=== PATIENT | female | born 1955 | race Caucasian/White ===

== ENCOUNTER 2023-05-15 13:54 | Outpatient (OUT) | payer MEDICARE, SELFPAY ==
--- NOTE | 2023-05-15 13:57 | XR_ITS ---
The [address] [address] Patient Name: ROBINA BANKS MRN: [id number] date: 1955 Sex: F Assigned Patient Location: [facility] Current Patient Location: RAD Accession/Order Number: [id number] Exam Date: 05/15/2023 14:00 Report Date: 05/16/2023 07:02 At the request of: LEÓN DUNLAP Procedure: XR chest 2V EXAMINATION: XR chest 2V HISTORY: Lung cancer C34.90 COMPARISON: 04/20/2023 TECHNIQUE: PA and lateral FINDINGS: LUNGS: Innumerable pulmonary nodules and masses throughout both lungs. Right basilar opacities obscuring the hemidiaphragm and heart border VASCULATURE: No increased pulmonary vasculature. PLEURA: No pneumothorax. Right pleural effusion CARDIAC: No cardiomegaly or cardiac silhouette abnormality. MEDIASTINUM: No visible mass or adenopathy. Aortic atherosclerosis BONES: S-shaped scoliosis of the spine OTHER: Negative. IMPRESSION: Grossly stable innumerable pulmonary nodules and masses Right basilar infiltrate, consolidation and/or subpulmonic effusion Electronically authenticated by: LYNNE ESPINOZA Date: 05/16/2023 07:02
== END 2023-05-15 13:55 ==
LOC: RAD 13:54
PROVIDERS: PCP Family Medicine; Visit Provider Family Medicine
DX: C34.90 Malignant neoplasm of unspecified part of unspecified bronchus or lung (principal)
CPT/HCPCS: 71046

== ENCOUNTER 2023-06-01 15:40 | Outpatient (OUT) | payer MEDICARE, SELFPAY ==
--- NOTE | 2023-06-01 15:44 | XR_ITS ---
[address] [address] Patient Name: ROBINA BANKS MRN: [id number] date: 1955 Sex: F Assigned Patient Location: [facility] Current Patient Location: Accession/Order Number: [id number] Exam Date: 06/01/2023 15:50 Report Date: 06/02/2023 07:28 At the request of: ANNA MORALES Procedure: XR chest 2V EXAMINATION: XR chest 2V HISTORY: Primary lung cancer C34.91, Pleural effusion J90 COMPARISON: 05/15/2023 TECHNIQUE: PA and lateral FINDINGS: LUNGS: Interval increase in size of innumerable pulmonary nodules and masses throughout both lungs. Right basilar opacity occupies approximately 40% of the right hemithorax volume obscuring the hemidiaphragm and heart border, grossly stable VASCULATURE: No increased pulmonary vasculature. PLEURA: No pneumothorax. Suspected right pleural effusion CARDIAC: No cardiomegaly or cardiac silhouette abnormality. MEDIASTINUM: No visible mass or adenopathy. BONES: S-shaped scoliosis. OTHER: Negative. IMPRESSION: Progression of innumerable pulmonary nodules and masses Stable right basilar infiltrate/pleural effusion Electronically authenticated by: LYNNE ESPINOZA Date: 06/02/2023 07:28
== END 2023-06-01 15:41 | disposition home or self-care (01) ==
LOC: RAD 15:40
PROVIDERS: PCP Family Medicine; Visit Provider Nurse Practitioner Family
DX: C34.91 Malignant neoplasm of unspecified part of right bronchus or lung (principal); J90 Pleural effusion, not elsewhere classified
CPT/HCPCS: 71046

== ENCOUNTER 2023-07-19 13:34 | Outpatient (OUT) | payer MEDICARE, SELFPAY ==
--- NOTE | 2023-07-19 13:41 | MR_ITS ---
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 15 mL gadolinium administered FINDINGS: 7 to 8 mm right parietal cortical enhancing lesion seen on image postgad 20. It appears to be slightly smaller than the prior examination suggesting treatment response. Patchy periventricular white matter signal abnormality and chronic small vessel ischemic change again detected No evidence of acute infarct. No acute hemorrhage. Multilevel degenerative disc disease MR/MR head/brain wo/w con IMPRESSION: Slight interval decrease in size of a right cortical parietal lesion presumably metastasis. This suggest treatment responses.. No definite new metastasis. slight motion degradation. Unchanged chronic small vessel ischemic change. Electronically authenticated by: KIMBERLY GAYTAN Date: 07/19/2023 15:42
== END 2023-07-19 13:35 | disposition home or self-care (01) ==
LOC: MRI 13:34
PROVIDERS: PCP Family Medicine; Visit Provider Internal Medicine Hematology & Oncology
DX: C79.31 Secondary malignant neoplasm of brain (principal); C79.49 Secondary malignant neoplasm of other parts of nervous system
CPT/HCPCS: 70553; A9575

== ENCOUNTER 2023-07-21 11:54 | Outpatient (OUT) | payer MEDICARE, SELFPAY ==
--- NOTE | 2023-07-21 12:35 | CT_ITS ---
The [address] [address] Patient Name: ROBINA BANKS MRN: [id number] date: 1955 Sex: F Assigned Patient Location: CT Current Patient Location: CT Accession/Order Number: [id number] Exam Date: 07/21/2023 12:15 Report Date: 07/21/2023 15:31 At the request of: SAYRA MOMIN Procedure: CT chest w con CT chest w con CLINICAL HISTORY: Malignant neoplasm of overlapping sites of right lung COMPARISON: 03/16/2023. 06/01/2023. TECHNIQUE: Axial CT images obtained from lung apices through lung bases, following intravenous administration of 100 mL of Omnipaque 300. Coronal and sagittal MIP reconstructions performed. Dose reduction techniques were achieved by using automated exposure control and/or adjustment of mA and/or kV according to patient size and/or use of iterative reconstruction technique. FINDINGS: Lower thyroid atrophic. No axillary adenopathy. Thoracic spondylosis without acute bony process. Visualized upper abdomen demonstrates cholelithiasis in the gallbladder. Normal sized adrenal glands. Mild cardiomegaly. Coronary artery calcifications. No pericardial effusion. 13 mm short axis pretracheal node present but slightly decreased from prior of 15 mm and February 2023. Additional mediastinal nodes decreased in size. Decreased hilar adenopathy. Dominant medial right upper lobe mass of approximately 5.4 x 3.6 cm previously 6.3 x 6.0 cm. Too many to count diffuse pulmonary parenchymal metastatic lesions are again seen but overall decreased slightly from prior. Left upper lobe central pulmonary nodule on image 23 now measures 17 x 13 mm previously 18 x 17 mm. Central right lower lobe 16 mm nodule on image 33 previously measured 18 mm. Multiple additional nodules have decreased in size. Resolution of previous small right pleural effusion. CT/CT chest w con IMPRESSION: Decreased size of dominant medial right upper lobe mass compared to February 2023. Decreased size of multiple additional pulmonary parenchymal metastatic nodules. Decreasing mediastinal adenopathy. Electronically authenticated by: BUNNY MURRAY Date: 07/21/2023 15:31
== END 2023-07-21 11:55 | disposition home or self-care (01) ==
LOC: CT 11:55
PROVIDERS: PCP Family Medicine; Visit Provider Internal Medicine Hematology & Oncology
DX: C34.81 Malignant neoplasm of overlapping sites of right bronchus and lung (principal)
CPT/HCPCS: 71260; Q9967

== ENCOUNTER 2023-09-14 09:42 | Outpatient (OUT) | payer MEDICARE, SELFPAY ==
[2023-09-14 09:58] LABS: Basophils Absolute Auto 0.1 10^3/uL (0.0-0.1); Basophils Percent Auto 0.7 % (0.2-2.0); Eosinophils Absolute Auto 0.4 10^3/uL (0.0-0.7); Eosinophils Percent Auto 3.5 % (0.9-7.0); Hematocrit 39.7 % (36.0-48.0); Immature Granulocytes Abs Auto 0.08 10^3/uL (0.00-0.03); Immature Granulocytes Pct Auto 0.6 % (0.0-0.5); Lymphocytes Absolute Auto 1.1 10^3/uL (1.2-3.8); Lymphocytes Percent Auto 8.8 % (20.5-60.0); Mean Corpuscular HGB Conc 35.3 g/dL (29.9-35.2); Mean Corpuscular Hemoglobin 31.3 pg (26.7-34.0); Mean Corpuscular Volume 88.8 fL (81.0-99.0); Mean Platelet Volume 9.9 fL (9.5-13.5); Monocytes Absolute Auto 0.6 10^3/uL (0.3-0.8); Monocytes Percent Auto 4.9 % (1.7-12.0); Neutrophils Absolute Auto 10.3 10^3/uL (1.4-6.5); Neutrophils Percent Auto 81.5 % (43.0-75.0); Platelet Count 357 10^3/uL (150-450); Red Blood Count 4.47 10^6/uL (4.20-5.40); Red Cell Distribution Width 15.6 % (11.0-15.0); White Blood Count 12.6 10^3/uL (4.0-11.0)
[2023-09-14 10:08] LABS: Estimated Average Glucose 105 mg/dL; Glycohemoglobin A1C 5.3 % (4.5-6.2)
[2023-09-14 11:01] LABS: Alanine Aminotransferase 44 U/L (14-59); Albumin Globulin Ratio 0.8; Albumin Level 3.2 g/dL (3.4-5.0); Alkaline Phosphatase 68 U/L (46-116); Anion Gap 9.8; Aspartate Amino Transferase 22 U/L (15-37); BUN Creatinine Ratio 24.2; Bilirubin Total 1.1 mg/dL (0.2-1.0); Calcium 9.1 mg/dL (8.5-10.1); Carbon Dioxide 30.2 mmol/L (21.0-32.0); Chloride 99 mmol/L (98-107); Chol HDL Ratio 2.6; Cholesterol 188 mg/dL (<=200); Estimated GFR (African America >60 (>=60); Estimated GFR (Non-African Ame >60 (>=60); Free T3 2.89 pg/mL (2.18-3.98); Globulin 4.2 g/dL; Glucose 90 mg/dL (74-106); HDL Cholesterol 73 mg/dL (40-60); Sodium 135 mmol/L (136-145); Thyroid Stimulating Hormone 0.012 uIU/mL (0.358-3.740); Total Protein 7.4 g/dL (6.4-8.2); Triglycerides 76 mg/dL (<=150); VLDL CHOLESTEROL 15.2 mg/dL
[2023-09-15 11:09] LABS: Insulin 4.7 uIU/mL (2.6-24.9)
== END 2023-09-14 09:43 | disposition home or self-care (01) ==
LOC: LAB 09:42
PROVIDERS: PCP Family Medicine; Visit Provider Family Medicine
DX: E03.9 Hypothyroidism, unspecified (principal); I10 Essential (primary) hypertension; I35.0 Nonrheumatic aortic (valve) stenosis; C34.90 Malignant neoplasm of unspecified part of unspecified bronchus or lung; E78.5 Hyperlipidemia, unspecified; R73.09 Other abnormal glucose; E55.9 Vitamin D deficiency, unspecified; D64.9 Anemia, unspecified
CPT/HCPCS: 36415; 80053; 80061; 82306; 83036; 83525; 83540; 84436; 84443; 84481; 85025

== ENCOUNTER 2023-10-23 12:39 | Outpatient (OUT) | payer MEDICARE, SELFPAY ==
--- NOTE | 2023-10-23 12:45 | MR_ITS ---
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 SEQUENCES: Per routine protocol STUDY QUALITY: Mild motion artifact on several pulse sequences. No evidence of acute infarction. No evidence of unexpected paramagnetic substance deposition. Again, mild to modest symmetric supratentorial and brainstem white matter disease. The previously demonstrated ring-enhancing cortical lesion directly posterior to what is probably the right central sulcus is again demonstrated but is smaller and less convex at its margins today. It measures 5.5 mm No interval intracranial mass. No interval abnormal intracranial enhancement. VESSELS: Signal voids are present in the major intracranial blood vessels. BRAIN VOLUME: Normal for age. VENTRICLES: No hydrocephalus. ORBITS: No acute findings. SELLA/ SUPRASELLAR: No acute findings at relatively thick sections. CP ANGLES: No acute findings at relatively thick sections. UPPER CERVICAL: Multilevel degenerative changes are again demonstrated PARANASAL SINUSES: No air-fluid levels. Essentially clear at MRI MASTOIDS: Essentially clear at MRI CALVARIUM: No acute findings. OTHER: None. MR/MR head/brain wo/w con IMPRESSION: 1. Interval decrease in the size of a enhancing right parietal cortical lesion. 2. No interval intracranial mass or interval abnormal intracranial enhancement. Electronically authenticated by: CAILIN MARTINEZ Date: 10/23/2023 14:29
== END 2023-10-23 12:40 | disposition home or self-care (01) ==
LOC: MRI 12:40
PROVIDERS: PCP Family Medicine; Visit Provider Physician Assistant Medical
DX: C34.91 Malignant neoplasm of unspecified part of right bronchus or lung (principal); E03.9 Hypothyroidism, unspecified; C79.31 Secondary malignant neoplasm of brain
CPT/HCPCS: 70553; A9575

== ENCOUNTER 2024-01-30 15:34 | Outpatient (OUT) | payer MEDICARE, SELFPAY ==
--- NOTE | 2024-01-30 15:39 | MR_ITS ---
The [address] [address] Patient Name: ROBINA BANKS MRN: [id number] date: 1955 Sex: F Assigned Patient Location: MRI Current Patient Location: MRI Accession/Order Number: [id number] Exam Date: 01/30/2024 15:48 Report Date: 01/30/2024 22:12 At the request of: KB FREED Procedure: MR head/brain wo/w con EXAM: MR head/brain wo/w con HISTORY: primary lung ca with mets COMPARISON: MRI brain 10/23/2023, 07/19/2023. TECHNIQUE: Multisequence MRI brain was performed with and without intravenous contrast. FINDINGS: There is no restricted diffusion to suggest acute infarct. There is no midline shift, mass effect, or abnormal extraaxial fluid collections. The previously identified right lateral parietal ring enhancing cortical lesion demonstrates no longer enhancement. There is mild T2/FLAIR signal abnormality in this location (series 7001, image 19). No new lesions are identified. The cortical sulci are mildly enlarged, consistent with age appropriate mild cerebral atrophy. There is no hydrocephalus. Multiple nonspecific scattered foci of T2/FLAIR signal abnormality are identified in the supratentorial white matter and donnell, likely reflect chronic microvascular ischemic changes. The major intracranial flow voids are visualized. The cerebellar tonsils are normal in position. The orbits demonstrate no suspicious enhancement or any focal lesions. The paranasal sinuses show no air-fluid level. The mastoid air cells are clear. The calvarium and extracranial soft tissues are unremarkable. MR/MR head/brain wo/w con IMPRESSION: No acute intracranial abnormality or abnormal intracranial enhancement. Interval continued improvement of previously identified rim-enhancing right parietal metastatic lesion with residual mild T2/FLAIR signal abnormality, as described. No new metastatic lesions identified. Mild chronic microvascular ischemia and involutional changes. Electronically authenticated by: HOMER SCHAFER Date: 01/30/2024 22:12
== END 2024-01-30 15:35 | disposition home or self-care (01) ==
LOC: MRI 15:34
PROVIDERS: PCP Family Medicine; Visit Provider Physician Assistant Medical
DX: C34.91 Malignant neoplasm of unspecified part of right bronchus or lung (principal); C79.31 Secondary malignant neoplasm of brain; E03.9 Hypothyroidism, unspecified
CPT/HCPCS: 70553; A9575

== ENCOUNTER 2024-08-01 13:29 | Outpatient (OUT) | payer MEDICARE, SELFPAY ==
--- NOTE | 2024-08-01 13:33 | MR_ITS ---
The [address] [address] Patient Name: ROBINA BANKS MRN: [id number] date: 1955 Sex: F Assigned Patient Location: MRI Current Patient Location: MRI Accession/Order Number: [id number] Exam Date: 08/01/2024 13:45 Report Date: 08/01/2024 18:52 At the request of: SAYRA MOMIN Procedure: MR head/brain wo/w con EXAM: MR head/brain wo/w con HISTORY: Secondary Malignant Neoplasm Brain COMPARISON: MRI brain 01/30/2024, 10/23/2023, 07/19/2023 TECHNIQUE: Multisequence MRI brain was performed with and without intravenous contrast. FINDINGS: There is no restricted diffusion to suggest acute infarct. There is no midline shift, mass effect, or abnormal extraaxial fluid collections. Redemonstrated is residual small focus of cortical/subcortical T2/FLAIR signal abnormality in the right parietal lobe, at the location of prior enhancing metastatic lesion, stable since 01/30/2024. No associated enhancement is seen. There is no new abnormal parenchymal or leptomeningeal enhancement. There is mild cerebral volume loss. There are nonspecific scattered foci of T2/FLAIR signal abnormality in the donnell and supratentorial white matter, in keeping with chronic microvascular ischemic changes. The major intracranial flow voids are visualized. The cerebellar tonsils are normal in position. The orbits demonstrate no suspicious enhancement or any focal lesions. The paranasal sinuses show no air-fluid level. The mastoid air cells are clear. The calvarium and extracranial soft tissues are unremarkable. MR/MR head/brain wo/w con IMPRESSION: No acute intracranial abnormality. Stable small cortical/subcortical T2/FLAIR signal abnormality in the right parietal lobe, compatible with a treated metastasis. No evidence of new intracranial metastasis. Mild chronic microvascular ischemic and involutional changes. Electronically authenticated by: HOMER SCHAFER Date: 08/01/2024 18:52
== END 2024-08-01 13:30 | disposition home or self-care (01) ==
LOC: MRI 13:29
PROVIDERS: PCP Family Medicine; Visit Provider Internal Medicine Hematology & Oncology
DX: C79.31 Secondary malignant neoplasm of brain (principal)
CPT/HCPCS: 70553; A9575

== ENCOUNTER 2024-11-15 12:38 | Outpatient (OUT) | payer MEDICARE, SELFPAY ==
--- NOTE | 2024-11-15 12:42 | MR_ITS ---
The [address] [address] Patient Name: ROBINA BANKS MRN: [id number] date: 1955 Sex: F Assigned Patient Location: MRI Current Patient Location: MRI Accession/Order Number: [id number] Exam Date: 11/15/2024 12:50 Report Date: 11/15/2024 14:38 At the request of: SAYRA MOMIN Procedure: MR head/brain wo/w con MR head/brain wo/w con, 11/15/2024 12:50 PM EST INDICATION: Non Small Cell Lung Cancer COMPARISON: Prior MRI of the brain dated 01/30/2024 and 08/01/2024 and 05/17/2023 TECHNIQUE: Multiplanar, multisequential MRI images of brain were obtained without injection of contrast. FINDINGS: The cerebral sulci as well as ventricular system are appropriate for age. There is interval decrease in size of signal abnormality within the right parietal lobe likely due to postradiation changes. No abnormal enhancing lesion is noted. There is no restricted diffusion. Hyperintensities on T2 and FLAIR images in the donnell and choudhury radiata and centrum semiovale with sparing of U fibers are nonspecific, statistically most likely consistent with microvascular ischemic changes. There is no intracranial mass, mass effect, midline shift, intra or extra-axial fluid collection or large hemorrhage. Normal flow-void in the intracranial vessels is noted. The visualized portions of orbits, mastoid air cells as well as paranasal sinuses are unremarkable. MR/MR head/brain wo/w con IMPRESSION: No acute intracranial process is noted. No evidence of metastasis. The right parietal signal abnormality is less conspicuous on the current study likely due to posttreatment changes. Electronically authenticated by: MARSHA FELIPE Date: 11/15/2024 14:38
== END 2024-11-15 12:39 | disposition home or self-care (01) ==
LOC: MRI 12:38
PROVIDERS: PCP Family Medicine; Visit Provider Internal Medicine Hematology & Oncology
DX: C34.90 Malignant neoplasm of unspecified part of unspecified bronchus or lung (principal)
CPT/HCPCS: 70553; A9575

== ENCOUNTER 2024-12-13 12:22 | Outpatient (OUT) | payer MEDICARE, SELFPAY ==
--- NOTE | 2024-12-13 12:35 | XR_ITS ---
The [address] [address] Patient Name: ROBINA BANKS MRN: [id number] date: 1955 Sex: F Assigned Patient Location: LAB Current Patient Location: LAB Accession/Order Number: [id number] Exam Date: 12/13/2024 12:41 Report Date: 12/15/2024 09:45 At the request of: LEÓN DUNLAP Procedure: XR chest 2V Chest x-rays, 12/13/2024. HISTORY: History of lung cancer. Shortness of breath. COMPARISON: Chest x-ray, 06/01/2023. FINDINGS: 2 views of the chest were obtained. Heart size appears normal. There is asymmetric elevation of the right hemidiaphragm. No pleural effusion. No pneumothorax. There is diffuse groundglass and consolidative airspace opacification throughout both lungs. XR/XR chest 2V IMPRESSION: 1. There is diffuse groundglass and consolidative airspace opacification throughout both lungs which may be a combination of pulmonary edema and pneumonia. 2. No pleural effusion. No pneumothorax. Electronically authenticated by: ELLI WATERS Date: 12/15/2024 09:45
[2024-12-13 13:00] LABS: Basophils Absolute Auto 0.1 10^3/uL (0.0-0.1); Basophils Percent Auto 0.6 % (0.2-2.0); Eosinophils Absolute Auto 0.5 10^3/uL (0.0-0.7); Eosinophils Percent Auto 4.2 % (0.9-7.0); Hematocrit 39.6 % (36.0-48.0); Hemoglobin 13.6 g/dL (12.0-16.0); Immature Granulocytes Abs Auto 0.17 10^3/uL (0.00-0.03); Immature Granulocytes Pct Auto 1.5 % (0.0-0.5); Lymphocytes Absolute Auto 0.8 10^3/uL (1.2-3.8); Lymphocytes Percent Auto 6.9 % (20.5-60.0); Mean Corpuscular HGB Conc 34.3 g/dL (29.9-35.2); Mean Corpuscular Hemoglobin 31.3 pg (26.7-34.0); Mean Platelet Volume 9.3 fL (9.5-13.5); Monocytes Absolute Auto 0.9 10^3/uL (0.3-0.8); Monocytes Percent Auto 8.2 % (1.7-12.0); Neutrophils Absolute Auto 8.7 10^3/uL (1.4-6.5); Neutrophils Percent Auto 78.6 % (43.0-75.0); Platelet Count 488 10^3/uL (150-450); Red Blood Count 4.35 10^6/uL (4.20-5.40); Red Cell Distribution Width 14.3 % (11.0-15.0); White Blood Count 11.1 10^3/uL (4.0-11.0)
[2024-12-13 13:17] LABS: Alanine Aminotransferase 21 U/L (14-59); Albumin Globulin Ratio 0.6; Albumin Level 2.7 g/dL (3.4-5.0); Alkaline Phosphatase 80 U/L (46-116); Anion Gap 12.9; Aspartate Amino Transferase 46 U/L (15-37); BUN Creatinine Ratio 30.4; Calcium 9.2 mg/dL (8.5-10.1); Carbon Dioxide 27.5 mmol/L (21.0-32.0); Chloride 100 mmol/L (98-107); Estimated GFR (African America >60 (>=60 mL/min/1.73m^2); Estimated GFR (Non-African Ame >60 (>=60 mL/min/1.73m^2); Globulin 4.6 g/dL; Glucose 86 mg/dL (74-106); Potassium 4.4 mmol/L (3.5-5.1); Sodium 136 mmol/L (136-145); Total Protein 7.3 g/dL (6.4-8.2)
== END 2024-12-13 12:23 | disposition home or self-care (01) ==
LOC: LAB 12:23
PROVIDERS: PCP Family Medicine; Visit Provider Family Medicine
DX: E03.9 Hypothyroidism, unspecified (principal); I50.30 Unspecified diastolic (congestive) heart failure; I11.0 Hypertensive heart disease with heart failure
CPT/HCPCS: 36415; 71046; 80053; 83880; 85025

== ENCOUNTER 2025-01-15 12:44 | Outpatient (OUT) | payer MEDICARE, SELFPAY | END 2025-01-15 12:45 | disposition home or self-care (01) | LOC: RAD 12:44 | PROVIDERS: PCP Family Medicine | DX: M81.8 Other osteoporosis without current pathological fracture (principal); T38.0X5A Adverse effect of glucocorticoids and synthetic analogues, initial encounter; M81.0 Age-related osteoporosis without current pathological fracture; M85.80 Other specified disorders of bone density and structure, unspecified site | CPT/HCPCS: 77080 ==

== ENCOUNTER 2025-02-05 07:35 | Outpatient (RCR) | payer MEDICARE, SELFPAY ==
[2025-02-05 13:40] VITALS: BP 122/70; PULSE 65; TEMP 36.5; O2SAT 97
[2025-02-05] MEDS: DENOSUMAB 60 MG/ML SYRINGE SUBQ (13:45)
== END 2025-02-17 10:30 | disposition home or self-care (01) ==
LOC: INF 07:35
PROVIDERS: PCP Family Medicine; Visit Provider Family Medicine
DX: M85.80 Other specified disorders of bone density and structure, unspecified site (principal)
CPT/HCPCS: 96372; J0897

== ENCOUNTER 2025-02-20 13:20 | Outpatient (OUT) | payer MEDICARE, SELFPAY | END 2025-02-20 13:21 | disposition home or self-care (01) | LOC: US 13:20 | PROVIDERS: PCP Family Medicine | DX: I35.0 Nonrheumatic aortic (valve) stenosis (principal); R93.89 Abnormal findings on diagnostic imaging of other specified body structures; I25.10 Atherosclerotic heart disease of native coronary artery without angina pectoris; I79.8 Other disorders of arteries, arterioles and capillaries in diseases classified elsewhere | CPT/HCPCS: 93880 ==

== ENCOUNTER 2025-05-09 12:48 | Outpatient (OUT) | payer MEDICARE, SELFPAY ==
--- OUTSIDE RECORDS SUMMARY | 2025-02-21 12:08 | XMS_ITS ---
Author Organization The [facility] in [place] Address [address] [place] [address] Care Team Providers Care Esl Teacher Name Role Phone Reji Borges Primary Care Provider [phone] REASON FOR VISIT rf xanax Medications Medication SIG (Take, Route, Fr equency, Duration) Notes Start Date End Date Status ALPRAZolam 0.5 MG 1/2 tablet as needed Orally TID for 30 days PRN 02/23/2025 Active Encounters Encounter Location Date Provider Diagnosis [facility] [address] [place] [address] 02/21/2025 Reji Borges Hypothyroidism E03.9 Assessments Encounter Date Diagnosis (ICD Code) Assessment Notes Treatment Notes Treatment Clinical Notes Section Notes 02/21/2025 Hypothyroidism (ICD-10 - E03.9) Plan Of Treatment Medication Medication Name Sig Start Date Stop Date Notes ALPRAZolam 0.5 MG 1/2 tablet as needed Orally TID for 30 days 02/23/2025 PRN Next Appt Details Provider Name:Reji Borges, 01:00:00 PM, [address] [place], [address], Progress Notes * Jackie MCCABEDOB: [birth year] (69 yo F)Acc No.[id number]:02/21/2025 Patient: Shanita Jackie RICHARDS :1955 A ge:69 Y S ex:Female Address:[address] [facility], [place] , [place] [address] * Refills Refill ALPRAZolam Tablet, 0.5 MG, Orally, 15, 1/2 tablet as needed, TID, 30 days, Refills=0 * true * Date: Generated for Drea dupree/Kristian/Marciitting on: 0 05/09/2025 12:24 PM EDT
--- OUTSIDE RECORDS SUMMARY | 2025-03-24 04:01 | XMS_ITS ---
Author Organization The [facility] in [place] Address [address] [place] [address] Care Team Providers Care Test Preparation Tutor Name Role Phone Reji Borges Primary Care Provider [phone] REASON FOR VISIT refill Medications Medication SIG (Take, Route, Fr equency, Duration) Notes Start Date End Date Status ALPRAZolam 0.5 MG 1/2 tablet as needed Orally TID for 30 days PRN 03/24/2025 Active Encounters Encounter Location Date Provider Diagnosis [facility] [address] [place] [address] 03/24/2025 Reji Borges Hypothyroidism E03. 9 Assessments Encounter Date Diagnosis (ICD Code) Assessment Notes Treatment Notes Treatment Clinical Notes Section Notes 03/24/2025 Hypothyroidism (ICD-10 - E03.9) Plan Of Treatment Medication Medication Name Sig Start Date Stop Date Notes ALPRAZolam 0.5 MG 1/2 tablet as needed Orally TID for 30 days 03/24/2025 PRN Next Appt Details Provider Name:Reji Borges, 01:00:00 PM, [address] [place], [address], Progress Notes * Jackie MCCABEDOB: [birth year] (69 yo F)Acc No.[id number]:03/24/2025 Patient: Shanita Jackie RICHARDS :1955 A ge:69 Y S ex:Female Address:[address] [facility], [place] , [place] [address] * Refills Refill ALPRAZolam Tablet, 0.5 MG, Orally, 15, 1/2 tablet as needed, TID, 30 days, Refills=0 * true * Date: Generated for Drea dupree/Kristian/Marciitting on: 0 05/09/2025 12:25 PM EDT
--- OUTSIDE RECORDS SUMMARY | 2025-04-23 07:23 | XMS_ITS ---
Author Organization The [facility] in [place] Address [address] [place] [address] Care Team Providers Care Appliance Servicer Name Role Phone Reji Borges Primary Care Provider [phone] REASON FOR VISIT Xanax refill Medications Medication SIG (Take, Route, Fr equency, Duration) Notes Start Date End Date Status ALPRAZolam 0.5 MG 1/2 tablet as needed Orally TID for 30 days PRN 04/23/2025 Active Encounters Encounter Location Date Provider Diagnosis [facility] [address] [place] [address] 04/23/2025 Reji Borges Hypothyroidism E03. 9 Assessments Encounter Date Diagnosis (ICD Code) Assessment Notes Treatment Notes Treatment Clinical Notes Section Notes 04/23/2025 Hypothyroidism (ICD-10 - E03.9) Plan Of Treatment Medication Medication Name Sig Start Date Stop Date Notes ALPRAZolam 0.5 MG 1/2 tablet as needed Orally TID for 30 days 04/23/2025 PRN Next Appt Details Provider Name:Reji Borges, 01:00:00 PM, [address] [place], [address], Progress Notes * Jackie MCCABEDOB: [birth year] (69 yo F)Acc No.[id number]:04/23/2025 Patient: Shanita Jackie RICHARDS :1955 A ge:69 Y S ex:Female Address:[address] [place] [address], [facility] , [place] [address] * Refills Refill ALPRAZolam Tablet, 0.5 MG, Orally, 15, 1/2 tablet as needed, TID, 30 days, Refills=0 * true * Date: Generated for Drea dupree/Kristian/Chi on: 0 05/09/2025 12:25 PM EDT
--- OUTSIDE RECORDS SUMMARY | 2025-04-28 15:00 | XMS_ITS | Encounter Summary ---
Author Organization [facility] Address [address] [place] [address] Care Team Providers Care Energy Trading Analyst Name Role Phone Nikolay Borges MD Primary Care Provider + Elina Raza APRN.MANAGER COUNTRY Unavailable [phone] Alexx Nguyen MD Unavailable [phone] Vianney Scherer RN Unavailable [phone] Unavailable [phone] Celina Hong AUDIOVISUAL AIDS TECHNICIAN Unavailable Unavailable Source Comments In the event this information is protected by the Federal Confidentiality of Alcohol and Drug AbusePatient Records regulations: The Federal rules restrict any use of the information to criminally investigate or prosecute any alcohol or drug abuse patient.[facility] Reason for Referral * MRI/CT (Routine) - New Request Specialty Diagnoses / Procedures Referred By Contac t Referred To Contact MR IMAGING Diagnoses Metastasis to brain (HCC) Procedures MRI BRAIN WO/W IVCON MRI BRAIN BRAIN STEM W/O W/CONTRAST MATERIAL Antoinette Crenshaw PA-C [address] [place] [address] [place] [address] Phone: tel: fax: [place] [address] Referral ID Status Reason Start Date Expiration Date Visits Requested Visits Authorized [id number] New Request Auto-Generat ed Referral 04/28/2025 05/28/2026 1 1 * Diagnostic Procedure Only (Routine) - Authorized Specialty Diagnoses / Procedures Referred By Contac t Referred To Contact MOLECULAR & FUNCTIONAL IMAGING Diagnoses Malignant neoplasm of unspecified part of unspecified bronchus or lung (HCC) Procedures NM PET/CT SKULL-THIGH SUBSEQUENT PET IMAGING CT ATTENUATION SKULL BASE MID-THIGH Antoinette Crenshaw PA-C [address] [place] [address] [place] [address] Phone: tel: fax: Molecular Imaging [address] [place] [address] Phone: tel: Referral ID Status Reason Start Date Expiration Date Visits Requested Visits Authorized [id number] Authorized Auto-Generat ed Referral 04/28/2025 05/28/2026 1 1 Reason for Visit * Reason Comments Lung Cancer Encounter Details Date Type Department Care Team (Latest Contact Info) Description 04/28/2025 3:00 PM EDT Visit (SP) Office Hematology/Oncology [address] [place] [address] [place] [address] Antoinette Crenshaw PA-C [address] [place] [address] [place] [address] 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, right (HCC) (Primary Dx); Malaise and fatigue; Metastasis to brain (HCC); Hypothyroidism due to medication; Malignant neoplasm of unspecified part of unspecified bronchus or lung (HCC) Social History Tobacco Use Types Packs/Day Years Used Date Smoking Tobacco: Former Cigarettes 1 40 1 2019 Passive Smoke Exposure: Past Smokeless Tobacco: Never Alcohol Use Standard Drinks/Week Comments Not Currently 0 (1 standard drink = 0.6 oz pur e alcohol) PHQ-2 Answer Date Recorded PHQ-2 score 0 10/21/2024 Area Deprivation Index Answer Date Agus rded National Score (1-100), lower number is lower ri sk 86 05/02/2023 State Score (1-10), lower number is lower risk 8 05/02/2023 Data from: https://www.neighborhoodatlas.medicine.[facility]/. Last address used for calculation [address] 05/02/2023 Comments No Sex and Gender Information Value Date Recorded Sex Assigned at Female 05/03/2023 12:14 PM EDT Legal Sex Female 11:13 AM EDT Gender Identity Not on file Sexual Orientation Not on file documented as of this encounter Last Filed Vital Signs Vital Sign Reading Time Taken Comments Blood Pressure 129/72 04/28/2025 2:57 PM EDT Pulse 69 04/28/2025 2:57 PM EDT Temperature 36.1 C (97 F) 04/28/2025 2:57 PM EDT Respiratory Rate 16 04/28/2025 2:57 PM EDT Oxygen Saturation 90% 04/28/2025 2:57 PM EDT Inhaled Oxygen Concentration - - Weight 60.5 kg (133 lb 6.1 oz) 04/28/2025 2:57 P M EDT Height 162 cm (5' 3.78 ) 04/28/2025 2:57 PM EDT Body Mass Index 23.05 04/28/2025 2:57 PM EDT documented in this encounter Progress Notes * Antoinette Crenshaw PA-C - 04/28/2025 2:37 PM EDT PATIENT NAME: Jackie Mccabe DATE: 03/10/2025 PRIMARY CARE PHYSICIAN: Dr. Nikolay Borges OTHER PHYSICIANS: Dr. Wu, Dr. Roche, Dr. Balderas, Dr. Daniel Neville, Dr. Castellon, Dr. Crissy Juan, Dr.Saju Gonzales, Dr. Montejo ([facility] Portions of this encounter note have been copied from the note from 03/10/2025 and has been updated where appropriate, and reflect my current medical decision making from today. CC: This is a 69 year old female with metastatic lung cancer, seen for scheduled follow-up and continued treatment. INTERIM HISTORY: Since the patient's last visit here she has been doing well. She is did undergo a TAVR on 04/14/2025. Post-op she did develop a new LBBB with QRS duration of 182s. Eventually she was stable ans end home with a 30 day monitor. She was discharged 04/17/2025. She is now on aspirin and they stopped her metoprolol 50 mg. She has recovered now and is ready to resume treatment with immunotherapy. Denies any new issues. She does have one sore on her lower lip that is slowly healing. Otherwise she denies diarrhea, shortness of breath, rash or other complaints. MEDICATIONS: Current Outpatient Medications Medication Sig furosemide (LASIX) 40 mg tablet Take 40 mg by mouth. budesonide, enteric coated (ENTOCORT EC) 3 mg 24 hr capsule Take 3 mg by mouth once daily. 3 tabs in am daily potassium chloride SR (MICRO-K) 10 mEq CR capsule TAKE 2 CAPSULES BY MOUTH EVERY DAY omeprazole (PRILOSEC) 40 mg capsule Take 40 mg by mouth once daily. diphenoxylate-atropine (LOMOTIL) 2.5-0.025 mg per tablet TAKE 1 TABLET BY MOUTH BEFORE MEALS AND ATBEDTIME NEEDED KAOPECTATE, ATTAPULGITE, ORAL Take by mouth as needed. cevimeline (EVOXAC) 30 mg capsule TAKE 1 CAPSULE BY MOUTH UP TO 3 TIMES DAILY NEEDED FOR DRYNESS hydrOXYchloroQUINE (PLAQUENIL) 200 mg tablet TAKE 1 TAB BY MOUTH DAILY WITH FOOD.SUNSCREEN WHEN OUTDOORS.SEE EYE DR EVERY 6-12 MONTHS ON MED. diphenhydrAMINE 12.5 mg/5 mL lidocaine visc 2% MAALOX 200-200-20 mg/5 mL nystatin prednisoLONE 15 mg/5 mL oral liquid 1:1:1:1:1 (CPD) Swish and spit 5 mL by mouth every 6 hours as needed. sodium chloride soluble tablet 1 g Take 1 tablet by mouth two times a day. metoprolol tartrate, short acting, (LOPRESSOR) 50 mg tablet 25 mg two times a day. triamcinolone (KENALOG IN ORABASE) 0.1 % paste ALPRAZolam (XANAX) 0.5 mg tablet 1/2 tablet as needed Orally TID for 30 days levothyroxine (SYNTHROID) 75 mcg tablet Take 1 tablet by mouth every afternoon. citalopram (CELEXA) 20 mg tablet Take 20 mg by mouth. traMADol (ULTRAM) 50 mg tablet Take 50 mg by mouth every 6 hours as needed for pain. cholecalciferol (VITAMIN D3) 50 mcg (2,000 unit) tablet Take 2,000 Units by mouth once daily. liothyronine (CYTOMEL) 25 mcg tablet Take 25 mcg by mouth once daily. No current facility-administered medications for this visit. ALLERGIES: ALLERGIES Allergen Reactions Ciprofloxacin Rash PAST MEDICAL HISTORY: PAST MEDICAL HISTORY Diagnosis Date Benign essential HTN Chest pain Depression Foot pain H/O carotid stenosis Hypothyroidism Insomnia Lung cancer (HCC) 04/[address] Wu Near syncope PAD (peripheral artery disease) Phlebitis Primary osteoarthritis involving multiple joints PAST SURGICAL HISTORY: PAST SURGICAL HISTORY Procedure Laterality Date BIOPSY LUNG CYSTOSCOPY EXC PAROTID TUMOR; LAT W/DISSECTION NRV 2006 ROTATOR CUFF REPAIR Right 2002 THORACENTESIS TUBAL LIGATION FAMILY HISTORY: FAMILY HISTORY Problem Relation Age of Onset Ischemic Heart Disease Mother Diabetes Mother Stroke Mother Colon Cancer Father Systemic Lupus Erythematosus Sister Ischemic Heart Disease Sister Systemic Lupus Erythematosus Niece SOCIAL HISTORY: Social History Tobacco Use Smoking status: Former Current packs/day: 0.00 Average packs/day: 1 pack/day for 40.0 years (40.0 ttl pk-yrs) Types: Cigarettes Start date: 1979 Quit date: 2020 Years since quittin.4 Passive exposure: Past Smokeless tobacco: Never Vaping Use Vaping status: Never Used Substance Use Topics Alcohol use: Not Currently Drug use: Not Currently REVIEW OF SYSTEMS: General: No weight loss, malaise or fevers. HEENT: Negative for frequent or significant headaches. No changes in hearing or vision, no nose bleeds or other nasal problems. +mouth soreness Respiratory: Negative for cough or wheezing. Positive chronic SOB - unchanged. Cardiovascular: Negative for chest pain, leg swelling or palpitations. GI: Negative for abdominal discomfort, blood in stools or black stools. Diarrhea resolved. Formed stools. : No history of dysuria, frequency or incontinence. Musculoskeletal: Negative for joint pain or swelling, back pain and muscle pain. Skin: Negative for lesions, rash and itching. Hematology/Lymphology: Negative for prolonged bleeding, bruising easily or swollen nodes. Neuro: No history of headaches, syncope, paralysis, seizures or tremors. PHYSICAL EXAM: BP 129/72 Pulse 69 Temp 36.1 ??C (97 ??F) (Temporal) Resp 16 Ht 162 cm (5' 3.78 ) Wt 60.5 kg (133 lb 6.1 oz) SpO2 90% BMI 23.05 kg/m?? ECOG 1 General: Alert and oriented, no distress, pleasant and cooperative. Neck: incision is healing Mouth: blister to lower lip Heart: Regular, normal S1 and S2, no murmurs, rubs, or gallops Lungs: Clear to auscultation bilaterally Extremities: Feet/ankles without edema PATHOLOGY: 05/09/2023 EBUS biopsy and right thoracentesis A -PLEURAL FLUID RIGHT Positive for malignant cells. Adenocarcinoma (see comment). B - EBUS TRANSBRONCHIAL FINE-NEEDLE ASPIRATION - 4R Positive for malignant cells. Adenocarcinoma with marked necrosis (see comment). C - EBUS TRANSBRONCHIAL FINE-NEEDLE ASPIRATION - RIGHT UPPER LOBE MASS Positive for malignant cells. Adenocarcinoma (see comment). Immunohistochemistry for PD-L1 expression Tumor Cells Positive: 100% Lung cancer hotspot gene panel: BRAF - No variant detected esophagitis. EGFR - No variant detected [Reference Sequence: ([id number])]. HER2 (ERBB2) - No variant detected [Reference Sequence: ([id number])]. KRAS - A sequence change: c.34G>T (p.Flu03Ref) in exon 2 was detected at approximately 5% allelic proportion ([place] coverage [place] change [address]) [Reference Sequence: ([id number])]. MET - No variant detected [Reference Sequence: ([id number])]. LABS: Hemoglobin (g/dL) Date Value 04/22/2025 13.0 Hematocrit (%) Date Value 04/22/2025 37.1 WBC (k/uL) Date Value 04/22/2025 8.34 Platelet Count (k/uL) Date Value 04/22/2025 373 RADIOLOGY/OTHER STUDIES: 11/15/2024 MRI Brain Impression: No acute intracranial process is noted. No evidence of metastasis. The right parietal signal abnormality is less conspicuous on the currentstudy likely due to posttreatment changes. 2024 PET scan IMPRESSION: Since 07/24/2024, PRIMARY DISEASE SITE: * Medial right upper lung lobe masslike consolidation with stable to minimally increased uptake, which may be related to posttreatment changes from the recent radiation therapy. Suggest follow-up evaluation, at a clinically suitable interval. RAMIRO DISEASE: * No metabolically active regional lymphadenopathy. METASTATIC DISEASE: * Multiple bilateral pulmonary nodules, some of which demonstrate mild increased metabolic uptake compared to prior, and may be due to persistent low-grade metastatic disease and/or inflammation; attention on follow-up. * Decrease in metabolic activity of multiple mildly metabolically active nonenlarged cervical lymph nodes, favored to be reactive, although metastatic disease needs to be excluded on follow-up. ADDITIONAL FINDINGS: * Progressively increasing segmental proximal-mid thoracic esophageal uptake may be due to esophagitis/GERD, neoplastic process is not entirely excluded. Clinical correlation regarding upper endoscopy. * Lung nodule(s) measuring less than 8 mm without increased metabolic activity. However, the nodule(s) may be below may be resolution of PET. Continue CT surveillance as warranted clinically. 11/01/2024 [place] [place] Esophagitis. Severe hemorrhagic gastritis with diffuse atrophy. 1 cm cratered ulcer with clean basein the pylorus of the stomach. Biopsy consistent with esophagitis and gastritis. H. pylori negative. 11/01/2024 [place] Small internal hemorrhoids. Normal colon, random biopsies obtained. Minimal patchy erythema in the terminal ileum. Biopsy consistent with colitis. 08/01/2024 MRI brain ([facility]) IMPRESSION: No acute intracranial abnormality. Stable small cortical/subcortical T2/FLAIR signal abnormality inthe right parietal lobe, compatible with a treated metastasis. No evidence of new intracranial metastasis. Mild chronic microvascular ischemic and involutional changes. 07/24/2024 PET scan IMPRESSION: Compared to 02/02/2024, PRIMARY DISEASE SITE: * Slight interval increased uptake in the medial right upper lobe 3.7 cm masslike consolidation. Follow-up FDG PET/CT and/or tissue sampling, as clinically indicated. ACTIONABLE RESULT RAMIRO DISEASE: * No new/worsening metabolically active regional lymphadenopathy. METASTATIC DISEASE: * Multiple bilateral pulmonary nodules without significantly increased uptake. 02/02/2024 PET scan IMPRESSION: HEAD/NECK: * No FDG avid neoplastic process. CHEST: * Relatively stable mildly hypermetabolic residual right medial lung mass. * Multiple bilateral lung nodules similar in distribution to the previous PET scan with low-level uptake. ABDOMEN/PELVIS: * No FDG avid neoplastic process. MUSCULOSKELETAL: * No FDG avid neoplastic process. 01/30/2024 Brain MRI ([facility]) No acute intracranial abnormality or abnormal intracranial enhancement. Interval continued improvement of previous identified rim-enhancing right parietal metastatic lesion with residual mild T2/FLAIR signal. No new metastatic lesions identified. 10/31/2023 PET scan IMPRESSION: 1. HEAD and NECK: No evidence of focal uptake to suggest FDG avid neoplastic process.. 2. CHEST: Significant improvement of FDG avid bilateral numerous lung lesions seen on prior. Few remain but with minimal uptake. This is indicative of very good response to treatment. 3. ABDOMEN/PELVIS: No evidence of focal uptake to suggest FDG avid neoplastic process.. 4. EXTREMITIES/SKELETON: No evidence of focal uptake to suggest FDG avid neoplastic process. 10/23/2023 MRI brain ([facility]) Interval decrease in the size of enhancing right parietal cortical lesion. Current measurement is 5.5 mm. No interval intracranial mass or abnormal intracranial enhancement. 07/21/2023 CT chest ([facility]) Decreased size of dominant medial right upper lobe mass compared to February 2023. Decreased size of multiple additional pulmonary parenchymal metastatic nodules. Decrease mediastinal lymphadenopathy. 07/19/2023 MRI brain ([facility]) Slight interval decrease in size of the right cortical parietal lesion, presumably metastasis. This suggest treatment response. No definite new metastases. 06/01/2023 Chest x-ray ([facility]) Progression of innumerable pulmonary nodules and masses. Stable right basilar infiltrate/pleural effusion. 05/17/2023 MRI brain [place] There is a 15 mm peripherally enhancing mass in the lateral aspect of the right parietal lobe with a small amount of surrounding edema. This is suspicious for intracranial metastatic disease. 05/04/2023 PET scan IMPRESSION: 1. HEAD and NECK: FDG avid right supraclavicular lymphadenopathy is consistent with metastases. 2. CHEST: FDG avid soft tissue mass in the medial right upper lobe is consistent with neoplastic process. There are numerous pulmonary nodules with increased FDG uptake, consistent with metastases. Moderate right pleural effusion. There are multiple pleural nodules with increased FDG uptake, consistent with metastases. Mediastinal and hilar lymphadenopathy is consistent with metastases. 3. ABDOMEN/PELVIS: No evidence of focal uptake to suggest FDG avid neoplastic process.. 4. EXTREMITIES/SKELETON: No evidence of focal uptake to suggest FDG avid neoplastic process. 03/16/2023 CT chest ([facility]) Large right perihilar mass suspected malignancy. Numerous nodules throughout the lungs compatible with metastatic disease. Mild mediastinal and likely right hilar adenopathy. Marked atherosclerotic coronary artery disease. ASSESSMENT/PLAN: 1. 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, right (HCC) - ICD9: 162.9, ICD10: C34.91 (primary diagnosis) Initial chest x-ray 03/10/2023 was abnormal indicating a large right upper lobe mass. Subsequent chest CT 03/16/2023 revealed a 7.1 x 6.9 right upper lobe mass with enlarged right hilar and mediastinallymph nodes, as well as multiple pulmonary nodules suspicious for metastases. Initial evaluation (bronchoscopic biopsy and CT directed lung biopsy per Dr. Wu) was nondiagnostic. PET scan 05/04/2023revealed a large right upper lobe primary tumor with regional adenopathy, multiple lung metastases,and a malignant right pleural effusion. EBUS biopsy and right thoracentesis 05/09/2023 confirmed adenocarcinoma. PD-L1 100%, otherwise no actionable mutations. After the diagnosis was confirmed it waselected to start systemic treatment with single agent pembrolizumab, with plans to give 200 mg IV every 3 weeks. The patient received cycle 1 on 05/22/2023. Shortly after treatment started the patient's clinical symptoms improved significantly. Follow-up chest CT 07/21/2023 (after 3 cycles) significantly improved. Single agent pembrolizumab continued. Labs obtained 07/03/2023 revealed increased LFTs consistent with immunotherapy- induced transaminitis.Prednisone 40 mg daily started 07/13/2023. LFTs improved and the prednisone subsequently was weaned.July 2023 the patient developed immunotherapy induced diarrhea. Diarrhea improved with supportive measures. Follow-up PET scan 10/31/2023 significantly improved. Treatment with single agent pembrolizumab continued. When seen 01/29/2024 the patient complained of severe dry mouth, mouth sores, difficulties eating, and weight loss. Prednisone increased to 40 mg daily. Labs were positive for QUINCY and SSB, suggesting immunotherapy induced Sjogren/sicca syndrome. Restaging MRI brain and PET scan stable, and pembrolizumab continued. The patient was referred to [facility] rheumatology (Dr. Juan), and with supportive measuresher mouth pain and associated symptoms improved. On pembrolizumab the patient had persistent diarrhea despite continuation of low-dose prednisone. PET scan 07/24/2024 revealed slight growth of the right upper lobe primary, otherwise no evidence of disease. She was referred to radiation oncology and received palliative radiation therapy to the right lung mass 08/28/2024 through 09/17/2024. Due to persistent diarrhea pembrolizumab held 08/19/2024. EGD/colonoscopy 11/01/2024 revealed evidence of esophagitis, gastritis, and colitis. Patient started budesonide per GI and symptoms improved. Pembrolizumab resumed 12/09/2024. Currently stable in regards to lung cancer. We will proceed with pembrolizumab today. We will restage with a PET scan in [address] Nguyen back in 3 weeks for labs, review of the PET scan and continue with treatment if stable. If the patient develops disease progression on immunotherapy other treatment options would include KRAS G12C targeted therapy or standard chemotherapy. 2. Metastasis to brain (HCC) - ICD9: 198.3, ICD10: C79.31 Baseline brain MRI 05/17/2023 revealed a 15 mm lesion in the right parietal lobe consistent with brain metastasis from primary lung cancer. The patient was referred to [facility] neurosurgery to evaluate forgamma knife, which subsequently was scheduled. However, due to breathing difficulties lying flat the patient elected to hold off on the procedure. Follow-up brain MRI 07/19/2023 (after 3 cycles of pembrolizumab) improved. Subsequent brain MRIs have improved, most recently 11/15/2024. Currently the patient is clinically stable and essentially asymptomatic. Will continue to monitor with serial brainMRI every 6 months. Next scan due April 2025. I have ordered a repeat brain MRI to be done before her next visit. She will be referred back to [facility] neurosurgery if her brain metastases worsen. 3. Acquired hypothyroidism - ICD9: 244.9, ICD10: E03.9 The patient has a long history of hypothyroidism, on Synthroid plus Cytomel per PCP. Currently stable. Continue management per PCP. 4. Primary hypertension - ICD9: 401.9, ICD10: I10 Stable on current medications, continue management per PCP. 5. Aortic valve stenosis - ICD9: V12.59, ICD10: Z86.79 The patient has a long history of AV stenosis. Clinically worsening with evidence of CHF. S/P TAVR procedure on 04/14/25 and new LBBB currently wearing a monitor. Continue management per PCP/cardiothoracic surgery. 6. Arthritis - ICD9: 716.90, ICD10: M19.90 Diffuse joint pain secondary to osteoarthritis. Status post right total hip arthroplasty [place] [facility] [place] 2022. Status post left total knee arthroplasty at [facility] January 2023. Currently minimally symptomatic. Continue management per PCP/orthopedics 7. Positive QUINCY Positive QUINCY in February 2022. Initial rheumatologic evaluation unremarkable. January 2024 the patient developed increasing dry mouth and mouth sores. 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 Improved on current medications. Continue management per [facility] rheumatology (Dr. Juan). 8. Colitis - ICD9: 558.9, ICD10: K52.9 Since July 2023 the patient has had intermittent diarrhea while receiving immunotherapy. Improved with intermittent steroid treatment. EGD/colonoscopy 11/01/2024 revealed evidence of esophagitis,gastritis, and colitis. Patient started budesonide November 2024 and symptoms improved. Currently stable. Continue management per [facility]. Antoinette Crenshaw PA-C CC: Dr. Montejo, [facility] [place]. Roche, [facility] cardiology I spent a total of 48 minutes on the date of the service which included preparing to see the patient, [id number] patient care, completing clinical documentation, obtaining and/or reviewing separately obtained history, performing a medically appropriate examination, counseling and educating the pat ient/family/caregiver, ordering medications, tests, or procedures, communicating with other HCPs (not separately reported), independently interpreting results (not separately reported), communicatingresults to the patient/family/caregiver, and care coordination (not separately reported). documented in this encounter Plan of Treatment Upcoming Encounters Date Type Department Care Team (Latest Contact Info) Description 05/14/2025 1:30 PM EDT Appointment Radiology Pet CT [address] [place] [address] [place] [address] Pet scan prior to follow up 05/22/2025 12:45 PM EDT Office Visit [facility] [address] [place] [address] 3 week follow up [employer]tr[facility] 05/22/2025 1:00 PM EDT Visit (SP) Office Hematology/Oncology [address] [place] [address] Alexx Nguyen MD [address] [place] [address] 3 week follow up [place]tr[place] 05/22/2025 1:30 PM EDT [facility] Hematology/Oncology [address] [place] [address] 3 week follow up [place]tr[place] 12/29/2025 1:40 PM [facility] Rheumatology [address] [facility] [address] [place], [place] [id number] Crissy Juan MD [address] [facility] [address] [place], [place] [id number] Follow up visit for sjogrens/osteopenia /osteoarthritis in 6-12months (ok for virtual or in person) Scheduled Orders Name Type Priority Associated Diagnoses Orde r Schedule NM PET/CT SKULL-THIGH SUBSEQUENT Radiology Routine Malignant neoplasm of unspecified part of unspecified bronchus or lung (HCC) 1 Occurrences starting 04/28/2025 until 05/28/2026 MRI BRAIN WO/W IVCON Radiology Routine Metastasis to brain (HCC) 1 Occurrences starting 04/28/2025 until 05/28/2026 documented as of this encounter Visit Diagnoses Diagnosis 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, right (HCC)- Primary Malaise and fatigue Other malaise and fatigue Metastasis to brain (HCC) Secondary malignant neoplasm of brain and spinal cord Hypothyroidism due to medication Malignant neoplasm of unspecified part of unspecified bronchus or lung (HCC) documented in this encounter Care Teams Energy Trading Analyst Relationship Specialty Start Date End Date Nikolay Borges MD PCP - General Family Medicine 11/27/15 Elina Raza APRN.MANAGER COUNTRY [address] [place] [address] [address] [place], [place] [id number] Nurse Practitioner Hematology/Oncology 05/17/23 Alexx Nguyen MD [address] [place] [address] [place] [address] Physician Hematology/Oncology 05/17/23 Vianney Scherer, MIGUEL [address] [place] [address] [place] [address] Specialty Sewer Pipe Layer Helper Hematology/Oncology 05/17/[address] [place] [address] [place] [address] Registered Dietitian Nutrition 05/28/24 Celina Hong LSW Surgery Tech 09/23/24 documented as of this encounter
--- OUTSIDE RECORDS SUMMARY | 2025-04-28 15:30 | XMS_ITS | Encounter Summary ---
Author Organization [facility] Address [address] [place] [id number] Care Team Providers Care Insurance Marketing Rep Name Role Phone Nikolay Borges MD Primary Care Provider + Elina Raza APRN.REMOTE BROADCAST ENGINEER Unavailable [phone] Alexx Nguyen MD Unavailable [phone] Vianney Scherer RN Unavailable [phone] Unavailable [phone] Celina Hong ESTHETICIAN/OWNER Unavailable Unavailable Source Comments In the event this information is protected by the Federal Confidentiality of Alcohol and Drug AbusePatient Records regulations: The Federal rules restrict any use of the information to criminally investigate or prosecute any alcohol or drug abuse patient.[facility] Reason for Visit * [place] Prior Authorization (Routine) - Authorized Specialty Diagnoses / Procedures Referred By Contac t Referred To Contact Diagnoses 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, right (HCC) Alexx Nguyen MD [address] [place] [address] [place] [address] Phone: tel: fax: Hematology/Oncology [facility] [place] [address] Phone: tel: fax: Referral ID Status Reason Start Date Expiration Date V isits Requested Visits Authorized [id number] Authorized 05/15/2023 08/13/2023 99 99 Encounter Details Date Type Department Care Team (Latest Contact Info) Description 04/28/2025 3:30 PM EDT [facility] Center Hematology/Oncology [address] [place] [address] 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 Last address used for calculation [address] 05/02/2023 Comments No Sex and Gender Information Value Date Recorded Sex Assigned at Female 05/03/2023 12:14 PM EDT Legal Sex Female 11:13 AM EDT Gender Identity Not on file Sexual Orientation Not on file documented as of this encounter Plan of Treatment Upcoming Encounters Date Type Department Care Team (Latest Contact Info) Description 05/14/2025 1:30 PM EDT Appointment Radiology Pet CT [address] [place] [address] Pet scan prior to follow up 05/22/2025 12:45 PM EDT Office Visit [facility] [address] [place] [address] 3 week follow up Jessatruda 05/22/2025 1:00 PM EDT Visit (SP) Office Hematology/Oncology [address] [place] [address] Alexx Nguyen MD [address] [place] [address] 3 week follow up Keytruda 05/22/2025 1:30 PM EDT Infusion Center Hematology/Oncology [address] [place] [place], [place] [id number] 3 week follow up Keytruda 12/29/2025 1:40 PM [facility] Rheumatology [address] [facility] [place] [address] Crissy Juan MD [address] [facility] [place] [address] Follow up visit for sjogrens/osteopenia /osteoarthritis in 6-12months (ok for virtual or in person) documented as of this encounter Visit Diagnoses Diagnosis 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, right (HCC)- Primary documented in this encounter Administered Medications Inactive Administered Medications - up to 3 most recent administrations Medication Order MAR Action Action Date Dose Rate Site pembrolizumab 200 mg in NaCl 0.9% 66 mL (KEYTRUDA) 200 mg, INTRAVENOUS, Administer over 30 Minutes, ONCE, 1 dose, On Mon04/28/25 at 1530, Approx Total Volume: 66 mL EXP: 05/02/2025 1535 Refrigerated Administer with 0.2 micron filter.Indications: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, right (HCC) New Bag/Syringe/Bottle 04/28/2025 3:47 PM EDT 200 mg documented in this encounter Care Teams Insurance Marketing Rep Relationship Specialty Start Date End Date Nikolay Borges MD PCP - General Family Medicine 11/27/15 Elina Raza, PLASTIC TOP ASSEMBLER.REMOTE BROADCAST ENGINEER [address] [facility] [place] [address] Nurse Practitioner Hematology/Oncology 05/17/23 Alexx Nguyen MD [address] [facility] [place] [address] Physician Hematology/Oncology 05/17/23 Vianney Scherer, RN [address] [facility] [place] [address] Specialty Square Shear Operator Hematology/Oncology 05/17/[address] [place] [address] [place] [address] Registered Dietitian Nutrition 05/28/24 Celina Hong LSW Detective Bureau Chief 09/23/24 documented as of this encounter
--- OUTSIDE RECORDS SUMMARY | 2025-05-08 23:59 | XMS_ITS | Continuity of Care Document ---
Author Organization [facility] Address Unknown Care Team Providers Care Uniform Maker Name Role Phone Nikolay Borges Primary Care Physician Sheila RUIZ Unavailable Encounter [facility] [id number] Date(s): 05/08/25 - 05/08/[address] [address] Discharge Disposition: Home (Routine DC) Attending Physician: FE BHATTI Admitting Physician: FE BHATTI Referring Physician: FE BHATTI Encounter Type: Outpatient Allergies, Adverse Reactions, Alerts Substance Criticality Severity Reaction Reaction Severity Status ciprofloxacin Eruption Active simvastatin Unknown Active Immunizations Given and Recorded Vaccine Date Status Refusal Reason influenza virus vaccine, inactivated 09/25/24 Agus rded Medications calcium (as carbonate) 600 mg oral tablet 600 mg = 1 tab(s), Oral, Daily, # 60 tab(s), Refills(s) 0 Start Date: 05/27/21 Status: Ordered Quantity: 60.0 Unit: tab(s) Repeat number: 1 citalopram 20 mg Tab mg tab(s), Oral, Daily, Refills(s) 0 Start Date: 10/23/24 Status: Ordered Repeat number: 1 Evoxac 30 mg oral capsule mg cap(s), Oral, TID, Refills(s) 0 Start Date: 10/23/24 Status: Ordered Repeat number: 1 famotidine 40 mg Tab 40 mg = 1 tab(s), Oral, Once a day (at bedtime), # 90 tab(s), Refills(s) 0, Pharmacy: [facility]/pharmacy #[id number], 138, cm, 02/27/25 13:18:00 EDT, Height/Length Dosing, 62, kg, 02/27/25 13:18:00 EDT, Weight Dosing Start Date: 02/27/25 Status: Ordered Quantity: 90.0 Unit: tab(s) Repeat number: 1 Keytruda mg, IV, q3wk, Refills(s) 0 Start Date: 02/27/25 Status: Ordered Repeat number: 1 levothyroxine 75 mcg (0.075 mg) Tab mcg tab(s), Oral, Daily, Refills(s) 0, Thyroid Start Date: 10/23/24 Status: Ordered Repeat number: 1 liothyronine 37.5 mcg, Refills(s) 0 Start Date: 10/23/24 Status: Ordered Repeat number: 1 metoprolol succinate 25 mg ER Tab mg tab(s), Oral, Daily, Refills(s) 0, High blood pressure Start Date: 10/23/24 Status: Ordered Repeat number: 1 Nexium 40 mg Cap-EC 40 mg = 1 cap(s), Oral, Daily, # 90 cap(s), Refills(s) 3, Pharmacy: [facility]/pharmacy #[id number], 138, cm, 02/27/25 13:18:00 EDT, Height/Length Dosing, 62, kg, 02/27/25 13:18:00 EDT, Weight Dosing Start Date: 02/27/25 Status: Ordered Quantity: 90.0 Unit: cap(s) Repeat number: 4 Plaquenil mg, Oral, Daily, Refills(s) 0 Start Date: 10/23/24 Status: Ordered Repeat number: 1 Prolia mg, SubCutaneous, q6mo, Refills(s) 0 Start Date: 02/27/25 Status: Ordered Repeat number: 1 Vitamin D3 Refills(s) 0, Prophylaxis Start Date: 05/27/21 Status: Ordered Repeat number: 1 Xanax 0.25 mg Tab See Instructions, at bedtime, Refills(s) 0, Anxiety Start Date: 10/23/24 Status: Ordered Repeat number: 1 Problem List Condition Confirmation Course Effective Dates Status Health St atus Informant Celiac disease Confirmed Active C. difficile colitis Confirmed Active Colitis Confirmed Active Diarrhea Confirmed Active Hypertension Confirmed Active Ileitis Confirmed Active Kidney stone Confirmed Active Lung cancer Confirmed Active Smoker 1 Confirmed Active 1Added secondary to documentation in Social History. Procedures Procedure Date Related Diagnosis Body Site Status Colonoscopy 1 11/01/24 Completed Esophagogastroduodenoscopy 2 11/01/24 Completed Extracorporeal shockwave lit hotripsy, left renal calculus 03/02/17 Completed Arthroscopic repair of rotat or cuff. right Completed Entire parotid gland removed Completed ESWL of kidney left Compl eted 1diverticulosis, Biopsies for colitis taken 2esophagitis, HH. gastritis, duodenitis Social History Social History Type Response Smoking Status Former smoker, quit more than 30 days ago entered on: 02/27/25 Sex Female Sex Representation Female (finding) Patient Care team information Care Team Personnel Name: Sheila MASCORRO Position: [employer] Outreach Office Staff Search Member Role: Other Address: [address] [place] [address] [address]- Telecom: Name: Nikolay Borges MD Position: Physician Member Role: Primary Care Physician Address: [address] [place] [address] Telecom: Care Team Related Persons Name: KIAH BANKS Name: KIAH BANKS Insurance Providers Guarantor name: ROBINA BANKS Health Plan Information #: 1 Payer: NA Payer Identifier: [id number] Member Number: [id number] Group Number: Subscriber Identifier: [id number] Relationship to Subscriber: Self Coverage Type: MEDICARE Coverage Verification Date: 25 Telecom: NA Address: Health Plan Information #: 2 Payer: NA Payer Identifier: [id number] Member Number: [id number] Group Number: [id number] Subscriber Identifier: [id number] Relationship to Subscriber: Self Coverage Type: PRIVATE HEALTH INSURANCE Coverage Verification Date: 25 Telecom: Address:
--- OUTSIDE RECORDS SUMMARY | 2025-05-09 12:24 | XMS_ITS | Encounter Summary ---
Author Organization [facility] Address [address] [place] [address] Phone Care Team Providers Care Helium Arc Welder Name Role Phone Nikolay Borges MD Primary Care Provider [phone] Corina Butler RN Unavailable Unavailable Encounter Details Date Type Department Care Team (Late st Contact Info) Description 05/01/2025 Patient Outreach [facility] [address] [facility] [address] [place] [address] Corina Butler, RN Social History Tobacco Use Types Packs/Day Years Used Date Smoking Tobacco: Former Cigarettes Q uit: 2019 Smokeless Tobacco: Never Alcohol Use Standard Drinks/Week Comments Never 0 (1 standard drink = 0.6 oz pur e alcohol) B1300 Health Literacy Answer Date Recor ded How often do you need to hav e someone help you when you read instructions, pamphlets, or other written material from your doctor or pharmacy? Rarely 04/15/2025 [facility] Utilities Answer Date Recorded In the past 12 months has e [employer], oil, or water [employer] threatened to shut off services in your home? No 04/15/2025 Humiliation, Afraid, Rape, and Kick questionnair e Answer Date Recorded Within the last year, have y ou been afraid of your partner or ex-partner? No 04/15/2025 Within the last year, have y ou been humiliated or emotionally abused in other ways by your partner or ex-partner? No Within the last year, have y ou been kicked, hit, slapped, or otherwise physically hurt by your partner or ex-partner? No 04/15/2025 Within the last year, have y ou been raped or forced to have any kind of sexual activity by your partner or ex-partner? No 04/15/2025 Social Connection and Isolation Panel [NHANES] A nswer Date Recorded In a typical week, how many times do you talk on the phone with family, friends, or neighbors? Three times a week 04/15/2025 How often do you get togethe r with friends or relatives? Three times a week 04/15/2025 How often do you attend chur or yazidism services? Never 04/15/2025 Do you belong to any clubs o r organizations such as adventist groups, unions, fraternal or athletic groups, or school groups? No 04/15/2025 How often do you attend meet ings of the clubs or organizations you belong to? Never 04/15/2025 Are you , , di vorced, , never , or living with a partner? 04/15/2025 AUDIT-C Answer Date Recorded Q1: How often do you have a drink containing alcohol? Never 04/15/2025 Q2: How many drinks containi ng alcohol do you have on a typical day when you are drinking? Patient does not drink Q3: How often do you have si x or more drinks on one occasion? Never 04/15/2025 Overall Financial Resource Strain (CARDIA) Answe r Date Recorded How hard is it for you to pa y for the very basics like food, housing, medical care, and heating? Not hard at all 04/15/2025 PHQ-2 Answer Date Recorded Patient Health Questionnaire-2 Score 2 04/26/2022 [facility] - Occupational Stress Questionnaire Answer Date Recorded Do you feel stress - tense, restless, nervous, or anxious, or unable to sleep at night because your mind is troubled all the time - these days? Not at all 04/15/2025 Exercise Vital Sign Answer Date Recorde d On average, how many days pe r week do you engage in moderate to strenuous exercise (like a brisk walk)? 3 days 04/15/2025 On average, how many minutes do you engage in exercise at this level? 20 min 04/15/2025 Hunger Vital Sign Answer Date Recorded Within the past 12 months, y ou worried that your food would run out before you got the money to buy more. Never true 04/15/20 25 Ran Out of Food in the Last Year Not on file 04/15/2025 PRAPARE - Transportation Answer Date Re corded In the past 12 months, has l ack of transportation kept you from medical appointments or from getting medications? No 03/28 In the past 12 months, has l ack of transportation kept you from meetings, work, or from getting things needed for daily living? No 04/15/2025 Housing Stability Vital Sign Answer Bereket e Recorded In the last 12 months, was t here a time when you were not able to pay the mortgage or rent on time? No 04/15/2025 In the past 12 months, how m any times have you moved where you were living? 0 04/15/2025 At any time in the past 12 m [facility], were you homeless or living in a mcc (including now)? No 04/15/2025 Comments Unknown Sex and Gender Information Value Date Recorded Sex Assigned at Not on file Legal Sex Female 11:58 AM EST Gender Identity Not on file Sexual Orientation Not on file COVID-19 Exposure Response Date Recorded In the last 10 days, have yo u been in contact with someone who was confirmed or suspected to have Coronavirus/COVID-19? No / Unsure 04/14/2025 7:26 AM EDT documented as of this encounter Progress Notes * Corina Butler RN - 05/01/2025 1:02 PM EDT Confirmation of at least 2 patient identifiers. Completed telephonic follow-up with patient approximately 14 days post discharge, no PCP follow up. Spoke to daughter Celeste during outreach call. Patient reports feeling: Improved Patient has questions or concerns about medications: No Have all prescribed medications been filled? Yes Patient has necessary resources to manage their care? Yes Patient has questions or concerns? No Next care management follow-up approximately within one month. Title Officerflag car driver information provided to patient. documented in this encounter Plan of Treatment Upcoming Encounters Date Type Department Care Team (Late st Contact Info) Description 05/15/2025 9:30 AM EDT Telemedicine Clinical Support [facility] [address] [place] [address] 08/01/2025 11:20 AM EDT Office Visit [place] [address] [place] [address] Theo Medina MD [address] [facility] [address] [place] [address] 04/10/2026 9:30 AM EDT Telemedicine Clinical Support [facility] [address] [place] [address] documented as of this encounter Visit Diagnoses Not on filedocumented in this encounter Additional Health Concerns Assessment Noted Time PHQ-9 Depression Total Score: 3 04/26/20 10:47 AM EDT A fall risk assessment has been complete d for the patient 12/23/2024 2:30 PM EST documented as of this encounter Care Teams Helium Arc Welder Relationship Specialty Start Date End Date Nikolay Borges MD [address] [facility] [place] [address] PCP - General 04/26/22 Corina Butler, journalism internAncillary Specialist 04/18/25 documented as of this encounter
--- OUTSIDE RECORDS SUMMARY | 2025-05-09 12:25 | XMS_ITS | Encounter Summary ---
Author Organization [facility] Address [address] [place] [address] Phone Care Team Providers Care Freelance Graphic Designer Name Role Phone Nikolay Borges MD Primary Care Provider [phone] Corina Butler RN Unavailable Unavailable Encounter Details Date Type Department Care Team (Latest Contact Info) Description 05/07/2025 Travel Social History Tobacco Use Types Packs/Day Years [...] from your doctor or pharmacy? Rarely 04/15/2025 [facility] Utilities Answer Date Recorded In the past 12 months has [facility] [place], gas, oil, or water [employer] threatened to shut off services in your [...] 04/15/2025 How often do you attend chur ch or christian services? Never 04/15/2025 Do you belong to any clubs o r organizations such as restoration groups, unions, fraternal or athletic groups, or [...] Recorded Patient Health Questionnaire-2 Score 2 04/26/2022 [facility] - Occupational Stress [...] any time in the past 12 m [facility], were you homeless or living in a senior care (including now)? No 04/15/2025 Comments Unknown Sex [...] suspected to have Coronavirus/COVID-19? No / Unsure 05/07/2025 9:10 AM EDT documented as of this encounter Plan of Treatment Upcoming Encounters Date Type Department Care Team (Late st Contact Info) Description 05/15/2025 9:30 AM EDT Telemedicine Clinical Support [facility] [address] [place] [address] 08/01/2025 11:20 AM EDT Office Visit [place] [address] [place] [address] Theo Medina MD [address] [facility] [address] [place] [address] 04/10/2026 9:30 AM EDT Telemedicine Clinical Support [facility] [address] [place] [address] documented as of this encounter Visit Diagnoses Not on filedocumented in this encounter Additional Health Concerns Assessment Noted Time PHQ-9 Depression Total Score: 3 04/26/20 10:47 AM EDT A fall risk assessment has been complete d for the patient 05/07/2025 9:17 AM EDT documented as of this encounter Care Teams Freelance Graphic Designer Relationship Specialty Start Date End Date Nikolay Borges MD [address] [place] [address] PCP - General 04/26/22 Corina Butler, track managerSchool Clerk 04/18/25 documented as of this encounter
--- OUTSIDE RECORDS SUMMARY | 2025-05-09 12:25 | XMS_ITS | Encounter Summary ---
Author Organization [facility] Address [address] [place] [place] [address] Care Team Providers Care Textile Machine Maintenance Mechanic Name Role Phone Nikolay Borges MD Primary Care Provider [phone] Encounter Details Date Type Department Care Team (Late st Contact Info) Description 04/03/2023 Abstract [facility] [address] [place] [address] Chen Wu DO [address] [place] [address] Social History Tobacco Use Types Packs/Day Years Used Date Smoking Tobacco: Never Assessed Comments Unknown Sex and Gender Information Value Date Recorded Sex Assigned at Not on file Legal Sex Female 6:45 PM EDT Gender Identity Not on file Sexual Orientation Not on file documented as of this encounter Plan of Treatment Not on file documented as of this encounter Visit Diagnoses Not on filedocumented in this encounter Care Teams Textile Machine Maintenance Mechanic Relationship Specialty Start Date End Date Nikolay Borges MD PCP - General Family Medicine 04/25/23 documented as of this encounter
--- OUTSIDE RECORDS SUMMARY | 2025-05-09 12:25 | XMS_ITS | Encounter Summary ---
Author Organization [facility] Address [address] [place] [address] Care Team Providers Care Ceramic Mold Designer Name Role Phone Nikolay Borges MD Primary Care Provider + Elina Raza APRN.ARMOR RECONNAISSANCE VEHICLE DRIVER Unavailable [phone] Alexx Nguyen MD Unavailable [phone] Vianney Scherer RN Unavailable [phone] Unavailable [phone] Celina Hong MATERIAL PROCESSOR Unavailable Unavailable Source Comments In the event this information is protected by the Federal Confidentiality of Alcohol and Drug AbusePatient Records regulations: The Federal rules restrict any use of the information to criminally investigate or prosecute any alcohol or drug abuse patient.[facility] Encounter Details Date Type Department Care Team (Late st Contact Info) Description 04/28/2023 Lab [facility] [address] [place] [address] Alexx Nguyen MD [address] [place] [address] [place] [address] Person encountering health services to consult on behalf of another person Social History Tobacco Use Types Packs/Day Years Used Date Smoking Tobacco: Former Cigarettes 1 40 1 980 - 2019 Smokeless Tobacco: Never Area Deprivation Index Answer Date Agus rded National Score (1-100), lower number is lower ri sk 86 05/02/2023 State Score (1-10), lower number is lower risk 8 05/02/2023 Data from: https://www.neighborhoodatlas.medicine.[facility]/. Last address used for calculation [address] [...] PM EDT Appointment Radiology Pet CT [address] [facility] [place] [address] Pet scan prior to follow up 05/22/2025 12:45 PM EDT Office Visit [facility] [address] [facility] [place] [address] 3 week follow up Keytruda 05/22/2025 1:00 PM EDT Visit (SP) Office Hematology/Oncology [facility] [place] [address] Alexx Nguyen MD [address] [place] [address] [place] [address] 3 week follow up Keytruda 05/22/2025 1:30 PM EDT [facility] Center Hematology/Oncology [address] [place] [address] 3 week follow up Keytruda 12/29/2025 1:40 PM [facility] Rheumatology [address] [place] [address] Crissy Juan MD [address] [place] [address] Follow up visit for sjogrens/osteopenia /osteoarthritis in 6-12months (ok for virtual or in person) documented as of this encounter Procedures Procedure Name Priority Date/Time Associated Diagnosis Comments OUTSIDE SURG PATH SLIDE REVIEW Routine 04/28/2023 3:24 PM EDT Person encountering health services to consult on behalf of another person documented in this encounter Results * OUTSIDE SURG PATH SLIDE REVIEW (04/28/2023 3:24 PM EDT) Case Report Surgical Pathology Report Case: [id number] Authorizing Provider: Alexx Nguyen MD Collected: 04/28/2023 03:24 PM Ordering Location: Hosp Lab Main Received: 04/28/2023 03:22 PM Pathologist: Margarito Castillo V, MD Specimen: SLIDE(S), 2 SLIDES ([id number]) 04/30/2023 6:10 PM EDT [facility] FINAL DIAGNOSIS [place], [place] ([id number]; 04/03/2023) Right lung, upper lobe, endobronchial biopsy: - Fragments of bronchial mucosa with focal atypical cells suspicious but not definitive of malignancy. [facility]/ 04/30/2023 04/30/2023 6:10 PM EDT [facility] at 1810 EDT Performing Lab Diagnostic interpretation performed at [address]# [id number] Front Desk Manager: Bradly Lucero M.D. 04/30/2023 6:10 PM EDT [facility] Blocks or Slides MICROSCOPE SLIDE / Unknown 04/28/2023 3:24 PM EDT 04/28/2023 3:22 PM EDT us Alexx Nguyen MD SURGICAL PATHOLOGY Final Resul t [facility] [address] [place], [place] [address] documented in this encounter Visit Diagnoses Diagnosis Person encountering health services to consult on behalf of another person Other person consulting on behalf of another person documented in this encounter Additional Health Concerns Infection Onset Date Last Indicated Resolved Time C. difficile 10/08/2024 10/08/2024 11/07/2024 8:51 PM EST documented as of this encounter Care Teams Ceramic Mold Designer Relationship Specialty Start Date End Date Nikolay Borges MD PCP - General Family Medicine 11/27/15 Elina Raza APRN.ARMOR RECONNAISSANCE VEHICLE DRIVER [address] [facility] [place] [address] Nurse Practitioner Hematology/Oncology 05/17/23 Alexx Nguyen MD [address] [place] [address] [place] [address] Physician Hematology/Oncology 05/17/23 Vianney Scherer, MIGUEL [address] [place] [address] [place] [address] Specialty Life Skills Instructor Hematology/Oncology 05/17/[address] [place] [address] [place] [address] Registered Dietitian Nutrition 05/28/24 Celina Hong LSW Vba Programmer 09/23/24 documented as of this encounter
--- OUTSIDE RECORDS SUMMARY | 2025-05-09 12:25 | XMS_ITS | Encounter Summary ---
Author Organization [facility] Address [address] [place] [address] Care Team Providers Care Bilingual Legal Assistant Name Role Phone Nikolay Borges MD Primary Care Provider [phone] Encounter Details Date Type Department Care Team (Late st Contact Info) Description 04/03/2023 Abstract [facility] [address] [place] [address] Santino Sanabria, [address] [place] [address] Social History Tobacco Use Types Packs/Day Years [...] on filedocumented in this encounter Care Teams Bilingual Legal Assistant Relationship Specialty Start Date End Date Nikolay Borges MD PCP - General Family Medicine 04/25/23 documented as of this encounter
--- OUTSIDE RECORDS SUMMARY | 2025-05-09 12:25 | XMS_ITS | Encounter Summary ---
Author Organization [facility] Address [address] [place] [address] Care Team Providers Care Processing Manager Name Role Phone Nikolay Borges MD Primary Care Provider + Elina Raza APRN.SPECIAL EDUCATION PROFESSOR Unavailable [phone] Alexx Nguyen MD Unavailable [phone] Vianney Scherer RN Unavailable [phone] Unavailable [phone] Celina Hong Unavailable Unavailable Source Comments In the event this information is protected by the Federal Confidentiality of Alcohol and Drug AbusePatient Records regulations: The Federal rules restrict any use of the information to criminally investigate or prosecute any alcohol or drug abuse patient.[facility] Encounter Details Date Type Department Care Team (Late st Contact Info) Description 07/25/2024 Patient Msg Pulmonary Medicine [address] [id number] Provider, [address] LN Result Notification Social History Tobacco Use Types Packs/Day Years Used Date Smoking Tobacco: Former Cigarettes 1 40 1 980 - 2019 Passive Smoke Exposure: Past Smokeless Tobacco: Never Alcohol Use Standard Drinks/Week Comments Not Currently 0 (1 standard drink = 0.6 oz pur e alcohol) Area Deprivation Index Answer Date Agus rded National Score (1-100), lower number is lower ri sk 86 05/02/2023 State Score (1-10), lower number is lower risk 8 05/02/2023 Data from: https://www.neighborhoodatlas.medicine.[facility]/. Last address used for calculation [address] 05/02/2023 Comments No Sex and Gender Information Value Date Recorded Sex Assigned at Female 05/03/2023 12:14 PM EDT Legal Sex Female 11:13 AM EDT Gender Identity Not on file Sexual Orientation Not on file documented as of this encounter Plan of Treatment Upcoming Encounters Date Type Department Care Team (Latest Contact Info) Description 05/14/2025 1:30 PM EDT Appointment Radiology Pet CT [address] [facility] [place] [address] Pet scan prior to follow up 05/22/2025 12:45 PM EDT Office Visit [facility] [address] [place] [address] [place] [address] 3 week follow up Keytruda 05/22/2025 1:00 PM EDT Visit (SP) Office Hematology/Oncology [address] [place] [address] [place] [address] Alexx Nguyen MD [address] [place] [address] [place] [address] 3 week follow up Keytruda 05/22/2025 1:30 PM EDT [facility] Center Hematology/Oncology [address] [place] [address] [place] [address] 3 week follow up Keytruda 12/29/2025 1:40 PM [facility] Rheumatology [address] [place] [address] Crissy Juan MD [address] [place] [address] Follow up visit for sjogrens/osteopenia /osteoarthritis in 6-12months (ok for virtual or in person) documented as of this encounter Visit Diagnoses Not on filedocumented in this encounter Additional Health Concerns Infection Onset Date Last Indicated Resolved Time C. difficile 10/08/2024 10/08/2024 11/07/2024 8:51 PM EST documented as of this encounter Care Teams Processing Manager Relationship Specialty Start Date End Date Nikolay Borges MD PCP - General Family Medicine 11/27/15 Elina Raza APRN.SPECIAL EDUCATION PROFESSOR [address] [facility] [place] [address] Nurse Practitioner Hematology/Oncology 05/17/23 Alexx Nguyen MD [address] [place] [address] [place] [address] Physician Hematology/Oncology 05/17/23 Vianney Scherer, MIGUEL [address] [place] [address] [place] [address] Specialty Workers Compensation Adjuster Hematology/Oncology 05/17/[address] [place] [address] [place] [address] Registered Dietitian Nutrition 05/28/24 Celina Hong LSW Lead Caregiver 09/23/24 documented as of this encounter
--- OUTSIDE RECORDS SUMMARY | 2025-05-09 12:25 | XMS_ITS | Encounter Summary ---
Author Organization [facility] Address [address] [place] [address] Phone Care Team Providers Care Rate Examiner Name Role Phone Nikolay Borges MD Primary Care Provider [phone] Corina Butler RN Unavailable Unavailable Encounter Details Date Type Department Care Team (Late st Contact Info) Description 05/08/2025 Scanned Document [facility] [address] [place] [id number] Scanning, Generic Provider Social History Tobacco Use Types Packs/Day Years [...] from your doctor or pharmacy? Rarely 04/15/2025 [facility] Utilities Answer Date Recorded In the past 12 months has e [employer], oil, or water [employer] threatened to shut off services in your [...] often do you attend chur ch or mormonism services? Never 04/15/2025 Do you belong to any clubs o r organizations such as yarsani groups, unions, fraternal or athletic groups, or [...] Recorded Patient Health Questionnaire-2 Score 2 04/26/2022 [facility] - Occupational [...] any time in the past 12 m [facility], were you homeless or living in a long-term (including now)? No 04/15/2025 Comments Unknown Sex [...] EDT Telemedicine Clinical Support [facility] [address] [place] [address] 08/01/2025 11:20 AM EDT Office Visit [address] [place] [address] Theo Medina MD [address] [place] [address] 04/10/2026 9:30 AM EDT Telemedicine Clinical Support [facility] [address] [place] [id number] documented as of this encounter Procedures Procedure Name Priority Date/Time Associated Diagnosis Comments ECHOCARDIOGRAM 05/08/2025 documented in this encounter Results * Echocardiogram (05/08/2025) Narrative 05/08/2025 Ordered by an unspecified provider. us Generic Provider Scanning CV ECHO PROCEDURES Fin al Result documented in this encounter Visit Diagnoses Not on filedocumented in this encounter Additional Health Concerns Assessment Noted Time PHQ-9 Depression Total Score: 3 04/26/20 10:47 AM EDT A fall risk assessment has been complete d for the patient 05/07/2025 9:17 AM EDT documented as of this encounter Care Teams Rate Examiner Relationship Specialty Start Date End Date Nikolay Borges MD [address] [place] [address] PCP - General 04/26/22 Corina Butler, tool setterSupervisor Rolling Room 04/18/25 documented as of this encounter
--- OUTSIDE RECORDS SUMMARY | 2025-05-09 12:25 | XMS_ITS | Encounter Summary ---
Author Organization [facility] Address [address] [place] [address] Care Team Providers Care Anglesmith Name Role Phone Nikolay Borges MD Primary Care Provider + Elina Raza APRN.SUPERVISOR CURED MEATS Unavailable [phone] Alexx Nguyen MD Unavailable [phone] Vianney Scherer RN Unavailable [phone] Unavailable [phone] Celina Hong Unavailable Unavailable Source Comments In the event this information is protected by the Federal Confidentiality of Alcohol and Drug AbusePatient Records regulations: The Federal rules restrict any use of the information to criminally investigate or prosecute any alcohol or drug abuse patient.[facility] Encounter Details Date Type Department Care Team (Late st Contact Info) Description 07/20/2023 Patient [facility] [address] [place] [address] Madina Buckley APRN.SUPERVISOR CURED MEATS [address] [facility] [address] [place] [address] Appointment Cancellation Request Social History Tobacco Use Types Packs/Day Years Used Date Smoking Tobacco: Former Cigarettes 1 40 1 980 - 2020 Passive Smoke Exposure: Past Smokeless Tobacco: Never Alcohol Use Standard Drinks/Week Comments Not Currently 0 (1 standard drink = 0.6 oz pur e alcohol) Area Deprivation Index Answer Date Agus rded National Score (1-100), lower number is lower ri sk 86 05/02/2023 State Score (1-10), lower number is lower risk 8 05/02/2023 Data from: https://www.neighborhoodatlas.medicine.[facility]/. Last address used for calculation [address] [...] PM EDT Appointment Radiology Pet CT [address] [facility] [place] [place] [address] Pet scan prior to follow up 05/22/2025 12:45 PM EDT Office Visit [facility] [address] [facility] [place] [address] 3 week follow up Keytruda 05/22/2025 1:00 PM EDT Visit (SP) Office Hematology/Oncology [address] [facility] [place] [address] Alexx Nguyen MD [address] [facility] [place] [address] 3 week follow up Keytruda 05/22/2025 1:30 PM EDT Infusion Center Hematology/Oncology [address] [facility] [place] [place] [address] 3 week follow up Keytruda 12/29/2025 1:40 PM [facility] Rheumatology [address] [place], [place] [phone] Crissy Juan MD [address] [place] [address] Follow up visit for sjogrens/osteopenia /osteoarthritis in 6-12months (ok for virtual or in person) documented as of this encounter Visit Diagnoses Not on filedocumented in this encounter Additional Health Concerns Infection Onset Date Last Indicated Resolved Time C. difficile 10/08/2024 10/08/2024 11/07/2024 8:51 PM EST documented as of this encounter Care Teams Anglesmith Relationship Specialty Start Date End Date Nikolay Borges MD PCP - General Family Medicine 11/27/15 Elina Raza, BITA.SUPERVISOR CURED MEATS [address] [place] [address] [place] [address] Nurse Practitioner Hematology/Oncology 05/17/23 Alexx Nguyen MD [address] [place] [address] [place] [address] Physician Hematology/Oncology 05/17/23 Vianney Scherer, MIGUEL [address] [place] [address] [place] [address] Specialty Senior Marketing Manager Hematology/Oncology 05/17/[address] [place] [address] [place] [address] Registered Dietitian Nutrition 05/28/24 Celina Hong LSW Head Of Visual Merchandising 09/23/24 documented as of this encounter
--- OUTSIDE RECORDS SUMMARY | 2025-05-09 12:25 | XMS_ITS | Encounter Summary ---
Author Organization [facility] Address [address] [facility] [place] [address] Care Team Providers Care Natural Remedy Consultant Name Role Phone Nikolay Borges MD Primary Care Provider [phone] Encounter Details Date Type Department Care Team (Late st Contact Info) Description 01/30/2024 Abstract [facility] [address] [facility] [address] [place] [address] Yamilex Escobar RN [address] [facility] [address] [place], [place] [id number] Social History Tobacco Use Types Packs/Day Years Used Date Smoking Tobacco: Former Cigarettes Smokeless Tobacco: Never Tobacco Cessation:Counseling Given: Not Answered Alcohol Use Standard Drinks/Week Comments Not Currently 0 (1 standard drink = 0.6 oz pure alcohol) caffeine intake: 1-2 cups per day Comments Unknown Sex and Gender Information Value Date Recorded Sex Assigned at Not on file Legal Sex Female 6:45 PM EDT Gender Identity Not on file Sexual Orientation Not on file documented as of this encounter Plan of Treatment Not on file documented as of this encounter Visit Diagnoses Not on filedocumented in this encounter Care Teams Natural Remedy Consultant Relationship Specialty Start Date End Date Nikolay Borges MD PCP - General Family Medicine 04/25/23 documented as of this encounter
--- OUTSIDE RECORDS SUMMARY | 2025-05-09 12:25 | XMS_ITS | Encounter Summary ---
Author Organization [facility] Address [address] [place] [address] Care Team Providers Care Sofa Cover Inspector Name Role Phone Nikolay Borges MD Primary Care Provider + Elina Raza APRN.HOSTESS PARTY SALES REPRESENTATIVE Unavailable [phone] Alexx Nguyen MD Unavailable [phone] Vianney Scherer RN Unavailable [phone] Unavailable [phone] Celina Hong HUMAN RESOURCES ADMINISTRATOR Unavailable Unavailable Source Comments In the event this information is protected by the Federal Confidentiality of Alcohol and Drug AbusePatient Records regulations: The Federal rules restrict any use of the information to criminally investigate or prosecute any alcohol or drug abuse patient.[facility] Encounter Details Date Type Department Care Team (Late st Contact Info) Description 05/01/2023 Abstract Hematology/Oncology [address] [facility] [place] [address] Alexx Nguyen MD [address] [facility] [place] [address] Social History Tobacco Use Types Packs/Day Years Used Date Smoking Tobacco: Former Cigarettes 1 40 1 - 2019 Passive Smoke Exposure: Past Smokeless Tobacco: Never Tobacco Cessation:Counseling Given: No Area Deprivation Index Answer Date Agus rded National Score (1-100), lower number is lower ri sk 86 05/02/2023 State Score (1-10), lower number is lower risk 8 05/02/2023 Data from: https://www.neighborhoodatlas.medicine.[facility]/. Last address used for [...] EDT Appointment Radiology Pet CT [address] [place] [address] Pet scan prior to follow up 05/22/2025 12:45 PM EDT Office Visit [facility] [address] [place] [address] 3 week follow up Keytruda 05/22/2025 1:00 PM EDT Visit (SP) Office Hematology/Oncology [facility] [place] [address] Alexx Nguyen MD [address] [place] [address] [place] [address] 3 week follow up Keytruda 05/22/2025 1:30 PM EDT [facility] Hematology/Oncology [address] [place] [address] 3 week follow up Keytruda 12/29/2025 1:40 PM [facility] Rheumatology [address] [place] [address] Crissy Juan MD [address] [place] [address] Follow up visit for sjogrens/osteopenia /osteoarthritis in 6-12months (ok for virtual or in person) documented as of this encounter Visit Diagnoses Not on filedocumented in this encounter Additional Health Concerns Infection Onset Date Last Indicated Resolved Time C. difficile 10/08/2024 10/08/2024 11/07/2024 8:51 PM EST documented as of this encounter Care Teams Sofa Cover Inspector Relationship Specialty Start Date End Date Nikolay Borges MD PCP - General Family Medicine 11/27/15 Elina Raza APRN.HOSTESS PARTY SALES REPRESENTATIVE [address] [place] [address] [place] [address] Nurse Practitioner Hematology/Oncology 05/17/23 Alexx Nguyen MD [address] [place] [address] [place] [address] Physician Hematology/Oncology 05/17/23 Vianney Scherer, MIGUEL [address] [place] [address] [place] [address] Specialty Tire Regrooving Machine Operator Hematology/Oncology 05/17/[address] [place] [address] [place] [address] Registered Dietitian Nutrition 05/28/24 Celina Hong LSW Respite Provider 09/23/24 documented as of this encounter
--- OUTSIDE RECORDS SUMMARY | 2025-05-09 12:25 | XMS_ITS | Encounter Summary ---
Author Organization [facility] Address [address] [place] [address] Care Team Providers Care Sr Account Executive Name Role Phone Nikolay Borges MD Primary Care Provider +- Encounter Details Date Type Department Care Team ([facility] Contact Info) Description 04/14/2023 Telephone [facility] Special Procedure [address] [place], [place] [id number] Dianna Betancourt RN Social History Tobacco Use Types Packs/Day Years Used Date Smoking Tobacco: Former Cigarettes Passive Smoke Exposure: Never Smokeless Tobacco: Never Comments No Sex and Gender Information Value Date Recorded Sex Assigned at Not on file Legal Sex Female 6:41 PM EST Gender Identity Not on file Sexual Orientation Not on file documented as of this encounter Progress Notes * Dianna Betancourt RN - 04/14/2023 9:49 AM EDT At 0940 Spoke to pt to follow up after yesterday's lung biopsy. Pt states, I'm doing really good. Band-shyla clean, dry, and intact. Denies redness. Denies shortness of breath. Encouraged pt to call back with any questions or concerns. documented in this encounter Plan of Treatment Not on file documented as of this encounter Visit Diagnoses Not on filedocumented in this encounter Care Teams Sr Account Executive Relationship Specialty Start Date End Date Nikolay Borges MD [address] [place] [address] PCP - General Family Medicine 04/13/23 documented as of this encounter
--- OUTSIDE RECORDS SUMMARY | 2025-05-09 12:25 | XMS_ITS ---
Author Organization [facility] Address [address] [place] [address] Phone Care Team Providers Care Hardwood Floor Installation Helper Name Role Phone Nikolay Borges MD Primary Care Provider [phone] Corina Butler RN Unavailable Unavailable Active Problems Problem Noted Date Diagnosed Date Statin intolerance 05/07/2025 Mixed hyperlipidemia 05/07/2025 PAD (peripheral artery disease) 05/07/2025 Left bundle-branch block, unspecified 05/07/2025 3-vessel coronary artery disease 05/07/2025 S/P TAVR (transcatheter aortic valve replacement ) 04/14/2025 Severe aortic stenosis 03/27/2025 Former smoker 12/23/2024 Lung cancer (Multi) 12/23/2024 Acute systolic heart failure 12/17/2024 Assessment & Plan (12/18/2024 10:02 AM EST): Patient presents with 2 week history of progressive LANIER, orthopnea/PND. Diuretic initiated by PCP over weekend with 6 pound diuresis and significant improvement in symptoms. Jun 2023 TTE EF 60-65% MR mild Severe aortic stenosis peak 84, mean 47. Today she appears to be functional class IIb stage C. Close to euvolemic in office. BMI 24.0-24.9, adult 12/17/2024 Abnormal echocardiogram 12/11/2023 Aortic valve stenosis 12/11/2023 Assessment & Plan (12/18/2024 9:59 AM EST): 2018 moderate aortic stenosis April 2022 peak 76 : mean Jun peak 84 : mean 47 Hypertension 12/11/2023 Murmur 12/11/2023 Current Treatment and Therapy Plans No current plan information found. Past Treatment and Therapy Plans No past plan information found. Lifetime Dose Tracking * Chemical Lifetime Dose Automatic Entry Manual Entr y Fluoro Time 37.4 minutes 0 minutes 37.4 minutes Air Kerma 969 mGy 0 mGy 969 mGy
--- OUTSIDE RECORDS SUMMARY | 2025-05-09 12:25 | XMS_ITS | Clinical Summary ---
Author Organization [facility] Address [address] [place] [address] Care Team Providers Care Checker Name Role Phone Nikolay Borges MD Primary Care Provider [phone] Elina Raza APRN.[employer] Unavailable [phone] Alexx Nguyen MD Unavailable [phone] Vianney Scherer RN Unavailable [phone] Unavailable [phone] Celina Hong Unavailable Unavailable Allergies Active Allergy Reactions Criticality Noted Date Comments Ciprofloxacin Rash Low 04/12/2023 Medications traMADol (ULTRAM) 50 mg tablet Take 50 mg by mouth every 6 hours as needed for pain. Active cholecalciferol (VITAMIN D3) 50 mcg (2,000 unit) tablet Take 2,000 Units by mouth once daily. Active liothyronine (CYTOMEL) 25 mcg tablet Take 25 mcg by mouth once daily. Active citalopram (CELEXA) 20 mg tablet Take 20 mg by mouth. 04/10/20 23 Active metoprolol tartrate, short acting, (LOPRESSOR) 50 mg tablet 25 mg two times a day. 05/17/20 24 Active triamcinolone (KENALOG IN ORABASE) 0.1 % paste 05/19/20 24 Active ALPRAZolam (XANAX) 0.5 mg tablet 1/2 tablet as needed Orally TID for 30 days 03/29/20 24 Active levothyroxine (SYNTHROID) 75 mcg tablet Take 1 tablet by mouth every afternoon. 04/04/20 24 Active sodium chloride soluble tablet 1 g Take 1 tablet by mouth two times a day. 05/22/20 24 Active diphenhydrAMINE 12.5 mg/5 mL lidocaine visc 2% MAALOX 200-200-20 mg/5 mL nystatin prednisoLONE 15 mg/5 mL oral liquid 1:1:1:1:1 (CPD) Swish and spit 5 mL by mouth every 6 hours as needed. 300 mL 3 4 3:36 PM EDT 07/30/20 24 Active cevimeline (EVOXAC) 30 mg capsuleIndication s:Sjogren's syndrome with other organ involvement (HCC) TAKE 1 CAPSULE BY MOUTH UP TO 3 TIMES DAILY NEEDED FOR DRYNESS 270 capsule 3 09/09/20 24 Active hydrOXYchloroQUIN E (PLAQUENIL) 200 mg tabletIndications :Sjogren's syndrome with other organ involvement (HCC),Other systemic lupus erythematosus with other organ involvement (HCC) TAKE 1 TAB BY MOUTH DAILY WITH FOOD.SUNSCREEN WHEN OUTDOORS.SEE EYE DR EVERY 6-12 MONTHS ON MED. 90 tablet 3 09/09/20 24 Active KAOPECTATE, ATTAPULGITE, ORAL Take by mouth as needed. Active diphenoxylate-atr opine (LOMOTIL) 2.5-0.025 mg per tabletIndications :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, right (HCC),Diarrhea, unspecified type TAKE 1 TABLET BY MOUTH BEFORE MEALS AND AT BEDTIME NEEDED 120 tablet 3 10/16/20 24 Active omeprazole (PRILOSEC) 40 mg capsule Take 40 mg by mouth once daily. Active potassium chloride SR (MICRO-K) 10 mEq CR capsule TAKE 2 CAPSULES BY MOUTH EVERY DAY 180 capsule 1 11/12/20 24 Active budesonide, enteric coated (ENTOCORT EC) 3 mg 24 hr capsule Take 3 mg by mouth once daily. 3 tabs in am daily 11/15/20 24 Active furosemide (LASIX) 40 mg tablet Take 40 mg by mouth. 12/17/19 25 026 Active aspirin, enteric coated (ASPIRIN, ENTERIC COATED) 81 mg EC tablet Take 81 mg by mouth once daily. 04/17/20 25 026 Active nystatin (MYCOSTATIN) 100,000 unit/mL suspension Swish and swallow 5 mL by mouth four times daily. 473 mL 3 2:37 PM EDT 09/23/20 24 025 iv contrast (will be provided with radiology test) MRI Brain Inject, intravenously, once for 1 dose.No IV access, insert saline lock prior to beginning of sedation, infusion, injection of imaging exam.Discontinue saline lock post exam. If Pt. has a central line or IVAD, may access for administration according to line specific nursing protocol.Once exam is complete flush line and de-access according to line specific nursing protocol in the MR contrast administration guidelines link 1 each 04/28/20 025 Active Problems Problem Noted Date Diagnosed Date Severe protein-calorie malnutrition 08/05/2024 Chronic bilateral low back pain without sciatica 05/20/2024 Chronic pain of right knee 05/20/2024 Long-term use of Plaquenil 05/20/2024 Bilateral hand pain 05/20/2024 Secondary osteoarthritis of multiple sites 05/20 senior care current use of systemic steroids 05/20 Family history of systemic lupus erythematosus 0 05/20/2024 Ds DNA antibody positive 05/20/2024 QUINCY positive 05/20/2024 Elevated sed rate 05/20/2024 Raynaud's phenomenon without gangrene 05/20/2024 SS-B antibody positive 05/20/2024 Primary lung cancer with met astasis from 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 site, right 05/15/2023 Encounters Date Type Department Care Team Description 04/28/2025 3:30 PM EDT Infusion Center Hematology/Oncology [address] [place] [address] [place] [id number] 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, right (HCC) (Primary Dx) 04/28/2025 3:00 PM EDT Visit (SP) Office Hematology/Oncology [address] [place] [address] [place] [id number] Antoinette Crenshaw PA-C 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, right (HCC) (Primary Dx); Malaise and fatigue; Metastasis to brain (HCC); Hypothyroidism due to medication; Malignant neoplasm of unspecified part of unspecified bronchus or lung (HCC) 04/28/2025 Travel 04/18/2025 Telephone Hematology/Oncology [address] [place] [address] [place] [id number] Vivienne Gonzalez RN Care Coordination (Appointment change) 03/31/2025 3:30 PM EDT Infusion Center Hematology/Oncology [address] [place] [address] [place] [id number] 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, right (HCC) (Primary Dx) 03/31/2025 3:00 PM EDT Visit (SP) Office Hematology/Oncology [address] [place] [address] [place] [address] Antoinette Crenshaw PAAlaynaC 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, right (HCC) (Primary Dx); Malaise and fatigue; Metastasis to brain (HCC); Hypothyroidism due to medication; Colitis 03/31/2025 Travel 03/27/2025 Telephone Hematology/Oncology [address] [place] [address] [place] [address] Vianney Scherer, MIGUEL Care Coordination (Lab Orders) 03/24/2025 Telephone Hematology/Oncology [address] [place] [address] [place] [id number] Antoinette Crenshaw PA-C Lab Orders 03/10/2025 3:30 PM EDT Infusion Center Hematology/Oncology [address] [place] [address] [place] [id number] 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, right (HCC) (Primary Dx) 03/10/2025 3:00 PM EDT Visit (SP) Office Hematology/Oncology [address] [place] [address] [place] [address] Alexx Nguyen MD 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, right (HCC) (Primary Dx); Metastasis to brain (HCC); Hypothyroidism due to medication; Colitis 02/17/2025 3:30 PM EDT Infusion Center Hematology/Oncology [address] [place] [address] [place] [id number] 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, right (HCC) (Primary Dx) 02/17/2025 3:00 PM EDT Visit (SP) Office Hematology/Oncology [address] [place] [address] [place] [address] Elina Raza APRN.[employer] 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, right (HCC) (Primary Dx); Metastasis to brain (HCC); History of aortic valve stenosis; Hypothyroidism due to medication; Primary hypertension; Arthritis; Positive QUINCY (antinuclear antibody) 02/17/2025 Travel 02/13/2025 Telephone Hematology/Oncology [address] [place] [address] [place] [id number] Elina Raza APRN.[employer] Lab Orders 02/11/2025 Orders Only Hematology/Oncology [address] [place] [id number] Alexx Nguyen MD from Last 3 Months Immunizations Immunization Administration Dates Next Due influenza (HD-IIV3) vaccine, age 65+ yr, high dose, trivalent, PF (FLUZONE HIGH-DOSE) 09/18/2019 influenza (HD-IIV4) vaccine, age 65+ yr, high dose, quadrivalent, PF (FLUZONE HIGH-DOSE) 08/30/2022,09/09/2021,08/23/2020 influenza (IIV4) vaccine, ag e 6 mo - 64 yr, quadrivalent, PF (AFLURIA, FLUARIX, FLULAVAL, FLUZONE) 07/03/2017,09/23/2016,10/07/2015 influenza (aIIV3) vaccine, a ge 65+ yr, trivalent, PF (FLUAD) 09/25/2024 influenza (aIIV4) vaccine, a ge 65+ yr, quadrivalent, PF (FLUAD QUAD) 09/13/2023 influenza (ccIIV4) vaccine, age 6+ mo, quadrivalent, PF (FLUCELVAX) 10/08/2018 influenza vaccine, unspecified formulation 09/25 pneumococcal conjugate (PCV1 3) vaccine, 13 valent (PREVNAR 13) 08/10/2020 pneumococcal polysaccharide (PPV23) vaccine, 23 valent (PNEUMOVAX 23) 10/31/2021 Family History Medical History Relation Comments Colon Cancer Father Diabetes Mother Ischemic Heart Disease Mother Stroke Mother Systemic Lupus Erythematosus Niece Ischemic Heart Disease Sister Systemic Lupus Erythematosus Sister Relation Status Comments Father Mother Niece Alive Sister Social History Tobacco Use Types Packs/Day Years Used Date Smoking Tobacco: Former Cigarettes 1 40 1 - 2019 Passive Smoke Exposure: Past Smokeless Tobacco: Never Tobacco Cessation:Counseling Given: Not Answered Alcohol Use Standard Drinks/Week Comments Not Currently 0 (1 standard drink = 0.6 oz pur e alcohol) PHQ-2 Answer Date Recorded PHQ-2 score 0 10/21/2024 Area Deprivation Index Answer Date Agus rded National Score (1-100), lower number is lower ri sk 86 05/02/2023 State Score (1-10), lower number is lower risk 8 05/02/2023 Data from: https://www.neighborhoodatlas.medicine.[facility]/. Last address used for calculation [address] 05/02/2023 Comments No Sex and Gender Information Value Date Recorded Sex Assigned at Female 05/03/2023 12:14 PM EDT Legal Sex Female 11:13 AM EDT Gender Identity Not on file Sexual Orientation Not on file Last Filed Vital Signs Vital Sign Reading [...] Mass Index 23.05 04/28/2025 2:57 PM EDT Plan of Treatment Upcoming Encounters Date Type Department Care Team (Latest Contact Info) Description 05/14/2025 1:30 PM EDT Appointment Radiology Pet CT [address] [place] [address] Pet scan prior to follow up 05/22/2025 12:45 PM EDT Office Visit [facility] [address] [place] [address] 3 week follow up Keytruda 05/22/2025 1:00 PM EDT Visit (SP) Office Hematology/Oncology [address] [place] [address] Alexx Nguyen MD [address] [place] [address] 3 week follow up Keytruda 05/22/2025 1:30 PM EDT Infusion Center Hematology/Oncology [address] [place] [address] 3 week follow up Keytruda 12/29/2025 1:40 PM [facility] Rheumatology [address] [facility] [place] [address] Crissy Juan MD [address] [place] [address] Follow up visit for sjogrens/osteopenia /osteoarthritis in 6-12months (ok for virtual or in person) Health Maintenance Due Date Last Done Comments Cervical Cancer Screening 1964 Anxiety Screening 1971 Depression Screening 1971 Hepatitis C Screening 1971 DTaP,Tdap,Td Vaccine (1 - Tdap) 1972 Shingrix Vaccine (1 of 2) 1972 CT Colonography 1998 Cologuard (FIT-DNA) 1998 Colonoscopy 1998 Colorectal Cancer Screening 1998 Fecal Occult Blood 1998 Sigmoidoscopy 1998 RSV Vaccine (1 - Risk 60-74 years 1-dose series) 2013 Medicare Annual Wellness Visit 10/27/2018 Mammogram Screening 11/15/2023 11/15/2022, Bone Density Screening 11/15/2024 11/15/2022 Advance Directive Discussion 11/27/2024 Covid-19 Vaccine (6 - 2023-2 5 season) 2025 10/14/2024, 10/04/2023, 09/09/2021, Additional history exists Diabetes Screening 04/22/2028 04/22/2025, 0 04/17/2025, 04/17/2025, Additional history exists Lipid Screening 12/26/2029 12/26/2024 Pneumococcal Vaccine: 50+ Completed 10/31/2021, Influenza Vaccine Completed 09/25/2024, , 09/13/2023, Additional history exists Procedures Procedure Name Priority Date/Time Associated Diagnosis Comments TSH BLD Routine 04/22/2025 3:23 PM EDT 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, right (HCC) Malaise and fatigue Metastasis to brain (HCC) Hypothyroidism due to medication Colitis CBC + DIFF Routine 04/22/2025 3:23 PM EDT 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, right (HCC) Malaise and fatigue Metastasis to brain (HCC) Hypothyroidism due to medication Colitis COMPREHENSIVE METABOLIC PANEL Routine 04/22/2025 3:23 PM EDT 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, right (HCC) Malaise and fatigue Metastasis to brain (HCC) Hypothyroidism due to medication Colitis TSH BLD Routine 03/31/2025 2:41 PM EDT 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, right (HCC) Malaise and fatigue COMPREHENSIVE METABOLIC PANEL Routine 03/31/2025 2:41 PM EDT 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, right (HCC) Malaise and fatigue CBC + DIFF Routine 03/31/2025 2:41 PM EDT 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, right (HCC) Malaise and fatigue COMPREHENSIVE METABOLIC PANEL Routine 03/10/2025 2:37 PM EDT 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, right (HCC) Metastasis to brain (HCC) History of aortic valve stenosis Hypothyroidism due to medication Primary hypertension Arthritis Positive QUINCY (antinuclear antibody) CBC + DIFF Routine 03/10/2025 2:37 PM EDT 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, right (HCC) Metastasis to brain (HCC) History of aortic valve stenosis Hypothyroidism due to medication Primary hypertension Arthritis Positive QUINCY (antinuclear antibody) TSH BLD Routine 02/17/2025 2:32 PM EDT 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, right (HCC) Malaise and fatigue COMPREHENSIVE METABOLIC PANEL Routine 02/17/2025 2:32 PM EDT 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, right (HCC) CBC + DIFF Routine 02/17/2025 2:32 PM EDT 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, right (HCC) from Last 3 Months Results * THYROID STIMULATING HORMONE (04/22/2025 3:23 PM EDT) Only the most recent of3 resultswithin the time period is included. [facility] TSH 0.295 0.270 - 4.200 mIU/L 04/23/2025 5:27 AM EDT [facility] Blood BLOOD SPECIMEN / Unknown Venipuncture / Unknown 04/22/2025 3:23 PM EDT 04/22/2025 3:23 PM EDT us Antoinette Crenshaw PA-C LABORATORY Final Result [facility] [address] [place] [address], * (ABNORMAL) COMPREHENSIVE METABOLIC PANEL (04/22/2025 3:23 PM EDT) Only the most recent of4 resultswithin the time period is included. [facility] Protein, Total 6.6 6.3 - 8.0 g/dL 04/22/2025 3:[address] [facility] Albumin 3.6(L) 3.9 - 4.9 g/dL 04/22/2025 3:[address] [facility] Calcium, Total 8.6 8.5 - 10.2 mg/dL 04/22/2025 3:[address] [facility] Bilirubin, Total 0.6 0.2 - 1.3 mg/dL 04/22/2025 3:[address] [facility] Alkaline Phosphatase 116 34 - 123 U/L 04/22/2025 3:[address] [facility] AST 39(H) 13 - 35 U/L 04/22/2025 3:[address] [facility] ALT 33 7 - 38 U/L 04/22/2025 3:[address] [facility] Glucose 118(H) 74 - 99 mg/dL 04/22/2025 3:[address] [facility] Comment: The [place] Diabetes Association (ADA) provides guidance for cutoff values for fasting glucose and random glucose. The ADA defines fasting as no caloric intake for at least 8 hours. Fasting plasma glucose results between 100 to 125 mg/dL indicate increased risk for diabetes (prediabetes). Fasting plasma glucose results greater than or equal to 126 mg/dL meet the criteria for diagnosis of diabetes. In the absence of unequivocal hyperglycemia, results should be confirmed by repeat testing. In a patient with classic symptoms of hyperglycemia or hyperglycemic crisis, random plasma glucose results greater than or equal to 200 mg/dL meet the criteria for diagnosis of diabetes. Reference: Standards of Medical Care in Diabetes 2016, [place] Diabetes Association. Diabetes Care. 2016.39(Suppl 1). BUN 9 7 - 21 mg/dL 04/22/2025 3:[address] [facility] Creatinine 0.59 0.58 - 0.96 mg/dL 04/22/2025 3:[address] [facility] Sodium 138 136 - 144 mmol/L 04/22/2025 3:[address] [facility] Potassium 4.2 3.7 - 5.1 mmol/L 04/22/2025 3:[address] [facility] Chloride 99 98 - 107 mmol/L 04/22/2025 3:[address] [facility] CO2 28 22 - 30 mmol/L 04/22/2025 3:[address] [facility] Anion Gap 11 8 - 15 mmol/L 04/22/2025 3:[address] [facility] Estimated Glomerular Filtration Rate 96 >=60 mL/min/1. 73m 04/22/2025 3:[address] [facility] Comment:Estimated Glomerular Filtration Rate (eGFR) is calculated using the 2020 CKD-EPI creatinine equation. This equation utilizes serum creatinine, sex, and age as parameters. The creatinine assay has traceable calibration to isotope dilution- mass spectrometry. Refer to KDIGO guidelines for clinical interpretation. In patients with unstable renal function, e.g. those with acute kidney injury, the eGFR may not accurately reflect actual GFR. Blood BLOOD SPECIMEN / Unknown Venipuncture / Unknown 04/22/2025 3:23 PM EDT 04/22/2025 3:23 PM EDT us Antoinette Crenshaw PA-C LABORATORY Final Result [facility] [address] [place] [address] * (ABNORMAL) COMPLETE BLOOD COUNT AND DIFFERENTIAL (04/22/2025 3:23 PM EDT) Only the most recent of4 resultswithin the time period is included. WBC 8.34 3.70 - 11.00 k/uL 04/22/2025 3:[address] [facility] RBC 4.07 3.90 - 5.20 m/uL 04/22/2025 3:[address] [facility] Hemoglobin 13.0 11.5 - 15.5 g/dL 04/22/2025 3:[address] [facility] Hematocrit 37.1 36.0 - 46.0 % 04/22/2025 3:[address] [facility] MCV 91.2 80.0 - 100.0 fL 04/22/2025 3:[address] [facility] MCH 31.9 26.0 - 34.0 pg 04/22/2025 3:[address] [facility] MCHC 35.0 30.5 - 36.0 g/dL 04/22/2025 3:[address] [facility] RDW-CV 16.9(H) 11.5 - 15.0 % 04/22/2025 3:[address] [facility] Platelet Count 373 150 - 400 k/uL 04/22/2025 3:[address] [facility] MPV 8.8(L) 9.0 - 12.7 fL 04/22/2025 3:[address] [facility] Neutrophils % 65.4 % 04/22/2025 3:[address] [facility] Abs Neut 5.45 1.45 - 7.50 k/uL 04/22/2025 3:[address] [facility] Lymphocytes % 17.5 % 04/22/2025 3:[address] [facility] Abs Lymph 1.46 1.00 - 4.00 k/uL 04/22/2025 3:[address] [facility] Monocytes % 12.1 % 04/22/2025 3:[address] [facility] Abs [place] 1.01(H) <0.87 k/uL 04/22/2025 3:[address] [facility] Eosinophils % 2.6 % 04/22/2025 3:[address] [facility] Abs Eosin 0.22 <0.46 k/uL 04/22/2025 3:[address] [facility] Basophils % 0.7 % 04/22/2025 3:[address] [facility] Abs Baso 0.06 <0.11 k/uL 04/22/2025 3:[address] [facility] Immature Granulocytes % 1.7 % 04/22/2025 3:[address] [facility] Abs Immature Gran 0.14(H) <0.10 k/uL 04/22/2025 3:[address] [facility] NRBC 0.0 /100 WBC 04/22/2025 3:[address] [facility] Absolute nRBC <0.01 <0.01 k/uL 04/22/2025 3:[address] [facility] Diff Type Auto 04/22/2025 3:[address] [facility] Blood BLOOD SPECIMEN / Unknown Venipuncture / Unknown 04/22/2025 3:23 PM EDT 04/22/2025 3:23 PM EDT us Antoinette Crenshaw PA-C LABORATORY Final Result [facility] [address] [place] [address] from Last 3 Months Insurance MEDICARE [employer] SUPPLEMENT Care Teams Checker Relationship Specialty Start Date End Date Nikolay Borges MD PCP - General Family Medicine 11/27/15 Elina Raza APRN.[employer] [address] [place] [address] [place] [id number] Nurse Practitioner Hematology/Oncology 05/17/23 Alexx Nugyen MD [address] [place] [address] [place] [address] Physician Hematology/Oncology 05/17/23 Vianney Scherer, MIGUEL [address] [place] [address] Specialty Cutch Cleaner Hematology/Oncology 05/17/[address] [place] [address] [place] [address] Registered Dietitian Nutrition 05/28/24 Celina Hong LSW Craft Coordinator 09/23/24
--- OUTSIDE RECORDS SUMMARY | 2025-05-09 12:25 | XMS_ITS | Clinical Summary ---
Author Organization [facility] Address [address] [place] [address] Care Team Providers Care Intake Rn Name Role Phone Nikolay Dunlap MD Primary Care Provider [phone] Allergies Active Allergy Reactions Criticality Noted Date Comments Ciprofloxacin Rash Low 04/25/2023 Medications traMADol (Ultram) 50 MG tablet Take 50 mg by mouth 1 (one) time each day at the same time. Active lisinopril 40 MG tablet Take 40 mg by mouth 1 (one) time each day at the same time. Active liothyronine (Cytomel) 25 MCG tablet Take 25 mcg by mouth 1 (one) time each day at the same time. Active levothyroxine (Synthroid, Levoxyl) 50 MCG tablet Take 50 mcg by mouth 1 (one) time each day at the same time. Active citalopram (CeleXA) 20 MG tablet Take 20 mg by mouth 1 (one) time each day at the same time. Active ALPRAZolam (Xanax) 0.25 MG tablet 0.25 mg every 12 (twelve) hours. Active metoprolol succinate XL (Toprol-XL) 50 MG 24 hr tablet Take 50 mg by mouth 1 (one) time each day at the same time. Active fexofenadine (Moira Allergy) 180 MG tablet Take 180 mg by mouth 1 (one) time each day at the same time. Active cholecalcifero l (Vitamin D-3) 50 MCG (2000 UT) capsule Take 2,000 Units by mouth in the morning. Active predniSONE (Deltasone) 10 MG tablet Take 5 mg by mouth 3 Active levothyroxine (Synthroid, Levoxyl) 75 MCG tablet Take 75 mcg by mouth Daily 4 Active metoprolol tartrate (Lopressor) 50 MG tablet Take 50 mg by mouth in the morning and 50 mg before bedtime. 4 Active hydroxychloroq uine (Plaquenil) 200 MG tablet Take one tab by mouth daily with food. Sunscreen when outdoors. See ophthalmology every 6-12months on med. 4 Active cevimeline (Evoxac) 30 MG capsule Take 1cap by mouth up to 3times a day as needed for dryness. 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 Abnormal echocardiogram 12/11/2023 03/0 03/2024 Kidney stones 04/12/2023 01/30/2024 Family History Medical History Relation Name Comments Cancer Father Diabetes Father Cancer Mother Diabetes Mother Heart disease Mother Hypertension Mother Stroke Mother Relation Name Status Comments Father Mother Social History Tobacco Use Types Packs/Day Years Used Date Smoking Tobacco: Former Cigarettes Smokeless Tobacco: Never Tobacco Cessation:Counseling Given: Not Answered Alcohol Use Standard Drinks/Week Comments Not Currently 0 (1 standard drink = 0.6 oz pure alcohol) caffeine intake: 1-2 cups per day AUDIT-C Answer Date Recorded Q1: How often do you have a drink containing alcohol? Never 06/26/2024 Q2: How many drinks containi ng alcohol do you have on a typical day when you are drinking? Patient does not drink Q3: How often do you have si x or more drinks on one occasion? Never 06/26/2024 PHQ-2 Answer Date Recorded Patient Health Questionnaire-2 Score 0 06/26/2024 Comments No Sex and Gender Information Value Date Recorded Sex Assigned at Not on file Legal Sex Female 6:45 PM EDT Gender Identity Not on file Sexual Orientation Not on file Last Filed Vital Signs Vital Sign Reading Time Taken Comments Blood Pressure 116/74 07/16/2024 3:34 PM EDT Pulse 81 04/27/2023 8:51 AM EDT Temperature - - Respiratory Rate - - Oxygen Saturation 95% 04/27/2023 8:51 AM EDT Inhaled Oxygen Concentration - - Weight 61.2 kg (135 lb) 07/16/2024 3:34 PM EDT Height 160 cm (5' 3 ) 06/26/2024 1:05 PM EDT Body Mass Index 23.91 06/26/2024 1:05 PM EDT Plan of Treatment Health Maintenance Due Date Last Done Comments CT Colonography 1955 Colonoscopy 1955 Colorectal Cancer Screening 1955 FIT-DNA 1955 FIT 1955 FOBT 1955 Sigmoidoscopy 1955 Mammogram 11/15/2023 11/15/2022, 11/15/2022 Influenza Vaccine (Season Ended) 2025 09/13/2023, 08/30/2022, 09/09/2021, Additional history exists Pneumococcal Vaccine: 65+ Years Completed 10/31/2021, 08/10/2020, 11/27/2014 Procedures Procedure Name Priority Date/Time Associated Diagnosis Comments BI MAMMOGRAM SCREENING TOMOSYNTHESIS BILATERAL Routine 11/15/2022 from Last 3 Months or Most Recently Relevant to Health Maintenance Results * Bilateral screening mammogram with tomosynthesis (11/15/2022) Anatomical Region Laterality Modality Breast Bilateral Mammography Narrative 11/15/2022 12:00 AM EST PERFORMED AT [facility] LOCATION:[address] Patient: JOCELYN Hoyos. Exam Date: 11/15/2022 : 1955 Gender:F Ordering : DR ROMEO PHILLIPS . Admission #: [id number] Family : DR NIKOLAY DUNLAP . Order #: [id number] CLICK HERE TO VIEW EXAM RADIOLOGY REPORT PROCEDURE: MAMMOGRAM SCREENING 3D BILATERAL CAD COMPARISON: MG MAMM SCREEN MARCUS W CAD 09/20/2018. MG MAMM MARCUS SCRN W CAD DIG 09/17/2015. DIGITIZED_MAMMO 11/08/2005. MG MAMM SCREEN MARUCS W CAD 09/22/2020. INDICATIONS: Screening mammography Calculator Name NCI Breast Cancer Risk Assessment Tool 5 Year Breast Cancer Risk 1.50% Lifetime Breast Cancer Risk 4.80% Personal Breast Cancer No Personal Ovarian Cancer No Treatments None Family Cancers Father with colon cancer at age 70. LOCATION: [facility] BREAST COMPOSITION: Scattered areas fibroglandular density. FINDINGS: DIAGNOSTIC CATEGORY 1--NEGATIVE. RIGHT BREAST: No significant suspicious finding. No significant change has occurred. LEFT BREAST: No significant suspicious finding. No significant change has occurred. RECOMMENDATIONS: ROUTINE MAMMOGRAM AND CLINICAL EVALUATION IN 12 MONTHS. PLEASE NOTE: A NORMAL MAMMOGRAM DOES NOT EXCLUDE THE POSSIBILITY OF BREAST CANCER. A CLINICALLY SUSPICIOUS PALPABLE LUMP SHOULD BE BIOPSIED. Dictated by: Antonio Dewitt M.D. on 11/15/2022 at 13:41 Approved by: Antonio Dewitt M.D. on 11/15/2022 at 13:44 Procedure Note CONVERSION, GENERIC - 06/02/2023 PERFORMED AT [facility] LOCATION:[place] [address] Patient: JOCELYN Hoyos. Exam Date: 11/15/2022 : 1955 Gender:F Ordering : DR ROMEO PHILLIPS . Admission #: [id number] Family : DR NIKOLAY DUNLAP . Order #: [id number] CLICK HERE TO VIEW EXAM RADIOLOGY REPORT PROCEDURE: MAMMOGRAM SCREENING 3D BILATERAL CAD COMPARISON: MG MAMM SCREEN MARCUS W CAD 09/20/2018. MG MAMM MARCUS SCRN W CAD DIG 09/17/2015. DIGITIZED_MAMMO 11/08/2005. MG MAMM SCREEN MARCUS W CAD 09/22/2020. INDICATIONS: Screening mammography Calculator Name NCI Breast Cancer Risk Assessment Tool 5 Year Breast Cancer Risk 1.50% Lifetime Breast Cancer Risk 4.80% Personal Breast Cancer No Personal Ovarian Cancer No Treatments None Family Cancers Father with colon cancer at age 70. LOCATION: [facility] BREAST COMPOSITION: Scattered areas fibroglandular density. FINDINGS: DIAGNOSTIC CATEGORY 1--NEGATIVE. RIGHT BREAST: No significant suspicious finding. No significant changehas occurred. LEFT BREAST: No significant suspicious finding. No significant changehas occurred. RECOMMENDATIONS: ROUTINE MAMMOGRAM AND CLINICAL EVALUATION IN 12 MONTHS. PLEASE NOTE: A NORMAL MAMMOGRAM DOES NOT EXCLUDE THE POSSIBILITY OFBREAST CANCER. A CLINICALLY SUSPICIOUS PALPABLE LUMP SHOULD BE BIOPSIED. Dictated by: Antonio Dewitt M.D. on 11/15/2022 at 13:41 Approved by: Antonio Dewitt M.D. on 11/15/2022 at 13:44 Romeo Phillips MD IMG BI PROCEDURES Final Resul t from Last 3 Months or Most Recently Relevant to Health Maintenance Insurance MEDICARE [employer] [place] [id number] Care Teams Intake Rn Relationship Specialty Start Date End Date Nikolay Dunlap MD PCP - General Family Medicine 04/25/23
--- OUTSIDE RECORDS SUMMARY | 2025-05-09 12:25 | XMS_ITS | Encounter Summary ---
Author Organization [facility] Address [address] [place] [address] Phone Care Team Providers Care Auditor Medical Claims Name Role Phone Nikolay Borges MD Primary Care Provider [phone] Corina Butler RN Unavailable Unavailable Encounter Details Date Type Department Care Team (Late st Contact Info) Description 04/21/2025 Orders Only [facility] Cardi[facility]acic Intensive Care [address] [place] [id number] Peter Ryan, SHEET FOLDER-BALE STACKER [address] [place] [address] Severe aortic stenosis; S/P TAVR (transcatheter aortic valve replacement) Social History Tobacco Use Types Packs/Day Years [...] from your doctor or pharmacy? Rarely 04/15/2025 [facility] Utilities Answer Date Recorded In the past 12 months has e electric, gas, oil, or water [employer] threatened to shut off services in your [...] often do you attend chur ch or spiritism services? Never 04/15/2025 Do you belong to any clubs o r organizations such as yarsanism groups, unions, fraternal or athletic groups, or [...] Recorded Patient Health Questionnaire-2 Score 2 04/26/2022 [facility] [place] of Occupat ional Health - Occupational Stress [...] any time in the past 12 m [facility], were you homeless or living in a half-way (including now)? No 04/15/2025 Comments Unknown Sex [...] 05/15/2025 9:30 AM EDT Telemedicine Clinical Support [facility] [address] [place] [address] 08/01/2025 11:20 AM EDT Office Visit [place] [address] [place] [address] Theo Medina MD [address] [facility] [address] [place] [address] 04/10/2026 9:30 AM EDT Telemedicine Clinical Support [facility] [address] [place] [phone] documented as of this encounter Visit Diagnoses Diagnosis Severe aortic stenosis Aortic valve disorders S/P TAVR (transcatheter aortic valve replacement) documented in this encounter Additional Health Concerns Assessment Noted Time PHQ-9 Depression Total Score: 3 04/26/20 10:47 AM EDT A fall risk assessment has been complete d for the patient 12/23/2024 2:30 PM EST documented as of this encounter Care Teams Auditor Medical Claims Relationship Specialty Start Date End Date Nikolay Borges MD [address] [facility] [place] [address] PCP - General 04/26/22 Corina Butler, otc clerkCharging Crane Operator 04/18/25 documented as of this encounter
--- OUTSIDE RECORDS SUMMARY | 2025-05-09 12:25 | XMS_ITS | Encounter Summary ---
Author Organization [facility] Address [address] [place] [address] Phone Care Team Providers Care Engineering Supervisor Name Role Phone Nikolay Borges MD Primary Care Provider [phone] Corina Butler RN Unavailable Unavailable Encounter Details Date Type Department Care Team (Late st Contact Info) Description 12/26/2024 Scanned Document [facility] [address] [place] [phone] Scanning, Generic Provider Social History Tobacco Use Types Packs/Day Years Used Date Smoking Tobacco: Former Cigarettes Q uit: 2019 Smokeless Tobacco: Never Alcohol Use Standard Drinks/Week Comments Never 0 (1 standard drink = 0.6 oz pur e alcohol) PHQ-2 Answer Date Recorded Patient Health Questionnaire-2 Score 2 04/26/2022 Comments Unknown Sex and Gender Information Value Date Recorded Sex Assigned at Not on file Legal Sex Female 11:58 AM EST Gender Identity Not on file Sexual Orientation Not on file COVID-19 Exposure Response Date Recorded In the last 10 days, have yo u been in contact with someone who was confirmed or suspected to have Coronavirus/COVID-19? No / Unsure 12/23/2024 2:21 PM EST documented as of this encounter Plan of Treatment Upcoming Encounters Date Type Department Care Team (Late st Contact Info) Description 05/15/2025 9:30 AM EDT Telemedicine Clinical Support [facility] [address] [place] [phone] 08/01/2025 11:20 AM EDT Office Visit [place] [address] [place] [address] Theo Medina MD [address] [facility] [address] [place], [place] [phone] 04/10/2026 9:30 AM EDT Telemedicine Clinical Support [facility] [address] [facility] [address] [place] [address] documented as of this encounter Visit Diagnoses Not on filedocumented in this encounter Additional Health Concerns Assessment Noted Time PHQ-9 Depression Total Score: 3 04/26/20 10:47 AM EDT A fall risk assessment has been complete d for the patient 12/23/2024 2:30 PM EST documented as of this encounter Care Teams Engineering Supervisor Relationship Specialty Start Date End Date Nikolay Borges MD [address] [facility] [place] [address] PCP - General 04/26/22 Corina Butler, data control clerkLime Kiln Operator 04/18/25 documented as of this encounter
--- OUTSIDE RECORDS SUMMARY | 2025-05-09 12:25 | XMS_ITS ---
Author Organization [facility] Address [address] [place] [address] Care Team Providers Care Cloth Finishing Range Operator Name Role Phone Nikolay Borges MD Primary Care Provider + Elina Raza APRN.TACTICAL DEBRIEFER Unavailable [phone] Alexx Nguyen MD Unavailable [phone] Vianney Scherer RN Unavailable [phone] Unavailable [phone] Celina Hong STATUS CONTROLLER Unavailable Unavailable Active Problems Problem Noted Date Diagnosed Date Severe protein-calorie malnutrition 08/05/2024 Chronic bilateral low back pain without sciatica 05/20/2024 Chronic pain of right knee 05/20/2024 Long-term use of Plaquenil 05/20/2024 Bilateral hand pain 05/20/2024 Secondary osteoarthritis of multiple sites 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 steroids 05/20 Family history of systemic lupus erythematosus 0 05/20/2024 Ds DNA antibody positive 05/20/2024 QUINCY positive 05/20/2024 Elevated sed rate 05/20/2024 Raynaud's phenomenon without gangrene 05/20/2024 SS-B antibody positive 05/20/2024 Primary lung cancer with met astasis from 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 site, right 05/15/2023 Current Treatment and Therapy Plans AMB PEMBROLIZUMAB 200MG - Q21D* Plan Start Date:05/22/2023 Plan Provider:Alexx Nguyen MD Linked Problems Primary lung cancer with met astasis from 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 site, right (HCC) Treatment Medications Current Day (Day 1 , Cycle 29 - Planned for 05/19/2025) Next Day (Day 1, Cycle 30 - Planned for 06/09/2025) pembrolizumab IV infusion (KEYTRUDA) pembrolizumab 200 mg in NaCl 0.9% 58 mL (KEYTRUDA) pembrolizumab 200 mg in NaCl 0.9% 58 mL (KEYTRUDA) Past Treatment and Therapy Plans NON-CHEMO 1 Plan Name Start Date Discontinue Date Treatment Medications Discontinue Reason Plan Provider Cycles AMB HYDRATION - ONCE 08/14/2023 02/01/2024 No medications scheduled. Other Elina Raza, PRIVATE EQUITY ANALYST.TACTICAL DEBRIEFER 1 of 1 cycle started
--- OUTSIDE RECORDS SUMMARY | 2025-05-09 12:25 | XMS_ITS | Encounter Summary ---
Author Organization [facility] Address [address] [place] [address] Phone Care Team Providers Care Manager Application Name Role Phone Nikolay Borges MD Primary Care Provider [phone] Corina Butler RN Unavailable Unavailable Encounter Details Date Type Department Care Team (Late st Contact Info) Description 05/08/2025 Orders Only [facility] [address] [place] [address] Fe Canseco, BEACH EXPERT-EXTERMINATION SUPERVISOR [address] [place] [address] Social History Tobacco Use Types Packs/Day Years [...] from your doctor or pharmacy? Rarely 04/15/2025 [facility] Utilities Answer Date Recorded In the past 12 months has e [employer], gas, oil, or water company threatened to shut off services in your [...] often do you attend chur ch or latter day services? Never 04/15/2025 Do you belong to any clubs o r organizations such as congregation groups, unions, fraternal or athletic groups, or [...] Recorded Patient Health Questionnaire-2 Score 2 04/26/2022 [facility] [place] of Occupat ional Health - Occupational Stress [...] any time in the past 12 m [facility], were you homeless or living in a penitentiary (including now)? No 04/15/2025 Comments Unknown Sex [...] Telemedicine Clinical Support [facility] [address] [place] [address] 08/01/2025 11:20 AM EDT Office Visit [place] [address] [place] [address] Theo Medina MD [address] [place] [address] 04/10/2026 9:30 AM EDT Telemedicine Clinical Support [facility] [address] [place] [address] documented as of this encounter Procedures Procedure Name Priority Date/Time Associated Diagnosis Comments ECHOCARDIOGRAM 05/08/2025 10:58 AM EDT documented in this encounter Results * Echocardiogram (05/08/2025 10:58 AM EDT) 05/08/2025 10:5 8 AM EDT Narrative [facility] - 05/08/2025 2:08 PM EDT Echocardiology Procedure Exam Date/Time Accession # Ordering Echo Transthoracic 05/08/2025 10:58 EDT [id number] HARLEEN DAVIS-Mike JAFFE CPT code 99601 Reason for Exam (Echo Transthoracic Complete) Prosthetic heart valve Z95.2 Report [facility] [address] [place] [address] Adult Echocardiogram Report Name: ROBINA MCCABE Study Date: 05/08/2025 10:06 AM BP: 143/80 mmHg Patient Location: FT CAR F HR: 75 : 1955 Gender: Female Height: 63 in Age: 69 yrs Ethnicity: WHT Weight: 134 lb Reason For Study: Prosthetic heart valve Z95.2 BSA: 1.6 m2 History: TAVR 03/2025 Ordering Physician: HARLEEN^FE^Dionna Referring Physician: FE CANSECO Performed By: Katelynn Gutierrez RDCS Interpretation Summary The left ventricle is normal in size. There is normal left ventricular wall thickness. Moderate inferior wall hypokinesis Ejection Fraction = 45-50%. Diastolic examination suggests elevated left atrial pressure. Grade I diastolic dysfunction, (abnormal relaxation pattern). S/P TAVR with no stenosis but with mild medial and lateral perivalvular leak There is mild mitral regurgitation. Procedure A complete two-dimensional transthoracic echocardiogram was performed (2D, M- mode, spectral and color flow Doppler). Study quality is good. Left Ventricle The left ventricle is normal in size. There is normal left ventricular wall thickness. Ejection Fraction = 45-50%. Moderate inferior wall hypokinesis. Diastolic examination suggests elevated left atrial pressure. Grade I diastolic dysfunction, (abnormal relaxation pattern). Left Atrium The left atrial size is normal. Echocardiology Report Right Atrium The right atrium is grossly normal. Right Ventricle The right ventricular systolic function is normal. Aortic Valve S/P TAVR with no stenosis but with mild medial and lateral perivalvular leak. Mitral Valve Mitral valve structure is normal. There is mild mitral regurgitation. Tricuspid Valve The tricuspid valve is grossly normal. There is trace tricuspid regurgitation. Pulmonic Valve The pulmonic valve is normal. Arteries The aortic root is normal in size. Venous The inferior vena cava is normal in size, and collapses normally with respiration. Effusion There is no pericardial effusion. There is no pleural effusion noted on this exam. MMode/2D Measurements & Calculations RVDd: 2.9 cm LVIDd: 4.7 cm FS: 30.1 % Ao root diam: 2.6 cm IVSd: 1.0 cm LVIDs: 3.3 cm EDV(Teich): 104.4 ml Ao root area: 5.4 cm2 LVPWd: 1.1 cm ESV(Teich): 44.6 ml LA dimension: 3.3 cm EF(Teich): 57.3 % asc Aorta Diam: 3.0 cm LVOT diam: 1.9 cm LVLd ap4: 8.5 cm EDV(MOD-sp2): 116.0 ml LVOT area: 2.9 cm2 EDV(MOD-sp4): 106.0 ml ESV(MOD-sp2): 60.9 ml LVLs ap4: 7.3 cm EF(MOD-sp2): 47.5 % ESV(MOD-sp4): 52.4 ml EF(MOD-sp4): 50.6 % SV(MOD-sp4): 53.6 ml TAPSE: 2.2 cm IVC Diam: 1.8 cm RVIDd/LVIDd: 0.62 EF (MOD-bp): 46.5 % LA Vol Index: 41.2 ml/m2 Doppler Measurements & Calculations MV E max phi: 119.0 cm/sec MV dec time: 0.21 sec Ao V2 max: 215.0 cm/sec LV V1 max P.0 mmHg MV A max phi: 140.0 cm/sec Ao max P.5 mmHg LV V1 mean P.0 mmHg MV E/A: 0.85 Ao V2 mean: 139.0 cm/sec LV V1 max: 99.4 cm/sec Lat Peak E' Phi: 7.7 cm/sec Ao mean P.0 mmHg LV V1 mean: 60.6 cm/sec Echocardiology Report E/E' Lat: 15.4 Ao V2 VTI: 42.8 cm LV V1 VTI: 20.1 cm Med Peak E' Phi: 4.4 cm/sec E/E' Med: 27.3 ALESSANDRA(I,D): 1.4 cm2 ALESSANDRA(V,D): 1.3 cm2 SV(LVOT): 58.2 ml TR max phi: 213.9 cm/sec RAP systole: 3.0 mmHg AV VR: 0.46 TR max P.3 mmHg ALESSANDRA(VTI)/BSA_phl: 0.82 RVSP(TR): 21.3 mmHg Measurements from QLAB ED Mass (HM): 137.0 grams LAEF (HM): 56.0 % BSA (HM): 1.6 m2 CI (HM): 3.1 l/min/m2 LAVmax (HM): 67.0 ml LAVmin (HM): 30.0 ml Pat Height (HM): 160.0 cm SOHAIL (HM): 41.0 ml/m2 Pat Weight (HM): 60.8 kg FINAL REPORT Dictated: 05/08/2025 10:06 am Theo Medina MD Signed (Electronic Signature): 05/08/2025 2:08 pm Signed by: Theo Medina MD Transcribed by: MEL Technologist: KAREN us Fe Canseco BEACH EXPERT-EXTERMINATION SUPERVISOR CV ECHO PROCEDURES Fin al Result [facility] [address] [place] [address], documented in this encounter Visit Diagnoses Not on filedocumented in this encounter Additional Health Concerns Assessment Noted Time PHQ-9 Depression Total Score: 3 04/26/20 22 10:47 AM EDT A fall risk assessment has been complete d for the patient 05/07/2025 9:17 AM EDT documented as of this encounter Care Teams Manager Application Relationship Specialty Start Date End Date Nikolay Borges MD [address] [facility] [place] [address] PCP - General 04/26/22 Corina Butler, philosophy facultyHome And Family Living Professor 04/18/25 documented as of this encounter
--- OUTSIDE RECORDS SUMMARY | 2025-05-09 12:25 | XMS_ITS | Clinical Summary ---
Author Organization [facility] Address [address] [place] [address] Phone Care Team Providers Care Telephone Assembler Name Role Phone Nikolay Borges MD Primary Care Provider [phone] Corina Butler RN Unavailable Unavailable Allergies Active Allergy Reactions Criticality Noted Date Comments Ciprofloxacin Nausea/vomiting 12/11/2023 Medications cholecalciferol (Vitamin D-3) 50 mcg (2,000 unit) capsule Take 1 capsule (50 mcg) by mouth once daily. Active citalopram (CeleXA) 20 mg tablet Take 1 tablet (20 mg) by mouth once daily. 04/10/20 23 Active liothyronine (Cytomel) 25 mcg tablet Take 1.5 tablets (37.5 mcg) by mouth once daily. Active levothyroxine (Synthroid, Levoxyl) 75 mcg tablet Take 1 tablet (75 mcg) by mouth early in the morning.. Take on an empty stomach at the same time each day, either 30 to 60 minutes prior to breakfast Active ALPRAZolam (Xanax) 0.5 mg tablet Take 0.5 tablets (0.25 mg) by mouth once daily at bedtime. Active budesonide EC (Entocort EC) 3 mg 24 hr capsule Take 2 capsules (6 mg) by mouth once daily in the morning. Active omeprazole (PriLOSEC) [address] capsule Take 1 capsule (40 mg) by mouth once daily in the morning. Take before meals. Do not crush or chew. Active hydroxychloroquin e (Plaquenil) 200 mg tablet Take 1 tablet (200 mg) by mouth once daily. Active levalbuterol (Xopenex) 45 mcg/actuation inhaler Inhale 1-2 puffs every 6 hours if needed for wheezing. Active calcium carb/vitamin D3/vit K1 (VIACTIV ORAL) Take 2 tablets by mouth early in the morning.. Active denosumab (PROLIA SUBQ) Inject under the skin. Every 6 months 02/28/20 25 Active pembrolizumab (KEYTRUDA IV) Infuse 300 mg into a venous catheter once weekly. 02/28/20 25 Active chlorhexidine (Hibiclens) 4 % external liquidIndications :Murmur,Severe aortic stenosis,Malignan t neoplasm of lung, unspecified laterality, unspecified part of lung (Multi) Use as directed daily preoperatively 473 mL 04/10/20 25 Active chlorhexidine (Peridex) 0.12 % solutionIndicatio ns:Murmur,Severe aortic stenosis,Malignan t neoplasm of lung, unspecified laterality, unspecified part of lung (Multi) Swish and spit with 15ml of solution the night before and morning of surgery. Do not swallow. 15 mL 04/10/20 25 Active nystatin (Mycostatin) 100,000 unit/mL suspension Take 5 mL (500,000 Units) by mouth 4 times a day as needed. Swish and spit Active aspirin 81 mg EC tabletIndications :S/P TAVR (transcatheter aortic valve replacement) Take 1 tablet (81 mg) by mouth once daily. 30 tablet 04/17/20 026 Active cevimeline (Evoxac) 30 mg capsule Take 1 capsule (30 mg) by mouth 2 times a day. Active alirocumab (Praluent Pen) 75 mg/mL pen injectorIndicatio ns:Mixed hyperlipidemia Inject one time every 2 weeks 6 Pen 3 05/07/20 25 Active metoprolol succinate XL (Toprol-XL) 50 mg 24 hr tabletIndications :Hypertension, unspecified type,Acute systolic heart failure Take 1 tablet (50 mg) by mouth once daily. Do not crush or chew. 90 tablet 3 05/07/20 25 026 Active nitroglycerin (Nitrostat) 0.4 mg SL tabletIndications :3-vessel coronary artery disease Place 1 tablet (0.4 mg) under the tongue every 5 minutes if needed for chest pain. May repeat dose every 5 minutes for up to 3 doses total. 25 tablet 11 05/07/20 25 Active cevimeline (Evoxac) 30 mg capsule Take 1 capsule (30 mg) by mouth 3 times a day. Disconti nued(Dos e adjustme nt) diphenoxylate-atr opine (Lomotil) 2.5-0.025 mg tablet Take 1 tablet by mouth 4 times a day as needed for diarrhea. Disconti nued(Ent ered in Error) metoprolol tartrate (Lopressor) 50 mg tablet Take 0.5 tablets by mouth 2 times a day. Disconti nued(Sto p Taking at Discharg e) famotidine (Pepcid) 40 mg tablet Take 1 tablet (40 mg) by mouth. 02/28/20 025 Disconti nued(Ent ered in Error) furosemide (Lasix) 40 mg tabletIndications :Nonrheumatic aortic valve stenosis,Acute systolic heart failure TAKE 1 TABLET BY MOUTH EVERY DAY 90 tablet 3 04/07/20 25 Disconti nued(The rapy complete d) Active Problems Problem Noted Date Diagnosed Date [...] : mean 47 Hypertension 12/11/2023 Murmur 12/11/2023 Encounters Date Type Department Care Team Description 05/08/2025 Scanned Document [facility] [address] [place] [address] Scanning, Generic Provider 05/08/2025 Orders Only [facility] [address] [place] [address] Fe Ryan APRN-PAPER HANDLER 05/07/2025 9:20 AM EDT Office Visit [place] [address] [place] [address] Theo Medina MD S/P TAVR (transcatheter aortic valve replacement); Nonrheumatic aortic valve stenosis; 3-vessel coronary artery disease; Hypertension, unspecified type; Acute systolic heart failure; PAD (peripheral artery disease); Mixed hyperlipidemia; Statin intolerance; Left bundle-branch block, unspecified; Former smoker; BMI 24.0-24.9, adult 05/07/2025 Travel 05/01/2025 Patient Outreach [address] [place] [address] Corina Butler RN 04/24/[address] [place] [address] Cassy Hill LPN echo 04/21/2025 Orders Only [facility] [address] [place] [address] Fe Ryan, TEXTILE COLORIST DYER-PAPER HANDLER Severe aortic stenosis; S/P TAVR (transcatheter aortic valve replacement) 04/18/2025 Patient Outreach [facility] [address] [address] Corina Butler RN 04/14/2025 8:22 AM EDT - 04/14/2025 11:59 PM EDT Hospital [place]counter [place] [address] [place] [address] Discharge Disposition: Home 04/14/2025 7:43 AM EDT Anesthesia Event [facility] [address] [address] Blake Boston MD 04/14/2025 7:30 AM EDT - 04/14/2025 11:30 AM EDT Surgery [facility] [address] [address] Chuyita Peterson MD TAVR (Transcatheter AV Replacement) [99940 (CPT )] 04/14/2025 7:01 AM EDT - 04/14/2025 8:21 AM EDT Hospital Encounter [facility] [place] [address] [place] [address] Discharge Disposition: Home 04/14/2025 6:07 AM EDT - 04/17/2025 3:08 PM EDT Hospital Encounter [facility] [address] [place] [address] Chuyita Peterson MD Hammad, Tarek, MD Severe aortic stenosis (Primary Dx); S/P TAVR (transcatheter aortic valve replacement); Acute on chronic combined systolic (congestive) and diastolic (congestive) heart failure; Nonrheumatic aortic (valve) stenosis with insufficiency; Atrioventricular block, complete (Multi) Discharge Disposition: Home 04/14/2025 Travel 04/10/2025 3:15 PM EDT Pre-Admission Testing [facility] [address] [place] [address] Murmur (Primary Dx); Severe aortic stenosis; Malignant neoplasm of lung, unspecified laterality, unspecified part of lung (Multi); Abnormal coagulation profile; Hypothyroidism, unspecified type 04/10/2025 Travel 04/07/2025 Refill [facility] [address] [facility] [address] [place] [address] Katerina Luna, TEXTILE COLORIST DYER-PAPER HANDLER Nonrheumatic aortic valve stenosis; Acute systolic heart failure 04/04/2025 11:00 AM EDT Clinical Support [facility] [address] [place] [address] 03/27/2025 Orders Only [facility] [place] [address] [place] [address] [place] [address] Naima Tamayo, RN Severe aortic stenosis (Primary Dx) 03/03/2025 Cardiology Conference [facility] [address] [facility] [address] [place] [address] Celina Shepherd RN 02/12/2025 Orders Only [facility] [address] [place] [address] [place] [address] Naima Tamayo, RN Nonrheumatic aortic valve stenosis (Primary Dx); Abnormal CT scan; Coronary artery disease involving asa'carsarmiut heart without angina pectoris, unspecified vessel or lesion type; Other disorders of arteries, arterioles and capillaries in diseases classified elsewhere 02/10/2025 1:45 PM EDT - 02/10/2025 11:59 PM EDT Hospital Encounter [address] [place] [address] Severe aortic stenosis; Coronary artery disease; Heart failure with mid-range ejection fraction (HFmEF) Discharge Disposition: Home 02/10/2025 Travel from Last 3 Months Immunizations Immunization Administration Dates Next Due Influenza, trivalent, adjuvanted 09/25/2024 Pneumococcal conjugate vaccine, 13-valent (PREVN AR 13) 08/10/2020 Pneumococcal polysaccharide vaccine, 23-valent, age 2 years and older (PNEUMOVAX 23) 10/31/2021 Family History Medical History Relation Name Comments cardiac disorder Brother 1 Aortic stenosis Brother 2 Cancer Father malignant neoplasm Father Diabetes Mother Heart disease Mother Heart failure Mother Hypertension Mother Stroke Mother Hypertension Sister cardiac disorder Sister Relation Name Status Comments Brother 1 Brother 2 Father Mother Sister Social History Tobacco Use Types Packs/Day [...] from your doctor or pharmacy? Rarely 04/15/[address] [facility] Utilities Answer Date Recorded In the past 12 months has th e [employer], gas, oil, or water [employer] threatened to shut off services in your [...] often do you attend chur ch or presybeterian services? Never 04/15/2025 Do you belong to any clubs o r organizations such as mormonism groups, unions, fraternal or athletic groups, or [...] Recorded Patient Health Questionnaire-2 Score 2 04/26/2022 [facility] [place] [facility] - Occupational Stress [...] time in the past 12 [address] [facility], were you homeless or living in [...] No / Unsure 05/07/2025 9:10 AM EDT Last Filed Vital Signs Vital Sign Reading Time Taken Comments Blood Pressure 118/64 05/07/2025 9:16 AM EDT Pulse 81 05/07/2025 9:16 AM EDT Temperature 35.9 C (96.6 F) 04/17/2025 11:53 AM EDT Respiratory Rate 16 04/17/2025 11:53 AM EDT Oxygen Saturation 98% 04/17/2025 11:53 AM EDT Inhaled Oxygen Concentration - - Weight 61.7 kg (136 lb) 05/07/2025 9:16 AM EDT Height 157.5 cm (5' 2 ) 05/07/2025 9:16 AM EDT Body Mass Index 24.87 05/07/2025 9:16 AM EDT Plan of Treatment Upcoming Encounters Date Type Department Care Team (Late st Contact Info) Description 05/15/2025 9:30 AM EDT Telemedicine Clinical Support [facility] [address] [place] [address] 08/01/2025 11:20 AM EDT Office Visit [place] [address] [facility] [address] [place] [address] Theo Medina MD [address]03 [facility] [place] [address] 04/10/2026 9:30 AM EDT Telemedicine Clinical Support [facility] [place] [address] [place] [address] Health Maintenance Due Date Last Done Comments CT Colonography 1955 FIT-DNA (Cologuard) 1955 FIT 1955 Lipid Panel 1955 Medicare Annual Wellness Visit (AWV) 1955 Sigmoidoscopy 1955 Diabetes Screening 1971 Hepatitis C Screening 1971 DTaP/Tdap/Td Vaccines (1 - Tdap) 1975 Zoster Vaccines (1 of 2) 2003 RSV High Risk: (Elderly (60+) or Population) (1 - Risk 60-74 years 1-dose series) 2013 Mammogram 11/15/2023 11/15/2022, 11/15/2022 Bone Density Scan 11/15/2024 11/15/2022, , 09/22/2020 COVID-19 Vaccine ( season) 2025 10/14/2024, 10/04/2023 Creatinine Level 04/17/2026 04/17/2025, , 04/15/2025, Additional history exists Potassium Level 04/17/2026 04/17/2025, 05/2 11/2024, 04/15/2025, Additional history exists TSH Level 04/22/2026 04/22/2025, 05/0 03/2025, 02/17/2025, Additional history exists Echocardiogram 05/08/2026 05/08/2025, 04/27, 04/15/2025, Additional history exists Colonoscopy 11/01/2034 11/01/2024 Colorectal Cancer Screening 11/01/2034 Pneumococcal Vaccine Completed 10/31/2021, 08/10/20 Influenza Vaccine Completed 09/25/2024 HIB Vaccines Aged Out No longer eligi ble based on patient's age to complete this topic HPV Vaccines Aged Out No longer eligi ble based on patient's age to complete this topic Hepatitis A Vaccines Aged Out No long er eligible based on patient's age to complete this topic Hepatitis B Vaccines Aged Out No long er eligible based on patient's age to complete this topic IPV Vaccines Aged Out No longer eligi ble based on patient's age to complete this topic Meningococcal Vaccine Aged Out No riky lina eligible based on patient's age to complete this topic Rotavirus Vaccines Aged Out No longer eligible based on patient's age to complete this topic Medical Devices Implanted Type Area Patient Ombudsperson Device Identifier Shelf Expiration Date Model / Serial / Lot Valve, Aortic, 29mm, Evolut Fx Transcatheter - [id number] - [id number] Implanted:Qty: 1 on 04/14/2025 by Chuyita Peterson MD at [facility] Heart Valve Repair N/A: Heart [employer] 02/03/2027 EVFXPLUS- 29 / [id number] / [id number] Procedures Procedure Name Priority Date/Time Associated Diagnosis Comments ECHOCARDIOGRAM 05/08/2025 10:58 AM EDT ECHOCARDIOGRAM 05/08/2025 ECG 12-LEAD Routine 05/07/2025 9:20 AM EDT S/P TAVR (transcatheter aortic valve replacement) Left bundle-branch block, unspecified ECG 12-LEAD Routine 04/17/2025 6:40 AM EDT PROTIME-INR Pending Discharge 04/17/2025 5:34 AM EDT MAGNESIUM Pending Discharge 04/17/2025 5:34 AM EDT BASIC METABOLIC PANEL Pending Discharge 04/17/2025 5:34 AM EDT CBC WITH AUTO DIFFERENTIAL Pending Discharge 04/17/2025 5:34 AM EDT ECG 12-LEAD Routine 04/16/2025 6:30 AM EDT PROTIME-INR Pending Discharge 04/16/2025 5:54 AM EDT MAGNESIUM Pending Discharge 04/16/2025 5:54 AM EDT BASIC METABOLIC PANEL Pending Discharge 04/16/2025 5:54 AM EDT CBC WITH AUTO DIFFERENTIAL Pending Discharge 04/16/2025 5:54 AM EDT XR CHEST 1 VIEW Routine 04/16/2025 5:40 AM EDT XR CHEST 1 VIEW STAT 04/15/2025 7:55 PM EDT ECG 12-LEAD Routine 04/15/2025 12:50 PM EDT Procedure Note - 04/15/2025 12:50 PM EDTThis note is in progress. Normal sinus rhythm Left axis deviation Nonspecific intraventricular block Inferior infarct , age undetermined Abnormal ECG When compared with ECG of 15-APR-2025 06:09, Nonspecific intraventricular block has replaced Left bundle branch block Inferior infarct is now Present TRANSTHORACIC ECHO (TTE) LIMITED WITH DOPPLER,COLOR AND ULTROMICS Routine 04/15/2025 11:05 AM EDT S/P TAVR (transcatheter aortic valve replacement) ECG 12-LEAD Routine 04/15/2025 6:12 AM EDT XR CHEST 1 VIEW Routine 04/15/2025 5:17 AM EDT PROTIME-INR Routine 04/15/2025 3:17 AM EDT MAGNESIUM Routine 04/15/2025 3:17 AM EDT BASIC METABOLIC PANEL Routine 04/15/2025 3:17 AM EDT CBC WITH AUTO DIFFERENTIAL Routine 04/15/2025 3:17 AM EDT XR CHEST 1 VIEW Routine 04/14/2025 2:44 PM EDT ECG 12-LEAD Routine 04/14/2025 1:33 PM EDT ECG 12-LEAD Routine 04/14/2025 1:20 PM EDT PROTIME-INR STAT 04/14/2025 1:20 PM EDT CBC WITH AUTO DIFFERENTIAL STAT 04/14/2025 1:20 PM EDT MAGNESIUM STAT 04/14/2025 1:20 PM EDT BASIC METABOLIC PANEL STAT 04/14/2025 1:20 PM EDT TVP FOR TAVR Routine 04/14/2025 11:12 AM EDT Severe aortic stenosis Acute on chronic combined systolic (congestive) and diastolic (congestive) heart failure TAVR (TRANSCATHETER AV REPLACEMENT) Routine 04/14/2025 11:12 AM EDT Severe aortic stenosis Acute on chronic combined systolic (congestive) and diastolic (congestive) heart failure BLOOD GAS ARTERIAL FULL PANEL STAT 04/14/2025 11:08 AM EDT ACTIVATED CLOTTING TIME LOW Routine 04/14/2025 11:03 AM EDT PREPARE RBC STAT 04/14/2025 10:56 AM EDT ACTIVATED CLOTTING TIME LOW Routine 04/14/2025 10:40 AM EDT ACTIVATED CLOTTING TIME LOW Routine 04/14/2025 9:54 AM EDT ACTIVATED CLOTTING TIME LOW Routine 04/14/2025 9:46 AM EDT ACTIVATED CLOTTING TIME LOW Routine 04/14/2025 9:27 AM EDT ANESTHESIA PERIPHERAL IV PLACEMENT Routine 04/14/2025 9:25 AM EDT ACTIVATED CLOTTING TIME LOW Routine 04/14/2025 9:16 AM EDT ANESTHESIA PERIPHERAL IV PLACEMENT Routine 04/14/2025 8:55 AM EDT ANESTHESIA INTRAOPERATIVE PRASANNA STAT 04/14/2025 8:22 AM EDT Severe aortic stenosis Nonrheumatic aortic (valve) stenosis with insufficiency MO AN ELECTIVE ENDOTRACHEAL AIRWAY Routine 04/14/2025 8:17 AM EDT ANESTHESIA ARTERIAL LINE PLACEMENT Routine 04/14/2025 8:05 AM EDT TRANSTHORACIC ECHO (TTE) LIMITED WITH DOPPLER AND COLOR Routine 04/14/2025 7:50 AM EDT Severe aortic stenosis TAVR-OR 04/14/2025 7:44 AM EDT Severe aortic stenosis PREPARE RBC Routine 04/14/2025 7:24 AM EDT VERAB/VERIFY ABORH STAT 04/14/2025 7:24 AM EDT TYPE AND SCREEN Routine 04/10/2025 3:42 PM EDT Murmur Severe aortic stenosis Malignant neoplasm of lung, unspecified laterality, unspecified part of lung (Multi) COAGULATION SCREEN Routine 04/10/2025 3:42 PM EDT Murmur Severe aortic stenosis Malignant neoplasm of lung, unspecified laterality, unspecified part of lung (Multi) Abnormal coagulation profile STAPHYLOCOCCUS AUREUS/MRSA COLONIZATION, CULTURE Routine 04/10/2025 3:42 PM EDT Murmur Severe aortic stenosis Malignant neoplasm of lung, unspecified laterality, unspecified part of lung (Multi) CT TAVR FULL CONTRAST CHEST ABDOMEN PELVIS Routine 02/10/2025 2:57 PM EDT Severe aortic stenosis Coronary artery disease Heart failure with mid-range ejection fraction (HFmEF) from Last 3 Months Results * Echocardiogram (05/08/2025 10:58 AM EDT) 05/08/2025 10:5 8 AM EDT [facility] - 05/08/2025 2:08 PM EDT Echocardiology Procedure Exam Date/Time Accession # Ordering Dr. Espinosa Transthoracic 05/08/2025 10:58 EDT [id number] CONNOR DAVIS-, Mike Villareal CPT code 70715 Reason for Exam (Echo Transthoracic Complete) Prosthetic heart valve Z95.2 Report [facility] [address] [place] [address] Adult Echocardiogram Report Name: ROBINA MCCABE Study Date: 05/08/2025 10:06 AM BP: 143/80 mmHg Patient Location: FT CAR F HR: 75 : 1955 Gender: Female Height: 63 in Age: 69 yrs Ethnicity: T Weight: 134 lb Reason For Study: Prosthetic heart valve Z95.2 BSA: 1.6 m2 History: TAVR 03/2025 Ordering Physician: CONNOR^FE^R. Referring Physician: FE RYAN Performed By: Katelynn Gutierrez RDCS Interpretation Summary [...] Signed by: Theo Medina MD Transcribed by: SD Technologist: us Fe Ryan TEXTILE COLORIST DYER-PAPER HANDLER CV ECHO PROCEDURES Fin al Result [facility] [address] [place] [address], [place] * Echocardiogram (05/08/2025) Narrative 05/08/2025 Ordered by an unspecified provider. us Generic Provider Scanning CV ECHO PROCEDURES Fin al Result * ECG 12 Lead (05/07/2025 9:20 AM EDT) Only the most recent of6 resultswithin the time period is included. Narrative [facility] - 05/07/2025 11:57 AM EDT ECG revealed normal sinus rhythm with occasional PVCs, left axis deviation, left bundle branch block, abnormal ECG us Theo Medina MD ECG ORDERABLES Final Result [facility]ACS * (ABNORMAL) CBC and Auto Differential (04/17/2025 5:34 AM EDT) Only the most recent of4 resultswithin the time period is included. Pathologist [facility] WBC 8.0 4.4 - 11.3 x10*3/uL LAB HEMATOLOGY METHOD 04/17/2025 6:04 AM EDT [facility] nRBC 0.0 0.0 - 0.0 /100 WBCs LAB HEMATOLOGY METHOD 04/17/2025 6:04 AM EDT [facility] RBC 3.56(L) 4.00 - 5.20 x10*6/uL LAB HEMATOLOGY METHOD 04/17/2025 6:04 AM EDT [facility] Hemoglobin 10.9(L) 12.0 - 16.0 g/dL LAB HEMATOLOGY METHOD 04/17/2025 6:04 AM EDT [facility] Hematocrit 31.6(L) 36.0 - 46.0 % LAB HEMATOLOGY METHOD 04/17/2025 6:04 AM EDT [facility] MCV 89 80 - 100 fL LAB HEMATOLOGY METHOD 04/17/2025 6:04 AM EDT [facility] MCH 30.6 26.0 - 34.0 pg LAB HEMATOLOGY METHOD 04/17/2025 6:04 AM EDT [facility] MCHC 34.5 32.0 - 36.0 g/dL LAB HEMATOLOGY METHOD 04/17/2025 6:04 AM EDT [facility] RDW 15.4(H) 11.5 - 14.5 % LAB HEMATOLOGY METHOD 04/17/2025 6:04 AM EDT [facility] Platelets 253 150 - 450 x10*3/uL LAB HEMATOLOGY METHOD 04/17/2025 6:04 AM EDT [facility] Neutrophils % 66.5 40.0 - 80.0 % LAB HEMATOLOGY METHOD 04/17/2025 6:04 AM EDT [facility] Immature Granulocytes %, Automated 1.4(H) 0.0 - 0.9 % LAB HEMATOLOGY METHOD 04/17/2025 6:04 AM EDT [facility] Comment:Immature Granulocyte Count (IG) includes promyelocytes, myelocytes and metamyelocytes but does not include bands. Percent differential counts (%) should be interpreted in the context of the absolute cell counts (cells/UL). Lymphocytes % 14.3 13.0 - 44.0 % LAB HEMATOLOGY METHOD 04/17/2025 6:04 AM EDT [facility] Monocytes % 13.8 2.0 - 10.0 % LAB HEMATOLOGY METHOD 04/17/2025 6:04 AM EDT [facility] Eosinophils % 3.5 0.0 - 6.0 % LAB HEMATOLOGY METHOD 04/17/2025 6:04 AM EDT [facility] Basophils % 0.5 0.0 - 2.0 % LAB HEMATOLOGY METHOD 04/17/2025 6:04 AM EDT [facility] Neutrophils Absolute 5.31 1.60 - 5.50 x10*3/uL LAB HEMATOLOGY METHOD 04/17/2025 6:04 AM T [facility] Comment:Percent differential counts (%) should be interpreted in the context of the absolute cell counts (cells/uL). Immature Granulocytes Absolute, Automated 0.11 0.00 - 0.50 x10*3/uL LAB HEMATOLOGY METHOD [facility] Lymphocytes Absolute 1.14 0.80 - 3.00 x10*3/uL LAB HEMATOLOGY METHOD 04/17/2025 6:04 AM [facility] Monocytes Absolute 1.10(H) 0.05 - 0.80 x10*3/uL LAB HEMATOLOGY METHOD 04/17[facility]2025 [facility] Eosinophils Absolute 0.28 0.00 - 0.40 x10*3/uL LAB HEMATOLOGY METHOD 04/17/2025 6:04 AM [facility] Basophils Absolute 0.04 0.00 - 0.10 x10*3/uL LAB HEMATOLOGY METHOD 04/17/2025 6:04 AM [facility] Blood Venous blood specimen / Unknown 04/17/2025 5:34 AM EDT 04/17/2025 5:48 AM EDT Fe Ryan TEXTILE COLORIST DYER-PAPER HANDLER LAB BLOOD ORDERABLES F inal Result Performing Organization Address City/[facility] Co de Phone Number [facility] [id number] [place] [phone] * (ABNORMAL) Protime-INR (04/17/2025 5:34 AM EDT) Only the most recent of4 resultswithin the time period is included. Protime 12.5(H) 9.8 - 12.4 seconds LAB COAGULATION METHOD 04/17/2025 6:08 AM EDT [facility] INR 1.1 0.9 - 1.1 LAB COAGULATION METHOD 04/17/2025 6:08 AM EDT [facility] Blood Venous blood specimen / Unknown 04/17/2025 5:34 AM EDT 04/17/2025 5:48 AM EDT Fe Ryan TEXTILE COLORIST DYER-PAPER HANDLER LAB BLOOD ORDERABLES F inal Result Performing Organization Address [facility] Co de Phone Number [facility] [address] [place] [phone] * Magnesium (04/17/2025 5:34 AM EDT) Only the most recent of4 resultswithin the time period is included. Magnesium 2.00 1.60 - 2.40 mg/dL LAB CHEMISTRY METHOD 04/17/2025 6:31 AM EDT [facility] Blood Venous blood specimen / Unknown 04/17/2025 5:34 AM EDT 04/17/2025 5:48 AM EDT Fe Tirso Connor TEXTILE COLORIST DYER-PAPER HANDLER LAB BLOOD ORDERABLES F inal Result Performing Organization Address [facility] Co de Phone Number [facility] [address] [place] [phone] * (ABNORMAL) Basic Metabolic Panel (04/17/2025 5:34 AM EDT) Only the most recent of4 resultswithin the time period is included. [facility] Glucose 92 74 - 99 mg/dL LAB CHEMISTRY METHOD 04/17/2025 6:31 AM EDT [facility] Sodium 137 136 - 145 mmol/L LAB CHEMISTRY METHOD 04/17/2025 6:31 AM EDT [facility] Potassium 3.8 3.5 - 5.3 mmol/L LAB CHEMISTRY METHOD 04/17/2025 6:31 AM EDT [facility] Chloride 104 98 - 107 mmol/L LAB CHEMISTRY METHOD 04/17/2025 6:31 AM EDT [facility] Bicarbonate 29 21 - 32 mmol/L LAB CHEMISTRY METHOD 04/17/2025 6:31 AM EDT [facility] Anion Gap 8(L) 10 - 20 mmol/L LAB CHEMISTRY METHOD 04/17/2025 6:31 AM EDT [facility] Urea Nitrogen 8 6 - 23 mg/dL LAB CHEMISTRY METHOD 04/17/2025 6:31 AM EDT [facility] Creatinine 0.42(L) 0.50 - 1.05 mg/dL LAB CHEMISTRY METHOD 04/17/2025 6:31 AM EDT [facility] eGFR >90 >60 mL/min/1. 73m*2 LAB CHEMISTRY METHOD 04/17/2025 6:31 AM EDT [facility] Comment: Calculations of estimated GFR are performed using the 2020 CKD-EPI Study Refit equation without the race variable for the IDMS-Traceable creatinine methods. https://jasn.asnjournals.org/content//ASN.[email or web address] Calcium 8.3(L) 8.6 - 10.6 mg/dL LAB CHEMISTRY METHOD 04/17/2025 6:31 AM EDT [facility] Blood Venous blood specimen / Unknown 04/17/2025 5:34 AM EDT 04/17/2025 5:48 AM EDT us Fe Ryan TEXTILE COLORIST DYER-PAPER HANDLER LAB BLOOD ORDERABLES F inal Result [facility] [id number] [address] [place] [id number] * XR chest 1 view (04/16/2025 5:40 AM EDT) Only the most recent of4 resultswithin the time period is included. Anatomical Region Laterality Modality Thoracic, Chest Computed Radiogr aphy 04/16/2025 3:30 PM EDT 04/16/2025 3:30 PM EDT Impressions 04/16/2025 3:28 PM EDT 1. Pulmonary aeration and right hilar mass similar previous study I personally reviewed the images/study and I agree with the findings as stated by resident physician Hal Contreras MD. This study was interpreted at [facility], [place], [place]. MACRO: None Signed by: Daniel Mortensen 04/16/2025 3:28 PM Dictation workstation: [id number] Narrative 04/16/2025 3:28 PM EDT Interpreted By: Daniel Mortensen and Liu Scott STUDY: XR CHEST 1 VIEW; 04/16/2025 5:40 am INDICATION: Signs/Symptoms:s/p valve procedure. COMPARISON: Chest x-ray 04/15/2025, CT TAVR 02/10/2025 ACCESSION NUMBER(S): [id number] ORDERING CLINICIAN: FE RYAN FINDINGS: AP radiograph of the chest was provided. Medical devices: Right internal jugular transvenous pacer distal tip projects over the right ventricle. Postsurgical changes of TAVR. Cardiomediastinal silhouette is normal in size. Redemonstration right perihilar consolidative opacity with air bronchograms. Superimposed ephu-ahpyuow-llvx-right bibasilar streaky opacities. No sizable pleural effusion. Lucency beneath the right hemidiaphragm corresponding to interposition of colon with the liver better seen on prior CT. This is consistent with Chilaiditis syndrome. Osseous and articular anatomy is normal for age. Procedure Note Daniel Mortensen DO - 04/16/2025 Interpreted By: Daniel Mortensen and Liu Scott STUDY: XR CHEST 1 VIEW; 04/16/2025 5:40 am INDICATION: Signs/Symptoms:s/p valve procedure. COMPARISON: Chest x-ray 04/15/2025, CT TAVR 02/10/2025 ACCESSION NUMBER(S): [id number] ORDERING CLINICIAN: FE RYAN FINDINGS: AP radiograph of the chest was provided. Medical devices: Right internal jugular transvenous pacer distal tip projects over the right ventricle. Postsurgical changes of TAVR. Cardiomediastinal silhouette is normal in size. Redemonstration right perihilar consolidative opacity with air bronchograms. Superimposed emaw-wtblnhu-vczf-right bibasilar streaky opacities. No sizable pleural effusion. Lucency beneath the right hemidiaphragm corresponding to interposition of colon with the liver better seen on prior CT. This is consistent with Chilaiditis syndrome. Osseous and articular anatomy is normal for age. IMPRESSION: 1. Pulmonary aeration and right hilar mass similar previous study I personally reviewed the images/study and I agree with the findings as stated by resident physician Hal Contreras MD. This study was interpreted at [facility], [place], [place]. 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 IMG XR PROCEDURES Rina l Result * TRANSTHORACIC ECHO (TTE) LIMITED WITH DOPPLER,COLOR AND ULTROMICS (04/15/2025 11:05 AM EDT) AV pk phi 2.37 m/s SYNGO AV mn grad 11 mmHg SYNGO LVOT diam 1.70 cm SYNGO MV E/A ratio 0.82 SYNGO Tricuspid annular plane systolic excursion 2.1 cm SYNGO LV EF 62 % SYNGO RV free wall pk S' 12.60 cm/s SYNGO LVIDd 4.20 cm SYNGO Aortic Valve Area by Continuity of VTI 1.72 cm2 SYNGO Aortic Valve Area by Continuity of Peak Velocity 1.54 cm2 SYNGO AV pk grad 22 mmHg SYNGO LV A4C EF 60.2 SYNGO BSA 1.65 m2 SYNGO 04/15/2025 10:1 8 AM EDT Narrative SYNGO - 04/15/2025 12:00 PM EDT [facility], [address] [place] [address] and TRANSTHORACIC ECHOCARDIOGRAM REPORT Patient Name: ROBINA MCCABE Ingrid Physician: [id number] Estela Valenzuela MD Study Date: 04/15/2025 Ordering Provider: [id number] FE RYAN MRN/PID: [id number] Fellow: Nurse: Date of /Age: 12 1955 Booth Usher: Sharmin Barrera RCS years Gender assigned at F Additional Staff: : Height: 160.00 cm Admit Date: 04/14/2025 Weight: 59.88 kg Admission Status: Inpatient - Routine BSA / BMI: 1.62 m2 / 23.39 kg/m2 Blood Pressure: 110/70 mmHg Department Location: [facility] Study Type: TRANSTHORACIC ECHO (TTE) LIMITED Diagnosis/ICD: 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 Valve Disorders: Aortic Stenosis, Mitral Regurgitation and Tricuspid Regurgitation. Pertinent Murmur and HTN. Lung cancer, LBBB. History: Study Detail: The following Echo studies were performed: 2D, M-Mode, Doppler and color flow. Technically challenging study due to prominent lung artifact. PHYSICIAN INTERPRETATION: Left Ventricle: Left ventricular ejection fraction is normal, calculated by Ayers's biplane at 62%. There is mild concentric left ventricular hypertrophy. There are no regional left ventricular wall motion abnormalities. The left ventricular cavity size is normal. There is mildly increased septal and mildly increased posterior left ventricular wall thickness. Spectral Doppler shows a normal pattern of left ventricular diastolic filling. Left Atrium: The left atrial size is normal. Right Ventricle: The right ventricle is normal in size. There is normal right ventricular global systolic function. Right Atrium: The right atrium is normal in size. Aortic Valve: There is a prosthetic aortic valve present. The aortic valve dimensionless index is 0.76. There is a Medtronic transcatheter aortic valve bioprosthesis with a 29 mm reported size. There is mild aortic valve regurgitation. The peak instantaneous gradient of the aortic valve is 22 mmHg. The mean gradient of the aortic valve is 11 mmHg. Ss/p 29mm Medtronic Evolut FX+ TAVR with gradients of 22/11mmHg with mild perivalvular AI. Mitral Valve: The mitral valve is mildly thickened. There is moderate mitral annular calcification. The peak instantaneous gradient of the mitral valve is 14 mmHg. There is mild mitral valve regurgitation which is posteriorly directed. Tricuspid Valve: The tricuspid valve is structurally normal. There is trace tricuspid regurgitation. The right ventricular systolic pressure is unable to be estimated. Pulmonic Valve: The pulmonic valve was not assessed. Pulmonic valve regurgitation was not assessed. Pericardium: Trivial pericardial effusion. Aorta: The aortic root is normal. The Ao Sinus is 2.50 cm. The Asc Ao is 2.70 cm. Systemic Veins: The inferior vena cava appears normal in size, with IVC inspiratory collapse greater than 50%. In comparison to the previous echocardiogram(s): Compared with study dated 04/14/2025, the prior exam was only a limited preTAVR echo for carotid access TAVR. At that point there was normal LV systolic function with severe withh gradients of 80/51mmHg and there has been interval TAVR between that exam and today's study. The Intraoperative PRASANNA done later that day demonstrated post TAVR gradients of 13.2/4mmHg with mild perivalvular AI at that time, with slightly higher gradients today. There was moderate MR immediately following the PRASANNA, and appears to be less MR today, though only limited assessment. CONCLUSIONS: 1. Left ventricular ejection fraction is normal, calculated by Ayers's biplane at 62%. 2. There is normal right ventricular global systolic function. 3. There is moderate mitral annular calcification. 4. Ss/p 29mm Medtronic Evolut FX+ TAVR with gradients of 22/11mmHg with mild perivalvular AI. 5. There is a Medtronic transcatheter aortic valve bioprosthesis with a 29 mm reported size. 6. Mild aortic valve regurgitation. 7. Compared with study dated 04/14/2025, the prior exam was only a limited preTAVR echo for carotid access TAVR. At that point there was normal LV systolic function with severe withh gradients of 80/51mmHg and there has been interval TAVR between that exam and today's study. The Intraoperative PRASANNA done later that day demonstrated post TAVR gradients of 13.2/4mmHg with mild perivalvular AI at that time, with slightly higher gradients today. There was moderate MR immediately following the PRASANNA, and appears to be less MR today, though only limited assessment. RECOMMENDATIONS: Utilizing an FDA cleared automated machine learning algorithm (EchoGo Heart Failure by Yobongo), the analysis of the apical 4-chamber echocardiogram suggests the presence of heart failure with preserved ejection fraction (HFpEF)*. Clinical correlation looking for additional heart failure signs and symptoms is recommended, as a definite diagnosis of heart failure cannot be made by imaging alone. *Per ACC/AHA/HFSA universal diagnosis of heart failure, HFpEF is defined as 1) signs and symptoms leading to clinical diagnosis of heart failure, 2) an ejection fraction of at least 50%, and 3) evidence of elevated intra-cardiac filling pressures by echocardiography, BNP elevation, or catheterization. QUANTITATIVE DATA SUMMARY: 2D MEASUREMENTS: Normal Ranges: Ao Root d: 2.50 cm (2.0-3.7cm) LAs: 4.60 cm (2.7-4.0cm) IVSd: 1.20 cm (0.6-1.1cm) LVPWd: 1.10 cm (0.6-1.1cm) LVIDd: 4.20 cm (3.9-5.9cm) LVIDs: 2.90 cm LV Mass Index: 103 g/m2 LVEDV Index: 68 ml/m2 LV % FS 31.0 % LEFT ATRIUM: Normal Ranges: LA Vol A4C: 40.8 ml (22+/-6mL/m2) LA Vol Index A4C: 25.2ml/m2 LA Area A4C: 15.5 cm2 LA Major [place] A4C: 5.0 cm LA Vol A4C: 38.2 ml RIGHT ATRIUM: Normal Ranges: RA Vol A4C: 21.3 ml (8.3-19.5ml) RA Vol Index A4C: 13.1 ml/m2 RA Area A4C: 8.8 cm2 RA Major [place] A4C: 3.1 cm AORTA MEASUREMENTS: Normal Ranges: Ao Sinus, d: 2.50 cm (2.1-3.5cm) Asc Ao, d: 2.70 cm (2.1-3.4cm) LV SYSTOLIC FUNCTION: Normal Ranges: EF-A4C View: 60 % (>=55%) EF-A2C View: 64 % EF-Biplane: 62 % LV EF Reported: 62 % LV DIASTOLIC FUNCTION: Normal Ranges: MV Peak E: 1.29 m/s (0.7-1.2 m/s) MV Peak A: 1.57 m/s (0.42-0.7 m/s) E/A Ratio: 0.82 (1.0-2.2) MV e' 0.127 m/s (>8.0) MV lateral e' 0.14 m/s MV medial e' 0.11 m/s E/e' Ratio: 10.16 (<8.0) PulmV Sys Phi: 79.10 cm/s PulmV A Revs Phi: 37.10 cm/s MITRAL VALVE: Normal Ranges: MV Vmax: 1.84 m/s (<=1.3m/s) MV peak P.5 mmHg (<5mmHg) MV mean P.0 mmHg (<2mmHg) MV DT: 132 msec (150-240msec) MITRAL INSUFFICIENCY: Normal Ranges: MR VTI: 125.00 cm MR Vmax: 508.00 cm/s AORTIC VALVE: Normal Ranges: AoV Vmax: 2.37 m/s (<=1.7m/s) AoV Peak P.5 mmHg (<20mmHg) AoV Mean P.0 mmHg (1.7-11.5mmHg) LVOT Max Phi: 1.61 m/s (<=1.1m/s) AoV VTI: 33.70 cm (18-25cm) LVOT VTI: 25.50 cm LVOT Diameter: 1.70 cm (1.8-2.4cm) AoV Area, VTI: 1.72 cm2 (2.5-5.5cm2) AoV Area,Vmax: 1.54 cm2 (2.5-4.5cm2) AoV Dimensionless Index: 0.76 RIGHT VENTRICLE: RV Basal 3.60 cm RV Mid 2.80 cm RV Major 6.2 cm TAPSE: 20.8 mm RV s' 0.13 m/s TRICUSPID VALVE/RVSP: Normal Ranges: Est. RA Pressure: 3 mmHg IVC Diam: 1.35 cm PULMONARY VEINS: PulmV A Revs Phi: 37.10 cm/s PulmV Sys Phi: 79.10 cm/s [id number] sEtela Valenzuela MD Electronically signed on 04/15/2025 at 12:00:20 PM Final Procedure Note Estela Valenzuela MD - 04/15/2025 [facility], [address] [place] [address] and TRANSTHORACIC ECHOCARDIOGRAM REPORT Patient Name: ROBINA EDWARDSKRISTAL Quintero Physician: [id number] Moya MD Study Date: 04/15/2025 Ordering Provider: [id number] SHANTELLE RYAN MRN/PID: [id number] Fellow: Nurse: Date of /Age: 12 1955 Booth Usher: Kareem wright Gender assigned at F Additional Staff: : Height: 160.00 cm Admit Date: 04/14/2025 Weight: 59.88 kg Admission Status: Inpatient- Routine BSA / BMI: 1.62 m2 / 23.39 kg/m2 Blood Pressure: 110/70 mmHg Department Location: [facility] Study Type: TRANSTHORACIC ECHO (TTE) LIMITED Diagnosis/ICD: 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 Valve Disorders: Aortic Stenosis, Mitral Regurgitation and Tricuspid Regurgitation. Pertinent Murmur and HTN. Lung cancer, LBBB. History: Study Detail: The following Echo studies were performed: 2D, M-Mode,Doppler and color flow. Technically challenging study due to prominentlung artifact. PHYSICIAN INTERPRETATION: Left Ventricle: Left ventricular ejection fraction is normal, calculatedby Ayers's biplane at 62%. There is mild concentric left ventricularhypertrophy. There are no regional left ventricular wall motionabnormalities. The left ventricular cavity size is normal. There is mildlyincreased septal and mildly increased posterior left ventricular wallthickness. Spectral Doppler shows a normal pattern of left ventriculardiastolic filling. Left Atrium: The left atrial size is normal. Right Ventricle: The right ventricle is normal in size. There is normalright ventricular global systolic function. Right Atrium: The right atrium is normal in size. Aortic Valve: There is a prosthetic aortic valve present. The aortic valvedimensionless index is 0.76. There is a Medtronic transcatheter aorticvalve bioprosthesis with a 29 mm reported size. There is mild aortic valveregurgitation. The peak instantaneous gradient of the aortic valve is 22mmHg. The mean gradient of the aortic valve is 11 mmHg. Ss/p 29mmMedtronic Evolut FX+ TAVR with gradients of 22/11mmHg with mildperivalvular AI. Mitral Valve: The mitral valve is mildly thickened. There is moderatemitral annular calcification. The peak instantaneous gradient of themitral valve is 14 mmHg. There is mild mitral valve regurgitation which isposteriorly directed. Tricuspid Valve: The tricuspid valve is structurally normal. There istrace tricuspid regurgitation. The right ventricular systolic pressure isunable to be estimated. Pulmonic Valve: The pulmonic valve was not assessed. Pulmonic valveregurgitation was not assessed. Pericardium: Trivial pericardial effusion. Aorta: The aortic root is normal. The Ao Sinus is 2.50 cm. The Asc Ao is2.70 cm. Systemic Veins: The inferior vena cava appears normal in size, with IVCinspiratory collapse greater than 50%. In comparison to the previous echocardiogram(s): Compared with study dated04/14/2025, the prior exam was only a limited preTAVR echo for carotidaccess TAVR. At that point there was normal LV systolic function withsevere withh gradients of 80/51mmHg and there has been interval TAVRbetween that exam and today's study. The Intraoperative PRASANNA done laterthat day demonstrated post TAVR gradients of 13.2/4mmHg with mildperivalvular AI at that time, with slightly higher gradients today. Therewas moderate MR immediately following the PRASANNA, and appears to be less MRtoday, though only limited assessment. CONCLUSIONS: 1. Left ventricular ejection fraction is normal, calculated by Ayers'sbiplane at 62%. 2. There is normal right ventricular global systolic function. 3. There is moderate mitral annular calcification. 4. Ss/p 29mm Medtronic Evolut FX+ TAVR with gradients of 22/11mmHg withmild perivalvular AI. 5. There is a Medtronic transcatheter aortic valve bioprosthesis with a29 mm reported size. 6. Mild aortic valve regurgitation. 7. Compared with study dated 04/14/2025, the prior exam was only a limitedpreTAVR echo for carotid access TAVR. At that point there was normal LVsystolic function with severe withh gradients of 80/51mmHg and therehas been interval TAVR between that exam and today's study. TheIntraoperative PRASANNA done later that day demonstrated post TAVR gradients of13.2/4mmHg with mild perivalvular AI at that time, with slightly highergradients today. There was moderate MR immediately following the PRASANNA, andappears to be less MR today, though only limited assessment. RECOMMENDATIONS: Utilizing an FDA cleared automated machine learning algorithm (EchoGoHeart Failure by Yobongo), the analysis of the apical 4-chamberechocardiogram suggests the presence of heart failure with preservedejection fraction (HFpEF)*. Clinical correlation looking for additionalheart failure signs and symptoms is recommended, as a definite diagnosisof heart failure cannot be made by imaging alone. *Per ACC/AHA/HFSA universal diagnosis of heart failure, HFpEF is definedas 1) signs and symptoms leading to clinical diagnosis of heart failure,2) an ejection fraction of at least 50%, and 3) evidence of elevatedintra-cardiac filling pressures by echocardiography, BNP elevation, orcatheterization. QUANTITATIVE DATA SUMMARY: 2D MEASUREMENTS: Normal Ranges: Ao Root d: 2.50 cm (2.0-3.7cm) LAs: 4.60 cm (2.7-4.0cm) IVSd: 1.20 cm (0.6-1.1cm) LVPWd: 1.10 cm (0.6-1.1cm) LVIDd: 4.20 cm (3.9-5.9cm) LVIDs: 2.90 cm LV Mass Index: 103 g/m2 LVEDV Index: 68 ml/m2 LV % FS 31.0 % LEFT ATRIUM: Normal Ranges: LA Vol A4C: 40.8 ml (22+/-6mL/m2) LA Vol Index A4C: 25.2ml/m2 LA Area A4C: 15.5 cm2 LA Major [place] A4C: 5.0 cm LA Vol A4C: 38.2 ml RIGHT ATRIUM: Normal Ranges: RA Vol A4C: 21.3 ml (8.3-19.5ml) RA Vol Index A4C: 13.1 ml/m2 RA Area A4C: 8.8 cm2 RA Major [place] A4C: 3.1 cm AORTA MEASUREMENTS: Normal Ranges: Ao Sinus, d: 2.50 cm (2.1-3.5cm) Asc Ao, d: 2.70 cm (2.1-3.4cm) LV SYSTOLIC FUNCTION: Normal Ranges: EF-A4C View: 60 % (>=55%) EF-A2C View: 64 % EF-Biplane: 62 % LV EF Reported: 62 % LV DIASTOLIC FUNCTION: Normal Ranges: MV Peak E: 1.29 m/s (0.7-1.2 m/s) MV Peak A: 1.57 m/s (0.42-0.7 m/s) E/A Ratio: 0.82 (1.0-2.2) MV e' 0.127 m/s (>8.0) MV lateral e' 0.14 m/s MV medial e' 0.11 m/s E/e' Ratio: 10.16 (<8.0) PulmV Sys Phi: 79.10 cm/s PulmV A Revs Phi: 37.10 cm/s MITRAL VALVE: Normal Ranges: MV Vmax: 1.84 m/s (<=1.3m/s) MV peak P.5 mmHg (<5mmHg) MV mean P.0 mmHg (<2mmHg) MV DT: 132 msec (150-240msec) MITRAL INSUFFICIENCY: Normal Ranges: MR VTI: 125.00 cm MR Vmax: 508.00 cm/s AORTIC VALVE: Normal Ranges: AoV Vmax: 2.37 m/s (<=1.7m/s) AoV Peak P.5 mmHg (<20mmHg) AoV Mean P.0 mmHg (1.7-11.5mmHg) LVOT Max Phi: 1.61 m/s (<=1.1m/s) AoV VTI: 33.70 cm (18-25cm) LVOT VTI: 25.50 cm LVOT Diameter: 1.70 cm (1.8-2.4cm) AoV Area, VTI: 1.72 cm2 (2.5-5.5cm2) AoV Area,Vmax: 1.54 cm2 (2.5-4.5cm2) AoV Dimensionless Index: 0.76 RIGHT VENTRICLE: RV Basal 3.60 cm RV Mid 2.80 cm RV Major 6.2 cm TAPSE: 20.8 mm RV s' 0.13 m/s TRICUSPID VALVE/RVSP: Normal Ranges: Est. 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 CV ECHO PROCEDURES Fin al Result SYNGO * TAVR (TRANSCATHETER AV REPLACEMENT), TVP FOR TAVR (04/14/2025 11:12 AM EDT) 04/14/2025 7:41 AM EDT Narrative SYNGO - 04/14/2025 9:52 PM EDT [facility], [facility], [address] [place] [address] Cardiovascular Catheterization Report Patient Name: ROBINA MCCABE Performing Physician: Beatrice Peterson MD Study Date: 04/14/2025 Verifying Physician: Beatrice Peterson MD MRN/PID: [id number] Screen Cutter And Trimmer/Co-Scrub: Ordering Provider: Beatrice PETERSON Date of /Age: 12 1955 / 69 years Screen Cutter And Trimmer: Gender: F Fellow: [id number] August Burgos MD Surgeon: Augie Abdalla MD Study: TOMMY - Transcatheter Aortic Valve Implantation Indications: Severe aortic stenosis. Transcatheter Aortic Valve Replacement (TAVR): After surgical cutdown, right internal Juglar access was obtained and a 7 Fr sheath was inserted. Subsequently temporary pacemaker was advanced and threshold were tested after appropriate placement was confirmed using fluoroscopic imaging. Thereafter, left radial access was obtained and a 6F sheath was inserted. A straight pigtail was advanced into the non-coronary cusp under fluoroscopic imaging. Right carotid access was then obtained and 6 Fr sheath was inserted. Subsequently, AL-1 catheter and straight tip wire was used to cross into the LV and was exchanged over a J-wire for 6 Fr Pigtail. Thereafter simultaneous LV and Ao pressures were recorded. Subsequently, a safari wire was advanced into the LV via Pigtail and the sheath was exchanged for a 14F Sentrant sheath. Then over the safari wire, aortic valvuloplasty was performed using an 18 mm truDil balloon. Then the primary access site sheath was removed and the in-line sheath was used for TAVR deployment. Thereafter, a 29 mm Evolut FX+ valve was deployed successfully. During the valve deployment pacing was performed at 180 beats per minute. Due to moderate PVL after deployment of the valve, postdilatation with 23mm balloon was performed. Thereafter, PRASANNA confirmed normal functioning transcatheter aortic valve with trace PVL and a mean gradient of 4mmHg. Thereafter, hemostasis was obtained at the primary access site using surgical closure and the secondary access site using a TR band. No complications were noted. Temporary pacemaker was sutured in place. Patient was enrolled in the TVT registry and data entered for research purposes. Hemo Personnel: + +---------+ Name Duty + +---------+ Chuyita Peterson MD, MD 1 + +---------+ Hemodynamic Pressures: +----+ + + + +-------+---------+ Site Date Time Phase Name Systolic mmHg Diastolic mmHg ED mmHg Mean mmHg +----+ + + + +-------+---------+ AO 04/14/2025 Rest 136 60 91 9:56:04 AM +----+ + + + +-------+---------+ AO 04/14/2025 Rest 138 56 83 10:04:24 AM +----+ + + + +-------+---------+ LV 04/14/2025 Rest 190 22 37 10:04:24 AM +----+ + + + +-------+---------+ AO 04/14/2025 Rest 138 55 85 10:04:33 AM +----+ + + + +-------+---------+ LV 04/14/2025 Rest 191 22 38 10:04:33 AM +----+ + + + +-------+---------+ AO 04/14/2025 Rest 131 60 86 10:44:36 AM +----+ + + + +-------+---------+ LV 04/14/2025 Rest 157 17 27 10:44:36 AM +----+ + + + +-------+---------+ AO 04/14/2025 Rest 129 60 85 10:44:45 AM +----+ + + + +-------+---------+ LV 04/14/2025 Rest 155 17 27 10:44:45 AM +----+ + + + +-------+---------+ Cardiac Valves: +------+ + Valve Mean Grad(mmHg) +------+ + AORTIC 63 +------+ + Complications: No in-lab complications observed. No vascular access complications were revealed. No bleeding events occurred during the procedure. No device related events. Cardiac Cath Post Procedure Notes: Post Procedure Diagnosis: S/p successful transcarotid TAVR with Evolut FX+ 29 mm. Blood Loss: Estimated blood loss during the procedure was 15 mls. Specimens Removed: Number of specimen(s) removed: none. Recommendations: Maximize medical therapy. ____ CONCLUSIONS: 1. Transcatheter aortic valve replacement with successful R carotid implantation of Evolut FX+ 29 mm valve. 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 CPT Codes: TAVR, Transcarotid artery approach-59237.08 [id number] Peterson MD Performing Physician Final Procedure Note Chuyita Peterson MD - 04/14/2025 [facility], [facility], [address] [place] [address] Cardiovascular Catheterization Report Patient Name: ROBINA MCCABE Performing Physician: [id number] Cadena Study Date: 04/14/2025 Verifying Physician: Leopoldo Cadena MRN/PID: [id number] Screen Cutter And Trimmer/Co-Scrub: Ordering Provider: [id number] PETERSON Date of /Age: 12 1955 / 69 years Screen Cutter And Trimmer: Gender: F Fellow: [id number] Burgos MD Surgeon: MD Jocelyne Study: TOMMY - Transcatheter Aortic Valve Implantation Indications: Severe aortic stenosis. Transcatheter Aortic Valve Replacement (TAVR): After surgical cutdown, right internal Juglar access was obtained and a 7Fr sheath was inserted. Subsequently temporary pacemaker was advanced andthreshold were tested after appropriate placement was confirmed usingfluoroscopic imaging. Thereafter, left radial access was obtained and a 6Fsheath was inserted. A straight pigtail was advanced into the non-coronarycusp under fluoroscopic imaging. Right carotid access was then obtainedand 6 Fr sheath was inserted. Subsequently, AL-1 catheter and straight tipwire was used to cross into the LV and was exchanged over a J-wire for 6Fr Pigtail. Thereafter simultaneous LV and Ao pressures were recorded.Subsequently, a safari wire was advanced into the LV via Pigtail and thesheath was exchanged for a 14F Sentrant sheath. Then over the safari wire,aortic valvuloplasty was performed using an 18 mm truDil balloon. Then theprimary access site sheath was removed and the in-line sheath was used forTAVR deployment. Thereafter, a 29 mm Evolut FX+ valve was deployed successfully. During the valve deployment pacingwas performed at 180 beats per minute. Due to moderate PVL afterdeployment of the valve, postdilatation with 23mm balloon was performed.Thereafter, PRASANNA confirmed normal functioning transcatheter aortic valvewith trace PVL and a mean gradient of 4mmHg. Thereafter, hemostasis wasobtained at the primary access site using surgical closure and thesecondary access site using a TR band. No complications were noted.Temporary pacemaker was sutured in place. Patient was enrolled in the TV[employer]registry and data entered for research purposes. Hemo Personnel: + +---------+ Name Duty + +---------+ Chuyita Peterson MD, MD 1 + +---------+ Hemodynamic Pressures: +----+ + + + +-------+---------+ Site Date Time Phase Name Systolic mmHg Diastolic mmHg ED mmHg MeanmmHg +----+ + + + +-------+---------+ AO 04/14/2025 Rest 136 60 91 9:56:04 AM +----+ + + + +-------+---------+ AO 04/14/2025 Rest 138 56 83 10:04:24 AM +----+ + + + +-------+---------+ LV 04/14/2025 Rest 190 22 37 10:04:24 AM +----+ + + + +-------+---------+ AO 04/14/2025 Rest 138 55 85 10:04:33 AM +----+ + + + +-------+---------+ LV 04/14/2025 Rest 191 22 38 10:04:33 AM +----+ + + + +-------+---------+ AO 04/14/2025 Rest 131 60 86 10:44:36 AM +----+ + + + +-------+---------+ LV 04/14/2025 Rest 157 17 27 10:44:36 AM +----+ + + + +-------+---------+ AO 04/14/2025 Rest 129 60 85 10:44:45 AM +----+ + + + +-------+---------+ LV 04/14/2025 Rest 155 17 27 10:44:45 AM +----+ + + + +-------+---------+ Cardiac Valves: +------+ + Valve Mean Grad(mmHg) +------+ + AORTIC 63 +------+ + Complications: No in-lab complications observed. No vascular access complications wererevealed. No bleeding events occurred during the procedure. No devicerelated events. Cardiac Cath Post Procedure Notes: Post Procedure Diagnosis: S/p successful transcarotid TAVR with Evolut FX+29 mm. Blood Loss: Estimated blood loss during the procedure was 15mls. Specimens Removed: Number of specimen(s) removed: none. Recommendations: Maximize medical therapy. ____ CONCLUSIONS: 1. Transcatheter aortic valve replacement with successful R carotidimplantation of Evolut FX+ 29 mm valve. 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 CPT Codes: TAVR, Transcarotid artery approach-09950.08 [id number] Chuyita Peterson MD Performing Physician Final us Chuyita Peterson MD CV CARDIAC CATH PROCEDURES Fi nal Result SYNGO * (ABNORMAL) Blood Gas Arterial Full Panel (04/14/2025 11:08 AM EDT) POCT pH, Arterial 7.33(L) 7.38 - 7.42 pH 04/14/2025 11:27 AM EDT [facility] POCT pCO2, Arterial 47(H) 38 - 42 mm Hg 04/14/2025 11:27 AM EDT [facility] POCT pO2, Arterial 224(H) 85 - 95 mm Hg 04/14/2025 11:27 AM EDT [facility] POCT SO2, Arterial 100 94 - 100 % 04/14/2025 11:27 AM EDT [facility] POCT Oxy Hemoglobin, Arterial 97.3 94.0 - 98.0 % 04/14/2025 11:27 AM EDT [facility] POCT Hematocrit Calculated, Arterial 40.0 36.0 - 46.0 % 04/14/2025 11:27 AM EDT [facility] POCT Sodium, Arterial 132(L) 136 - 145 mmol/L 04/14/2025 11:27 AM EDT [facility] POCT Potassium, Arterial 3.4(L) 3.5 - 5.3 mmol/L 04/14/2025 11:27 AM EDT [facility] POCT Chloride, Arterial 103 98 - 107 mmol/L 04/14/2025 11:27 AM EDT [facility] POCT Ionized Calcium, Arterial 1.17 1.10 - 1.33 mmol/L 04/14/2025 11:27 AM EDT [facility] POCT Glucose, Arterial 224(H) 74 - 99 mg/dL 04/14/2025 11:27 AM EDT [facility] POCT Lactate, Arterial 1.0 0.4 - 2.0 mmol/L 04/14/2025 11:27 AM EDT [facility] POCT Base Excess, Arterial -1.5 -2.0 - 3.0 mmol/L 04/14/2025 11:27 AM EDT [facility] POCT HCO3 Calculated, Arterial 24.8 22.0 - 26.0 mmol/L 04/14/2025 11:27 AM EDT [facility] POCT Hemoglobin, Arterial 13.2 12.0 - 16.0 g/dL 04/14/2025 11:27 AM EDT [facility] POCT Anion Gap, Arterial 8(L) 10 - 25 mmo/L 04/14/2025 11:27 AM EDT [facility] Patient Temperature 37.0 degrees Celsius 04/14/2025 11:27 AM EDT [facility] FiO2 80 % 04/14/2025 11:27 AM EDT [facility] Blood Arterial blood specimen / Unknown Arterial Line / Unknown 04/14/2025 11:08 AM EDT 04/14/2025 11:08 AM EDT us Gigi Carbone CAA LAB BLOOD ORDERABLES Final Result Performing Organization Address [facility] Co de Phone Number [facility] [address] [place], [place] [phone] * ACTIVATED CLOTTING TIME LOW (04/14/2025 11:03 AM EDT) [facility] POCT Activated Clotting Time Low Range 151 89 - 169 sec 04/22/2025 7:34 AM EDT [facility] Comment: Target ACT range will vary based on the patient population, clinical status, and surgical intervention occurring. Blood Venous blood specimen / Unknown 04/14/2025 11:03 AM EDT 04/22/2025 7:34 AM EDT us Interface Unspecifiedprovider LAB POINT OF CARE TEST DOCKED DEVICE UNSOLICITED RESULTS Final Result Performing Organization Address [facility] de Phone Number [facility] [id number] [place] [phone] * Prepare RBC: 4 Units (04/14/2025 10:56 AM EDT) Only the most recent of2 resultswithin the time period is included. [facility] PRODUCT CODE [id number] 04/17/2025 9:46 PM EDT [facility] Unit Number [id number] 04/17/2025 9:46 PM EDT [facility] Unit ABO A 04/17/2025 9:46 PM EDT [facility] Unit RH NEG 04/17/2025 9:46 PM EDT [facility] XM INTEP COMP 04/14/2025 11:55 AM EDT [facility] Dispense Status RE 9:46 PM EDT [facility] Blood Expiration Date 04/28/2025 11:59:00 PM EDT 04/17/2025 9:46 PM EDT [facility] PRODUCT BLOOD TYPE 0600 04/17/2025 9:46 PM EDT [facility] UNIT VOLUME 350 [facility] PRODUCT CODE [id number] 04/17/2025 9:47 PM EDT [facility] Unit Number [id number] 04/17/2025 9:47 PM EDT [facility] Unit ABO A 04/17/2025 9:47 PM EDT [facility] Unit RH NEG 04/17/2025 9:47 PM EDT [facility] XM INTEP COMP 04/14/2025 11:55 AM EDT [facility] Dispense Status RE 9:47 PM EDT [facility] Blood Expiration Date 05/01/2025 11:59:00 PM EDT 04/17/2025 9:47 PM EDT [facility] PRODUCT BLOOD TYPE 0600 04/17/2025 9:47 PM EDT [facility] UNIT VOLUME 350 [facility] PRODUCT CODE [id number] 04/17/2025 9:46 PM EDT [facility] Unit Number [id number] 04/17/2025 9:46 PM EDT [facility] Unit ABO A 04/17/2025 9:46 PM EDT [facility] Unit RH NEG 04/17/2025 9:46 PM EDT [facility] XM INTEP COMP 04/14/2025 11:55 AM EDT [facility] Dispense Status RE 9:46 PM EDT [facility] Blood Expiration Date 05/07/2025 11:59:00 PM EDT 04/17/2025 9:46 PM EDT [facility] PRODUCT BLOOD TYPE 0600 04/17/2025 9:46 PM EDT [facility] UNIT VOLUME 350 [facility] PRODUCT CODE [id number] 04/17/2025 9:47 PM EDT [facility] Unit Number [id number] 04/17/2025 9:47 PM EDT [facility] Unit ABO A 04/17/2025 9:47 PM EDT [facility] Unit RH NEG 04/17/2025 9:47 PM EDT [facility] XM INTEP COMP 04/14/2025 11:55 AM EDT [facility] Dispense Status RE 9:47 PM EDT [facility] Blood Expiration Date 05/19/2025 11:59:00 PM EDT 04/17/2025 9:47 PM EDT [facility] PRODUCT BLOOD TYPE 0600 04/17/2025 9:47 PM EDT [facility] UNIT VOLUME 350 [facility] Other 04/14/2025 10:5 6 AM EDT 04/10/2025 5:32 PM EDT us Gigi Carbone CAA BLOOD BANK PRODUCT ORDERAB LES Edited Result - Final Performing Organization Address City/[facility] Co de Phone Number [facility] [address] [place] [address] * (ABNORMAL) ACTIVATED CLOTTING TIME LOW (04/14/2025 10:40 AM EDT) [facility] POCT Activated Clotting Time Low Range 270(H) 89 - 169 sec 04/22/2025 7:34 AM EDT [facility] Comment: Target ACT range will vary based on the patient population, clinical status, and surgical intervention occurring. Blood Venous blood specimen / Unknown 04/14/2025 10:40 AM EDT 04/22/2025 7:34 AM EDT us Interface Unspecifiedprovider LAB POINT OF CARE TEST DOCKED DEVICE UNSOLICITED RESULTS Final Result Performing Organization Address City/[facility]/ZIP Co de Phone Number [facility] [address] [phone] * (ABNORMAL) ACTIVATED CLOTTING TIME LOW (04/14/2025 9:54 AM EDT) [facility] POCT Activated Clotting Time Low Range 376(H) 89 - 169 sec 04/22/2025 7:34 AM EDT [facility] Comment: Target ACT range will vary based on the patient population, clinical status, and surgical intervention occurring. Blood Venous blood specimen / Unknown 04/14/2025 9:54 AM EDT 04/22/2025 7:34 AM EDT us Interface Unspecifiedprovider LAB POINT OF CARE TEST DOCKED DEVICE UNSOLICITED RESULTS Final Result Performing Organization Address [facility] de Phone Number [facility] [address] [place] [phone] * (ABNORMAL) ACTIVATED CLOTTING TIME LOW (04/14/2025 9:46 AM EDT) [facility] POCT Activated Clotting Time Low Range 204(H) 89 - 169 sec 04/22/2025 7:34 AM EDT [facility] Comment: Target ACT range will vary based on the patient population, clinical status, and surgical intervention occurring. Blood Venous blood specimen / Unknown 04/14/2025 9:46 AM EDT 04/22/2025 7:34 AM EDT us Interface Unspecifiedprovider LAB POINT OF CARE TEST DOCKED DEVICE UNSOLICITED RESULTS Final Result Performing Organization Address [facility] Co de Phone Number [facility] [address] [place] [phone] * (ABNORMAL) ACTIVATED CLOTTING TIME LOW (04/14/2025 9:27 AM EDT) [facility] POCT Activated Clotting Time Low Range 263(H) 89 - 169 sec 04/22/2025 7:34 AM EDT [facility] Comment: Target ACT range will vary based on the patient population, clinical status, and surgical intervention occurring. Blood Venous blood specimen / Unknown 04/14/2025 9:27 AM EDT 04/22/2025 7:34 AM EDT us Interface Unspecifiedprovider LAB POINT OF CARE TEST DOCKED DEVICE UNSOLICITED RESULTS Final Result Performing Organization Address [facility] de Phone Number [facility] [address] [place], [place] [phone] * ANESTHESIA PERIPHERAL IV PLACEMENT (04/14/2025 9:25 AM EDT) Narrative Gigi Carbone CAA - 04/14/2025 9:25 AM EDT LONG Levine 04/14/2025 9:28 AM Peripheral IV Date/Time: 04/14/2025 9:25 AM Placement Needle size: 16 G Laterality: right Location: hand Site prep: alcohol Technique: anatomical landmarks Attempts: 1 us Blake Boston MD ANESTHESIA ORDERABLES Final Res ult * ACTIVATED CLOTTING TIME LOW (04/14/2025 9:16 AM EDT) [facility] POCT Activated Clotting Time Low Range 136 89 - 169 sec 04/22/2025 7:34 AM EDT [facility] Comment: Target ACT range will vary based on the patient population, clinical status, and surgical intervention occurring. Blood Venous blood specimen / Unknown 04/14/2025 9:16 AM EDT 04/22/2025 7:34 AM EDT us Interface Unspecifiedprovider LAB POINT OF CARE TEST DOCKED DEVICE UNSOLICITED RESULTS Final Result Performing Organization Address [facility] Co de Phone Number [facility] [address] [phone] * ANESTHESIA PERIPHERAL IV PLACEMENT (04/14/2025 8:55 AM EDT) Narrative Gigi Carbone CAA - 04/14/2025 8:55 AM EDT LOGN Levine 04/14/2025 9:28 AM Peripheral IV Date/Time: 04/14/2025 8:55 AM Placement Needle size: 18 G Laterality: right Location: hand Site prep: alcohol Technique: anatomical landmarks Attempts: 1 us Blake Boston MD ANESTHESIA ORDERABLES Final Res ult * Anesthesia Intraoperative Transesophageal Echocardiogram (04/14/2025 8:22 AM EDT) LV EF 50 % SYNGO 04/14/2025 7:20 AM EDT Narrative SYNGO - 04/15/2025 9:28 AM EDT [facility] - Dept of Anesthesiology [address] [place] [address] and TRANSESOPHAGEAL ECHOCARDIOGRAM REPORT Patient Name: ROBINA Quintero Physician: [id number] Blake Boston Study Date: 04/14/2025 Ordering Provider: [id number] GIGI CARBONE MRN/PID: [id number] Fellow: Nurse: Date of /Age: 12 1955 / 69 years Booth Usher: KEESHA Gender assigned at F Additional Staff: : BSA / BMI: m2 / kg/m2 Study Type: ANESTHESIA INTRAOPERATIVE PRASANNA Diagnosis/ICD: Nonrheumatic aortic (valve) stenosis with insufficiency-I35.2 Indication: Anesthesia IOTEE for Carotid TAVR procedure CPT Code: PRASANNA Complete-09518; Doppler Limited-99251; Color Doppler-72293 Study Detail: The following Echo studies were performed: 2D and 3D. PHYSICIAN INTERPRETATION: PRASANNA Details: The PRASANNA probe used was X8-2t. Technically adequate omniplane transesophageal echocardiogram performed. PRASANNA Medication: Anesthesia IOTEE with GETA was used to sedate the patient for this exam. PRASANNA Procedure: The probe was passed without difficulty. Complications encountered during procedure: Patient tolerated the procedure well without any apparent complications. Left Ventricle: Left ventricular ejection fraction is mildly decreased, by visual estimate at 50%. The left ventricular cavity size is mildly dilated. Left ventricular diastolic filling was not assessed. Left Atrium: The left atrium is mildly dilated. Right Ventricle: The right ventricle is normal in size. There is normal right ventricular global systolic function. Right Atrium: The right atrium is normal in size. Aortic Valve: The aortic valve appears abnormal. There is evidence of severe aortic valve stenosis. There is moderate to severe aortic valve regurgitation. The estimated ALESSANDRA is .5 cm2 cm2. The estimated AoV mean PG is 44 mmHg mmHg. The estimated AoV peak PG is 68 mmHg mmHg. Mitral Valve: The mitral valve is moderately thickened. There is moderate mitral valve regurgitation. Tricuspid Valve: The tricuspid valve is structurally normal. There is trace tricuspid regurgitation. Pulmonic Valve: The pulmonic valve was not assessed. The pulmonic valve regurgitation was not well visualized. Pericardium: There is no pericardial effusion noted. Aorta: The aortic root is normal. In comparison to the previous echocardiogram(s): Not performed on intraoperative study. Post Transcatheter Aortic Valve Placement (TAVR): The peak instantaneous gradient of the aortic valve is 13.2 mmHg. The mean gradient of the aortic valve is 4.0 mmHg. There is a Medtronic Evolut Fx+ transcatheter aortic valve replacement, with a 29 mm reported size. The transcatheter valve appears to be placed appropriately. The left ventricular systolic function is low normal. The left ventricular cavity size is upper limits of normal. There is moderate mitral valve regurgitation. There is mild prosthetic aortic valve regurgitation. There is no joseph-prosthetic aortic valve regurgitation. There is a small pericardial effusion anterior to the right ventricle. Initially after predilation with a TrueDil 18 mm balloon a residual PVL was detected. After dilation with a 23 mm balloon, there was no noted paravalvular leaks. CONCLUSIONS: 1. Left ventricular ejection fraction is mildly decreased, by visual estimate at 50%. 2. Left ventricular cavity size is mildly dilated. 3. There is normal right ventricular global systolic function. 4. The left atrium is mildly dilated. 5. The mitral valve is moderately thickened. 6. Moderate mitral valve regurgitation. 7. Severe aortic valve stenosis. 8. There is a Medtronic Evolut Fx+ transcatheter aortic valve replacement, with a 29 mm reported size. 9. Moderate to severe aortic valve regurgitation. 10. The transcatheter valve appears to be placed appropriately. POST PROCEDURE REPORT: LV function is unchanged from pre-pump exam. QUANTITATIVE DATA SUMMARY: LV SYSTOLIC FUNCTION: Normal Ranges: EF-Visual: 50 % LV EF Reported: 50 % AORTIC VALVE: Normal Ranges: AoV Vmax Post TAVR: 1.82 m/s (<=1.7m/s) AoV Peak PG Post TAVR: 13.2 mmHg (<20mmHg) AoV Mean PG Post TAVR: 4.0 mmHg (1.7-11.5mmHg) LVOT Max Phi Post TAVR: 1.30 m/s (<=1.1m/s) AoV VTI Post TAVR: 41.70 cm (18-25cm) LVOT VTI Post TAVR: 23.20 cm LVOT Diameter Post TAVR: 1.70 cm (1.8-2.4cm) AoV Area, VTI Post TAVR: 1.26 cm2 (2.5-5.5cm2) AoV Area,Vmax Post TAVR: 1.62 cm2 (2.5-4.5cm2) AoV Dimensionless Index Post TAVR: 0.56 [id number] Blake Boston Electronically signed on 04/15/2025 at 9:28:04 AM Final Procedure Note Blake Boston MD - 04/15/2025 [facility] - Dept of Anesthesiology [address] [place] [address] and TRANSESOPHAGEAL ECHOCARDIOGRAM REPORT Patient Name: ROBINA Quintero Physician: [id number] Juan Pablo Boston Study Date: 04/14/2025 Ordering Provider: [id number] PIPPA MRN/PID: [id number] Fellow: Nurse: Date of /Age: 12 1955 / 69 years Booth Usher: KEESHA Gender assigned at F Additional Staff: : BSA / BMI: m2 / kg/m2 Study Type: ANESTHESIA INTRAOPERATIVE PRASANNA Diagnosis/ICD: Nonrheumatic aortic (valve) stenosis withinsufficiency-I35.2 Indication: Anesthesia IOTEE for Carotid TAVR procedure CPT Code: PRASANNA Complete-77711; Doppler Limited-09768; ColorDoppler-12813 Study Detail: The following Echo studies were performed: 2D and 3D. PHYSICIAN INTERPRETATION: PRASANNA Details: The PRASANNA probe used was X8-2t. Technically adequate omniplanetransesophageal echocardiogram performed. PRASANNA Medication: Anesthesia IOTEE with GETA was used to sedate the patientfor this exam. PRASANNA Procedure: The probe was passed without difficulty. Complicationsencountered during procedure: Patient tolerated the procedure well withoutany apparent complications. Left Ventricle: Left ventricular ejection fraction is mildly decreased, byvisual estimate at 50%. The left ventricular cavity size is mildlydilated. Left ventricular diastolic filling was not assessed. Left Atrium: The left atrium is mildly dilated. Right Ventricle: The right ventricle is normal in size. There is normalright ventricular global systolic function. Right Atrium: The right atrium is normal in size. Aortic Valve: The aortic valve appears abnormal. There is evidence ofsevere aortic valve stenosis. There is moderate to severe aortic valveregurgitation. The estimated ALESSANDRA is .5 cm2 cm2. The estimated AoV mean PGis 44 mmHg mmHg. The estimated AoV peak PG is 68 mmHg mmHg. Mitral Valve: The mitral valve is moderately thickened. There is moderatemitral valve regurgitation. Tricuspid Valve: The tricuspid valve is structurally normal. There istrace tricuspid regurgitation. Pulmonic Valve: The pulmonic valve was not assessed. The pulmonic valveregurgitation was not well visualized. Pericardium: There is no pericardial effusion noted. Aorta: The aortic root is normal. In comparison to the previous echocardiogram(s): Not performed onintraoperative study. Post Transcatheter Aortic Valve Placement (TAVR): The peak instantaneous gradient of the aortic valve is 13.2 mmHg. The meangradient of the aortic valve is 4.0 mmHg. There is a Medtronic Evolut Fx+transcatheter aortic valve replacement, with a 29 mm reported size. Thetranscatheter valve appears to be placed appropriately. The leftventricular systolic function is low normal. The left ventricular cavitysize is upper limits of normal. There is moderate mitral valveregurgitation. There is mild prosthetic aortic valve regurgitation. Thereis no joseph-prosthetic aortic valve regurgitation. There is a smallpericardial effusion anterior to the right ventricle. Initially afterpredilation with a TrueDil 18 mm balloon a residual PVL was detected.After dilation with a 23 mm balloon, there was no noted paravalvularleaks. CONCLUSIONS: 1. Left ventricular ejection fraction is mildly decreased, by visualestimate at 50%. 2. Left ventricular cavity size is mildly dilated. 3. There is normal right ventricular global systolic function. 4. The left atrium is mildly dilated. 5. The mitral valve is moderately thickened. 6. Moderate mitral valve regurgitation. 7. Severe aortic valve stenosis. 8. There is a Medtronic Evolut Fx+ transcatheter aortic valvereplacement, with a 29 mm reported size. 9. Moderate to severe aortic valve regurgitation. 10. The transcatheter valve appears to be placed appropriately. POST PROCEDURE REPORT: LV function is unchanged from pre-pump exam. QUANTITATIVE DATA SUMMARY: LV SYSTOLIC FUNCTION: Normal Ranges: EF-Visual: 50 % LV EF Reported: 50 % AORTIC VALVE: Normal Ranges: AoV Vmax Post TAVR: 1.82 m/s (<=1.7m/s) AoV Peak PG Post TAVR: 13.2 mmHg (<20mmHg) AoV Mean PG Post TAVR: 4.0 mmHg (1.7-11.5mmHg) LVOT Max Phi Post TAVR: 1.30 m/s (<=1.1m/s) AoV VTI Post TAVR: 41.70 cm (18-25cm) LVOT VTI Post TAVR: 23.20 cm LVOT Diameter Post TAVR: 1.70 cm (1.8-2.4cm) AoV Area, VTI Post TAVR: 1.26 cm2 (2.5-5.5cm2) AoV Area,Vmax Post TAVR: 1.62 cm2 (2.5-4.5cm2) AoV Dimensionless Index Post TAVR: 0.56 [id number] Blake Boston Electronically signed on 04/15/2025 at 9:28:04 AM Final us Gigi ALVES CV ECHO PROCEDURES Final R esult SYNGO * MO AN ELECTIVE ENDOTRACHEAL AIRWAY (04/14/2025 8:17 AM EDT) Gigi Ratliff CAA - 04/14/2025 8:17 AM EDT LONG Levine 04/14/2025 9:11 AM Airway Date/Time: 04/14/2025 8:17 AM Reason: elective Airway not difficult Staffing Performed: CAA Authorized by: Blake Boston MD Performed by: LONG Levine Patient location during procedure: OR Patient Condition Indications for airway management: anesthesia and airway protection Patient position: sniffing MILS not maintained throughout Planned trial extubation Sedation level: deep Final Airway Details Preoxygenated: yes Final airway type: endotracheal airway Successful airway: ETT Cuffed: yes Successful intubation technique: direct laryngoscopy Adjuncts used in placement: intubating stylet Endotracheal tube insertion site: oral Blade: Dany Blade size: #3 ETT size (mm): 7.5 Cormack-Lehane Classification: grade I - full view of glottis Placement verified by: chest auscultation and capnometry Measured from: lips ETT to lips (cm): 21 Ventilation between attempts: none Number of attempts at approach: 1 Number of other approaches attempted: 0 us Blake Boston MD ANESTHESIA ORDERABLES Final Res ult * ANESTHESIA ARTERIAL LINE PLACEMENT (04/14/2025 8:05 AM EDT) Narrative Gigi Carbone CAA - 04/14/2025 8:05 AM EDT LONG Levine 04/14/2025 9:24 AM Arterial Line: Date/Time: 04/14/2025 8:05 AM Staffing Performed: LONG Authorized by: Blake Boston MD Performed by: LONG Levine An arterial line was placed. Procedure performed using ultrasound guidance.in the OR for the following indication(s): continuous blood pressure monitoring and blood sampling needed. A 20 gauge (size), 12 cm (length), Angiocath (type) catheter was placed into the Right radial artery, secured by Tegadecésar Seldinger technique used. Events: patient tolerated procedure well with no complications. us Blake Boston MD ANESTHESIA ORDERABLES Final Res ult * TRANSTHORACIC ECHO (TTE) LIMITED WITH DOPPLER AND COLOR (04/14/2025 7:50 AM EDT) AV pk phi 4.47 m/s SYNGO AV mn grad 51 mmHg SYNGO LVOT diam 1.60 cm SYNGO LV EF 58 % SYNGO LVIDd 4.40 cm SYNGO Aortic Valve Area by Continuity of VTI 0.39 cm2 SYNGO Aortic Valve Area by Continuity of Peak Velocity 0.37 cm2 SYNGO AV pk grad 80 mmHg SYNGO 04/14/2025 7:26 AM EDT Narrative SYNGO - 04/14/2025 6:36 PM EDT [facility], [address] [place] [address] and TRANSTHORACIC ECHOCARDIOGRAM REPORT Patient Name: ROBINA Quintero Physician: [id number] Amy August MD Study Date: 04/14/2025 Ordering Provider: [id number] BRIDGETT BROWN MRN/PID: [id number] Fellow: Nurse: Date of /Age: 12 1955 Booth Usher: Reema Blanchard RDCS years Gender assigned at F Additional Staff: : Height: 160.02 cm Admit Date: 04/14/2025 Weight: 59.88 kg Admission Status: Inpatient - Routine BSA / BMI: 1.62 m2 / 23.38 kg/m2 Blood Pressure: / Department Location: [facility] Manager [place] Study Type: TRANSTHORACIC ECHO (TTE) LIMITED Diagnosis/ICD: Nonrheumatic aortic (valve) stenosis-I35.0 Indication: Aortic stenosis, Pre TAVR Cartoid access CPT Code: Echo Limited-68744; Doppler Limited-10725; Color Doppler-11008 Patient History: Smoker: Former. Valve Disorders: Aortic Stenosis. Pertinent History: HTN and Murmur. Lung cancer, Abnormal EKG, Acute systolic heart failure. Study Detail: The following Echo studies were performed: 2D, M-Mode, Doppler and color flow. PHYSICIAN INTERPRETATION: Left Ventricle: Left ventricular ejection fraction is normal, by visual estimate at 55-60%. There is mild concentric left ventricular hypertrophy. There are no regional left ventricular wall motion abnormalities. The left ventricular cavity size is normal. There is mildly increased septal and mildly increased posterior left ventricular wall thickness. Left ventricular diastolic filling was not assessed. Left Atrium: The left atrial size is normal. Right Ventricle: The right ventricle was not assessed. There is normal right ventricular global systolic function. Right Atrium: The right atrium is normal in size. Aortic Valve: The number of aortic cusps could not be determined from this study. There is severe aortic valve cusp calcification. There is evidence of severe aortic valve stenosis. The aortic valve dimensionless index is 0.20. There is mild aortic valve regurgitation. The peak instantaneous gradient of the aortic valve is 80 mmHg. The mean gradient of the aortic valve is 51 mmHg. ALESSANDRA is 0.4 cm2. Mitral Valve: The mitral valve is mildly thickened. There is mild to moderate mitral annular calcification. There is mild mitral valve regurgitation. Tricuspid Valve: The tricuspid valve was not well visualized. Tricuspid regurgitation was not assessed. Pulmonic Valve: The pulmonic valve is not well visualized. Pulmonic valve regurgitation was not assessed. Pericardium: There is no pericardial effusion noted. Aorta: The aortic root is normal. In comparison to the previous echocardiogram(s): Compared with study dated 06/29/2023,. The current study is a limited study pre TAVR Carotid access. CONCLUSIONS: 1. Poorly visualized anatomical structures due to suboptimal image quality. 2. Left ventricular ejection fraction is normal, by visual estimate at 55-60%. 3. There is normal right ventricular global systolic function. 4. There is severe aortic valve cusp calcification. 5. Severe aortic valve stenosis. 6. Mild aortic valve regurgitation. 7. The current study is a limited study pre TAVR Carotid access. QUANTITATIVE DATA SUMMARY: 2D MEASUREMENTS: Normal Ranges: Ao Root d: 3.11 cm (2.0-3.7cm) LAs: 3.40 cm (2.7-4.0cm) IVSd: 1.10 cm (0.6-1.1cm) LVPWd: 1.10 cm (0.6-1.1cm) LVIDd: 4.40 cm (3.9-5.9cm) LVIDs: 3.30 cm LV Mass Index: 104 g/m2 LV % FS 25.0 % LV SYSTOLIC FUNCTION: Normal Ranges: EF-Visual: 58 % LV EF Reported: 58 % AORTIC VALVE: Normal Ranges: AoV Vmax: 4.47 m/s (<=1.7m/s) AoV Peak P.9 mmHg (<20mmHg) AoV Mean P.0 mmHg (1.7-11.5mmHg) LVOT Max Phi: 0.82 m/s (<=1.1m/s) AoV VTI: 117.00 cm (18-25cm) LVOT VTI: 22.90 cm LVOT Diameter: 1.60 cm (1.8-2.4cm) AoV Area, VTI: 0.39 cm2 (2.5-5.5cm2) AoV Area,Vmax: 0.37 cm2 (2.5-4.5cm2) AoV Dimensionless Index: 0.20 AORTIC INSUFFICIENCY: AI Vmax: 3.88 m/s AI Half-time: 475 msec AI Decel Rate: 239.00 cm/s2 [id number] Amy August MD Electronically signed on 04/14/2025 at 6:36:27 PM Final Procedure Note Amy August MD - 04/14/2025 [facility], [address] [place] [address] and TRANSTHORACIC ECHOCARDIOGRAM REPORT Patient Name: ROBINA Quintero Physician: [id number] August MD Study Date: 04/14/2025 Ordering Provider: ILANA BROWN MRN/PID: [id number] Fellow: Nurse: Date of /Age: 12 1955 Booth Usher: Reema wright Gender assigned at F Additional Staff: : Height: 160.02 cm Admit Date: 04/14/2025 Weight: 59.88 kg Admission Status: Inpatient- Routine BSA / BMI: 1.62 m2 / 23.38 kg/m2 Blood Pressure: / Department Location: [facility] Manager [place] Study Type: TRANSTHORACIC ECHO (TTE) LIMITED Diagnosis/ICD: Nonrheumatic aortic (valve) stenosis-I35.0 Indication: Aortic stenosis, Pre TAVR Cartoid access CPT Code: Echo Limited-42700; Doppler Limited-03043; ColorDoppler-40059 Patient History: Smoker: Former. Valve Disorders: Aortic Stenosis. Pertinent History: HTN and Murmur. Lung cancer, Abnormal EKG, Acutesystolic heart failure. Study Detail: The following Echo studies were performed: 2D, M-Mode,Doppler and color flow. PHYSICIAN INTERPRETATION: Left Ventricle: Left ventricular ejection fraction is normal, by visualestimate at 55-60%. There is mild concentric left ventricular hypertrophy.There are no regional left ventricular wall motion abnormalities. The leftventricular cavity size is normal. There is mildly increased septal andmildly increased posterior left ventricular wall thickness. Leftventricular diastolic filling was not assessed. Left Atrium: The left atrial size is normal. Right Ventricle: The right ventricle was not assessed. There is normalright ventricular global systolic function. Right Atrium: The right atrium is normal in size. Aortic Valve: The number of aortic cusps could not be determined from thisstudy. There is severe aortic valve cusp calcification. There is evidenceof severe aortic valve stenosis. The aortic valve dimensionless index is0.20. There is mild aortic valve regurgitation. The peak instantaneousgradient of the aortic valve is 80 mmHg. The mean gradient of the aorticvalve is 51 mmHg. ALESSANDRA is 0.4 cm2. Mitral Valve: The mitral valve is mildly thickened. There is mild tomoderate mitral annular calcification. There is mild mitral valveregurgitation. Tricuspid Valve: The tricuspid valve was not well visualized. Tricuspidregurgitation was not assessed. Pulmonic Valve: The pulmonic valve is not well visualized. Pulmonic valveregurgitation was not assessed. Pericardium: There is no pericardial effusion noted. Aorta: The aortic root is normal. In comparison to the previous echocardiogram(s): Compared with study dated06/29/2023,. The current study is a limited study pre TAVR Carotid access. CONCLUSIONS: 1. Poorly visualized anatomical structures due to suboptimal imagequality. 2. Left ventricular ejection fraction is normal, by visual estimate at55-60%. 3. There is normal right ventricular global systolic function. 4. There is severe aortic valve cusp calcification. 5. Severe aortic valve stenosis. 6. Mild aortic valve regurgitation. 7. The current study is a limited study pre TAVR Carotid access. QUANTITATIVE DATA SUMMARY: 2D MEASUREMENTS: Normal Ranges: Ao Root d: 3.11 cm (2.0-3.7cm) LAs: 3.40 cm (2.7-4.0cm) IVSd: 1.10 cm (0.6-1.1cm) LVPWd: 1.10 cm (0.6-1.1cm) LVIDd: 4.40 cm (3.9-5.9cm) LVIDs: 3.30 cm LV Mass Index: 104 g/m2 LV % FS 25.0 % LV SYSTOLIC FUNCTION: Normal Ranges: EF-Visual: 58 % LV EF Reported: 58 % AORTIC VALVE: Normal Ranges: AoV Vmax: 4.47 m/s (<=1.7m/s) AoV Peak P.9 mmHg (<20mmHg) AoV Mean P.0 mmHg (1.7-11.5mmHg) LVOT Max Phi: 0.82 m/s (<=1.1m/s) AoV VTI: 117.00 cm (18-25cm) LVOT VTI: 22.90 cm LVOT Diameter: 1.60 cm (1.8-2.4cm) AoV Area, VTI: 0.39 cm2 (2.5-5.5cm2) AoV Area,Vmax: 0.37 cm2 (2.5-4.5cm2) AoV Dimensionless Index: 0.20 AORTIC INSUFFICIENCY: AI Vmax: 3.88 m/s AI Half-time: 475 msec AI Decel Rate: 239.00 cm/s2 [id number] Amy August MD Electronically signed on 04/14/2025 at 6:36:27 PM Final us Bridgett Brown TEXTILE COLORIST DYER-PAPER HANDLER CV ECHO PROCEDURES F inal Result SYNGO * Abo/Rh Group Test (04/14/2025 7:24 AM EDT) ABO TYPE A 04/14/2025 8:5 6 AM EDT [facility] Rh TYPE NEG 04/14/2025 8:5 6 AM EDT [facility] Blood Venous blood specimen / Unknown Venipuncture / Unknown 04/14/2025 7:24 AM EDT 04/14/2025 7:30 AM EDT us Fe Ryan TEXTILE COLORIST DYER-PAPER HANDLER LAB BLOOD BANK TEST OR DERABLES Final Result [facility] [address] [place] [address] * Coagulation Screen (04/10/2025 3:42 PM EDT) Protime 12.2 9.8 - 12.4 seconds LAB COAGULATION METHOD 04/10/2025 5:17 PM EDT [facility] INR 1.1 0.9 - 1.1 LAB COAGULATION METHOD 04/10/2025 5:17 PM EDT [facility] aPTT 31 26 - 36 seconds LAB COAGULATION METHOD 04/10/2025 5:17 PM EDT [facility] Blood Venous blood specimen / Unknown Venipuncture / Unknown 04/10/2025 3:42 PM EDT 04/10/2025 4:35 PM EDT Narrative [facility] - 04/10/2025 5:17 PM EDT The APTT is no longer used for monitoring Unfractionated Heparin Therapy. For monitoring Heparin Therapy, use the Heparin Assay. us Chuyita Peterson MD LAB BLOOD ORDERABLES Final Re sult [facility] [address] [place] [address] * Type And Screen Is this order related to or an upcoming surgery? Yes; Where will this surgery/delivery be performed? [facility]; What is the date of the surgery? 04/14/2025; Has this patient ever had a transfusion? No; Has t... (04/10/2025 3:42 PM EDT) ABO TYPE A 04/10/2025 6:45 PM EDT [facility] Rh TYPE NEG 04/10/2025 6:45 PM EDT [facility] ANTIBODY SCREEN NEG 6:45 PM EDT [facility] Blood Venous blood specimen / Unknown Venipuncture / Unknown 04/10/2025 3:42 PM EDT 04/10/2025 5:32 PM EDT us Chuyita Peterson MD LAB BLOOD BANK TEST ORDERABLE S Final Result [facility] [address] [place] [address] * Staphylococcus aureus/MRSA colonization, Culture (04/10/2025 3:42 PM EDT) Staph/MRSA Screen Culture No Staphylococcus aureus isolated 04/12/2025 9:48 AM EDT [facility] Swab (Anterior Nares) Non-blood Collection / Unknown 04/10/2025 3:42 PM EDT 04/10/2025 4:43 PM EDT us Chuyita Peterson MD LAB MICROBIOLOGY - GENERAL OR DERABLES Final Result Performing Organization Address [facility] Co de Phone Number [facility] [address] [facility] [address] [place] [address] * CT TAVR full contrast chest abdomen pelvis (02/10/2025 2:57 PM EDT) Anatomical Region Laterality Modality Thoracic, Body Computed Tomogra phy 02/11/2025 10:5 3 AM EDT 02/11/2025 12:32 PM EDT Addenda Addendum by Cornell Owens MD on 02/11/2025 12:30 PM EDT Interpreted By: Cornell Owens, ADDENDUM: NON-CARDIOVASCULAR CHEST FINDINGS LUNGS / AIRSPACES / AIRWAYS: Large masslike abnormality emerging from the right hilus and spreading along the minor fissure involving the upper portion of the middle lobe and the lower portion of the right upper lobe, as well as portions of the lower lobe near the hilus, with confluent encasement of bronchovascular structures and an element of postobstructive atelectasis peripherally. Discrete measurable single underlying mass lesion is elusive to demonstrate definitively. The margins of some of the large airways at the right hilus are irregular 9 mm right upper lobe nodule Other scattered smaller nodules including in the contralateral hemithorax. There are two subcentimeter nodules, one in each lobe on the left side on series 501, image 253 Other smaller nodules scattered elsewhere in both lungs for example the 8 mm left upper lobe nodule same series image 157 PLEURA: Effusion: Both sides negative Pneumothorax: Both sides negative Other: n/a NONVASCULAR MEDIASTINUM: Esophagus: Grossly normal by CT Mediastinal Mass: Negative Hiatal hernia: None LYMPH NODES: Few borderline sized paratracheal mediastinal nodes. No comparison exams CHEST WALL: Soft tissues of the chest wall are unremarkable THORACIC SKELETON: No acute or contributory abnormality ------- NON-CARDIOVASCULAR ABDOMINAL/PELVIC FINDINGS Evaluation of solid organs is limited due to arterial phase contrast bolus timing LIVER: Normal. No enlargement or evidence of cirrhosis or fatty change. No mass or other suspect lesion. SPLEEN: Normal. No enlargement, mass or evidence of splenic vein thrombosis. PANCREAS: Normal. No CT evidence of acute or chronic pancreatitis. No duct dilation. No mass. GALLBLADDER: Are cholesterol-containing stones, but other signs of acute cholecystitis are not present. No acute process BILE DUCTS: Normal. No biliary duct dilation. ADRENAL GLANDS: Normal. No nodule or mass. KIDNEYS AND URETERS: Normal except for one small simple cyst medially at lower pole right kidney and a subcentimeter too small to characterize low-attenuation left renal lesion anteriorly between the poles. No hydronephrosis on either side. No mass. Symmetric enhancement. No infarct or CT evidence of acute pyelonephritis. No substantial radiodense stone. Tiny stones and radiolucent stones could be occult on CT. LYMPH NODES: No adenopathy, intraperitoneal, retroperitoneal, pelvic or otherwise BOWEL: No dilation or inflammation STOMACH / DUODENUM: Grossly normal by CT which has limited sensitivity and specificity for the stomach and duodenum. RETROPERITONEUM: Normal. No acute hemorrhage or inflammatory change. Lymph nodes in a separate dedicated section. OMENTUM, MESENTERY AND PERITONEAL SPACES: Free intraperitoneal air: Negative Free intraperitoneal fluid: Negative Abscess: Negative Other: n/a URINARY BLADDER: Normal. No wall thickening, large diverticula, radiodense stone or surrounding inflammatory change. PELVIS: Calcified uterine fibroid. No obvious acute adnexal abnormality by CT ABDOMINAL WALL: Hernia: Negative Other: No acute or contributory abnormality. ABDOMINAL AND PELVIC SKELETON: No acute or contributory abnormality ------- NON-CARDIOVASCULAR IMPRESSION FOR CHEST, ABDOMEN AND PELVIS Lung abnormalities I described above correlate with this patient's known lung cancer No pertinent comparison exams are in the local PACS archive Aside from the lung malignancy, no acute unexpected findings in the chest outside the cardiovascular system such as pleural effusion, consolidative pneumonia or ground-glass airspace disease No acute unexpected findings in the abdomen or pelvis outside the cardiovascular system NOTE THIS ADDENDUM IS SOLELY FOR INTERPRETATION OF ANATOMY OUTSIDE THE CARDIOVASCULAR SYSTEM. INTERPRETATION OF AND REPORTING OF THE CARDIOVASCULAR STRUCTURES ARE THE SOLE RESPONSIBILITY OF THE SYSTEMS ARCHITECT SUBMITTING THE ORIGINAL REPORT (NOT THIS ADDENDUM) Signed by: Cornell Owens 02/11/2025 12:30 PM -------- ORIGINAL REPORT -------- Dictation workstation: [id number] Impressions 02/11/2025 10:51 AM EDT 1. Calcified trileaflet aortic valve. Aortic valve calcium score 3083 2. Aortic annulus 27 x 21mm 3. Moderate atherosclerosis of thoracic aorta without evidence of aneurysm, dissection, or coarctation. 4. Moderate atherosclerosis of abdominal aorta without evidence of aneurysm or dissection. 5. Moderate 50-60% mid right common iliac artery stenosis with heavily calcified plaque. 6. Severe 70% proximal left common iliac artery stenosis with heavily calcified plaque. 7. Severe 70% mid right common femoral artery stenosis with heavily calcified plaque. 8. Severe 70-80% mid/distal left common femoral artery stenosis with heavily calcified plaque. Reading Screen Cutter And Trimmer: Dr. Bruce Broussard, Date: 02/11/2025 10:48 am Signed by: Bruce Broussard 02/11/2025 10:51 AM Dictation workstation: [id number] Narrative 02/11/2025 10:51 AM EDT Interpreted By: Bruce Broussard, STUDY: CT TAVR FULL CONTRAST CHEST ABDOMEN PELVIS; 02/10/2025 2:57 pm INDICATION: Signs/Symptoms:aortic stenosis. COMPARISON: None. ACCESSION NUMBER(S): [id number] ORDERING CLINICIAN: CHUYITA PETERSON TECHNIQUE: Multi-detector CT technology was employed Marcella CT 64-slice scanner. Helical multidetector acquisition of the chest with retrospective gating and minimal slice thickness was performed prior to and following the intravenous administration of contrast material. Subsequently, contrast enhanced CT examination of the abdomen and pelvis was obtained. A low-osmolar contrast agent was used 100ml of Omnipaque 350. Using prospective ECG gating, CT scan of the aortic valve was performed without intravenous contrast. Aortic valve calcium scoring was performed according to the method of Agatston. For optimization of anatomic evaluation, multiplanar reconstruction, maximum intensity projections, and advanced 3-D off-line postprocessing were performed on a dedicated stand-alone workstation under the direct supervision of the interpreting physician. CT Dose-Length Product (DLP): 1774.5 mGy*cm CT Dose Reduction Employed: Yes iterative reconstruction FINDINGS: CARDIAC CT WITHOUT CONTRAST Aortic Valve calcium score: 3083 CTA CHEST WITH CONTRAST THORACIC AORTIC DIMENSIONS: Aortic annulus:27 x 21mm. Sinus of Valsalva(coronal):30 mm Across sinuses(cusp-commissure):30mm. Sinotubular junction:26mm. Ascending aorta (RPA level):32mm. Upper ascending aorta:29mm. Arch(mid):25mm. Arch(distal):27mm. Descending aorta(PA level):28mm. Descending aorta (diaphragm level):27mm. Main pulmonary artery:25mm. Right pulmonary artery:26 mm. Left pulmonary artery:24mm. No evidence of thoracic aortic dissection or coarctation. Aortic Valve: Heavily calcified trileaflet Pulmonary Veins: Normal pulmonary vein anatomy without evidence of anomalous pulmonary venous return. No pulmonary vein stenosis CORONARY ARTERIES: The examination is not optimized for assessment of the coronary arteries. Normal coronary artery origins. Right dominant system. Diffuse coronary artery calcification. CARDIAC CHAMBERS: Normal atrioventricular and ventriculoarterial concordance. CTA ABDOMEN/PELVIS WITH CONTRAST ABDOMINAL AORTIC DIMENSIONS: Descending aorta diaphragm level:27mm. Descending aorta renal artery level:24mm. Descending aorta infrarenal:18mm. Descending aorta distal before bifurcation:17 mm. No abdominal aorta dissection. Heavy calcification of the abdominal aorta. Celiac artery: Mild atherosclerosis Superior mesenteric artery: Mild atherosclerosis. Right renal artery: Mild atherosclerosis. Accessory right renal artery: Small, mild atherosclerosis. Left renal artery: Mild atherosclerosis. Right common iliac artery: Moderate 50-60% mid right common iliac artery stenosis with heavily calcified plaque. Left common iliac artery: Severe 70% proximal stenosis with heavily calcified plaque. Right external iliac artery: Mild atherosclerosis Left external iliac artery: Mild atherosclerosis. Right common femoral artery: Severe 70% mid right common femoral artery stenosis with heavily calcified plaque. Left common femoral artery: Severe 70% mid/distal left common femoral artery stenosis with heavily calcified plaque. Procedure Note Bruce Broussard DO / Cornell Owens MD - 02/11/2025 Interpreted By: Bruce Broussard, STUDY: CT TAVR FULL CONTRAST CHEST ABDOMEN PELVIS; 02/10/2025 2:57 pm INDICATION: Signs/Symptoms:aortic stenosis. COMPARISON: None. ACCESSION NUMBER(S): [id number] ORDERING CLINICIAN: CHUYITA PETERSON TECHNIQUE: Multi-detector CT technology was employed Marcella CT 64-slice scanner. Helical multidetector acquisition of the chest with retrospective gating and minimal slice thickness was performed prior to and following the intravenous administration of contrast material. Subsequently, contrast enhanced CT examination of the abdomen and pelvis was obtained. A low-osmolar contrast agent was used 100ml of Omnipaque 350. Using prospective ECG gating, CT scan of the aortic valve was performed without intravenous contrast. Aortic valve calcium scoring was performed according to the method of Agatston. For optimization of anatomic evaluation, multiplanar reconstruction, maximum intensity projections, and advanced 3-D off-line postprocessing were performed on a dedicated stand-alone workstation under the direct supervision of the interpreting physician. CT Dose-Length Product (DLP): 1774.5 mGy*cm CT Dose Reduction Employed: Yes iterative reconstruction FINDINGS: CARDIAC CT WITHOUT CONTRAST Aortic Valve calcium score: 3083 CTA CHEST WITH CONTRAST THORACIC AORTIC DIMENSIONS: Aortic annulus:27 x 21mm. Sinus of Valsalva(coronal):30 mm Across sinuses(cusp-commissure):30mm. Sinotubular junction:26mm. Ascending aorta (RPA level):32mm. Upper ascending aorta:29mm. Arch(mid):25mm. Arch(distal):27mm. Descending aorta(PA level):28mm. Descending aorta (diaphragm level):27mm. Main pulmonary artery:25mm. Right pulmonary artery:26 mm. Left pulmonary artery:24mm. No evidence of thoracic aortic dissection or coarctation. Aortic Valve: Heavily calcified trileaflet Pulmonary Veins: Normal pulmonary vein anatomy without evidence of anomalous pulmonary venous return. No pulmonary vein stenosis CORONARY ARTERIES: The examination is not optimized for assessment of the coronary arteries. Normal coronary artery origins. Right dominant system. Diffuse coronary artery calcification. CARDIAC CHAMBERS: Normal atrioventricular and ventriculoarterial concordance. CTA ABDOMEN/PELVIS WITH CONTRAST ABDOMINAL AORTIC DIMENSIONS: Descending aorta diaphragm level:27mm. Descending aorta renal artery level:24mm. Descending aorta infrarenal:18mm. Descending aorta distal before bifurcation:17 mm. No abdominal aorta dissection. Heavy calcification of the abdominal aorta. Celiac artery: Mild atherosclerosis Superior mesenteric artery: Mild atherosclerosis. Right renal artery: Mild atherosclerosis. Accessory right renal artery: Small, mild atherosclerosis. Left renal artery: Mild atherosclerosis. Right common iliac artery: Moderate 50-60% mid right common iliac artery stenosis with heavily calcified plaque. Left common iliac artery: Severe 70% proximal stenosis with heavily calcified plaque. Right external iliac artery: Mild atherosclerosis Left external iliac artery: Mild atherosclerosis. Right common femoral artery: Severe 70% mid right common femoral artery stenosis with heavily calcified plaque. Left common femoral artery: Severe 70% mid/distal left common femoral artery stenosis with heavily calcified plaque. IMPRESSION: 1. Calcified trileaflet aortic valve. Aortic valve calcium score 3083 2. Aortic annulus 27 x 21mm 3. Moderate atherosclerosis of thoracic aorta without evidence of aneurysm, dissection, or coarctation. 4. Moderate atherosclerosis of abdominal aorta without evidence of aneurysm or dissection. 5. Moderate 50-60% mid right common iliac artery stenosis with heavily calcified plaque. 6. Severe 70% proximal left common iliac artery stenosis with heavily calcified plaque. 7. Severe 70% mid right common femoral artery stenosis with heavily calcified plaque. 8. Severe 70-80% mid/distal left common femoral artery stenosis with heavily calcified plaque. Reading Screen Cutter And Trimmer: Dr. 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
--- OUTSIDE RECORDS SUMMARY | 2025-05-09 12:25 | XMS_ITS | Patient Health Record ---
Author Organization [facility] in [place] Address [address] [place] [address] Care Team Providers Care Paid Intern Name Role Phone Reji Dunlap Primary Care Provider LEÓN DUNLAP Unavailable [phone] Keya Freire Unavailable [phone] Allergies Allergen (clinical drug ingredient) Drug/Non Drug Allergy documented on EMR Reaction Allergy Type Onset Date Status ciprofloxacin Cipro vomiting Drug Allergy Act gisele simvastatin Simvastatin muscle pain Drug Allergy A ctive Results Component Value Reference Range Notes UA DIP NONAUTO WO MICRO (810 02) - IN OFFICE Reviewed date:08/01/2024 07:13:44 PM Interpretation: Performing Lab: Notes/Report: COLOR yellow CLARITY clear GLUCOSE - KETONE - SPECIFIC GRAVITY 1.015 BLOOD + PH 5.0 PROTEIN + UROBILINOGEN 0.2 NITRITE - LEUKOCYTE ESTERASE - MR head/brain wo/w con Reviewed date:11/15/2024 04:26:01 PM Interpretation: Performing Lab: Notes/Report: Source Facility: [place] [address] [place] [address] Magnetic Resonance Report Signed Patient: ROBINA MCCABE MR#: [id number] : 1955 Acct:[id number] Age/Sex: 69 / F ADM Date: 11/15/24 Loc: MRI Attending Dr: SAYRA MOMIN Ordering Physician: SAYRA MOMIN Date of Service: 11/15/24 Procedure(s): MR head/brain wo/w con Accession Number(s): [id number] cc: León Dunlap M.D.; SAYRA MOMIN [place] [phone] Patient Name: ROBINA MCCABE MRN: [id number] date: 1955 Sex: F Assigned Patient Location: MRI Current Patient Location: MRI Accession/Order Number: [id number] Exam Date: 11/15/2024 12:50 Report Date: 11/15/2024 14:38 At the request of: SAYRA MOMIN Procedure: MR head/brain wo/w con MR head/brain wo/w con, 11/15/2024 12:50 PM EST INDICATION: Non Small Cell Lung Cancer COMPARISON: Prior MRI of the brain dated 01/30/2024 and 08/01/2024 and 05/17/2023 TECHNIQUE: Multiplanar, multisequential MRI images of brain were obtained without injection of contrast. FINDINGS: The cerebral sulci as well as ventricular system are appropriate for age. There is interval decrease in size of signal abnormality within the right parietal lobe likely due to postradiation changes. No abnormal enhancing lesion is noted. There is no restricted diffusion. Hyperintensities on T2 and FLAIR images in the donnell and choudhury radiata and centrum semiovale with sparing of U fibers are nonspecific, statistically most likely consistent with microvascular ischemic changes. There is no intracranial mass, mass effect, midline shift, intra or extra-axial fluid collection or large hemorrhage. Normal flow-void in the intracranial vessels is noted. The visualized portions of orbits, mastoid air cells as well as paranasal sinuses are unremarkable. MR/MR head/brain wo/w con IMPRESSION: No acute intracranial process is noted. No evidence of metastasis. The right parietal signal abnormality is less conspicuous on the current study likely due to posttreatment changes. Electronically authenticated by: MARSHA DUDLEY Date: 11/15/2024 14:38 Dictated By: Marsha Dudely M.D. Signed By: 11/15/24 1449 DD/ 1438 TD/TT: Commodities Requirements Analyst: [place] [address] Magnetic Resonance Report Signed Patient: SANFORD MCCABE MR#: [id number] : 1955 Acct:[id number] Age/Sex: 69 / F ADM Date: 11/15/24 Loc: MRI Attending Dr: SAYRA MOMIN Ordering Physician: SAYRA MOMIN Date of Service: 11/15/24 Procedure(s): MR head/brain wo/w con Accession Number(s): [id number] cc: León Dunlap M.D. ; SAYRA MOMIN [place] [id number] Patient Name: ROBINA MCCABE MRN: [id number] date: 1955 Sex: F Assigned Patient Location: MRI Current Patient Loca tion: MRI Accession/Order Numb er: [id number] Exam Date: 12:50 Report Date: 11/15/2024 14:38 At the request of: SAYRA MOMIN Procedure: MR head/b rain wo/w con MR head/brain wo/w c on, 11/15/2024 12:50 PM EST INDICATION: Non Smal l Cell Lung Cancer COMPARISON: Prior MR I of the brain dated 01/30/2024 and 08/01/2024 and 05/17/2023 TECHNIQUE: Multiplan ar, multisequential MRI images of brain were obtained without injection of contrast. FINDINGS: The cerebral sulci a s well as ventricular system are appropriate for age. There is interval decrease in size of signal abnormality within the right parietal lobe likely due to postradiation changes. No abnormal enhancing lesion is noted. There is no restrict ed diffusion. Hyperintensities on T2 and FLAIR images in the donnell and choudhury radiata and centrum semiovale with sparing of U fibers are nonspecific, statistically most likely consistent with microvascular ischemic changes. There is no intracra nial mass, mass effect, midline shift, intra or extra-axial fluid collection or large hemorrhage. Normal flow-void in the intracranial vessels is noted. The visualized porti ons of orbits, mastoid air cells as well as paranasal sinuses are unremarkable. M R/MR head/brain wo/w con IMPRESSION: No acute intracrania l process is noted. No evidence of metastasis. The right parietal signal abnormality is less conspicuous on the current study likely due to posttreatment changes. Electronically authenticated by: MARSHA DUDLEY Date: 11/15/2024 14:38 Dictated By: Nina Dudley M.D. Signed By: 11/15/24 1449 DD/ 1438 TD/TT: Commodities Requirements Analyst: XR chest 2V Reviewed date:12/15/2024 01:28:47 PM Interpretation: Performing Lab: Notes/Report: Source Facility: [place] [address] XRay Report Signed Patient: ROBINA MCCABE MR#: [id number] : 1955 Acct:[id number] Age/Sex: 69 / F ADM Date: 12/13/24 Loc: LAB Attending Dr: León Dunlap M.D. Ordering Physician: León Dunlap M.D. Date of Service: 12/13/24 Procedure(s): XR chest 2V Accession Number(s): [id number] cc: León Dunlap M.D. [place] [address] Patient Name: ROBINA MCCABE MRN: [id number] date: 1955 Sex: F Assigned Patient Location: LAB Current Patient Location: LAB Accession/Order Number: [id number] Exam Date: 12/13/2024 12:41 Report Date: 12/15/2024 09:45 At the request of: LEÓN DUNLAP Procedure: XR chest 2V Chest x-rays, 12/13/2024. HISTORY: History of lung cancer. Shortness of breath. COMPARISON: Chest x-ray, 06/01/2023. FINDINGS: 2 views of the chest were obtained. Heart size appears normal. There is asymmetric elevation of the right hemidiaphragm. No pleural effusion. No pneumothorax. There is diffuse groundglass and consolidative airspace opacification throughout both lungs. XR/XR chest 2V IMPRESSION: 1. There is diffuse groundglass and consolidative airspace opacification throughout both lungs which may be a combination of pulmonary edema and pneumonia. 2. No pleural effusion. No pneumothorax. Electronically authenticated by: LEIGHTON BRASWELL Date: 12/15/2024 09:45 Dictated By: Leighton Braswell M.D. Signed By: 12/15/24947 DD/ 4 TD/TT: Commodities Requirements Analyst: [place] [address] XRay Report Signed Patient: SANFORD MCCABE MR#: [id number] : 1955 Acct:[id number] Age/Sex: 69 / F ADM Date: 12/13/24 Loc: LAB Attending Dr: Wolfgang Dunlap M.D. Ordering Physician: León Dunlap M.D. Date of Service: 12/13/24 Procedure(s): XR chest 2V Accession Number(s): [id number] cc: León Dunlap M.D. [place] [address] Patient Name: ROBINA MCCABE MRN: [id number] date: 1955 Sex: F Assigned Patient Location: LAB Current Patient Loca tion: LAB Accession/Order Numb er: [id number] Exam Date: 12/13/2024 12:41 Report Date: 12/15/2024 09:45 At the request of: LEÓN DUNLAP Procedure: XR chest 2V Chest x-rays, 12/13/2024. HISTORY: History of lung cancer. Shortness of breath. COMPARISON: Chest x- ray, 06/01/2023. FINDINGS: 2 views of the chest were obtained. Heart size appears normal. There is asymmetric elevat ion of the right hemidiaphragm. No pleural effusion. No pneumothorax. There is diffuse groundglass and consolidative airspace opacification throug hout both lungs. X R/XR chest 2V IMPRESSION: 1. There is diffuse groundglass and consolidative airspace opacification throughout both lung s which may be a combination of pulmonary edema and pneumonia. 2. No pleural effusi on. No pneumothorax. Electronically authenticated by: LEIGHTON BRASWELL Date: 12/15/2024 09:45 Dictated By: Sabine Braswell M.D. Signed By: 12/15/2448 DD/ TD/TT: Commodities Requirements Analyst: MR head/brain wo/w con Reviewed date:08/01/2024 07:13:44 PM Interpretation: Performing Lab: Notes/Report: Source Facility: [place] [address] Magnetic Resonance Report Signed Patient: ROBINA MCCABE MR#: [id number] : 1955 Acct:[id number] Age/Sex: 68 / F ADM Date: 08/01/24 Loc: MRI Attending Dr: SAYRA MOMIN Ordering Physician: SAYRA MOMIN Date of Service: 08/01/24 Procedure(s): MR head/brain wo/w con Accession Number(s): [id number] cc: León Dunlap M.D.; SAYRA MOMIN [place] [address] Patient Name: ROBINA MCCABE MRN: [id number] date: 1955 Sex: F Assigned Patient Location: MRI Current Patient Location: MRI Accession/Order Number: [id number] Exam Date: 08/01/2024 13:45 Report Date: 08/01/2024 18:52 At the request of: SAYRA MOMIN Procedure: MR head/brain wo/w con EXAM: MR head/brain wo/w con HISTORY: Secondary Malignant Neoplasm Brain COMPARISON: MRI brain 01/30/2024, 10/23/2023, 07/19/2023 TECHNIQUE: Multisequence MRI brain was performed with and without intravenous contrast. FINDINGS: There is no restricted diffusion to suggest acute infarct. There is no midline shift, mass effect, or abnormal extraaxial fluid collections. Redemonstrated is residual small focus of cortical/subcortical T2/FLAIR signal abnormality in the right parietal lobe, at the location of prior enhancing metastatic lesion, stable since 01/30/2024. No associated enhancement is seen. There is no new abnormal parenchymal or leptomeningeal enhancement. There is mild cerebral volume loss. There are nonspecific scattered foci of T2/FLAIR signal abnormality in the donnell and supratentorial white matter, in keeping with chronic microvascular ischemic changes. The major intracranial flow voids are visualized. The cerebellar tonsils are normal in position. The orbits demonstrate no suspicious enhancement or any focal lesions. The paranasal sinuses show no air-fluid level. The mastoid air cells are clear. The calvarium and extracranial soft tissues are unremarkable. MR/MR head/brain wo/w con IMPRESSION: No acute intracranial abnormality. Stable small cortical/subcortical T2/FLAIR signal abnormality in the right parietal lobe, compatible with a treated metastasis. No evidence of new intracranial metastasis. Mild chronic microvascular ischemic and involutional changes. Electronically authenticated by: HOMER SCHAFER Date: 08/01/2024 18:52 Dictated By: HOMER SCHAFER M.D. Signed By: 08/01/241854 DD/ 51 TD/TT: Commodities Requirements Analyst: [place] [address] Magnetic Resonance Report Signed Patient: SANFORD MCCABE MR#: [id number] : 1955 Acct:[id number] Age/Sex: 68 / F ADM Date: 08/01/24 Loc: MRI Attending Dr: SAYRA MOMIN Ordering Physician: SAYRA MOMIN Date of Service: 08/01/24 Procedure(s): MR head/brain wo/w con Accession Number(s): [id number] cc: León Dunlap M.D. ; SAYRA MOMIN [place] [phone] Patient Name: ROBINA MCCABE MRN: [id number] date: 1955 Sex: F Assigned Patient Location: MRI Current Patient Loca tion: MRI Accession/Order Numb er: [id number] Exam Date: 08/01/2024 13:45 Report Date: 08/01/2024 18:52 At the request of: SAYRA MOMIN Procedure: MR head/b rain wo/w con EXAM: MR head/brain wo/w con HISTORY: Secondary Malignant Neoplasm Brain COMPARISON: MRI brai n 01/30/2024, 10/23/2023, 07/19/2023 TECHNIQUE: Multisequ ence MRI brain was performed with and without intravenous contrast. FINDINGS: There is no restrict ed diffusion to suggest acute infarct. There is no midline shift, mass effect, or abnormal extraaxial fluid collections. Redemonstrated is residual small focus of cortical/subcortical T2/FLAIR signal abnormality in the r ight parietal lobe, at the location of prior enhancing metastatic lesion, s table since 01/30/2024. No associated enhancement is seen. There is no new abno rmal parenchymal or leptomeningeal enhancement. There is mild cerebr al volume loss. There are nonspecific scattered foci of T2/FLAIR signal abnormality in the donnell and supratentorial white matter, in keeping with chronic microvascular ischemic changes. The major intracrani al flow voids are visualized. The cerebellar tonsils are normal in position. The orbits demonstra te no suspicious enhancement or any focal lesions. The paranasal sinuses sh ow no air-fluid level. The mastoid air cells are clear. The calvarium and extracranial soft tissues are unremarkable. M R/MR head/brain wo/w con IMPRESSION: No acute intracrania l abnormality. Stable small cortical/subcortical T2/FLAIR signal abnormality in the right parietal lobe, kar tible with a treated metastasis. No evidence of new intracranial metastasis. Mild chronic microvascular ischemic and involutional changes. Electronically authenticated by: HOMER SCHAFER Date: 08/01/2024 18:52 Dictated By: VANESSA SCHAFER M.D. Signed By: 08/01/241854 DD/ 51 TD/TT: Commodities Requirements Analyst: PROF French(COMP METB) Reviewed date:12/15/2024 01:28:47 PM Interpretation: Performing Lab: Notes/Report: [facility] , Sodium 136 136-145 mmol/L Potassium 4.4 3.5-5.1 mmol/L Chloride 100 98-107 mmol/L Carbon Dioxide 27.5 21.0-32.0 mmol/L Anion Gap 12.9 Glucose 86 74-106 mg/dL Blood Urea Nitrogen 24.0 7.0-18.0 mg/dL Creatinine 0.79 0.55-1.02 mg/dL Estimated GFR ( Nesha >60 >=60 mL/min/1.73m 2 Estimated GFR (Non- Clari >60 >=60 mL/min/1.73m 2 BUN Creatinine Ratio 30.4 Calcium 9.2 8.5-10.1 mg/dL Bilirubin Total 1.0 0.2-1.0 mg/dL Aspartate Amino Transferase 46 15-37 U/L Alanine Aminotransferase 21 14-59 U/L Alkaline Phosphatase 80 46-116 U/L Total Protein 7.3 6.4-8.2 g/dL Albumin Level 2.7 3.4-5.0 g/dL Globulin 4.6 Albumin Globulin Ratio 0.6 Performing Lab: see note ML - [facility] LB CBC AUTO DIFF Reviewed date:12/15/2024 01:28:47 PM Interpretation: Performing Lab: Notes/Report: [facility] , White Blood Count 11.1 4.0-11.0 10 3/uL Red Blood Count 4.35 4.20-5.40 10 6/uL Hemoglobin 13.6 12.0-16.0 g/dL Hematocrit 39.6 36.0-48.0 % Mean Corpuscular Volume 91.0 81.0-99.0 fL Mean Corpuscular Hemoglobin 31.3 26.7-34.0 pg Mean Corpuscular HGB Conc 34.3 29.9-35.2 g/dL Red Cell Distribution Width 14.3 11.0-15.0 % Platelet Count 488 150-450 10 3/uL Mean Platelet Volume 9.3 9.5-13.5 fL Neutrophils Percent Auto 78.6 43.0-75.0 % Lymphocytes Percent Auto 6.9 20.5-60.0 % Monocytes Percent Auto 8.2 1.7-12.0 % Eosinophils Percent Auto 4.2 0.9-7.0 % Basophils Percent Auto 0.6 0.2-2.0 % Immature Granulocytes Pct Auto 1.5 0.0-0.5 % Neutrophils Absolute Auto 8.7 1.4-6.5 10 3/uL Lymphocytes Absolute Auto 0.8 1.2-3.8 10 3/uL Monocytes Absolute Auto 0.9 0.3-0.8 10 3/uL Eosinophils Absolute Auto 0.5 0.0-0.7 10 3/uL Basophils Absolute Auto 0.1 0.0-0.1 10 3/uL Immature Granulocytes Abs Auto 0.17 0.00-0.03 10 3/uL Performing Lab: see note ML - [facility] LB BNP Reviewed date:12/15/2024 01:28:47 PM Interpretation: Performing Lab: Notes/Report: [facility] , NT Pro B Type Natriuretic Pept 07178.0 <=900.0 pg/mL RESULTS CALLED TO DR. DUNLAP Performing Lab: see note ML - [facility] LB Reason For Referral No Information Medications Medication SIG (Take, Route, Frequency, Duration) Notes Start Date End Date Status Amoxicillin 500 MG 4 caps Orally once f or 1 days 02/13/2025 Active Xopenex HFA 45 MCG/ACT 1-2 puff as neede d Inhalation every 6 hrs 12/13/2024 Active Lasix 20 MG 1 tablet Orally Once a day for 30 days 12/13/2024 Active Triamcinolone Acetonide 0.1 % 1 application do not rinse afterwards and avoid eating or drinking for 30 minutes Mouth/Throat Twice a day for 30 days 01/10/2025 Active Budesonide ER 9 MG 1 tablet in the morn ing Orally Once a day Active ALPRAZolam 0.5 MG 1/2 tablet as needed Orally TID for 30 days PRN 04/23/2025 Active Omeprazole 40 MG 1 capsule 1/2 to 1 h our before morning meal Orally Once a day Active Plaquenil 200 MG as directed Orally daily RHEUM Active Levothyroxine Sodium 75 MCG TAKE 1 TABLE T BY MOUTH EVERY DAY for 90 days Active Liothyronine Sodium 25 MCG TAKE 1/2 TABL ET BY MOUTH ON AN EMPTY STOMACH ONCE A DAY for 90 days Active Citalopram Hydrobromide 20 MG TAKE 1 TABLET BY MOUTH EVERY DAY for 90 Active Metoprolol Tartrate 50 MG TAKE 1/2 TABLE T BY MOUTH TWICE A DAY for 90 days Active Evoxac 30 MG 1 capsule Orally Thr ee times a day Active Cholecalciferol 100 MCG (4000 UT) 1 tablet Orally Once a day 05/22/2024 Active Social History Tobacco Use: Social History Observation Description Date Details (start date - stop date) Former Smoker NA - 12/27/2017 Tobacco Use/Smoking Question Answer Notes Patient is a former smoker When did you stop smoking? 12/27/2017 How long has it been since you last smoked? 1-5 years Alcohol Screen (Audit-C) Question Answer Notes Did you have a drink containing alcohol in the p ast year? No Points 0 Interpretation Negative AUDIT-C (Standard) Question Answer Notes Did you have a drink containing alcohol in the p ast year? 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 Problem Overweight (187109717) Overweight (E66.3) Active confirmed Problem 13937273 Anxiety disorder , unspecified (F41.9) Active confirmed Problem 812403309 Nonrheumatic aortic (valve) stenosis (I35.0) Active confirmed Problem 269578821 Nonrheumatic aortic (valve) insufficiency (I35.1) Active confirmed Problem 558398506 Localized swelling, mass and lump, trunk (R22.2) Active confirmed Problem 438672374 Other nonspecifi c abnormal finding of lung field (R91.8) Active confirmed Problem Intermittent claudication (22783818) Intermittent claudication (I73.9) Active confirmed Problem Cigarette smoker (16156196) Cigarette smoker (F17.210) Active confirmed Problem Hypothyroidism (83314971) Hypothyroidism (E03.9) Active confirmed Problem Edema (28438254) Edema (R60.9) Active confirmed Problem Essential hypertension (48707941) Essential hypertension (I10) Active confirmed Problem Arthritis (7067797) Arthritis (M19.90) Active confirmed Problem Osteopenia (061826613) Osteopenia (M85.80) Active confirmed Problem Carotid bruit (243368945) Carotid bruit (R09.89) Active confirmed Problem Dyspnea (669862260) Dyspnea (R06.00) Active confirmed Problem Osteoarthritis of knee (457879407) Osteoarthritis of knee (M17.9) Active confirmed Problem Insomnia (463804617) Insomnia (G47.00) Active confirmed Problem Lung cancer (227836680) Lung cancer (C34.90) Active confirmed Problem Acute sinusitis (01341323) Acute sinusitis (J01.90) Active confirmed Problem Colitis (25459657) Colitis (K52.9) Active confirmed Problem Gastritis (7823926) Gastritis (K29.70) Active confirmed Problem Urinary tract infection (01311828) Urinary tract infection (N39.0) Active confirmed Problem Seasonal allergic rhinitis (605522491) Allergic rhinitis, seasonal (J30.2) Active confirmed Problem Duodenitis (51284778) Duodenitis (K29.80) Active confirmed Problem Otalgia of left ear (finding) (8770567869) Otalgia, left (H92.02) Active confirmed Problem Uterine leiomyoma (54554085) Fibroid, uterine (D25.9) Active confirmed Problem 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 Problem Osteoarthritis of knee (241349454) Osteoarthritis of right knee (M17.11) Active confirmed Problem Abdominal aortic aneurysm (disorder) (523156530) Abdominal aortic aneurysm (AAA), unspecified part, unspecified whether ruptured (I71.40) Active confirmed Vital Signs Temperature 99.2 degrees Fahrenheit 12/13/2024 Oximetry 87 % 12/13/2024 Blood pressure diastolic 60 mm Hg 12/13/2024 Height 64 in 12/13/2024 Blood pressure systolic 90 mm Hg 12/13/2024 Weight 133.4 lbs 12/13/2024 BMI 22.9 kg/m2 12/13/2024 Procedures Procedure Date Ordered Date Performed Result Body Sit e ECG with Interpretation 12/13/2024 N/A EAR IRRIGATION - performed 12/13/2024 N/A Echocardiogram 12/13/2024 N/A Encounters Encounter Location Date Provider Diagnosis [facility] [address] [facility] [place] [address] 04/23/2025 Reji Dunlap Hypothyroidism E03.9 [facility] [address] [facility] [place] [address] 01/24/2025 Reji Dunlap [facility] [address] [facility] [place] [address] 01/24/2025 Reji Dunlap [facility] [address] [place] [address] 01/28/2025 Reji jose d [facility] [address] [place] [address] 02/13/2025 Reji Hoy [facility] [address] [place] [address] 02/21/2025 Reji Hoy Hypothyroidism E03.9 [facility] [address] [place] [address] 03/24/2025 Reji Hoy Hypothyroidism E03.9 [facility] [address] [place] [address] 12/16/2024 Reji Hoy [facility] [address] [place] [address] 12/22/2024 Reji Hoy [facility] [address] [place] [address] 12/23/2024 Reji Hoy Hypothyroidism E03.9 [facility] [address] [place] [address] 01/10/2025 Reji Hoy [facility] [address] [place] [address] 01/22/2025 Reji Hoy Hypothyroidism E03.9 [facility] [address] [place] [address] 01/22/2025 Reji Hoy [facility] [address] [place] [address] 08/22/2024 Reji Hoy Anxiety disorder, unspecified F41.9 [facility] [address] [place] [address] 09/23/2024 Keya Freire Anxiety disorder, unspecified F41.9 [facility] [address] [place] [address] 10/23/2024 Reji Hoy Anxiety disorder, unspecified F41.9 [facility] [address] [place] [address] 11/11/2024 Reji Hoy [facility] [address] [place] [address] 11/25/2024 Reji Hoy [facility] [address] [place] [address] 12/13/2024 Reji Hoy Shortness of breath R06.02 [facility] [address] [place] [address] 06/13/2024 Reji Hoy [facility] [address] [place] [address] 06/14/2024 Reji Hoy [facility] [address] [place] [address] 06/14/2024 Reji Hoy [facility] [address] [place] [address] 06/24/2024 Reji Hoy Anxiety disorder, unspecified F41.9 [facility] [address] [place] [address] 07/23/2024 Reji Hoy Anxiety disorder, unspecified F41.9 [facility] [address] [place] [address] 08/05/2024 Reji Hoy [facility] [address] [place] [address] 05/27/2024 LEÓN HOY Anxiety disorder, unspecified F41.9 [facility] [address] [place] [address] 06/05/2024 LEÓN HOY [facility] [address] [place] [address] 06/06/2024 Reji Hoy [facility] [address] [place] [address] 05/22/2024 LEÓN HOY Burning with urinati on R30.0 [facility] [address] [place] [address] 11/25/2024 Reji Hoy Hypothyroidism E03.9 and Essential hypertension I10 [facility] [address] [place] [address] 12/13/2024 Reji Hoy Hypothyroidism E03.9 ; Essential hypertension I10 ; Lung cancer C34.90 ; Dyspnea R06.00 ; Cerumen impaction H61.20 and Bilateral impacted cerumen H61.23 Assessments Encounter Date Diagnosis (ICD Code) Assessment Notes Treatment Notes Treatment Clinical Notes Section Notes 05/27/2024 Anxiety disorder, unspecified (ICD-10 - F41.9) 06/24/2024 Anxiety disorder, unspecified (ICD-10 - F41.9) 07/23/2024 Anxiety disorder, unspecified (ICD-10 - F41.9) 08/22/2024 Anxiety disorder, unspecified (ICD-10 - F41.9) 09/23/2024 Anxiety disorder, unspecified (ICD-10 - F41.9) 10/23/2024 Anxiety disorder, unspecified (ICD-10 - F41.9) 12/13/2024 Shortness of breath (ICD-10 - R06.02) 12/23/2024 Hypothyroidism (ICD-10 - E03.9) 01/22/2025 Hypothyroidism (ICD-10 - E03.9) 02/21/2025 Hypothyroidism (ICD-10 - E03.9) 03/24/2025 Hypothyroidism (ICD-10 - E03.9) 04/23/2025 Hypothyroidism (ICD-10 - E03.9) 05/22/2024 Burning with urination (ICD-10 - R30.0) 11/25/2024 Hypothyroidism (ICD-10 - E03.9) 11/25/2024 Essential hypertension (ICD-10 - I10) 12/13/2024 Hypothyroidism (ICD-10 - E03.9) 12/13/2024 Essential hypertension (ICD-10 - I10) 12/13/2024 Lung cancer (ICD-10 - C34.90) 12/13/2024 Dyspnea (ICD-10 - R06.00) 12/13/2024 Cerumen impaction (ICD-10 - H61.20) 12/13/2024 Bilateral impacted cerumen (ICD-10 - H61.23) Plan Of Treatment Pending Test Test Name Order Date CMP (COMPLETE METABOLIC PANEL) 3 CMP (COMPLETE METABOLIC PANEL) 4 HEMOGLOBIN A1C (GLYCO) 08/25/2023 HEMOGLOBIN A1C (GLYCO) 11/25/2024 IRON, TOTAL 11/25/2024 IRON, TOTAL 08/25/2023 LIPID PANEL (CHOL/TRIG/HDL/LDL) 08/25/20 23 LIPID PANEL (CHOL/TRIG/HDL/LDL) 11/25/20 24 CBC WITH DIFF 11/25/2024 CBC WITH DIFF 08/25/2023 PT (PROTIME), INR AND PTT (PT/INR AND PT T) 02/28/2023 VITAMIN D, 25 LEVEL (TOTAL) 11/25/2024 VITAMIN D, 25 LEVEL (TOTAL) 08/25/2023 Echocardiogram 12/13/2024 XR Chest PA and Lateral (Routine CXR) * 05/15/2023 MAMM Mammograms CAD 08/25/2023 ECG with Interpretation 12/13/2024 Insulin Level 08/25/2023 Insulin Level 11/25/2024 EAR IRRIGATION - performed 12/13/2024 STOOL OCCULT BLOOD 11/25/2024 STOOL OCCULT BLOOD 08/25/2023 XR CHEST 2 V 12/13/2024 THYROID PANEL (T4/TSH/FREE T3) 3 THYROID PANEL (T4/TSH/FREE T3) 4 Next Appt Details Provider Name:Reji Dunlap, 01:00:00 PM, [address] [place], [address], Insurance Providers Payer Name Payer Address Payer Phone Subscriber Number Group Number Insured Name Patient Relationship to Insured Coverage Start Date Coverage End Date MEDICARE [place] [address] [place] [phone] [id number] Robina Mccabe Self - patient is the insured [facility] [address] [address] [place] [address] [id number] Plan F Robina Mccabe Self - patient is the insured Medical (General) History Medical History History ICD Code Edema R60.9 Overweight E66.3 Carotid bruit R09.89 Urinary tract infection N39.0 Intermittent claudication I73.9 Acute sinusitis J01.90 Fibroid, uterine D25.9 Osteopenia M85.80 Otalgia, left H92.02 Hypothyroidism E03.9 Osteoarthritis of right knee M17.11 Arthritis M19.90 Abdominal aortic aneurysm (A AA), unspecified part, unspecified whether ruptured I71.40 Insomnia G47.00 Benign neoplasm of major salivary gland, 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
--- OUTSIDE RECORDS SUMMARY | 2025-05-09 12:25 | XMS_ITS | Encounter Summary ---
Author Organization [facility] Address [address] [place] [address] Phone Care Team Providers Care Tie Hacker Name Role Phone Nikolay Borges MD Primary Care Provider [phone] Corina Butler RN Unavailable Unavailable Encounter Details Date Type Department Care Team (Late st Contact Info) Description 12/09/2024 Scanned Document [facility] [address] [place] [id number] Scanning, Generic Provider Social History Tobacco Use Types Packs/Day Years Used Date Smoking Tobacco: Former Cigarettes Q uit: 2019 Alcohol Use Standard Drinks/Week Comments Never 0 [...] 05/15/2025 9:30 AM EDT Telemedicine [facility] [address] [place] [address] 08/01/2025 11:20 AM EDT Office Visit [place] [address] [place] [phone] Theo Medina MD [address] [facility] [address] [place] [address] 04/10/2026 9:30 AM EDT Telemedicine Clinical Support [facility] [address] [place] [phone] documented as of this encounter Visit Diagnoses Not on filedocumented in this encounter Additional Health Concerns Assessment Noted Time PHQ-9 Depression Total Score: 3 04/26/20 22 10:47 AM EDT documented as of this encounter Care Teams Tie Hacker Relationship Specialty Start Date End Date Nikolay Borges MD [address] [facility] [address] PCP - General 04/26/22 Corina Butler, shock absorber installerReading Intervention Teacher 04/18/25 documented as of this encounter
--- OUTSIDE RECORDS SUMMARY | 2025-05-09 12:25 | XMS_ITS | Clinical Summary ---
Author Organization [facility] Address [address] [place] [address] Care Team Providers Care Net Technical Architect Name Role Phone Nikolay Borges MD Primary Care Provider [phone] Allergies Active Allergy Reactions Criticality Noted Date Comments Ciprofloxacin Hcl Rash Low 04/12/2023 Medications traMADol (ULTRAM) 50 MG tablet Take 1 tablet by mouth every 6 hours as needed. Active lisinopril (PRINIVIL;ZESTR IL) 40 MG tablet Take 1 tablet by mouth daily 04/03/2018 Active Levothyroxine Sodium 50 MCG CAPS Take 50 mcg by mouth every morning (before breakfast) Active ALPRAZolam (XANAX) 0.25 MG tablet TAKE 1 TABLET BY MOUTH THREE TIMES A DAY FOR 7 DAYS 03/17/2023 Active citalopram (CELEXA) 20 MG tablet 04/10/2023 Active metoprolol tartrate (LOPRESSOR) 50 MG tablet Take 1 tablet by mouth 2 times daily 02/22/2023 Active liothyronine (CYTOMEL) 25 MCG tablet Take 1 tablet by mouth daily Active fexofenadine (WOLFGANG) 180 MG tablet Take 1 tablet by mouth daily Active Active Problems Problem Noted Date Diagnosed Date Hypertension 04/12/2023 Kidney stones 04/12/2023 DJD (degenerative joint disease) of knee 023 Overview (04/12/2023): left Hypothyroidism 04/12/2023 AAA (abdominal aortic aneurysm) 04/12/2023 Insomnia 04/12/2023 Phlebitis 04/12/2023 Benign neoplasm of major salivary gland, 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/12/2023 Leukoplakia of oral mucosa 04/12/2023 Seasonal allergic rhinitis 04/12/2023 History of kidney stones 04/12/2023 Social History Tobacco Use Types Packs/Day Years Used Date Smoking Tobacco: Former Cigarettes Passive Smoke Exposure: Never Smokeless Tobacco: Never Tobacco Cessation:Counseling Given: Not Answered Comments No Sex and Gender Information Value Date Recorded Sex Assigned at Not on file Legal Sex Female 6:41 PM EST Gender Identity Not on file Sexual Orientation Not on file Last Filed Vital Signs Vital Sign Reading Time Taken Comments Blood Pressure 119/58 04/13/2023 4:57 PM EDT Pulse 71 04/13/2023 4:57 PM EDT Temperature - - Respiratory Rate 8 04/13/2023 4:57 PM EDT Oxygen Saturation 97% 04/13/2023 4:57 PM EDT Inhaled Oxygen Concentration - - Weight - - Height - - Body Mass Index - - Plan of Treatment Health Maintenance Due Date Last Done Comments Depression Screen 1965 Hepatitis C screen 1971 DTaP/Tdap/Td vaccine (1 - Tdap) 1972 Breast cancer screen 1993 Lipids 1993 Colonoscopy 1998 Colorectal Cancer Screen 1998 FIT/FOBT: Average risk 1998 Fecal-DNA (Cologuard): Average risk 1998 Sigmoidoscopy/CT colonography 1998 Shingles vaccine (1 of 2) 2003 DEXA (modify frequency per FRAX score) 2008 Annual Wellness Visit (Medicare) 10/23/2023 COVID-19 Vaccine ( season) 2024 09/09/2021, 02/23/2021, 02/01/2021 Flu vaccine (Season Ended) 06/27/202508/30, 09/09/2021, 08/23/2020, Additional history exists Respiratory Syncytial Virus (RSV) or age 60 yrs+ (1 - 1-dose 75+ series) 2028 Pneumococcal 50+ years Vaccine Completed 10/31/2021, 08/10/2020, 11/27/2014 Hepatitis A vaccine Aged Out No longe r eligible based on patient's age to complete this topic Hepatitis B vaccine Aged Out No longe r eligible based on patient's age to complete this topic Hib vaccine Aged Out No longer eligi ble based on patient's age to complete this topic Meningococcal (ACWY) vaccine Aged Out No longer eligible based on patient's age to complete this topic Meningococcal B vaccine Aged Out No l onger eligible based on patient's age to complete this topic Polio vaccine Aged Out No longer elig ible based on patient's age to complete this topic Insurance MEDICARE AETNA SENIOR MEDICARE SUPP Care Teams Net Technical Architect Relationship Specialty Start Date End Date Nikolay Borges MD [address] [facility] [place] [address] PCP - General Family Medicine 04/13/23
--- OUTSIDE RECORDS SUMMARY | 2025-05-09 12:25 | XMS_ITS | Encounter Summary ---
Author Organization [facility] Address [address] [place] [address] Care Team Providers Care Sericulturist Name Role Phone Nikolay Borges MD Primary Care Provider [phone] Encounter Details Date Type Department Care Team (Late st Contact Info) Description 05/09/2023 Abstract [facility] [address] [place] [address] Chika Carmona MA Social History Tobacco Use Types Packs/Day Years Used Date Smoking Tobacco: Former Cigarettes Smokeless Tobacco: Never Alcohol Use Standard Drinks/Week Comments Not Currently 0 (1 standard drink = 0.6 oz pur e alcohol) Comments Unknown Sex and Gender Information Value Date Recorded Sex Assigned at Not on file Legal Sex Female 6:45 PM EDT Gender Identity Not on file Sexual Orientation Not on file documented as of this encounter Plan of Treatment Not on file documented as of this encounter Visit Diagnoses Not on filedocumented in this encounter Care Teams Sericulturist Relationship Specialty Start Date End Date Nikolay Borges MD PCP - General Family Medicine 04/25/23 documented as of this encounter
--- OUTSIDE RECORDS SUMMARY | 2025-05-09 12:26 | XMS_ITS ---
Author Organization [facility] Address [address] [place] [address] Phone Care Team Providers Care Spring Setter Name Role Phone Nikolay Borges MD Primary Care Provider [phone] Corina Butler RN Unavailable Unavailable Transitional Care Management Status:Enrolled (Active) Start date:04/18/2025 Enrollment date:04/18/2025 Current support & services provided:Medium Complexity Transitional Care Management Case Team Name Relationship Phone Corina Butler RN(Responsible Staff) Care Manag er Continued Care and Services Coordination
--- OUTSIDE RECORDS SUMMARY | 2025-05-09 12:26 | XMS_ITS | Encounter Summary ---
Author Organization [facility] Address [address] [place] [address] Care Team Providers Care Semiconductor Wafers Etcher Stripper Name Role Phone Nikolay Borges MD Primary Care Provider + Elina Raza APRN.PARATRANSIT DRIVER Unavailable [phone] Alexx Nguyen MD Unavailable [phone] Vianney Scherer RN Unavailable [phone] Unavailable [phone] Celina Hong Unavailable Unavailable Source Comments In the event this information is protected by the Federal Confidentiality of Alcohol and Drug AbusePatient Records regulations: The Federal rules restrict any use of the information to criminally investigate or prosecute any alcohol or drug abuse patient.[facility] Encounter Details Date Type Department Care Team (Late st Contact Info) Description 05/13/2024 Patient [facility] HB-[address] [place] [address] Ilda Somers RPh At your next appointment, choose [facility]. Social History Tobacco Use Types Packs/Day Years [...] is lower risk 8 05/02/2023 Data from: https://www.neighborhoodatlas.medicine.[facility]/. Last address used for calculation [address] [...] EDT Appointment Radiology Pet CT [address] [place] [address] Pet scan prior to follow up 05/22/2025 12:45 PM EDT Office Visit [facility] [address] [place] [place] [address] 3 week follow up [facility] 05/22/2025 1:00 PM EDT Visit (SP) Office Hematology/Oncology [address] [place] [address] [place] [address] Alexx Nguyen MD [address] [place] [address] [place] [address] 3 week follow up [facility] 05/22/2025 1:30 PM EDT [facility] Hematology/Oncology [address] [place] [address] 3 week follow up [facility] 12/29/2025 1:40 PM [facility] Rheumatology [address] [place] [address] Crissy Juan MD [address] [place] [address] Follow up visit for sjogrens/osteopenia /osteoarthritis in 6-12months (ok for virtual or in person) documented as of this encounter Visit Diagnoses Not on filedocumented in this encounter Additional Health Concerns Infection Onset Date Last Indicated Resolved Time C. difficile 10/08/2024 10/08/2024 11/07/2024 8:51 PM EST documented as of this encounter Care Teams Semiconductor Wafers Etcher Stripper Relationship Specialty Start Date End Date Nikolay Borges MD PCP - General Family Medicine 11/27/15 Elina Raza APRN.PARATRANSIT DRIVER [address] [place] [address] [place] [address] Nurse Practitioner Hematology/Oncology 05/17/23 Alexx Nguyen MD [address] [place] [address] [place] [address] Physician Hematology/Oncology 05/17/23 Vianney Scherer, MIGUEL [address] [place] [address] [place] [address] Specialty Excel Analyst Hematology/Oncology 05/17/[address] [place] [address] [place] [address] Registered Dietitian Nutrition 05/28/24 Celina Hong LSW News Writer 09/23/24 documented as of this encounter
--- OUTSIDE RECORDS SUMMARY | 2025-05-09 12:26 | XMS_ITS | Encounter Summary ---
Author Organization [facility] Address [address] [place] [address] Care Team Providers Care Grain Oilseed Or Pasture Farm Manager Name Role Phone Nikolay Borges MD Primary Care Provider + Elina Raza APRN.REMARKETING MANAGER Unavailable [phone] Alexx Nguyen MD Unavailable [phone] Vianney Scherer RN Unavailable [phone] Unavailable [phone] Celina Hong Unavailable Unavailable Source Comments In the event this information is protected by the Federal Confidentiality of Alcohol and Drug AbusePatient Records regulations: The Federal rules restrict any use of the information to criminally investigate or prosecute any alcohol or drug abuse patient.[facility] Encounter Details Date Type Department Care Team (Late st Contact Info) Description 05/26/2023 Cure Form [facility] Tumor Center [address] [place] [address] Barbara Lezama RN 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 Last address used for calculation [address] [...] EDT Appointment Radiology Pet CT [address] [place] [address] Pet scan prior to follow up 05/22/2025 12:45 PM EDT Office Visit [facility] [address] [facility] [place] [place] [address] 3 week follow up [facility] 05/22/2025 1:00 PM EDT Visit (SP) Office Hematology/Oncology [address] [place] [address] [place] [address] Alexx Nguyen MD [address] [place] [address] [place] [address] 3 week follow up [facility] 05/22/2025 1:30 PM EDT [facility] Hematology/Oncology [address] [facility] [place] [place] [address] 3 week follow up [place] 12/29/2025 1:40 PM [facility] Rheumatology [address] [place] [address] Crissy Juan MD [address] [place] [address] Follow up visit for sjogrens/osteopenia /osteoarthritis in 6-12months (ok for virtual or in person) documented as of this encounter Visit Diagnoses Diagnosis 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 difficile 10/08/2024 10/08/2024 11/07/2024 8:51 PM EST documented as of this encounter Care Teams Grain Oilseed Or Pasture Farm Manager Relationship Specialty Start Date End Date Nikolay Borges MD PCP - General Family Medicine 11/27/15 Elina Raza, MATERIALS PLANNING MANAGER.REMARKETING MANAGER [address] [place] [address] [place] [address] Nurse Practitioner Hematology/Oncology 05/17/23 Alexx Nguyen MD [address] [place] [address] [place] [address] Physician Hematology/Oncology 05/17/23 Vianney Scherer, MIGUEL [address] [place] [address] [place] [address] Specialty Software Recruiter Hematology/Oncology 05/17/[address] [place] [address] [place] [address] Registered Dietitian Nutrition 05/28/24 Celina Hong LSW Tap Out Operator 09/23/24 documented as of this encounter
--- OUTSIDE RECORDS SUMMARY | 2025-05-09 12:26 | XMS_ITS | Encounter Summary ---
Author Organization [facility] Address [address] [place] [address] Care Team Providers Care Depilatory Painter Name Role Phone Nikolay Borges MD Primary Care Provider + Elina Raza APRN.STRADDLE BUG DRIVER Unavailable [phone] Alexx Nguyen MD Unavailable [phone] Vianney Scherer RN Unavailable [phone] Unavailable [phone] Celina Hong Unavailable Unavailable Source Comments In the event this information is protected by the Federal Confidentiality of Alcohol and Drug AbusePatient Records regulations: The Federal rules restrict any use of the information to criminally investigate or prosecute any alcohol or drug abuse patient.[facility] Encounter Details Date Type Department Care Team (Late st Contact Info) Description 06/04/2023 [place] [address] Provider, [facility] MRI Screening Questionnaire Completion Required Social History Tobacco Use Types Packs/Day Years [...] is lower risk 8 05/02/2023 Data from: https://www.neighborhoodatlas.medicine.[facility].edu/. Last address used for calculation [...] PM EDT Appointment Radiology Pet CT [address] [facility] [place] [address] Pet scan prior to follow up 05/22/2025 12:45 PM EDT Office Visit [facility] [address] [facility] [place] [address] [facility] 05/22/2025 1:00 PM EDT Visit (SP) Office Hematology/Oncology [address] [place] [address] Alexx Nguyen MD [address] [place] [address] 3 week follow up [facility] 05/22/2025 1:30 PM EDT [facility] Hematology/Oncology [address] [place] [address] 3 week follow up [facility] 12/29/2025 1:40 PM EST [facility] [address] [facility] [place] [address] Crissy Juan MD [address] [facility] [place] [address] Follow up visit for sjogrens/osteopenia /osteoarthritis in 6-12months (ok for virtual or in person) documented as of this encounter Visit Diagnoses Not on filedocumented in this encounter Additional Health Concerns Infection Onset Date Last Indicated Resolved Time C. difficile 10/08/2024 10/08/2024 11/07/2024 8:51 PM EST documented as of this encounter Care Teams Depilatory Painter Relationship Specialty Start Date End Date Nikolay Borges MD PCP - General Family Medicine 11/27/15 Elina Raza APRN.STRADDLE BUG DRIVER [address] [place] [address] [place] [address] Nurse Practitioner Hematology/Oncology 05/17/23 Alexx Nguyen MD [address] [place] [address] [place] [address] Physician Hematology/Oncology 05/17/23 Vianney Scherer, MIGUEL [address] [place] [address] [place] [address] Specialty Beverage Sales Consultant Hematology/Oncology 05/17/[address] [place] [address] [place] [address] Registered Dietitian Nutrition 05/28/24 Celina Hong LSW Bar Attendant 09/23/24 documented as of this encounter
--- OUTSIDE RECORDS SUMMARY | 2025-05-09 12:26 | XMS_ITS | Encounter Summary ---
Author Organization [facility] Address [address] [place] [address] Care Team Providers Care Manpower Development Manager Name Role Phone Nikolay Borges MD Primary Care Provider + Elina Raza APRN.FURNACE AND WASH EQUIPMENT OPERATOR Unavailable [phone] Alexx Nguyen MD Unavailable [phone] Vianney Scherer RN Unavailable [phone] Unavailable [phone] Celina Hong Unavailable Unavailable Source Comments In the event this information is protected by the Federal Confidentiality of Alcohol and Drug AbusePatient Records regulations: The Federal rules restrict any use of the information to criminally investigate or prosecute any alcohol or drug abuse patient.[facility] Encounter Details Date Type Department Care Team (Latest Contact Info) Description 04/28/2025 Travel Social History Tobacco Use Types Packs/Day [...] is lower risk 8 05/02/2023 Data from: https://www.neighborhoodatlas.medicine.[facility].edu/. Last address used for calculation [address] [...] PM EDT Appointment Radiology Pet CT [address] [facility] [place] [address] Pet scan prior to follow up 05/22/2025 12:45 PM EDT Office Visit [facility] [address] [place] [address] 3 week follow up [facility] 05/22/2025 1:00 PM EDT Visit (SP) Office Hematology/Oncology [address] [place] [place] [address] Alexx Nguyen MD [address] [place] [address] 3 week follow up [facility] 05/22/2025 1:30 PM EDT [facility]Oncology [address] [facility] [place] [address] 3 week follow up [place] 12/29/2025 1:40 PM [facility] Rheumatology [address] [facility] [address] [place], [place] [address] Crissy Juan MD [address] [facility] [place] [address] Follow up visit for sjogrens/osteopenia /osteoarthritis in 6-12months (ok for virtual or in person) documented as of this encounter Visit Diagnoses Not on filedocumented in this encounter Care Teams Manpower Development Manager Relationship Specialty Start Date End Date Nikolay Borges MD PCP - General Family Medicine 11/27/15 Elina Raza APRN.FURNACE AND WASH EQUIPMENT OPERATOR [address] [place] [address] [place] [address] Nurse Practitioner Hematology/Oncology 05/17/23 Alexx Nguyen MD [address] [place] [address] [place] [address] Physician Hematology/Oncology 05/17/23 Vianney Scherer, MIGUEL [address] [place] [address] [place] [address] Specialty Operator Specialist Communications Hematology/Oncology 05/17/[address] [place] [address] [place] [address] Registered Dietitian Nutrition 05/28/24 Celina Hong LSW Hydrologic Engineer 09/23/24 documented as of this encounter
--- OUTSIDE RECORDS SUMMARY | 2025-05-09 12:26 | XMS_ITS | Encounter Summary ---
Author Organization [facility] Address [address] [place] [address] Phone Care Team Providers Care Certified Breastfeeding Educator Name Role Phone Nikolay Borges MD Primary Care Provider [phone] Corina Butler RN Unavailable Unavailable Encounter Details Date Type Department Care Team (Late st Contact Info) Description 03/29/2022 Orders Only [facility] [[email or web address] LEGACY [address] [place] [address] Conversion, Onbase Social History Tobacco Use Types Packs/Day Years [...] 05/15/2025 9:30 AM EDT Telemedicine Clinical Support [facility] [address] [place] [phone] 08/01/2025 11:20 AM EDT Office Visit [address] [place] [address] Theo Medina MD [address] [facility] [address] [place] [address] 04/10/2026 9:30 AM EDT Telemedicine Clinical Support [facility] [address] [facility] [address] [place] [address] Scheduled Orders Name Type Priority Associated Diagnoses Orde r Schedule OUTSIDE LAB SCAN Lab Ordered: 03/29/2022 documented as of this encounter Visit Diagnoses Not on filedocumented in this encounter Care Teams Certified Breastfeeding Educator Relationship Specialty Start Date End Date Nikolay Borges MD [address] [place] [address] PCP - General 04/26/22 Corina Butler, silver service waiterInvestment Banking Analyst 04/18/25 documented as of this encounter
--- OUTSIDE RECORDS SUMMARY | 2025-05-09 12:26 | XMS_ITS | Encounter Summary ---
Author Organization [facility] Address [address] [place] [address] Care Team Providers Care Grain Combiner Name Role Phone Nikolay Borges MD Primary Care Provider + Elina Raza APRN.FIRER BISQUE KILN Unavailable [phone] Alexx Nguyen MD Unavailable [phone] Vianney Scherer RN Unavailable [phone] Unavailable [phone] Celina Hong Unavailable Unavailable Source Comments In the event this information is protected by the Federal Confidentiality of Alcohol and Drug AbusePatient Records regulations: The Federal rules restrict any use of the information to criminally investigate or prosecute any alcohol or drug abuse patient.[facility] Encounter Details Date Type Department Care Team (Late st Contact Info) Description 05/26/2023 Get Medical Advice [facility] [address] [place] [address] Blake Henson MD [address] [place] [address] Radiation Appointment Social History Tobacco Use Types Packs/Day Years [...] is lower risk 8 05/02/2023 Data from: https://www.neighborhoodatlas.medicine.[facility]/. Last address used for calculation [...] EDT Appointment Radiology [address] CT [address] [place] [address] Pet scan prior to follow up 05/22/2025 12:45 PM EDT Office Visit [facility] [address] [place] [address] 3 week follow up Keytruda 05/22/2025 1:00 PM EDT Visit (SP) Office Hematology/Oncology [facility] [place] [address] Alexx Nguyen MD [address] [facility] [place] [address] 3 week follow up Keytruda 05/22/2025 1:30 PM EDT [facility] Hematology/Oncology [address] [place] [address] 3 week follow up Keytruda 12/29/2025 1:40 PM [facility] Rheumatology [address] [place] [address] Crissy Juan MD [address] [place] [address] Follow up visit for sjogrens/osteopenia /osteoarthritis in 6-12months (ok for virtual or in person) documented as of this encounter Visit Diagnoses Not on filedocumented in this encounter Additional Health Concerns Infection Onset Date Last Indicated Resolved Time C. difficile 10/08/2024 10/08/2024 11/07/2024 8:51 PM EST documented as of this encounter Care Teams Grain Combiner Relationship Specialty Start Date End Date Nikolay Broges MD PCP - General Family Medicine 11/27/15 Elina Raza, BITA.FIRER BISQUE KILN [address] [place] [address] [place] [address] Nurse Practitioner Hematology/Oncology 05/17/23 Alexx Nguyen MD [address] [place] [address] [place] [address] Physician Hematology/Oncology 05/17/23 Vianney Schreer, MIGUEL [address] [place] [address] [place] [address] Specialty Rn Oncology Research Hematology/Oncology 05/17/[address] [place] [address] [place] [address] Registered Dietitian Nutrition 05/28/24 Celina Hong LSW Rehabilitation Manager 09/23/24 documented as of this encounter
--- OUTSIDE RECORDS SUMMARY | 2025-05-09 12:26 | XMS_ITS | Encounter Summary ---
Author Organization [facility] Address [address] [place] [address] Phone Care Team Providers Care Diamond Wheel Molder Name Role Phone Nikolay Borges MD Primary Care Provider [phone] Corina Butler RN Unavailable Unavailable Encounter Details Date Type Department Care Team (Late st Contact Info) Description 06/29/2023 Scanned Document [facility] LEGACY [address] [place] [address] Conversion, Onbase Social History Tobacco Use Types Packs/Day Years Used Date Smoking Tobacco: Never Assessed PHQ-2 Answer Date Recorded Patient Health Questionnaire-2 [...] 05/15/2025 9:30 AM EDT Telemedicine Clinical Support [facility] [address] [place] [phone] 08/01/2025 11:20 AM EDT Office Visit [address] [place] [address] Theo Medina MD [address] [facility] [address] [place] [address] 04/10/2026 9:30 AM EDT Telemedicine Clinical Support [facility] [address] [place] [address] documented as of this encounter Procedures Procedure Name Priority Date/Time Associated Diagnosis Comments ECHOCARDIOGRAM 06/29/2023 documented in this encounter Results * ECHOCARDIOGRAM (06/29/2023) Narrative 06/29/2023 Ordered by an unspecified provider. us Onbase Conversion CV ECHO PROCEDURES Final Resul t documented in this encounter Visit Diagnoses Not on filedocumented in this encounter Additional Health Concerns Assessment Noted Time PHQ-9 Depression Total Score: 3 04/26/20 22 10:47 AM EDT documented as of this encounter Care Teams Diamond Wheel Molder Relationship Specialty Start Date End Date Nikolay Borges MD [address] [place] [address] PCP - General 04/26/22 Corina Butler, graduate advisorButtonholer 04/18/25 documented as of this encounter
--- NOTE | 2025-05-09 12:49 | MR_ITS ---
The [address] [address] Patient Name: ROBINA BANKS MRN: [id number] date: 1955 Sex: F Assigned Patient Location: MRI Current Patient Location: MRI Accession/Order Number: [id number] Exam Date: 05/09/2025 15:16 Report Date: 05/09/2025 15:29 At the request of: KB JOHNSON Procedure: MR head/brain wo/w con MRI the Brain with and without contrast TECHNIQUE: Multiplanar T1 and T2-weighted imaging of the brain. 11 cc of contrast HISTORY: Assessment for metastatic disease. History of lung cancer. History of salivary gland tumor. COMPARISON: 11/15/2024 VENTRICLES: Unremarkable BRAIN VOLUME: Adequate volume of brain parenchyma identified. BRAIN PARENCHYMAL SIGNAL INTENSITY: Scattered foci of increased T2/FLAIR signal intensity of the brain parenchyma is consistent with chronic small vessel ischemic changes. BLEED: None MASS EFFECT: No mass effect DIFFUSION RESTRICTION: None GRADIENT ECHO PARENCHYMAL SIGNAL LOSS: None MIDBRAIN: The midbrain structures are unremarkable. HAYLEY: Unremarkable MEDULLA: Unremarkable INTERNAL AUDITORY CANALS: Unremarkable SINUSES: Unremarkable ORBITS: Grossly unremarkable MASTOIDS: Unremarkable ENHANCEMENT: No pathologic enhancement or enhancing mass identified. MR/MR head/brain wo/w con IMPRESSION: No acute intracranial findings. No metastatic disease. Chronic small vessel ischemic changes. Impression dictated by: Hermilo Hdez M.D. 05/09/2025 3:29 PM Dictation Location: [place] [address] Electronically authenticated by: [id number] Y Date: 05/09/2025 15:29
== END 2025-05-09 12:49 | disposition home or self-care (01) ==
PROVIDERS: PCP Family Medicine; Visit Provider Physician Assistant Medical
DX: C79.31 Secondary malignant neoplasm of brain (principal)
CPT/HCPCS: 70553; A9575

== ENCOUNTER 2025-05-26 14:37 | Emergency (ER) | payer MEDICARE, SELFPAY ==
[2025-05-26 14:45] VITALS: BP 137/102; PULSE 85; TEMP 37.1; O2SAT 98; BMI 24.3
[2025-05-26 14:57] VITALS: PULSE 82
--- NOTE | 2025-05-26 14:59 | ECG_ITS ---
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 Measurements Intervals [place] Rate: 82 P: 55 MT: 212 QRS: -44 QRSD: 132 T: 52 QT: 390 QTc: 428 Interpretive Statements 1100 Sinus rhythm 2231 First degree AV block 2550 Left bundle branch block 7200 Abnormal left axis deviation 9150 abnormal ECG Compared to ECG 01/20/2023 12:28:04 First degree AV block now present Left bundle-branch block now present Left-axis deviation now present Electronically Signed On 05-26-2025 17:12:09 EDT by CHANDA LEVY M.D.
--- NOTE | 2025-05-26 15:01 | ED_ITS ---
HPI HPI - General Adult General Chief complaint: Fall Stated complaint: FALL HEAD INJURY Time Seen by Provider: 05/26/25 14:37 Source: patient Mode of arrival: Wheelchair Limitations: no limitations History of Present Illness HPI narrative: Patient is a 69-year-old female with a history of lung cancer and 6 weeks status post aortic valve replacement who presents to the emergency department after a fall at home. She states that she just returned home from scheduling a cardiac rehab when she went to her mailbox and felt lightheaded, she states she lost her balance and fell forward. She had no chest pain, shortness of breath. She is noted to have swelling, abrasions and a laceration of the face. She takes an 81 mg aspirin daily, no other anticoagulation. She reports some soreness to the face into the shoulders although she states that her right shoulder is typically painful. She denies any syncope, loss of consciousness after the fall, neck or back pain. She has no lower extremity pain. Related Data Home Medications ?Medication ?Instructions ?Recorded ?Confirmed alirocumab 75 mg/mL subcutaneous mg subcut 05/26/25 pen injector (Praluent Pen) alprazolam 0.5 mg tablet mg 05/26/25 aspirin 81 mg tablet,delayed mg 05/26/25 release chlorhexidine gluconate 0.12 % 05/26/25 mouthwash chlorhexidine gluconate 4 % topical 05/26/25 topical liquid (Hibiclens) citalopram 20 mg tablet mg 05/26/25 hydroxychloroquine 200 mg tablet mg PO 05/26/25 levalbuterol tartrate 45 inhalation 05/26/25 mcg/actuation aerosol inhaler levothyroxine 75 mcg tablet mcg 05/26/25 liothyronine 25 mcg tablet mcg 05/26/25 metoprolol tartrate 50 mg tablet mg 05/26/25 omeprazole 40 mg capsule,delayed mg 05/26/25 release Allergies Allergy/AdvReac Type Severity Reaction Status Date / Time ciprofloxacin (From Cipro) Allergy Unknown Verified 05/26/25 14:51 Opioid HPI Opioid Management Most Recent Opioid Data: Last Pain Scale 5 Today, 14:45 Review of Systems ROS Constitutional Denies: fever or chills Ears, nose, mouth, and throat Denies: throat pain or nasal congestion Cardiovascular Denies: chest pain Respiratory Denies: shortness of breath Gastrointestinal Denies: abdominal pain, nausea or vomiting Musculoskeletal Reports: extremity pain; Denies: back pain, neck pain, extremity swelling or joint pain Integumentary/Breast Denies: rash Neurological Reports: dizziness; Denies: headache, numbness in extremities or weakness in extremities Hematologic/Lymphatic Denies: easy bruising or easy bleeding PFSH PFS Social History Little interest or pleasure in doing things: not at all Feeling down, depressed, or hopeless: not at all Exam Narrative Exam Narrative: Gen.: Awake, alert, in no distress Head: Normocephalic ENT: 3 cm superficial laceration noted above the left eyebrow that is well aligned. No subcutaneous tissue exposure or active bleeding. Small abrasion noted above the eyebrow laceration. Abrasion and swelling noted to the left maxilla with ecchymosis. Lower lip with sores associated with Keytruda. Abrasion noted to the left cheek Respiratory: No respiratory distress, lungs clear bilaterally Cardio: Regular rate and rhythm Gastrointestinal: Abdomen is soft, nondistended and nontender to palpation, pelvis is stable Extremities: Mild tenderness of the right shoulder with no obvious deformity or sulcus sign. Abrasion noted to the left shoulder with no bony tenderness Psych: Normal mood and affect Neuro: No focal neuro deficit Skin: Warm, dry Constitutional Vital Signs, click to edit/add: Last Vital Signs Temp 98.8 F 05/26/25 14:45 Pulse 85 05/26/25 14:45 Resp 16 05/26/25 14:45 BP 122/70 05/26/25 16:43 Pulse Ox 98 05/26/25 14:45 O2 Del Method Room Air 05/26/25 14:45 Course Vital Signs Vital signs: Vital Signs Temperature 98.8 F 05/26/25 14:45 Pulse Rate 85 05/26/25 14:45 Respiratory Rate 16 05/26/25 14:45 Blood Pressure 137/102 H 05/26/25 14:45 Pulse Oximetry 98 05/26/25 14:45 Oxygen Delivery Method Room Air 05/26/25 14:45 Temperature 98.8 F 05/26/25 14:45 Pulse Rate 85 05/26/25 14:45 Respiratory Rate 16 05/26/25 14:45 Blood Pressure 122/70 05/26/25 16:43 Pulse Oximetry 98 05/26/25 14:45 Oxygen Delivery Method Room Air 05/26/25 14:45 Medical Decision Making MDM Narrative Medical decision making narrative: Laceration above the left eye is superficial, easily aligned. The area was cleansed with Shur-Clens and saline and repaired with skin glue. Tetanus updated. EKG shows the patient has a first-degree AV block and left bundle branch block, daughter at bedside is an excellent historian and states that after the patient had her aortic valve replacement, she developed a first-degree AV block and left bundle branch block at the beginning of March of this year. CTs of the head, facial bones, cervical spine are unremarkable and x-rays of the chest and shoulders show no evidence of acute process with consolidation in the right midlung, likely sequela of the patient's lung cancer or volume loss. She has no cough or fever. She has no complaints of chest pain or shortness of breath. Abrasions to the face were cleansed and dressed with bacitracin. Wound care instructions given for home. Laboratory studies reviewed and noted, stable elevation of LFTs noted. Patient ambulated to the bathroom with no difficulty. She is eager for discharge. Daughter at bedside is in agreement with treatment plan. They prefer outpatient management, return to the ER if symptoms change or worsen. Medical Records Medical records reviewed: Yes I reviewed the patient's medical records Lab Data Lab results reviewed: Yes I reviewed the patient's lab results Labs: Lab Results 05/26/25 05/26/25 Range/Units 15:15 16:45 WBC 10.7 (4.0-11.0) 10^3/uL RBC 4.31 (4.20-5.40) 10^6/uL Hgb 14.0 (12.0-16.0) g/dL Hct 40.1 (36.0-48.0) % MCV 93.0 (81.0-99.0) fL MCH 32.5 (26.7-34.0) pg MCHC 34.9 (29.9-35.2) g/dL RDW 15.1 H (11.0-15.0) % Plt Count 351 (150-450) 10^3/uL MPV 9.6 (9.5-13.5) fL Neut % (Auto) 72.2 (43.0-75.0) % Lymph % (Auto) 15.0 L (20.5-60.0) % Marshall % (Auto) 8.2 (1.7-12.0) % Eos % (Auto) 3.2 (0.9-7.0) % Baso % (Auto) 0.6 (0.2-2.0) % Neut # (Auto) 7.7 H (1.4-6.5) 10^3/uL Lymph # (Auto) 1.6 (1.2-3.8) 10^3/uL Marshall # (Auto) 0.9 H (0.3-0.8) 10^3/uL Eos # (Auto) 0.3 (0.0-0.7) 10^3/uL Baso # (Auto) 0.1 (0.0-0.1) 10^3/uL Abs Immat Gran (auto) 0.09 H (0.00-0.03) 10^3/uL Imm/Tot Granulo (auto) 0.8 H (0.0-0.5) % PT 11.3 (9.0-11.6) sec INR 1.07 Sodium 134 L (136-145) mmol/L Potassium 4.4 (3.5-5.1) mmol/L Chloride 100 (98-107) mmol/L Carbon Dioxide 25.5 (21.0-32.0) mmol/L Anion Gap 12.9 BUN 16.0 (7.0-18.0) mg/dL Creatinine 0.57 (0.55-1.02) mg/dL Est GFR ( Amer) >60 (>=60 mL/min/1.73m^2) Est GFR (Non-Af Amer) >60 (>=60 mL/min/1.73m^2) BUN/Creatinine Ratio 28.1 Glucose 92 (74-106) mg/dL Calcium 9.5 (8.5-10.1) mg/dL Total Bilirubin 0.8 (0.2-1.0) mg/dL AST 129 H (15-37) U/L ALT 171 H (14-59) U/L Alkaline Phosphatase 261 H (46-116) U/L Troponin I High Sens 15.9 (4.0-51.3) pg/mL Total Protein 8.2 (6.4-8.2) g/dL Albumin 3.0 L (3.4-5.0) g/dL Globulin 5.2 g/dL Albumin/Globulin Ratio 0.6 TSH 0.417 (0.358-3.740) uIU/mL Urine Color Lt. yellow (YELLOW) Urine Clarity Clear (CLEAR) Urine pH 6.0 (5.0-9.0) Ur Specific [place] 1.025 (1.005-1.025) Urine Protein Trace (NEG/TRACE) mg/dL Urine Glucose (UA) Negative (NEGATIVE) mg/dL Urine Ketones Negative (NEGATIVE) mg/dL Urine Occult Blood Negative (NEGATIVE) Urine Nitrite Negative (NEGATIVE) Urine Bilirubin Negative (NEGATIVE) Urine Urobilinogen 0.2 (0.2-1.0) EU/dL Ur Leukocyte Esterase Trace A (NEGATIVE) Imaging Data CT scan - head: Radiologist's impression: ITS Impressions Cervical Spine CT 05/26/25 15:30 IMPRESSION: No acute findings of the head, cervical spine or facial bones.. Impression dictated by: Hermilo Hdez M.D. 05/26/2025 4:45 PM Dictation Location: [employer] Electronically authenticated by: [id number] Y Date: 05/26/2025 16:[address] 05/26/25 15:30 IMPRESSION: No acute findings of the head, cervical spine or facial bones.. Impression dictated by: Hermilo Hdez M.D. 05/26/2025 4:45 PM Dictation Location: [employer] Electronically authenticated by: [id number] Y Date: 05/26/2025 16:[address] 05/26/25 15:30 IMPRESSION: No acute findings of the head, cervical spine or facial bones.. Impression dictated by: Hermilo Hdez M.D. 05/26/2025 4:45 PM Dictation Location: [employer] Electronically authenticated by: [id number] Y Date: 05/26/2025 16:45 Chest X-Ray 05/26/25 15:39 IMPRESSION: Right perihilar consolidation. consider volume loss/pneumonitis. Impression dictated by: Hermilo Hdez M.D. 05/26/2025 4:29 PM Dictation Location: [email or web address] Electronically authenticated by: [id number] Y Date: 05/26/2025 16:29 Shoulder X-Ray 05/26/25 15:39 IMPRESSION: Degenerative changes likely chronic rotator cuff tear on the right. No acute displaced fracture. Impression dictated by: Hermilo Hdez M.D. 05/26/2025 4:31 PM Dictation Location: [employer] Electronically authenticated by: [id number] Y Date: 05/26/2025 16:31 ECG Data Attestation: I personally reviewed and interpreted this ECG as follows: (Normal sinus rhythm at a rate of 82, first-degree AV block with left bundle branch block noted. No acute ST elevation or ectopy. EKG reviewed by attending physician.) Discharge Plan Discharge Chief Complaint: Fall Clinical Impression: Fall, Closed head injury, Abrasion of face, Contusion of face Patient Disposition: Home, Self-Care Time of Disposition Decision: 17:46 Condition: Good Prescriptions / Home Meds: No Action aspirin 81 mg tablet,delayed release (DR/EC) alprazolam 0.5 mg tablet citalopram 20 mg tablet chlorhexidine gluconate [Hibiclens] 4 % liquid TOPICAL chlorhexidine gluconate 0.12 % mouthwash Praluent Pen 75 mg/mL pen injector SUBCUT liothyronine 25 mcg tablet omeprazole 40 mg capsule,delayed release(DR/EC) levothyroxine 75 mcg tablet metoprolol tartrate 50 mg tablet hydroxychloroquine 200 mg tablet PO levalbuterol tartrate 45 mcg/actuation HFA aerosol inhaler INHALATION Print Language: Bhutanese Instructions: Head Injury (ED), Abrasion (ED) Referrals: Nikolay Borges MD [Primary Care Provider, Family Practice] - 1 week
[2025-05-26 15:29] LABS: Basophils Absolute Auto 0.1 10^3/uL (0.0-0.1); Basophils Percent Auto 0.6 % (0.2-2.0); Eosinophils Absolute Auto 0.3 10^3/uL (0.0-0.7); Eosinophils Percent Auto 3.2 % (0.9-7.0); Hematocrit 40.1 % (36.0-48.0); Immature Granulocytes Abs Auto 0.09 10^3/uL (0.00-0.03); Immature Granulocytes Pct Auto 0.8 % (0.0-0.5); Lymphocytes Absolute Auto 1.6 10^3/uL (1.2-3.8); Mean Corpuscular HGB Conc 34.9 g/dL (29.9-35.2); Mean Corpuscular Hemoglobin 32.5 pg (26.7-34.0); Mean Platelet Volume 9.6 fL (9.5-13.5); Monocytes Absolute Auto 0.9 10^3/uL (0.3-0.8); Monocytes Percent Auto 8.2 % (1.7-12.0); Neutrophils Absolute Auto 7.7 10^3/uL (1.4-6.5); Neutrophils Percent Auto 72.2 % (43.0-75.0); Platelet Count 351 10^3/uL (150-450); Red Blood Count 4.31 10^6/uL (4.20-5.40); Red Cell Distribution Width 15.1 % (11.0-15.0); White Blood Count 10.7 10^3/uL (4.0-11.0)
--- NOTE | 2025-05-26 15:30 | CT_ITS ---
The [address] [address] Patient Name: ROBINA BANKS MRN: [id number] date: 1955 Sex: F Assigned Patient Location: ER Current Patient Location: Accession/Order Number: [id number] Exam Date: 05/26/2025 16:32 Report Date: 05/26/2025 16:45 At the request of: SKY JOHNSON Procedure: CT facial bones wo con Unenhanced head CT TECHNIQUE: Contiguous axial imaging of the head. The CT exam was performed using one or more the following dose reduction techniques: Automated exposure control, adjustment of the MA and/or Kv according to patient size, or use of the iterative reconstruction technique. COMPARISON: MRI the brain 05/09/2025 HISTORY: Dizziness. Left periorbital laceration. VENTRICLES: Within normal limits ATROPHY: Similar atrophy BRAIN PARENCHYMA: Decreased density of the white matter is most consistent with chronic small vessel disease. HEMORRHAGE: None HERNIATION: No mass effect or herniation INFARCTION: No recent vascular distribution infarction is seen. EXTRA-AXIAL FLUID COLLECTIONS None MIDBRAIN: Unremarkable HAYLEY: Unremarkable MEDULLA: Unremarkable SINUSES: Unremarkable ORBITS: Grossly unremarkable MASTOIDS: Unremarkable BONY STRUCTURES Intact ADDITIONAL FINDINGS: CT Cervical Spine withoutcontrast TECHNIQUE: Axial imaging with 2-D and 3-D reconstruction. The CT exam was performed using one or more the following dose reduction techniques: Automated exposure control, adjustment of the MA and/or Kv according to patient size, or use of the iterative reconstruction technique. COMPARISON: None POST SURGERY CHANGES: None BONY ALIGNMENT: Straightening of cervical lordosis. Multilevel mild anterolisthesis. Associated extensive spondylosis and facet degeneration. BONY SPINAL CANAL: Patent central bony canal FRACTURE: No acute displaced fracture. Mild facet subluxation. Degenerative facet changes. BONY LESIONS: None SOFT TISSUES: Atherosclerosis of carotid bifurcations. DEGENERATIVE CHANGES: Extensive multilevel spondylosis. Extensive multilevel facet degeneration. LUNG APICES: Unremarkable ADDITIONAL FINDINGS: CT Facial Bones without contrast TECHNIQUE: Axial imaging with 2-D reconstruction. The CT exam was performed using one or more the following dose reduction techniques: Automated exposure control, adjustment of the MA and/or Kv according to patient size, or use of the iterative reconstruction technique. COMPARISON: None FRACTURES: None BONY LESIONS: None ORBITS: Unremarkable SINUSES: The sinuses are well pneumatized. SOFT TISSUES: Left periorbital soft tissue swelling/hematoma. ADDITIONAL FINDINGS: None CT/CT cervical spine wo con IMPRESSION: No acute findings of the head, cervical spine or facial bones.. Impression dictated by: Hermilo Hdez M.D. 05/26/2025 4:45 PM Dictation Location: [place] [address] Electronically authenticated by: [id number] Y Date: 05/26/2025 16:45
--- NOTE | 2025-05-26 15:30 | CT_ITS ---
The [address] [address] Patient Name: ROBINA BANKS MRN: [id number] date: 1955 Sex: F Assigned Patient Location: ER Current Patient Location: Accession/Order Number: [id number] Exam Date: 05/26/2025 16:32 Report Date: 05/26/2025 16:45 At the request of: SKY JOHNSON Procedure: CT facial bones wo con Unenhanced head CT TECHNIQUE: Contiguous axial imaging of the head. The CT exam was performed using one or more the following dose reduction techniques: Automated exposure control, adjustment of the MA and/or Kv according to patient size, or use of the iterative reconstruction technique. COMPARISON: MRI the brain 05/09/2025 HISTORY: Dizziness. Left periorbital laceration. VENTRICLES: Within normal limits ATROPHY: Similar atrophy BRAIN PARENCHYMA: Decreased density of the white matter is most consistent with chronic small vessel disease. HEMORRHAGE: None HERNIATION: No mass effect or herniation INFARCTION: No recent vascular distribution infarction is seen. EXTRA-AXIAL FLUID COLLECTIONS None MIDBRAIN: Unremarkable HAYLEY: Unremarkable MEDULLA: Unremarkable SINUSES: Unremarkable ORBITS: Grossly unremarkable MASTOIDS: Unremarkable BONY STRUCTURES Intact ADDITIONAL FINDINGS: CT Cervical Spine withoutcontrast TECHNIQUE: Axial imaging with 2-D and 3-D reconstruction. The CT exam was performed using one or more the following dose reduction techniques: Automated exposure control, adjustment of the MA and/or Kv according to patient size, or use of the iterative reconstruction technique. COMPARISON: None POST SURGERY CHANGES: None BONY ALIGNMENT: Straightening of cervical lordosis. Multilevel mild anterolisthesis. Associated extensive spondylosis and facet degeneration. BONY SPINAL CANAL: Patent central bony canal FRACTURE: No acute displaced fracture. Mild facet subluxation. Degenerative facet changes. BONY LESIONS: None SOFT TISSUES: Atherosclerosis of carotid bifurcations. DEGENERATIVE CHANGES: Extensive multilevel spondylosis. Extensive multilevel facet degeneration. LUNG APICES: Unremarkable ADDITIONAL FINDINGS: CT Facial Bones without contrast TECHNIQUE: Axial imaging with 2-D reconstruction. The CT exam was performed using one or more the following dose reduction techniques: Automated exposure control, adjustment of the MA and/or Kv according to patient size, or use of the iterative reconstruction technique. COMPARISON: None FRACTURES: None BONY LESIONS: None ORBITS: Unremarkable SINUSES: The sinuses are well pneumatized. SOFT TISSUES: Left periorbital soft tissue swelling/hematoma. ADDITIONAL FINDINGS: None CT/CT head/brain wo con IMPRESSION: No acute findings of the head, cervical spine or facial bones.. Impression dictated by: Hermilo Hdez M.D. 05/26/2025 4:45 PM Dictation Location: [place] [address] Electronically authenticated by: [id number] Y Date: 05/26/2025 16:45
--- NOTE | 2025-05-26 15:30 | CT_ITS ---
The [address] [address] Patient Name: ROBINA BANKS MRN: [id number] date: 1955 Sex: F Assigned Patient Location: ER Current Patient Location: Accession/Order Number: [id number] Exam Date: 05/26/2025 16:32 Report Date: 05/26/2025 16:45 At the request of: SKY JOHNSON Procedure: CT facial bones wo con Unenhanced head CT TECHNIQUE: Contiguous axial imaging of the head. The CT exam was performed using one or more the following dose reduction techniques: Automated exposure control, adjustment of the MA and/or Kv according to patient size, or use of the iterative reconstruction technique. COMPARISON: MRI the brain 05/09/2025 HISTORY: Dizziness. Left periorbital laceration. VENTRICLES: Within normal limits ATROPHY: Similar atrophy BRAIN PARENCHYMA: Decreased density of the white matter is most consistent with chronic small vessel disease. HEMORRHAGE: None HERNIATION: No mass effect or herniation INFARCTION: No recent vascular distribution infarction is seen. EXTRA-AXIAL FLUID COLLECTIONS None MIDBRAIN: Unremarkable HAYLEY: Unremarkable MEDULLA: Unremarkable SINUSES: Unremarkable ORBITS: Grossly unremarkable MASTOIDS: Unremarkable BONY STRUCTURES Intact ADDITIONAL FINDINGS: CT Cervical Spine withoutcontrast TECHNIQUE: Axial imaging with 2-D and 3-D reconstruction. The CT exam was performed using one or more the following dose reduction techniques: Automated exposure control, adjustment of the MA and/or Kv according to patient size, or use of the iterative reconstruction technique. COMPARISON: None POST SURGERY CHANGES: None BONY ALIGNMENT: Straightening of cervical lordosis. Multilevel mild anterolisthesis. Associated extensive spondylosis and facet degeneration. BONY SPINAL CANAL: Patent central bony canal FRACTURE: No acute displaced fracture. Mild facet subluxation. Degenerative facet changes. BONY LESIONS: None SOFT TISSUES: Atherosclerosis of carotid bifurcations. DEGENERATIVE CHANGES: Extensive multilevel spondylosis. Extensive multilevel facet degeneration. LUNG APICES: Unremarkable ADDITIONAL FINDINGS: CT Facial Bones without contrast TECHNIQUE: Axial imaging with 2-D reconstruction. The CT exam was performed using one or more the following dose reduction techniques: Automated exposure control, adjustment of the MA and/or Kv according to patient size, or use of the iterative reconstruction technique. COMPARISON: None FRACTURES: None BONY LESIONS: None ORBITS: Unremarkable SINUSES: The sinuses are well pneumatized. SOFT TISSUES: Left periorbital soft tissue swelling/hematoma. ADDITIONAL FINDINGS: None CT/CT facial bones wo con IMPRESSION: No acute findings of the head, cervical spine or facial bones.. Impression dictated by: Hermilo Hdez M.D. 05/26/2025 4:45 PM Dictation Location: [place] [address] Electronically authenticated by: [id number] Y Date: 05/26/2025 16:45
--- NOTE | 2025-05-26 15:39 | XR_ITS ---
The [address] [address] Patient Name: ROBINA BANKS MRN: [id number] date: 1955 Sex: F Assigned Patient Location: ER Current Patient Location: ER Accession/Order Number: [id number] Exam Date: 05/26/2025 16:25 Report Date: 05/26/2025 16:29 At the request of: SKY JOHNSON Procedure: XR chest 1V Plain film chest Single view HISTORY: Lightheaded. Incidentally. Left periorbital laceration. COMPARISON: None FINDINGS: SUPPORT DEVICES: None POSTSURGICAL CHANGES: Suspected aortic valve replacement changes. HEART: Within normal limits PULMONARY JASSI: Within normal limits MEDIASTINUM: Unremarkable LUNGS AND PLEURA: Right perihilar consolidation. No pleural effusion. No pneumothorax. BONY STRUCTURES: Similar scoliosis and degenerative changes ADDITIONAL FINDINGS right subdiaphragmatic interposition of bowel. XR/XR chest 1V IMPRESSION: Right perihilar consolidation. consider volume loss/pneumonitis. Impression dictated by: Hermilo Hdez M.D. 05/26/2025 4:29 PM Dictation Location: [facility] [employer] Electronically authenticated by: [id number] Y Date: 05/26/2025 16:29
--- NOTE | 2025-05-26 15:39 | XR_ITS ---
[address] [address] Patient Name: ROBINA BANKS MRN: [id number] date: 1955 Sex: F Assigned Patient Location: ER Current Patient Location: Accession/Order Number: [id number] Exam Date: 05/26/2025 16:29 Report Date: 05/26/2025 16:31 At the request of: SKY JOHNSON Procedure: XR shoulder MARCUS min 2V 3 views both shoulders HISTORY: Left shoulder abrasion No acute displaced fracture. Right rotator cuff surgery changes. Elevation of the right humeral head with abutment of the acromium with chronic erosive change. Likely chronic tear. Mild subluxation. Mild left shoulder degeneration. Unremarkable soft tissues. XR/XR shoulder MARCUS min 2V IMPRESSION: Degenerative changes likely chronic rotator cuff tear on the right. No acute displaced fracture. Impression dictated by: Hermilo Hdez M.D. 05/26/2025 4:31 PM [facility]ict[facility] Electronically authenticated by: [id number] Y Date: 05/26/2025 16:31
[2025-05-26] MEDS: BACITRACIN OINTMENT 28.4 GM TUBE 1 APPLIC TOPICAL (15:41)
[2025-05-26] MEDS: ADACEL DIPH,PERTUSS(ACELL),TET VAC/PF 0.5 ML ADULT SYRINGE IM (15:41)
[2025-05-26 15:44] LABS: INR 1.07; Prothrombin Time 11.3 sec (9.0-11.6)
[2025-05-26 16:05] LABS: Alanine Aminotransferase 171 U/L (14-59); Albumin Globulin Ratio 0.6; Alkaline Phosphatase 261 U/L (46-116); Anion Gap 12.9; Aspartate Amino Transferase 129 U/L (15-37); BUN Creatinine Ratio 28.1; Bilirubin Total 0.8 mg/dL (0.2-1.0); Calcium 9.5 mg/dL (8.5-10.1); Carbon Dioxide 25.5 mmol/L (21.0-32.0); Chloride 100 mmol/L (98-107); Estimated GFR (African America >60 (>=60 mL/min/1.73m^2); Estimated GFR (Non-African Ame >60 (>=60 mL/min/1.73m^2); Globulin 5.2 g/dL; Glucose 92 mg/dL (74-106); Potassium 4.4 mmol/L (3.5-5.1); Sodium 134 mmol/L (136-145); Total Protein 8.2 g/dL (6.4-8.2); Troponin I High Sensitivity 15.9 pg/mL (4.0-51.3)
[2025-05-26 16:12] LABS: Thyroid Stimulating Hormone 0.417 uIU/mL (0.358-3.740)
[2025-05-26 16:43] VITALS: BP 122/70
[2025-05-26 17:08] LABS: Bilirubin Urine NEGATIVE (NEGATIVE); Blood Urine NEGATIVE (NEGATIVE); Clarity Urine CLEAR (CLEAR); Color Urine LT. YELLOW (YELLOW); Glucose Urine UA NEGATIVE (NEGATIVE); Ketones Urine NEGATIVE (NEGATIVE); Leukocyte Esterase Urine TRACE (NEGATIVE); Nitrite Urine NEGATIVE (NEGATIVE); Protein Urine TRACE mg/dL (NEG/TRACE); Specific Gravity Urine 1.025 (1.005-1.025); Urobilinogen Urine 0.2 EU/dL (0.2-1.0)
[2025-05-26 17:31] LABS: Bacteria Urine TRACE #/HPF (NONE SEEN); RBC Urine 0-2 #/HPF (0-2)
[2025-05-26 17:32] LABS: Cast Seen? NONE SEEN #/LPF (NONE SEEN); Crystals Seen? None Seen #/HPF (None Seen); Mucus Urine TRACE (NONE SEEN); Squamous Epithelial Cell Urine RARE #/LPF (NONE/RARE); Urine Culture Indicated NO
== END 2025-05-26 17:52 | disposition home or self-care (01) ==
PROVIDERS: Physician Assistant; Emergency Provider Emergency Medicine; PCP Family Medicine
DX: S01.112A Laceration without foreign body of left eyelid and periocular area, initial encounter (principal); S00.83XA Contusion of other part of head, initial encounter; R42 Dizziness and giddiness; C34.90 Malignant neoplasm of unspecified part of unspecified bronchus or lung; Z95.2 Presence of prosthetic heart valve; Z79.82 Long term (current) use of aspirin; W18.39XA Other fall on same level, initial encounter; S00.81XA Abrasion of other part of head, initial encounter; S40.212A Abrasion of left shoulder, initial encounter; S09.8XXA Other specified injuries of head, initial encounter; Z79.899 Other long term (current) drug therapy
CPT/HCPCS: 12013; 36415; 70450; 70486; 71045; 72125; 73030; 80053; 81001; 84443; 84484; 85025; 85610; 90471; 90715; 93005; 99285

== ENCOUNTER 2025-07-29 09:04 | Outpatient (OUT) | payer MEDICARE, SELFPAY ==
--- OUTSIDE RECORDS SUMMARY | 2025-07-02 07:37 | XMS_ITS ---
Author Organization The [facility] in [place] Address [address] [place] [address] Care Team Providers Care Florist Designer Name Role Phone Reji Borges Primary Care Provider [phone] REASON FOR VISIT dental extractions Encounters Encounter Location Date Provider Diagnosis [facility] [address] [facility] [place] [address] 07/02/2025 Reji Borges Plan Of Treatment No Information Progress Notes * Jackie CMCABEDOB: [birth year] (69 yo F)Acc No.[id number]:07/02/2025 Patient: Shanita Jackie RICHARDS :1955 A ge:69 Y S ex:Female Address:[address] [address] * true * Date: Generated for Devoni joon/Kristian/eTransmitting on: 0 07/21/2025 02:41 PM EDT
--- OUTSIDE RECORDS SUMMARY | 2025-07-07 14:30 | XMS_ITS | Encounter Summary ---
Author Organization [facility] Address [address] [place] [id number] Care Team Providers Care Hardener Helper Name Role Phone Nikolay Borges MD Primary Care Provider + Elina Raza APRN.RANGE SCIENTIST Unavailable [phone] Vianney Scherer RN Unavailable [phone] Unavailable [phone] Celina Hong Unavailable Unavailable Source Comments In the event this information is protected by the Federal Confidentiality of Alcohol and Drug AbusePatient Records regulations: The Federal rules restrict any use of the information to criminally investigate or prosecute any alcohol or drug abuse patient.[facility] Reason for Visit * Reason Comments Lung Cancer Encounter Details Date Type Department Care Team (Latest Contact Info) Description 07/07/2025 2:30 PM EDT Visit (SP) Office Hematology/Oncology [address] [place] [address] [place] [address] Maria Isabel Camargo APRN.RANGE SCIENTIST [address] [place] [address] 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, right (HCC) (Primary Dx); Abnormal LFTs; Hypothyroidism due to medication; Malaise and fatigue; Malignant neoplasm of unspecified part of unspecified bronchus or lung (HCC); Mouth sores; Metastasis to brain (HCC) Social History Tobacco Use Types Packs/Day [...] lower risk 8 05/02/2023 Data from: https://www.neighborhoodatlas.medicine.[facility].edu/. Last address used for calculation [address] 05/02/2023 Comments No Sex and Gender Information Value Date Recorded Sex Assigned at Female 05/03/2023 12:14 PM EDT Legal Sex Female 11:13 AM EDT Gender Identity Not on file Sexual Orientation Not on file documented as of this encounter Last Filed Vital Signs Vital Sign Reading Time Taken Comments Blood Pressure 105/70 07/07/2025 2:21 PM EDT Pulse 75 07/07/2025 2:21 PM EDT Temperature 36.5 C (97.7 F) 07/07/2025 2:21 PM EDT Respiratory Rate 18 07/07/2025 2:21 PM EDT Oxygen Saturation 98% 07/07/2025 2:21 PM EDT Inhaled Oxygen Concentration - - Weight 64.5 kg (142 lb 3.2 oz) 07/07/2025 2:21 P M EDT Height - - Body Mass Index 24.58 06/16/2025 2:16 PM EDT documented in this encounter Progress Notes * Maria Isabel Camargo APRN.RANGE SCIENTIST - 07/07/2025 2:30 PM EDT Images from the original note were not included. PATIENT NAME: Jackie Mccabe DATE: July 07, 2025 (Raman) PRIMARY CARE PHYSICIAN: Dr. Nikolay Borges OTHER PHYSICIANS: Dr. Wu, Dr. Roche, Dr. Balderas, Dr. Daniel Neville, Dr. Castellon, Dr. Crissy Juan, Dr.Saju Gonzales, Dr. Montejo ([facility]) Portions of this encounter note have been copied from the note from June 16, 2025 (Raman) and has been updated where appropriate, and reflect my current medical decision making from today. CC: This is a 69 year old female with metastatic lung cancer, seen for scheduled follow-up and continued treatment. INTERIM HISTORY: Since the patient's last visit here she started a new cholesterol medication (Praluent subcu every 2 weeks). She has been off pembrolizumab for two cycles (approximately six weeks) due to elevated liver enzymes. Recent labs showed liver enzymes improved. She is currently on a tapering dose of prednisone, with the last dose scheduled for tomorrow at 5 mg. She reports significant improvement in knee and back pain since starting prednisone. However, she continues to experience oral mucositis, which began a few months after starting pembrolizumab. She tried lidocaine but found it made her tongue more raw, so she discontinued its use. She has been usinga baking soda rinse with some relief. Despite oral discomfort, she reports increased appetite and weight gain, attributed to steroid use; her weight increased from 136 lbs to 142 lbs since the last visit. She recently completed a course of antibiotics for sinus issues and reports resolution of symptoms.She is scheduled for a tooth extraction next month. She denies fatigue, rashes, or other side effects from pembrolizumab, stating that the oral mucositis is the most bothersome side effect. She also notes improvement in diarrhea and no longer feels sick in the mornings when taking her thyroid medication. MEDICATIONS: Current Outpatient Medications Medication Sig predniSONE (DELTASONE) 10 mg tablet Take 3 tablets daily for 7 days (30 mg), then take 2 tablets daily for 7 days (20 mg), Then take 1 tablet daily for 7 days. ( 10 mg). PRALUENT PEN 75 mg/mL pen INJECT ONE TIME EVERY 2 WEEKS metoprolol succinate ER (TOPROL XL) 50 mg 24 hr tablet Take 50 mg by mouth. aspirin, enteric coated (ASPIRIN, ENTERIC COATED) 81 mg EC tablet Take 81 mg by mouth once daily. budesonide, enteric coated (ENTOCORT EC) 3 mg 24 hr capsule Take 3 mg by mouth once daily. 3 tabs in am daily omeprazole (PRILOSEC) 40 mg capsule Take 40 [...] tablet by mouth two times a day. triamcinolone (KENALOG IN [...] current facility-administered medications for this visit. ALLERGIES: Allergies Allergen Reactions Ciprofloxacin Rash PAST MEDICAL HISTORY: Past Medical History: No date: Benign essential HTN No date: Chest pain No date: Depression No date: Foot pain No date: H/O carotid stenosis No date: Hypothyroidism No date: Insomnia 04/2023: Lung cancer (HCC) Comment: ref. Dr Wu No date: Near syncope No date: PAD (peripheral artery disease) No date: Phlebitis No date: Primary osteoarthritis involving multiple joints PAST SURGICAL HISTORY: PAST SURGICAL HISTORY Procedure Laterality Date BIOPSY LUNG CYSTOSCOPY EXC PAROTID TUMOR; LAT W/DISSECTION NRV 2006 PAST SURGICAL HISTORY OF Aortic valve replaced ROTATOR CUFF REPAIR Right 2002 THORACENTESIS TUBAL LIGATION FAMILY HISTORY: Review of patient's family history indicates: Problem: Ischemic Heart Disease Relation: Mother Age of Onset: (Not Specified) Problem: Diabetes Relation: Mother Age of Onset: (Not Specified) Problem: Stroke Relation: Mother Age of Onset: (Not Specified) Problem: Colon Cancer Relation: Father Age of Onset: (Not Specified) Problem: Systemic Lupus Erythematosus Relation: Sister Age of Onset: (Not Specified) Problem: Ischemic Heart Disease Relation: Sister Age of Onset: (Not Specified) Problem: Systemic Lupus Erythematosus Relation: Niece Age of Onset: (Not Specified) SOCIAL HISTORY: Social History Tobacco Use Smoking status: Former Current packs/day: 0.00 Average packs/day: 1 pack/day for 40.0 years (40.0 ttl pk-yrs) Types: Cigarettes Start date: 1979 Quit date: 2019 Years since quittin.6 Passive exposure: Past Smokeless tobacco: Never Vaping [...] paralysis, seizures or tremors. PHYSICAL EXAM: BP 105/70 Pulse 75 Temp 36.5 ??C (97.7 ??F) (Temporal) Resp 18 Wt 64.5 kg (142 lb 3.2 oz) SpO2 98% BMI 24.58 kg/m?? ECOG 1 General: Alert and oriented, [...] ([id number])]. 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 MET - No variant detected [Reference Sequence: ([id number])]. LABS: Hemoglobin (g/dL) Date Value 07/07/2025 13.6 Hematocrit (%) Date Value 07/07/2025 39.5 WBC (k/uL) Date Value 07/07/2025 13.92 Platelet Count (k/uL) Date Value 07/07/2025 309 RADIOLOGY/OTHER STUDIES: 05/14/2025 PET scan IMPRESSION Since FDG PET/CT 2024, PRIMARY DISEASE SITE: * Medial right upper lobe masslike consolidation has decreased in metabolic activity, presumed resolving treatment related inflammatory uptake. Continued attention on follow-up recommended. RAMIRO DISEASE: * No metabolically active hilar or mediastinal lymphadenopathy. METASTATIC DISEASE: * Scattered bilateral pulmonary nodules with low-level uptake have decreased in size and metabolic activity. ADDITIONAL FINDINGS: * Diffuse uptake in the upper to mid esophagus has continued to increase in intensity, favored to be inflammatory. Correlation with endoscopy is recommended if not already performed. * Mildly avid bilateral cervical nodes are similar to prior, presumed benign/reactive. 11/15/2024 MRI Brain Impression: No acute intracranial [...] CT surveillance as warranted clinically. 11/01/2024 EGD ([facility]) Esophagitis. Severe hemorrhagic gastritis with diffuse atrophy. 1 cm cratered ulcer with clean basein the pylorus of the stomach. Biopsy consistent with esophagitis and gastritis. H. pylori negative. 11/01/2024 Colonoscopy ([facility]) Small internal hemorrhoids. Normal colon, random biopsies obtained. Minimal patchy erythema in the terminal ileum. Biopsy consistent with colitis. 08/01/2024 MRI brain ([facility]) IMPRESSION: No acute intracranial abnormality. Stable small [...] FDG avid neoplastic process. 01/30/2024 Brain MRI ([facility]) No acute intracranial abnormality or abnormal intracranial [...] FDG avid neoplastic process. 10/23/2023 MRI brain ([facility]) Interval decrease in the size of enhancing right parietal cortical lesion. Current measurement is 5.5 mm. No interval intracranial mass or abnormal intracranial enhancement. 07/21/2023 CT chest ([facility]) Decreased size of dominant medial right upper lobe mass compared to February 2023. Decreased size of multiple additional pulmonary parenchymal metastatic nodules. Decrease mediastinal lymphadenopathy. 07/19/2023 MRI brain ([facility]) Slight interval decrease in size of the right cortical parietal lesion, presumably metastasis. This suggest treatment response. No definite new metastases. 06/01/2023 Chest x-ray ([facility]) Progression of innumerable pulmonary nodules and masses. Stable right basilar infiltrate/pleural effusion. 05/17/2023 MRI brain [place] There is a 15 mm peripherally enhancing [...] FDG avid neoplastic process. 03/16/2023 CT chest ([facility]) Large right perihilar mass suspected malignancy. Numerous [...] pembrolizumab continued. The patient was referred to [facility] rheumatology (Dr. Juan), and with supportive measuresher [...] GI and symptoms improved. Pembrolizumab resumed 12/09/2024. The patient underwent cardiac surgery (TAVR procedure 04/14/2025) and treatmentheld perioperatively. Pembrolizumab resumed 04/28/2025. Follow-up PET scan 05/14/2025 stable. On follow-up today the patient is clinically stable and LFTs have improved since last office visit and prednisone taper. Patient has been off Keytruda for two cycles (approximately six weeks) due to elevated liver enzymes. Recent PET scan at the end of April showed decreased metabolic activity in the medial right upper lobe mass and no metabolically active hilar or mediastinal lymphadenopathy. Scattered bilateral pulmonary nodules with low-level uptake have decreased in size. Patient reports no significant side effects from Keytruda except for mouth sores. - Hold Keytruda treatment for an additional three weeks to allow further recovery of liver functionand mouth sores. Dr. Nguyen explained to patient it was ok to take a break from immunotherapy. - Continue prednisone 5 mg daily for three weeks to manage inflammation and mouth sores. - Schedule follow-up appointment in three weeks with Dr. Rushing for transition of care and re-evaluation of treatment plan. If the patient develops disease progression on immunotherapy other treatment options would include KRAS G12C targeted therapy or standard chemotherapy. 2. Metastasis to brain (HCC) - ICD9: 198.3, ICD10: C79.31 Baseline brain MRI 05/17/2023 revealed a 15 mm lesion in the right parietal lobe consistent with brain metastasis from primary lung cancer. The patient was referred to [facility] neurosurgery to evaluate forgamma knife, which subsequently was scheduled. However, due to breathing difficulties lying flat the patient elected to hold off on the procedure. Follow-up brain MRI 07/19/2023 (after 3 cycles of pembrolizumab) improved. Subsequent brain MRIs have improved, most recently 11/15/2024. Currently the patient is clinically stable and essentially asymptomatic. Will continue to monitor with serial brainMRI every 6 months. She will be referred back to [facility] neurosurgery if her brain metastases worsen. 3. [...] has a long history of AV stenosis. S/P TAVR procedure 04/14/2025. Currently stable. Continue management per PCP/cardiothoracic surgery. 6. Arthritis - ICD9: 716.90, ICD10: M19.90 Diffuse joint pain secondary to osteoarthritis. Status post right total hip [place] [facility] [place]. Status post left total knee arthroplasty at [facility] [place] 2023. Currently minimally symptomatic. Continue management per PCP/orthopedics 7. Positive QUINCY Positive QUINCY in February 2022. Initial rheumatologic evaluation unremarkable. January 2024 the patient developed increasing dry mouth and mouth sores. 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 Improved on current medications. Continue management per [facility] rheumatology (Dr. Juan). 8. Colitis - ICD9: 558.9, ICD10: K52.9 Since July 2023 the patient has had intermittent diarrhea while receiving immunotherapy. Improved with intermittent steroid treatment. EGD/colonoscopy 11/01/2024 revealed evidence of esophagitis,gastritis, and colitis. Patient started budesonide November 2024 and symptoms improved. Currently stable. Continue management per [facility]. Maria Isabel Camargo APRN, GRANITE POLISHER MACHINE-C, [facility] H[facility]ology [facility] On[facility] Services Provided at: [place], [place] CC: Dr. Montejo, [facility] Dr. Roche, [facility] documented in this encounter Plan of Treatment Upcoming Encounters Date Type Department Care Team (Latest Contact Info) Description 08/04/2025 2:45 PM EDT Office Visit [facility] [address] [place] [address] [place] [address] 3 week follow up Keytruda 08/04/2025 3:00 PM EDT Visit (SP) Office Hematology/Oncology [address] [place] [address] [place] [address] Federico Dyson MD [address] [place] [address] [place] [address] 3 week follow up Keytruda 08/04/2025 3:30 PM EDT [facility] Hematology/Oncology [address] [place] [address] [place] [address] 3 week follow up Keytruda 12/29/2025 1:40 PM [facility] Rhe[facility] [address] [facility] [place], [place] [id number] Crissy Juan MD [address] [facility] [place] [id number] Follow up visit for sjogrens/osteopenia/ osteoarthritis in 6-12months (ok for virtual or in person) documented as of this encounter Visit Diagnoses Diagnosis 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, right (HCC)- Primary Abnormal LFTs Other abnormal blood chemistry Hypothyroidism due to medication Malaise and fatigue Other malaise and fatigue Malignant neoplasm of unspecified part of unspecified bronchus or lung (HCC) Mouth sores Other and unspecified diseases of the oral soft tissues Metastasis to brain (HCC) Secondary malignant neoplasm of brain and spinal cord documented in this encounter Care Teams Hardener Helper Relationship Specialty Start Date End Date Nikolay Borges MD PCP - General Family Medicine 11/27/15 Elina Raza APRN.RANGE SCIENTIST [address] [place] [address] Nurse Practitioner Hematology/Oncology 05/17/23 Vianney Scherer, MIGUEL [address] [place] [address] Specialty Roller Helper Hematology/Oncology 05/17/[address] [place] [address] Registered Dietitian Nutrition 05/28/24 Celina Hong LSW Fire Supervisor 09/23/24 documented as of this encounter
--- OUTSIDE RECORDS SUMMARY | 2025-07-18 09:45 | XMS_ITS ---
Author Organization [facility] in [place] Address [address] [place] [address] Care Team Providers Care Weigh Machine Operator Name Role Phone Reji Borges Primary Care Provider [phone] Allergies Allergen (clinical drug ingredient) Drug/Non Drug Allergy documented on EMR Reaction Allergy Type Onset Date Status ciprofloxacin Cipro vomiting Drug Allergy Act gisele simvastatin Simvastatin muscle pain Drug Allergy A ctive REASON FOR VISIT surgery clearance surgery moved to 08-05-25 Medications Medication SIG (Take, Route, Frequency, Duration) Notes Start Date End Date Status Triamcinolone Acetonide 0.1 % 1 application do not rinse afterwards and avoid eating or drinking for 30 minutes Mouth/Throat Twice a day for 30 days 01/10/2025 Active Xopenex HFA 45 MCG/ACT 1-2 puff as neede d Inhalation every 6 hrs 12/13/2024 Active Plaquenil 200 MG as directed Orally daily RHEUM Active Praluent 75 MG/ML Subcutaneous for 84 Days Active Prolia 60 MG/ML as directed Subcutaneous Active Lasix 20 MG 1 tablet Orally Once a day for 30 days 12/13/2024 Active Levothyroxine Sodium 75 MCG TAKE 1 TABLE T BY MOUTH EVERY DAY for 90 days Active Liothyronine Sodium 25 MCG TAKE 1/2 TABL ET BY MOUTH ON AN EMPTY STOMACH ONCE A DAY for 90 days Active Metoprolol Succinate ER 50 MG 1 tablet Orally Once a day Active Omeprazole 40 MG 1 capsule 1/2 to 1 h our before morning meal Orally Once a day Active Cholecalciferol 100 MCG (4000 UT) 1 tablet Orally Once a day 05/22/2024 Active Citalopram Hydrobromide 20 MG TAKE 1 TABLET BY MOUTH EVERY DAY for 90 Active Evoxac 30 MG 1 capsule Orally Thr ee times a day Active Baby Aspirin Active Budesonide ER 9 MG 1 tablet in the morn ing Orally Once a day Active predniSONE 5 MG 1 tablet with food o r milk Orally Once a day Active ALPRAZolam 0.5 MG 1/2 tablet as needed Orally TID for 30 days PRN 06/20/2025 Active Social History Tobacco Use: Social History Observation Description Date Details (start date - stop date) Former Smoker NA - 12/27/2017 Tobacco Use/Smoking Question Answer Notes Patient is a former smoker When did you stop smoking? 12/27/2017 How long has it been since you last smoked? 1-5 years Vital Signs Weight 140.6 lbs 07/18/2025 Height 64 in 07/18/2025 Blood pressure systolic 118 mm Hg 07/18/20 25 Blood pressure diastolic 72 mm Hg 025 BMI 24.13 kg/m2 07/18/2025 Encounters Encounter Location Date Provider Diagnosis [facility] [address] [place] [address] 07/18/2025 Reji Borges Essential hypertensi on I10 Assessments Encounter Date Diagnosis (ICD Code) Assessment Notes Treatment Notes Treatment Clinical Notes Section Notes 07/18/2025 Essential hypertension (ICD-10 - I10) Cleared for OR - Hold asa 3-4 days prior and restart day after Plan Of Treatment Treatment Notes Assessment Notes Essential hypertension Cleared for OR - Hold asa 3-4 days prior and restart day after Progress Notes * JOCELYNJackie GIRALDODOB: [birth year] (69 yo F)Acc No.[id number]:07/18/2025 UNLOCKED PROGRESS NOTE Progress Note Patient: Jackie YANG Provider: Sabine Borges ([facility])MD :1955 A ge:69 Y S ex:Female Date:07/18/2025 Address:[address] [facility] Check In:01:24 PM ESTCheck O ut:01:53 PM EST Subjective: * Chief Complaints: * 1 . Surgery clearance surgery moved to 08-05-25. * HPI: G eneral: Usg IV sedation for tooth extraction had back tooth extraction and no issues No hx cva or CAD -0 has valve replacement -on ASA. * ROS: E ENT: hearing changes d enies. v isual changes d enies.?non-healing mouth sores d enies. s wollen glands or neck lumps d enies. h oarseness d enies. s ore throat d enies. d ifficulty swallowing d enies. n ose bleeds d enies. n kristen congestion d enies. e ar ache d enies. e ar discharge?denies. r inging in ears d enies. l ight sensitivity d enies. e ye pain d enies. b lurring d enies. e ye irritation d enies. d ouble vision d enies.?vision loss d enies. G eneral/Constitutional: Sweats: D enies. F atigue d enies. S leep problems d enies. A norexia d enies. M alaise d enies. W eight loss d enies.?Fatigue or Weakness d enies. F ever or Chills d enies. C ardiovascular: Shortness of Breath w/lying flat d enies. L ightheadedness/dizziness d enies. C hest tightness/ heavy pressure d enies. S welling of legs, ankles, or feet d enies. W aking up with shortness of breath d enies. C hest pain denies. P alpitations d enies. W eight gain d enies. R espiratory: Chronic or frequent cough d enies. C oughing up blood?denies. D ifficulty breathing d enies. P roductive cough d enies. S noring?denies. S hortness of breath that awakens from sleep (PND) d enies. C hest pain d enies. S putum production d enies. W heezing d enies. M usculoskeletal: Joint pain d enies. J oint Fluid d enies. B ack pain d enies. K nee pain d enies. N leigha pain d enies. J oint Stiffness d enies. M uscle cramps d enies. W eakness of muscles d enies. A rthritis d enies. M uscle aches d enies. P ain in shoulder(s) d enies. S wollen joints d enies. * Medical History: E jerardo, Overweight, Carotid bruit, Urinary tract infection, Intermittent claudication, Acute sinusitis, Fibroid, uterine, Osteopenia, Otalgia, left, Hypothyroidism, Osteoarthritis of right knee, Arthritis, Abdominal aortic aneurysm (AAA), unspecified part, unspecified whether ruptured, Insomnia, Benign neoplasm of major salivary gland, unspecified, Leukoplakia of oral mucosa, Allergic rhinitis, seasonal, Essential hypertension, Cigarette smoker. * Surgical History: T hyroid Tumor Removal , Knee Replacement- Let , Hip Replacement- Right . * Hospitalization/Major Diagno stic Procedure: D enies Past Hospitalization. * Family History: F ather: 90 yrs, type II diabetes, diagnosed with Diabetes mellitus without mention of complication, type II or unspecified type, not stated as uncontrolled. M other: 87 yrs, Heart Disease, diagnosed with Diabetes mellitus without mention of complication, type II or unspecified type, not stated as uncontrolled, Unspecified heart disease. B rother(s): alive. S ister(s): alive. D justice(s): alive. 4 brother(s) , 4 sister(s) . 1 daughter(s) - healthy. .? Brothers: 1 , 3 Living Sisters: 1 , 3 Living. * Social History: T obacco Use: T obacco Use/Smoking P atient is a f ormer smoker W hen did you stop smoking? 0 12/27/2017 H ow long has it been since you last smoked??1-5 years * Medications: T aking ALPRAZolam 0.5 MG Tablet 1/2 tablet as needed Orally TID , Notes to Pharmacist: PRN, Taking Baby Aspirin , Taking Budesonide ER 9 MG Tablet Extended Release 24 Hour 1 tablet in the morning Orally Once a day , Taking Cholecalciferol 100 MCG (4000 UT) Tablet 1 tablet Orally Once a day , Taking Citalopram Hydrobromide 20 MG Tablet TAKE 1 TABLET BY MOUTH EVERY DAY , Taking Evoxac(Cevimeline HCl) 30 MG Capsule 1 capsule Orally Three times a day , Taking Lasix(Furosemide) 20 MG Tablet 1 tablet Orally Once a day , Taking Levothyroxine Sodium 75 MCG Tablet TAKE 1 TABLET BY MOUTH EVERY DAY , Taking Liothyronine Sodium 25 MCG Tablet TAKE 1/2 TABLET BY MOUTH ON AN EMPTY STOMACH ONCE A DAY , Taking Metoprolol Succinate ER 50 MG Tablet Extended Release 24 Hour 1 tablet Orally Once a day , Taking Omeprazole 40 MG Capsule Delayed Release 1 capsule 1/2 to 1 hour before morning meal Orally Once a day , Taking Plaquenil(Hydroxychloroquine Sulfate) 200 MG Tablet as directed Orally daily , Notes to Pharmacist: RHEUM, Taking Praluent(Alirocumab) 75 MG/ML Solution Auto- injector Subcutaneous , Taking predniSONE 5 MG Tablet 1 tablet with food or milk Orally Once a day , Taking Prolia(Denosumab) 60 MG/ML Solution Prefilled Syringe as directed Subcutaneous , Taking Triamcinolone Acetonide 0.1 % Paste 1 application do not rinse afterwards and avoid eating or drinking for 30 minutes Mouth/Throat Twice a day , Taking Xopenex HFA(Levalbuterol Tartrate) 45 MCG/ACT Aerosol 1-2 puff as needed Inhalation every 6 hrs , Discontinued Amoxicillin-Pot Clavulanate 875-125 MG Tablet 1 tablet Orally every 12 hrs , Medication List reviewed and reconciled with the patient * Allergies: S imvastatin: muscle pain - Criticality High, Cipro: vomiting. Objective: * Vitals: W t:140.6lbs, Ht: 64 in, BP:118/72mm Hg, BMI:24.13Index, Ht-cm: 162.56 cm, Wt-k.78 kg. * Examination: P hysical Exam: GENERAL: w ell developed, well nourished, in no acute distress. HEAD: n ormocephalic/atraumatic. EYES: p upils equal, round and reactive to light, conjunctivae and sclerae normal. EARS: n o deformity or lesion of external ear, canals and TM appear normal bilaterally, TM's intact, not inflamed with normal light reflex, hearing grossly normal to conversational speech. NOSE: n o deformity, discharge, inflammation, or lesions.? MOUTH: m ucous membranes moist, normal oropharynx and posterior pharynx without lesions or exudates, tongue normal, dentition normal. NECK: n leigha supple, no masses or palpable cervical nodes, trachea midline, thyroid without nodules, masses, tenderness, or enlargement. CHEST: n o chest wall deformity, no chest wall tenderness.? LUNGS: n ormal respiratory effort and clear to auscultation, no wheezes, rales, or rhonchi, good air exchange. CARDIO: r egular rate and rhythm, normal S1 and S2, nor murmur, rub, or gallop. PULSES: n ormal capillary refill. ABDOMEN: s oft, non-distended, non-tender, no masses. MUSCULOSKELETAL: n o deformity or scoliosis noted, normal range of motion, joints normal, no erythema, edema, effusion, or ecchymosis. EXTREMITY: n o clubbing, cyanosis, edema, or deformity with normal ROM in both upper and lower bilateral extremities. NEUROLOGIC: g rossly normal. SKIN: n o rashes, ulcerations, or suspicious lesions. LYMPH NODES: n o cervical adenopathy, nodes normal. MENTAL STATUS: a lert and oriented x3, normal mood and affect. Assessment: * Assessment: 1. E ssential hypertension - I10 (Primary) Plan: * Treatment: * Procedure Codes: 3 078F DIAST BP < 80 MM HG, 3074F SYST BP LT 130 MM HG * Preventive Medicine: Screenings/Counseling: F ALL RISK SCREENING Fall Risk Assessment: N o falls in the past year * * Electronic signature of Reji Borges MD, [id number] on 07/21/2025 at 02:42 PM EDT Sign off status: Pending Visit Status: C HK (Check Out) * Provider: Sabine Borges ([facility])MD Date: 0 07/18/2025 Generated for Printi ng/Faxing/eTransmitting on: 0 07/21/2025 02:42 PM EDT History and Physical Notes * HPI (History of Present Illness) Category Sub-Category Detail Notes Category Not es General Usg IV sedation for tooth extraction had back tooth extraction and no issues No hx cva or CAD -0 has valve replacement -on ASA Examination Category Sub-Category Detail Notes Category Not es Physical Exam GENERAL: well developed, well nourished, in no acute distress HEAD: normocephalic/atraum atic EYES: pupils equal, round and reactive to light, conjunctivae and sclerae normal EARS: no deformity or lesi on of external ear, canals and TM appear normal bilaterally, TM's intact, not inflamed with normal light reflex, hearing grossly normal to conversational speech NOSE: no deformity, discha rge, inflammation, or lesions MOUTH: mucous membranes joseph st, normal oropharynx and posterior pharynx without lesions or exudates, tongue normal, dentition normal NECK: neck supple, no mass es or palpable cervical nodes, trachea midline, thyroid without nodules, masses, tenderness, or enlargement CHEST: no chest wall deform ity, no chest wall tenderness LUNGS: normal respiratory e ffort and clear to auscultation, no wheezes, rales, or rhonchi, good air exchange CARDIO: regular rate and rhy thm, normal S1 and S2, nor murmur, rub, or gallop PULSES: normal capillary ref ill ABDOMEN: soft, non-distended, non-tender, no masses RECTAL: MUSCULOSKELETAL: no deformity or scol iosis noted, normal range of motion, joints normal, no erythema, edema, effusion, or ecchymosis EXTREMITY: no clubbing, cyanosi s, edema, or deformity with normal ROM in both upper and lower bilateral extremities NEUROLOGIC: grossly normal SKIN: no rashes, ulceratio ns, or suspicious lesions LYMPH NODES: no cervical adenopat hy, nodes normal MENTAL STATUS: alert and oriented x 3, normal mood and affect
--- OUTSIDE RECORDS SUMMARY | 2025-07-21 10:15 | XMS_ITS ---
Author Organization [facility] in [place] Address [address] [place] [address] Care Team Providers Care Hydraulic Spinner Name Role Phone Reji Borges Primary Care Provider [phone] REASON FOR VISIT refill Encounters Encounter Location Date Provider Diagnosis [facility] [address] [place] [address] 07/21/2025 Reji Borges Plan Of Treatment No Information Progress Notes * Jackie MCCABEDOB: [birth year] (69 yo F)Acc No.[id number]:07/21/2025 UNLOCKED PROGRESS NOTE Patient: Shanita Jackie RICHARDS :1955 A ge:69 Y S ex:Female Address:[address] [place] [address] * * Date:
--- OUTSIDE RECORDS SUMMARY | 2025-07-21 14:41 | XMS_ITS | Encounter Summary ---
Author Organization [facility] Address [address] [place] [address] Care Team Providers Care Bus Repair Supervisor Name Role Phone Nikolay Borges MD Primary Care Provider + Elina Raza INDUCTION HEATING EQUIPMENT SETTER.DOPE DRY HOUSE OPERATOR Unavailable [phone] Vianney Scherer RN Unavailable [phone] Unavailable [phone] Celina Hong GASTROENTEROLOGY PHYSICIAN Unavailable Unavailable Source Comments In the event this information is protected by the Federal Confidentiality of Alcohol and Drug AbusePatient Records regulations: The Federal rules restrict any use of the information to criminally investigate or prosecute any alcohol or drug abuse patient.[facility] Encounter Details Date Type Department Care Team (Latest Contact Info) Description 07/07/2025 Travel Social History Tobacco Use Types Packs/Day [...] is lower risk 8 05/02/2023 Data from: https://www.neighborhoodatlas.[facility].edu/. Last address used for calculation [address] [...] Description 08/04/2025 2:45 PM EDT Office Visit [facility] [address] [place] [address] [place] [address] 3 week follow up [facility] 08/04/2025 3:00 PM EDT Visit (SP) Office Hematology/Oncology [address] [place] [address] [place] [address] Federico Dyson MD [address] [place] [address] [place] [address] 3 week follow up [facility] 08/04/2025 3:30 PM EDT [facility] Hematology/Oncology [address] [place] [address] [place] [address] 3 week follow up [place] 12/29/2025 1:40 PM [facility] Rheumatology [address] [facility] [place] [address] Crissy Juan MD [address] [facility] [place] [id number] Follow up visit for sjogrens/osteopenia/ osteoarthritis in 6-12months (ok for virtual or in person) documented as of this encounter Visit Diagnoses Not on filedocumented in this encounter Care Teams Bus Repair Supervisor Relationship Specialty Start Date End Date Nikolay Borges MD PCP - General Family Medicine 11/27/15 Elina Raza APRN.DOPE DRY HOUSE OPERATOR [address] [place] [address] [place] [address] Nurse Practitioner Hematology/Oncology 05/17/23 Vianney Scherer, RN [address] [place] [address] [place] [address] Specialty Triage Technician Hematology/Oncology 05/17/[address] [facility] [place] [address] Registered Dietitian Nutrition 05/28/24 Celina Hong LSW [employer] 09/23/24 documented as of this encounter
--- OUTSIDE RECORDS SUMMARY | 2025-07-21 14:41 | XMS_ITS | Encounter Summary ---
Author Organization [facility] Address [address] [place] [address] Phone Care Team Providers Care Boning Room Worker Name Role Phone Nikolay Borges MD Primary Care Provider [phone] Corina Butler RN Unavailable Unavailable Theo Medina MD Unavailable [phone] Encounter Details Date Type Department Care Team (Late st Contact Info) Description 07/10/2025 Telephone [place] [id number] [facility] [address] [place] [address] Nora Stanley RN Social History Tobacco Use Types Packs/Day [...] or pharmacy? Rarely 04/15/[address] [facility] Utilities Answer Date Recorded In the past 12 months has e [employer] gas, oil, or water [employer] threatened to shut off services in your [...] No 04/15/2025 Social Connection and Isolation Panel Answer Date Recorded In a typical week, how many times do you talk on the phone with family, friends, or neighbors? Three times a week 04/15/2025 How often do you get togethe r with friends or relatives? Three times a week 04/15/2025 How often do you attend chur ch or moravian services? Never 04/15/2025 Do you belong to any clubs o r organizations such as protestant groups, unions, fraternal or athletic groups, or [...] Recorded Patient Health Questionnaire-2 Score 2 04/26/2022 [facility] - Occupational Stress [...] you engage in exercise at this level? min 04/15/2025 Hunger Vital Sign Answer Date [...] any time in the past 12 m [facility], were you homeless or living in a mcc (including now)? No 04/15/2025 Comments Unknown Sex and Gender Information Value Date Recorded Sex Assigned at Not on file Legal Sex Female 11:58 AM EST Gender Identity Not on file Sexual Orientation Not on file documented as of this encounter Miscellaneous Notes * Telephone Encounter - Nora Stanley RN - 07/10/2025 10:44 AM EDT Patient phones inquiring what testing she is to have one prior to OV in July. Advised labs were ordered, she verbalized understanding. documented in this encounter Plan of Treatment Upcoming Encounters Date Type Department Care Team (Late st Contact Info) Description 08/01/2025 11:20 AM EDT Office Visit [address] [place] [address] Theo Medina MD [address] [facility] [address] [place] [address] 04/10/2026 9:30 AM EDT Telemedicine Clinical Support [facility] [address] [place] [address] documented as of this encounter Visit Diagnoses Not on filedocumented in this encounter Additional Health Concerns Assessment Noted Time PHQ-9 Depression Total Score: 3 04/26/20 22 10:47 AM EDT A fall risk assessment has been complete d for the patient 05/07/2025 9:17 AM EDT documented as of this encounter Care Teams Boning Room Worker Relationship Specialty Start Date End Date Nikolay Borges MD [address] [facility] [place] [address] PCP - General 04/26/22 Corina Butler, loader demolderExterior Interior Specialist 04/18/25 07/17/25 Theo Medina MD [address] [facility] [address] [place] [address] Consulting Physician Cardiology 05/28/25 documented as of this encounter
--- OUTSIDE RECORDS SUMMARY | 2025-07-21 14:41 | XMS_ITS | Encounter Summary ---
Author Organization [facility] Address [address] [place] [address] Phone Care Team Providers Care Location Man Name Role Phone Nikolay Borges MD Primary Care Provider + [phone] Corina Butler RN Unavailable Unavailable Theo Medina MD Unavailable [phone] Encounter Details Date Type Department Care Team (Late st Contact Info) Description 05/08/2025 Scanned Document [facility] [address] [place] [id number] Scanning, Generic Provider Social History Tobacco Use [...] from your doctor or pharmacy? Rarely 04/15/2025 [facility] Utilities Answer Date Recorded In the past 12 months has e [employer], gas, oil, or water [employer] threatened to shut off services in your [...] often do you attend chur ch or worship services? Never 04/15/2025 Do you belong to any clubs o r organizations such as confucianism groups, unions, fraternal or athletic groups, or [...] Recorded Patient Health Questionnaire-2 Score 2 04/26/2022 [facility] - Occupational [...] time in the past 12 m [facility], were you homeless or living in a custodial (including now)? No 04/15/2025 Comments Unknown Sex [...] Description 08/01/2025 11:20 AM EDT Office Visit [place] [address] [place] [address] [place] [address] Theo Medina MD [address] [facility] [address], [address] [place] [address] 04/10/2026 9:30 AM EDT Telemedicine Clinical Support [facility] [address] [place] [address] documented as of this encounter Procedures Procedure [...] documented as of this encounter Care Teams Location Man Relationship Specialty Start Date End Date Nikolay Borges MD [address] [facility] [place] [address] PCP - General 04/26/22 Corina Butler, lending activities supervisorPoly Area Supervisor 04/18/25 07/17/25 Theo Medina MD [address] [facility] 2, [facility] [address] [place] [address] Consulting Physician Cardiology 05/28/25 documented as of this encounter
--- OUTSIDE RECORDS SUMMARY | 2025-07-21 14:41 | XMS_ITS | Encounter Summary ---
Author Organization [facility] Address [address] [place] [address] Care Team Providers Care Commercial Banker Name Role Phone Nikolay Borges MD Primary Care Provider + Elina Raza APRN.SOFTWARE SPECIALIST Unavailable [phone] Vianney Scherer RN Unavailable [phone] Unavailable [phone] Celina Hong Unavailable Unavailable Source Comments In the event this information is protected by the Federal Confidentiality of Alcohol and Drug AbusePatient Records regulations: The Federal rules restrict any use of the information to criminally investigate or prosecute any alcohol or drug abuse patient.[facility] Reason for Visit * Reason Comments Refill Request Encounter Details Date Type Department Care Team (Late st Contact Info) Description 07/04/2025 Refill Hematology/Oncology [address] [place] [address] Maria Isabel Camargo APRN.SOFTWARE SPECIALIST [address] [facility] [place] [address] Refill Request Social History Tobacco Use Types Packs/Day [...] is lower risk 8 05/02/2023 Data from: https://www.neighborhoodatlas.medicine.[facility]/. Last address used for calculation [address] [...] Description 08/04/2025 2:45 PM EDT Office Visit [facility] [address] [place] [address] [place] [address] 3 week follow up [facility] 08/04/2025 3:00 PM EDT Visit (SP) Office Hematology/Oncology [address] [place] [address] [place] [address] Federico Dyson MD [address] [place] [address] [place] [address] 3 week follow up [place] 08/04/2025 3:30 PM EDT [facility] Hematology/Oncology [address] [place], [place] [address] [address] 3 week follow up [place] 12/29/2025 1:40 PM [facility] Rheumatology [address] [facility] [place] [id number] Crissy Juan MD [address] [place] [address] Follow up visit for sjogrens/osteopenia/ osteoarthritis in 6-12months (ok for virtual or in person) documented as of this encounter Visit Diagnoses Not on filedocumented in this encounter Care Teams Commercial Banker Relationship Specialty Start Date End Date Nikolay Borges MD PCP - General Family Medicine 11/27/15 Elina Raza APRN.SOFTWARE SPECIALIST [address] [place] [address] [place] [address] Nurse Practitioner Hematology/Oncology 05/17/23 Vianney Scherer, MIGUEL [address] [place] [address] [place] [address] Specialty Milk Of Lime Slaker Hematology/Oncology 05/17/[address] [place] [address] [place] [address] Registered Dietitian Nutrition 05/28/24 Celina Hong LSW Nursing Home Social Worker 09/23/24 documented as of this encounter
--- OUTSIDE RECORDS SUMMARY | 2025-07-21 14:41 | XMS_ITS | Encounter Summary ---
Author Organization [facility] Address [address] [place] [address] Phone Care Team Providers Care Cisco Network Architect Name Role Phone Nikolay Borges MD Primary Care Provider [phone] Corina Butler RN Unavailable Unavailable Theo Medina MD Unavailable [phone] Encounter Details Date Type Department Care Team (Late st Contact Info) Description 05/23/2025 Scanned Document [facility] [address] [place] [id number] Scanning, Generic Provider Social History Tobacco Use [...] from your doctor or pharmacy? Rarely 04/15/2025 [facility] Utilities Answer Date Recorded In the past 12 months has e [employer], gas, oil, or water [place] [employer] threatened to shut off services in your [...] often do you attend chur ch or congregation services? Never 04/15/2025 Do you belong to any clubs o r organizations such as roman catholic groups, unions, fraternal or athletic groups, or [...] Recorded Patient Health Questionnaire-2 Score 2 04/26/2022 [facility] Occup[facility] ional [facility] - Occupational [...] any time in the past 12 m [facility], were you homeless or living in a fdc (including now)? No 04/15/2025 Comments Unknown Sex [...] Description 08/01/2025 11:20 AM EDT Office Visit [place] [address] [place] [address] Theo Medina MD [address] [facility] 2, [address] [place] [address] 04/10/2026 9:30 AM EDT Telemedicine Clinical Support [facility] [address] [place] [address] documented as of this encounter Procedures Procedure Name Priority Date/Time Associated Diagnosis Comments ELECTROCARDIOGRAM 12 LEAD 05/23/2025 documented in this encounter Results * Electrocardiogram (05/23/2025) Narrative 05/23/2025 Ordered by an unspecified provider. us Generic Provider Scanning ECG ORDERABLES Final Result documented in this encounter Visit Diagnoses Not on filedocumented in this encounter Additional Health Concerns Assessment Noted Time PHQ-9 Depression Total Score: 3 04/26/20 22 10:47 AM EDT A fall risk assessment has been complete d for the patient 05/07/2025 9:17 AM EDT documented as of this encounter Care Teams Cisco Network Architect Relationship Specialty Start Date End Date Nikolay Borges MD [address] [place] [place] [address] PCP - General 04/26/22 Corina Butler, hospice directorChef Kitchen Manager 04/18/25 07/17/25 Theo Medina MD 7[address] [facility] 2, [facility] [address] [place] [address] Consulting Physician Cardiology 05/28/25 documented as of this encounter
--- OUTSIDE RECORDS SUMMARY | 2025-07-21 14:41 | XMS_ITS | Clinical Summary ---
Author Organization [facility] Address [address] [place] [address] Care Team Providers Care Sleeve Bottom Feller Name Role Phone Nikolay Dunlap MD Primary Care Provider [phone] Allergies Active Allergy Reactions Criticality Noted Date [...] 1955 Mammogram 11/15/2023 11/15/2022, 11/15/2022 Influenza Vaccine (#1) 2025 3, 08/30/2022, 09/09/2021, Additional history exists Pneumococcal Vaccine: 65+ Years Completed 10/31/2021, 08/10/2020, 11/27/2014 Procedures Procedure Name Priority Date/Time Associated Diagnosis Comments BI MAMMOGRAM SCREENING TOMOSYNTHESIS BILATERAL Routine 11/15/2022 from Last 3 Months or Most Recently Relevant to Health Maintenance Results * Bilateral screening mammogram with tomosynthesis (11/15/2022) Anatomical Region Laterality Modality Breast Bilateral Mammography Narrative 11/15/2022 12:00 AM EST PERFORMED AT [facility] LOCATION:[address] Patient: ESTELLE Hoyos. Exam Date: 11/15/2022 : 1955 Gender:F Ordering : DR ROMEO PHILLIPS . Admission #: [id number] Family : DR NIKOLAY DUNLAP . Order #: [id number] CLICK HERE TO VIEW EXAM RADIOLOGY REPORT [...] colon cancer at age 68. LOCATION: [facility] BREAST COMPOSITION: Scattered areas fibroglandular density. FINDINGS: [...] Note CONVERSION, GENERIC - 06/02/2023 PERFORMED AT [facility] LOCATION:[place] [address] Patient: ESTELLE Hoyos. Exam Date: 11/15/2022 : 1955 Gender:F Ordering : DR ROMEO PHILLIPS . Admission #: [id number] Family : DR NIKOLAY DUNLAP . Order #: [id number] CLICK HERE TO VIEW EXAM RADIOLOGY REPORT [...] colon cancer at age 68. LOCATION: [facility] BREAST COMPOSITION: Scattered areas fibroglandular density. FINDINGS: [...] Relevant to Health Maintenance Insurance MEDICARE [employer] [place] [id number] Care Teams Sleeve Bottom Feller Relationship Specialty Start Date End Date Nikolay Dunlap MD PCP - General Family Medicine 04/25/23
--- OUTSIDE RECORDS SUMMARY | 2025-07-21 14:41 | XMS_ITS | Clinical Summary ---
Author Organization [facility] Address [address] [place] [address] Phone Care Team Providers Care Watch Guard Gate Name Role Phone Nikolay Borges MD Primary Care Provider [phone] Theo Medina MD Unavailable [phone] Allergies Active Allergy Reactions Criticality Noted Date [...] meals. Do not crush or chew. Active hydroxychloroquine (Plaquenil) 200 mg tablet Take 1 tablet [...] 25 Active chlorhexidine (Hibiclens) 4 % external liquidIndications: Murmur,Severe aortic stenosis,Malignant neoplasm of lung, unspecified laterality, unspecified part of lung (Multi) Use as directed daily preoperatively 473 mL 04/10/20 25 Active chlorhexidine (Peridex) 0.12 % solutionIndication s:Murmur,Severe aortic stenosis,Malignant neoplasm of lung, unspecified laterality, unspecified part of lung (Multi) Swish and spit with 15ml of solution the night before and morning of surgery. Do not swallow. 15 mL 04/10/20 25 Active nystatin (Mycostatin) 100,000 unit/mL suspension Take 5 mL (500,000 Units) by mouth 4 times a day as needed. Swish and spit Active aspirin 81 mg EC tabletIndications: S/P TAVR (transcatheter aortic valve replacement) Take 1 tablet (81 mg) by mouth once daily. 30 tablet 04/17/20 026 Active cevimeline (Evoxac) 30 mg capsule Take 1 capsule (30 mg) by mouth 2 times a day. Active alirocumab (Praluent Pen) 75 mg/mL pen injectorIndication s:Mixed hyperlipidemia Inject one time every 2 weeks 6 Pen 05/07/20 25 Active metoprolol succinate XL (Toprol-XL) 50 mg 24 hr tabletIndications: Hypertension, unspecified type,Acute systolic heart failure Take 1 tablet (50 mg) by mouth once daily. Do not crush or chew. 90 tablet 3 05/07/20 25 026 Active nitroglycerin (Nitrostat) 0.4 mg SL tabletIndications: 3-vessel coronary artery disease Place 1 tablet (0.4 mg) under the tongue every 5 minutes if needed for chest pain. May repeat dose every 5 minutes for up to 3 doses total. 25 tablet 11 05/07/20 25 Active amoxicillin (Amoxil) 500 mg capsuleIndications :S/P TAVR (transcatheter aortic valve replacement) Take 4 caps (2000 mg) 1 hour prior to dental procedure. 4 capsule 5 05/15/20 25 026 Active Active Problems Problem Noted Date Diagnosed [...] Encounters Date Type Department Care Team Description 07/10/2025 Telephone [facility] [address] [facility] [address] [place] [address] Nora Stanley RN 06/02/2025 Telephone [facility] [address] [facility] [address] [place] [address] Gayle Simmons LPN medication questions 05/28/2025 Patient Outreach [facility] [address] [place] [address] Corina Butler, RN 05/23/2025 Scanned Document [facility] [address] [place] [address] Scanning, Generic Provider 05/15/2025 9:30 AM EDT Telemedicine [facility] [address] [place] [address] Mckayla Brown, PACKAGING MACHINE SUPPLIES DISTRIBUTOR-SALES REPRESENTATIVE EDUCATION COURSES S/P TAVR (transcatheter aortic valve replacement) (Primary Dx) 05/15/2025 Travel 05/08/2025 Scanned Document [facility] [address] [place] [address] Scanning, Generic Provider 05/08/2025 Orders Only [facility] [address] [place] [address] Fe Canseco, PACKAGING MACHINE SUPPLIES DISTRIBUTOR-SALES REPRESENTATIVE EDUCATION COURSES 05/07/2025 9:20 AM EDT Office Visit [address] [place] [address] Theo Medina MD S/P TAVR (transcatheter aortic valve replacement); Nonrheumatic aortic valve stenosis; 3-vessel coronary artery disease; Hypertension, unspecified type; Acute systolic heart failure; PAD (peripheral artery disease); Mixed hyperlipidemia; Statin intolerance; Left bundle-branch block, unspecified; Former smoker; BMI 24.0-24.9, adult 05/07/2025 Travel 05/01/2025 Patient Outreach [facility] [address] [place] [address] [address] [place] [address] Corina Butler, RN 04/24/2025 Telephone [facility] [address] [place] [address] Cassy Hill LPN echo 04/21/2025 Orders Only [facility] [address] [place] [address] Fe Canseco, PACKAGING MACHINE SUPPLIES DISTRIBUTOR-SALES REPRESENTATIVE EDUCATION COURSES Severe aortic stenosis; S/P TAVR (transcatheter aortic valve replacement) from Last 3 Months Immunizations Immunization Administration [...] your doctor or pharmacy? Rarely 04/15/2025 [facility] Utilities Answer Date Recorded In the past 12 months has [facility] [employer], gas, oil, or water [employer] threatened to shut off services in your [...] often do you attend chur ch or hindu services? Never 04/15/2025 Do you belong to any clubs o r organizations such as jewish groups, unions, fraternal or athletic groups, or [...] Recorded Patient Health Questionnaire-2 Score 2 04/26/2022 [facility] [place] of Occupat ional Health - Occupational Stress [...] any time in the past 12 m [facility], were you homeless or living in a long term (including now)? No 04/15/2025 Comments Unknown Sex [...] Description 08/01/2025 11:20 AM EDT Office Visit [place] [address] [place] [address] Theo Medina MD 7[address] [facility] 2, [address] [place] [address] 04/10/2026 9:30 AM EDT Telemedicine Clinical Support [facility] [address] [place] [address] Health Maintenance Due Date Last Done Comments CT Colonography 1955 FIT-DNA (Cologuard) 1955 FIT 1955 Lipid Panel 1955 Medicare Annual Wellness Visit (AWV) 1955 Sigmoidoscopy 1955 MMR Vaccines (1 of 1 - Standard series) 1954 Hepatitis C Screening 1971 DTaP/Tdap/Td Vaccines (1 - Tdap) 1975 Zoster Vaccines (1 of 2) 2003 RSV High Risk: (Elderly (60+) or Population) (1 - Risk 60-74 years 1-dose series) 2013 Mammogram 11/15/2023 11/15/2022, 11/15/2022 COVID-19 Vaccine (3 - Pfizer risk series) 11/11/2024 10/14/2024, 10/04/2023 Influenza Vaccine (#1) 2025 09/25/2024 Creatinine Level 04/17/2026 04/17/2025, , 04/15/2025, Additional history exists Diabetes Screening 04/17/2026 04/17/2025, 0 04/16/2025, 04/15/2025, Additional history exists Potassium Level 04/17/2026 04/17/2025, 05/2 11/2024, 04/15/2025, Additional history exists TSH Level 04/22/2026 04/22/2025, 05/0 03/2025, 02/17/2025, Additional history exists Echocardiogram 05/08/2026 05/08/2025, 04/27, 04/15/2025, Additional history exists Bone Density Scan 01/15/2027 01/15/2025, , 11/15/2022, Additional history exists Colonoscopy 11/01/2034 11/01/2024 Colorectal Cancer Screening 11/01/2034 Pneumococcal Vaccine Completed 10/31/2021, 08/10/20 HIB Vaccines Aged Out No longer eligi [...] topic Meningococcal Vaccine Aged Out No riky ilna eligible based on patient's age to complete this topic Rotavirus Vaccines Aged Out No longer eligible based on patient's age to complete this topic Medical Devices Implanted Type Area Utility Spray Operator Device Identifier Shelf Expiration Date Model / Serial / Lot Valve, Aortic, 29mm, Evolut Fx Transcatheter - [id number] - [id number] Implanted:Qty: 1 on 04/14/2025 by Chuyita Lazcano MD at [facility] Heart Valve Repair N/A: Heart [employer] 02/03/2027 EVFXPLUS- 29 / [id number] / [id number] Procedures Procedure Name Priority Date/Time Associated Diagnosis Comments ELECTROCARDIOGRAM 12 LEAD 05/23/2025 ECHOCARDIOGRAM 05/08/2025 10:58 AM EDT ECHOCARDIOGRAM 05/08/2025 ECG 12-LEAD Routine 05/07/2025 9:20 AM EDT S/P TAVR (transcatheter aortic valve replacement) Left bundle-branch block, unspecified BASIC METABOLIC PANEL Pending Discharge 04/17/2025 5:34 AM EDT from Last 3 Months or Most Recently Relevant to Health Maintenance Results * Electrocardiogram (05/23/2025) Narrative 05/23/2025 Ordered by an unspecified provider. us Generic Provider Scanning ECG ORDERABLES Final Result * Echocardiogram (05/08/2025 10:58 AM EDT) 05/08/2025 10:5 8 AM EDT Narrative [facility] - 05/08/2025 2:08 PM EDT Echocardiology Procedure Exam Date/Time Accession # Ordering Dr. Espinosa Transthoracic 05/08/2025 10:58 EDT [id number] HARLEEN GONZALESBC, Complete FE Villareal CPT code 75788 Reason for Exam (Echo Transthoracic Complete) Prosthetic heart valve Z95.2 Report [facility] [address] [place] [address] Adult Echocardiogram Report Name: ROBINA MCCABE Study Date: 05/08/2025 10:06 AM BP: 143/80 mmHg Patient Location: FT CAR F HR: 75 : 1955 Gender: Female Height: 63 in Age: 69 yrs Ethnicity: WHT Weight: 134 lb Reason For Study: Prosthetic heart valve Z95.2 BSA: 1.6 m2 History: TAVR 03/2025 Ordering Physician: HARLEEN^FE^R. Referring Physician: FE CANSECO Performed By: Katelynn [...] Signed by: Theo Medina MD Transcribed by: NM Technologist: us Fe Canseco PACKAGING MACHINE SUPPLIES DISTRIBUTOR-SALES REPRESENTATIVE EDUCATION COURSES CV ECHO PROCEDURES Fin al Result [address] [address], [place] * Echocardiogram (05/08/2025) Narrative 05/08/2025 Ordered by an unspecified provider. us Generic Provider Scanning CV ECHO PROCEDURES Fin al Result * ECG 12 Lead (05/07/2025 9:20 AM EDT) Narrative [facility] - 05/07/2025 11:57 AM EDT ECG revealed normal sinus rhythm with occasional PVCs, left axis deviation, left bundle branch block, abnormal ECG us Theo Medina MD ECG ORDERABLES Final Result [facility] * (ABNORMAL) Basic Metabolic Panel (04/17/2025 5:34 AM EDT) [facility] Glucose 92 74 - 99 mg/dL LAB CHEMISTRY METHOD 04/17/2025 6:31 AM EDT [facility] Sodium 137 136 - 145 mmol/L LAB CHEMISTRY METHOD 04/17/2025 6:31 AM EDT [facility] Potassium 3.8 3.5 - 5.3 mmol/L LAB CHEMISTRY METHOD 04/17/2025 6:31 AM EDT [facility] Chloride 104 98 - 107 mmol/L LAB CHEMISTRY METHOD 04/17/2025 6:31 AM EDT [facility] Bicarbonate 29 21 - 32 mmol/L LAB CHEMISTRY METHOD 04/17/2025 6:31 AM EDT [facility] Anion Gap 8(L) 10 - 20 mmol/L LAB CHEMISTRY METHOD 04/17/2025 6:31 AM EDT [facility] Urea Nitrogen 8 6 - 23 mg/dL LAB CHEMISTRY METHOD 04/17/2025 6:31 AM EDT [facility] Creatinine 0.42(L) 0.50 - 1.05 mg/dL LAB CHEMISTRY METHOD 04/17/2025 6:31 AM EDT [facility] eGFR >90 >60 mL/min/1. 73m*2 LAB CHEMISTRY METHOD 04/17/2025 6:31 AM EDT [facility] Comment: Calculations of estimated GFR are performed using the 2020 CKD-EPI Study Refit equation without the race variable for the IDMS-Traceable creatinine methods. https://jasn.asnjournals.org/content///ASN.7400662622 Calcium 8.3(L) 8.6 - 10.6 mg/dL LAB CHEMISTRY METHOD 04/17/2025 6:31 AM EDT [facility] Blood Venous blood specimen / Unknown 04/17/2025 5:34 AM EDT 04/17/2025 5:48 AM EDT Fe Canseco PACKAGING MACHINE SUPPLIES DISTRIBUTOR-SALES REPRESENTATIVE EDUCATION COURSES LAB BLOOD ORDERABLES F inal Result [facility] [address] [facility] [address] [place] [id number] from Last 3 Months or Most Recently Relevant to Health Maintenance Insurance MEDICARE PART A AND B [facility] SENIOR SUPPLEMENT MEDICARE PART A AND B [employer] SENIOR SUPPLEMENT Advance Directives For more information, please contact: [phone] (Available ) Documents on File Type Date Recorded Patient Paper Bag Press Operator Expl anation Healthcare Power of Atty 04/18/2025 12:00 AM Living Will 04/18/2025 12:00 AM * Full Code (Latest Code Status on File) Date Activated Date Inactivated Comments 04/14/2025 7:00 AM Question Answer Comments Plan of Care: Code Status Discussion Completed Decision Maker: Patient Care Teams Watch Guard Gate Relationship Specialty Start Date End Date Nikolay Borges MD [address] [facility] [place] [address] PCP - General 04/26/22 Theo Meidna MD [address] [facility] 2, [address] [place] [address] Consulting Physician Cardiology 05/28/25
--- OUTSIDE RECORDS SUMMARY | 2025-07-21 14:41 | XMS_ITS | Encounter Summary ---
Author Organization [facility] Address [address] [place] [address] Care Team Providers Care Ceo And President Name Role Phone Nikolay Borges MD Primary Care Provider [phone] Encounter Details Date Type Department Care Team (Late st Contact Info) Description 05/09/2023 Abstract [facility] [address] [place] [address] Chika Carmona MA Social History Tobacco Use [...] on filedocumented in this encounter Care Teams Ceo And President Relationship Specialty Start Date End Date Nikolay Borges MD PCP - General Family Medicine 04/25/23 documented as of this encounter
--- OUTSIDE RECORDS SUMMARY | 2025-07-21 14:41 | XMS_ITS ---
Author Organization [facility] Address [address] [place] [address] Care Team Providers Care Post Framer Name Role Phone Nikolay Borges MD Primary Care Provider + Elina Raza APRN.ADMINISTRATIVE SERVICES MANAGER Unavailable [phone] Vianney Scherer RN Unavailable [phone] Unavailable [phone] Celina Hong BONUS CLERK Unavailable Unavailable Active Problems Problem Noted Date Diagnosed Date Severe protein-calorie malnutrition 08/05/2024 Chronic bilateral low back pain without sciatica 05/20/2024 Chronic pain of right knee 05/20/2024 Long-term use of Plaquenil 05/20/2024 Bilateral hand pain 05/20/2024 Secondary osteoarthritis of multiple sites 05/20 local operator current use of systemic steroids 05/20 Family [...] 1 , Cycle 29 - Planned for 07/07/2025) Next Day (Day 1, Cycle 30 - Planned for 08/22/2025) pembrolizumab IV infusion (KEYTRUDA) pembrolizumab 200 mg in NaCl 0.9% 58 mL (KEYTRUDA) pembrolizumab 200 mg in NaCl 0.9% 58 mL (KEYTRUDA) Past Treatment and Therapy Plans NON-CHEMO 1 Plan Name Start Date Discontinue Date Treatment Medications Discontinue Reason Plan Provider Cycles AMB HYDRATION - ONCE 08/14/2023 02/01/2024 No medications scheduled. Other Elina Raza, BITA.ADMINISTRATIVE SERVICES MANAGER 1 of 1 cycle started
--- OUTSIDE RECORDS SUMMARY | 2025-07-21 14:41 | XMS_ITS ---
Author Organization [facility] Address [address] [place] [address] Phone Care Team Providers Care Lawn Specialist Name Role Phone Nikolay Borges MD Primary Care Provider [phone] Theo Medina MD Unavailable [phone] Active Problems Problem Noted Date Diagnosed Date [...] Kerma 969 mGy 0 mGy 969 mGy DAP 19.58 Gy-cm2 0 Gy-cm2 19.58 Gy-cm2
--- OUTSIDE RECORDS SUMMARY | 2025-07-21 14:41 | XMS_ITS | Encounter Summary ---
Author Organization [facility] Address [address] [place] [place] [address] Care Team Providers Care Cut Off Saw Operator Name Role Phone Nikolay Borges MD Primary Care Provider [phone] Encounter Details Date Type Department Care Team (Late st Contact Info) Description 04/03/2023 Abstract [facility] [place] [facility] [address] [place] [address] Chen Wu, DO [address] [place] [address] Social History Tobacco Use Types Packs/Day Years [...] on filedocumented in this encounter Care Teams Cut Off Saw Operator Relationship Specialty Start Date End Date Nikolay Borges MD PCP - General Family Medicine 04/25/23 documented as of this encounter
--- OUTSIDE RECORDS SUMMARY | 2025-07-21 14:41 | XMS_ITS | Clinical Summary ---
Author Organization [facility] Address [address] [place] [id number] Care Team Providers Care Tailor Helper Name Role Phone Nikolay Borges MD Primary Care Provider + Elina Raza APRN.BANK ANALYST Unavailable [phone] Vianney Scherer RN Unavailable [phone] Unavailable [phone] Celina Hong ARCHITECTURAL DRAFTSPERSON Unavailable Unavailable Allergies Active Allergy Reactions Criticality [...] mg tablet Take 20 mg by mouth. 3 Active triamcinolone (KENALOG IN ORABASE) 0.1 % paste 4 Active ALPRAZolam (XANAX) 0.5 mg tablet 1/2 tablet as needed Orally TID for 30 days 4 Active levothyroxine (SYNTHROID) 75 mcg tablet Take 1 tablet by mouth every afternoon. 4 Active sodium chloride soluble tablet 1 g Take 1 tablet by mouth two times a day. 4 Active diphenhydrAMINE 12.5 mg/5 mL lidocaine visc 2% MAALOX 200-200-20 mg/5 mL nystatin prednisoLONE 15 mg/5 mL oral liquid 1:1:1:1:1 (CPD) Swish and spit 5 mL by mouth every 6 hours as needed. 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 90 tablet 3 4 Active KAOPECTATE, ATTAPULGITE, ORAL Take by mouth as needed. Active diphenoxylate-atro pine (LOMOTIL) 2.5-0.025 mg per tabletIndications: 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, right (HCC),Diarrhea, unspecified type TAKE 1 TABLET BY MOUTH BEFORE MEALS AND AT BEDTIME NEEDED 120 tablet 3 4 Active omeprazole (PRILOSEC) 40 mg capsule Take 40 mg by mouth once daily. Active budesonide, enteric coated (ENTOCORT EC) 3 mg 24 hr capsule Take 3 mg by mouth once daily. 3 tabs in am daily 4 Active aspirin, enteric coated (ASPIRIN, ENTERIC COATED) 81 mg EC tablet Take 81 mg by mouth once daily. 5 04/17/20 26 Active PRALUENT PEN 75 mg/mL pen INJECT ONE TIME EVERY 2 WEEKS Active metoprolol succinate ER (TOPROL XL) 50 mg 24 hr tablet Take 50 mg by mouth. 5 05/07/20 26 Active predniSONE (DELTASONE) 10 mg tablet Take 3 tablets daily for 7 days (30 mg), then take 2 tablets daily for 7 days (20 mg), Then take 1 tablet daily for 7 days. ( 10 mg). 42 tablet 5 Active predniSONE (DELTASONE) 5 mg tablet Take 1 tablet by mouth once daily. 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 current use of systemic steroids 05/20 Family history of systemic lupus erythematosus 0 05/20/2024 Ds DNA antibody positive 05/20/2024 QUINCY positive 05/20/2024 Elevated sed rate 05/20/2024 Raynaud's phenomenon without gangrene 05/20/2024 SS-B antibody positive 05/20/2024 Primary lung cancer with met astasis from 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 site, right 05/15/2023 Encounters Date Type Department Care Team Description 07/07/2025 2:30 PM EDT Visit (SP) Office Hematology/Oncology [address] [place] [address] [place] [address] Maria Isabel Camargo APRN.BANK ANALYST 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, right (HCC) (Primary Dx); Abnormal LFTs; Hypothyroidism due to medication; Malaise and fatigue; Malignant neoplasm of unspecified part of unspecified bronchus or lung (HCC); Mouth sores; Metastasis to brain (HCC) 07/07/2025 Travel 07/04/2025 Refill Hematology/Oncology [address] [place] [address] [place] [address] Maria Isabel Camargo APRN.BANK ANALYST Refill Request 06/30/2025 Telephone Hematology/Oncology [address] [place] [address] [place] [address] Ilda Petty RN Orders 06/17/2025 Results Follow-Up Hematology/Oncology [address] [place] [address] [place] [address] Maria Isabel Camargo APRN.BANK ANALYST Results 06/16/2025 2:30 PM EDT Visit (SP) Office Hematology/Oncology [address] [place] [address] Maria Isabel Camargo APRN.BANK ANALYST 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, right (HCC) (Primary Dx); Hypothyroidism due to medication; Abnormal LFTs; Malaise and fatigue; Malignant neoplasm of unspecified part of unspecified bronchus or lung (HCC); History of aortic valve stenosis; Mouth sores 06/16/2025 Telephone Hematology/Oncology [address] [place] [address] [place] [address] Vianney Scherer, MIGUEL Care Coordination (Prescription Question) 06/16/2025 Refill Hematology/Oncology [address] [place] [address] [place] [address] Maria Isabel Camargo APRN.BANK ANALYST Med Change Request 06/12/2025 Telephone Hematology/Oncology [address] [place] [address] [place] [address] Ilda Petty RN Lab Orders 05/22/2025 1:00 PM EDT Visit (SP) Office Hematology/Oncology [address] [place] [address] [place] [address] Alexx Nguyen MD 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, right (HCC) (Primary Dx); Metastasis to brain (HCC); Hypothyroidism due to medication; Abnormal LFTs 05/22/2025 Travel 05/19/2025 Results Follow-Up Hematology/Oncology [address] [place] [address] [place] [address] Alexx Nguyen MD Care Coordination (Scan Results) 05/14/2025 1:14 PM EDT - 05/14/2025 11:59 PM EDT Hospital Encounter Radiology Pet CT [address] [place] [address] [place] [address] Malignant neoplasm of unspecified part of unspecified bronchus or lung (HCC) [C34.90] Discharge Disposition: Home 04/28/2025 3:30 PM EDT [facility] Hematology/Oncology [facility] [place] [address] 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, right (HCC) (Primary Dx) 04/28/2025 3:00 PM EDT Visit (SP) Office Hematology/Oncology [address] [place] [address] [place] [address] Antoinette Crenshaw, PAAlaynaC 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, right (HCC) (Primary Dx); Malaise and fatigue; Metastasis to brain (HCC); Hypothyroidism due to medication; Malignant neoplasm of unspecified part of unspecified bronchus or lung (HCC) 04/28/2025 Travel from Last 3 Months Immunizations Immunization [...] is lower risk 8 05/02/2023 Data from: https://www.neighborhoodatlas.medicine.[facility]/. Last address used for calculation [address] [...] oz) 07/07/2025 2:21 P M EDT Height 162 cm (5' 3.78 ) 06/16/2025 2:16 PM EDT Body Mass Index 24.58 06/16/2025 2:16 PM EDT Plan of Treatment Upcoming Encounters Date Type Department Care Team (Latest Contact Info) Description 08/04/2025 2:45 PM EDT Office Visit [facility] [address] [place], [place] [address] [address] 3 week follow up [place]tr[place] 08/04/2025 3:00 PM EDT Visit (SP) Office Hematology/Oncology [facility] [place] [address] Federico Dyson MD [address] [place] [address] 3 week follow up [place] 08/04/2025 3:30 PM EDT [facility] Hematology/Oncology [facility] [place] [address] 3 week follow up [place] 12/29/2025 1:40 PM [facility] Rheumatology [address] [place] [address] Crissy Juan MD [address] [facility] [place] [address] Follow up visit for sjogrens/osteopenia/ osteoarthritis in 6-12months (ok for virtual or in person) Health Maintenance Due Date Last Done Comments Cervical Cancer Screening 1964 Anxiety Screening 1971 Depression Screening 1971 Hepatitis C Screening 1971 Shingrix Vaccine (1 of 2) 1972 CT Colonography 1998 Cologuard (FIT-DNA) 1998 Colonoscopy 1998 Colorectal Cancer Screening 1998 Fecal Occult Blood 1998 Sigmoidoscopy 1998 RSV Vaccine (1 - Risk 60-74 years 1-dose series) 2013 Medicare Annual Wellness Visit 10/27/2018 Mammogram Screening 11/15/2023 11/15/2022, 2 Bone Density Screening 11/15/2024 11/15/2022 Advance Directive Discussion 11/27/2024 Influenza Vaccine (#1) 2025 4, 09/25/2024, 09/13/2023, Additional history exists Diabetes Screening 07/07/2028 07/07/2025, 0 06/16/2025, 05/22/2025, Additional history exists Lipid Screening 12/26/2029 12/26/2024 DTaP,Tdap,Td Vaccine (2 - Td or Tdap) 05/26/2035 05/26/2025 Pneumococcal Vaccine: 50+ Completed 10/31/2021, Procedures Procedure Name Priority Date/Time Associated Diagnosis Comments TSH BLD Routine 07/07/2025 2:14 PM EDT 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, 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 Abnormal LFTs COMPREHENSIVE METABOLIC PANEL Routine 07/07/2025 2:14 PM EDT 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, 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 Abnormal LFTs CBC + DIFF Routine 07/07/2025 2:14 PM EDT 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, 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 Abnormal LFTs TSH BLD Routine 06/16/2025 2:13 PM EDT 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, 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 Abnormal LFTs Metastasis to brain (HCC) CBC + DIFF Routine 06/16/2025 2:13 PM EDT 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, 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 Abnormal LFTs Metastasis to brain (HCC) COMPREHENSIVE METABOLIC PANEL Routine 06/16/2025 2:13 PM EDT 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, right (HCC) COMPREHENSIVE METABOLIC PANEL Routine 05/22/2025 12:37 PM EDT 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, right (HCC) CBC + DIFF Routine 05/22/2025 12:37 PM EDT 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, right (HCC) NM PET/CT SKULL-THIGH SUBSEQUENT Routine 05/14/2025 2:59 PM EDT Malignant neoplasm of unspecified part of unspecified bronchus or lung (HCC) GLUCOSE, BLOOD (POC) Routine 05/14/2025 1:21 PM EDT TSH BLD Routine 04/22/2025 3:23 PM EDT [...] brain (HCC) Hypothyroidism due to medication Colitis from Last 3 Months Results * THYROID STIMULATING HORMONE (07/07/2025 2:14 PM EDT) Only the most recent of3 resultswithin the time period is included. [facility] TSH 0.991 0.270 - 4.200 mIU/L 07/08/2025 4:10 PM EDT [facility] Blood BLOOD SPECIMEN / Unknown Venipuncture / Unknown 07/07/2025 2:14 PM EDT 07/07/2025 2:14 PM EDT us Antoinette Crenshaw PA-C LABORATORY Final Result [facility] [address] [place] [address], * (ABNORMAL) COMPREHENSIVE METABOLIC PANEL (07/07/2025 2:14 PM EDT) Only the most recent of4 resultswithin the time period is included. [facility] Protein, Total 7.3 6.3 - 8.0 g/dL 07/07/2025 2:43 PM EDT [facility] Albumin 3.8(L) 3.9 - 4.9 g/dL 07/07/2025 2:43 PM EDT [facility] Calcium, Total 9.6 8.5 - 10.2 mg/dL 07/07/2025 2:43 PM EDT [facility] Bilirubin, Total 0.5 0.2 - 1.3 mg/dL 07/07/2025 2:43 PM EDT [facility] Alkaline Phosphatase 156(H) 34 - 123 U/L 07/07/2025 2:43 PM EDT [facility] AST 43(H) 13 - 35 U/L 07/07/2025 2:43 PM EDT [facility] ALT 42(H) 7 - 38 U/L 07/07/2025 2:43 PM [facility] Glucose 100(H) 74 - 99 mg/dL 07/07/2025 2:43 PM [facility] Comment: The [place] Diabetes Association (ADA) provides guidance for cutoff [...] Standards of Medical Care in Diabetes 2016, [place] [employer] Association. Diabetes Care. 2016.39(Suppl 1). BUN 15 7 - 21 mg/dL 07/07/2025 2:43 PM [facility] Creatinine 0.63 0.58 - 0.96 mg/dL 07/07/2025 2:43 PM [facility] Sodium 132(L) 136 - 144 mmol/L 07/07/2025 2:43 PM [facility] Potassium 4.6 3.7 - 5.1 mmol/L 07/07/2025 2:43 PM [facility] Chloride 98 98 - 107 mmol/L 07/07/2025 2:43 PM [facility] CO2 27 22 - 30 mmol/L 07/07/2025 2:43 PM [facility] Anion Gap 7(L) 8 - 15 mmol/L 07/07/2025 2:43 PM [facility] Estimated Glomerular Filtration Rate 95 >=60 mL/min/1. 73m 07/07/2025 2:43 PM [facility] Comment:Estimated Glomerular Filtration Rate (eGFR) [...] BLOOD SPECIMEN / Unknown Venipuncture / Unknown 07/07/2025 2:14 PM EDT 07/07/2025 2:14 PM EDT Antoinette Crenshaw PA-C LABORATORY Final Result [facility] [address] [place] [address] * (ABNORMAL) COMPLETE BLOOD COUNT AND DIFFERENTIAL (07/07/2025 2:14 PM EDT) Only the most recent of4 resultswithin the time period is included. WBC 13.92(H) 3.70 - 11.00 k/uL 07/07/2025 2:21 PM EDT [facility] RBC 4.21 3.90 - 5.20 m/uL 07/07/2025 2:21 PM EDT [facility] Hemoglobin 13.6 11.5 - 15.5 g/dL 07/07/2025 2:21 PM EDT [facility] Hematocrit 39.5 36.0 - 46.0 % 07/07/2025 2:21 PM EDT [facility] MCV 93.8 80.0 - 100.0 fL 07/07/2025 2:21 PM EDT [facility] MCH 32.3 26.0 - 34.0 pg 07/07/2025 2:21 PM EDT [facility] MCHC 34.4 30.5 - 36.0 g/dL 07/07/2025 2:21 PM EDT [facility] RDW-CV 14.8 11.5 - 15.0 % 07/07/2025 2:21 PM EDT [facility] Platelet Count 309 150 - 400 k/uL 07/07/2025 2:21 PM EDT [facility] MPV 9.0 9.0 - 12.7 fL 07/07/2025 2:21 PM EDT [facility] Neutrophils % 80.0 % 07/07/2025 2:21 PM EDT [facility] Abs Neut 11.15(H) 1.45 - 7.50 k/uL 07/07/2025 2:21 PM EDT [facility] Lymphocytes % 9.0 % 07/07/2025 2:21 PM EDT [facility] Abs Lymph 1.25 1.00 - 4.00 k/uL 07/07/2025 2:21 PM EDT [facility] Monocytes % 5.5 % 07/07/2025 2:21 PM EDT [facility] Abs Milam 0.76 <0.87 k/uL 07/07/2025 2:21 PM EDT [facility] Eosinophils % 3.1 % 07/07/2025 2:21 PM EDT [facility] Abs Eosin 0.43 <0.46 k/uL 07/07/2025 2:21 PM EDT [facility] Basophils % 0.9 % 07/07/2025 2:21 PM EDT [facility] Abs Baso 0.12(H) <0.11 k/uL 07/07/2025 2:21 PM EDT [facility] Immature Granulocytes % 1.5 % 07/07/2025 2:21 PM EDT [facility] Abs Immature Gran 0.21(H) <0.10 k/uL 07/07/2025 2:21 PM EDT [facility] NRBC 0.0 /100 WBC 07/07/2025 2:21 PM EDT [facility] Absolute nRBC <0.01 <0.01 k/uL 07/07/2025 2:21 PM EDT [facility] Diff Type Auto 07/07/2025 2:21 PM EDT [facility] Blood BLOOD SPECIMEN / Unknown Venipuncture / Unknown 07/07/2025 2:14 PM EDT 07/07/2025 2:14 PM EDT Antoinette Crenshaw PA-C LABORATORY Final Result [facility] [address] [place] [address] * NM PET/CT SKULL-THIGH SUBSEQUENT (05/14/2025 2:59 PM EDT) Anatomical Region Laterality Modality Nuclear Medicine , Nuclear Medicine 05/14/2025 2:59 PM EDT Narrative 05/15/2025 3:50 PM EDT * * *Final Report* * * DATE OF EXAM: May 14 2025 2:59PM NRN [id number] - NM PET/CT SKULL-THIGH SUBQ / PROCEDURE REASON: Malignant neoplasm of unspecified part of unspecified bronchus or lung (HCC) * * * * Physician Interpretation * * * * RESULT: EXAMINATION: BODY FDG PET-CT CLINICAL HISTORY: Malignant neoplasm of unspecified part of unspecified bronchus or lung. EXAM CATEGORY: Subsequent treatment strategy. TECHNIQUE: Radiopharmaceutical was administered intravenously followed by PET imaging from the eyes to thighs. Free breathing, low dose CT of the same body region was acquired without IV contrast for attenuation correction and anatomic localization. Unenhanced imaging is limited for the evaluation of some pathology and the acquired CT was not designed to produce diagnostic CT scan quality. Physiologic/non-pathologic uptake in some body regions could confound or obscure some pathology. * CT Dose-Length Product (DLP): 202 mGy*cm * CT Dose Reduction Employed: Yes * Blood glucose: 108 mg/dL * Injection site: Left Forearm-Antecubital * Injected activity: 7.2 mCi * Uptake Time: 60 minutes * Radiopharmaceutical: [id number] (FDG) COMPARISON: FDG PET/CT 2024 CORRELATION: No relevant prior imaging available RESULT: REFERENCES: FDG uptake is used as a surrogate marker for glucose metabolism. All reported standardized uptake values represent maximum SUV (SUVmax) per body weight, unless otherwise specified. SUV reference values, as follows: * Blood Pool (Descending Aorta): SUVmax 2.2 * Background Liver: SUVmax 3.2; SUVmean 2.2 Localizer Images: No additional findings. HEAD AND NECK: Head: No radiotracer avid lesion or mass effect in the imaged intracranial compartment. Aerodigestive Tract: No radiotracer avid lesion. Lymph Nodes: Mildly avid bilateral cervical nodes are similar to prior, presumed benign/reactive. For example, a right level 2B node measures SUV max 3.3, previously 3.2 and a left level 2B node measures SUV max 2.9, previously 2.4. Neck Soft Tissues: No radiotracer avid lesion. Diminutive versus surgically absent thyroid. CHEST: Lungs & Pleura: Medial right upper lobe masslike consolidation has decreased in metabolic activity, measuring SUV max 3.3, previously SUV max 6.0. Scattered bilateral pulmonary nodules with low-level uptake have decreased in size and metabolic activity. For example, a right lower lobe nodule measures SUV max 1.1, 7 mm (4:80), previously SUV max 1.4, 9 mm. A left upper lobe nodule measures SUV max 1.6, 6 mm (4:78), previously SUV max 2.3, 7 mm. No pleural effusion. Lymph Nodes: No radiotracer avid lymphadenopathy. Mediastinum: Diffuse uptake in the upper to mid esophagus has continued to increase in intensity, measuring SUV max 5.8 (previously 4.0). Cardiovascular: Blood pool activity. No pericardial effusion. Normal heart size. Thoracic aortic and coronary artery calcifications. Aortic valve replacement. Chest Wall: No radiotracer avid soft tissue lesion. ABDOMEN AND PELVIS: Hepatobiliary: No radiotracer avid lesion. No measurable mass. Cholelithiasis. Spleen: No radiotracer avid lesion. No splenomegaly. Pancreas: No radiotracer avid lesion. Adrenals: No radiotracer avid nodule. Urinary Tract: Physiologic radiotracer excretion in the renal collecting systems and urinary bladder. No hydronephrosis. GI Tract: No radiotracer avid lesion. No bowel dilation. Peritoneum: No radiotracer avid lesion. No ascites. Lymph Nodes: No radiotracer avid lymphadenopathy. Vasculature: Blood pool activity. Vascular calcifications without an abdominal aortic aneurysm. Pelvic Organs: No radiotracer avid lesion. Calcified uterine fibroids. MUSCULOSKELETAL: Bones: No radiotracer avid lesion. Degenerative changes. Scoliotic curvature of the spine. Right hip arthroplasty. Soft Tissues: No radiotracer avid lesion. IMPRESSION Since FDG PET/CT 2024, PRIMARY DISEASE [...] nodes are similar to prior, presumed benign/reactive. Transcribe Date/Time: May 15 2025 2:23P Dictated by: STEPHANI KWON MD This examination was interpreted and the report reviewed and electronically signed by: STEPHANI KWON MD on May 15 2025 3:48PM EST Thank you for allowing us to participate in the care of your patient. Should there be any questions regarding this interpretation, please call [phone]. If you are unable to reach us at the number above, please feel free to contact [facility] at [phone]. Procedure Note Provider, [facility] [place] - 05/15/2025 * * *Final Report* * * DATE OF EXAM: May 14 2025 2:59PM NRN [id number] - NM PET/CT SKULL-THIGH SUBQ / PROCEDURE REASON: Malignant neoplasm of unspecified part of unspecified bronchus or lung (HCC) * * * * Physician Interpretation * * * * RESULT: EXAMINATION: BODY FDG PET-CT CLINICAL HISTORY: Malignant neoplasm of unspecified part of unspecified bronchus or lung. EXAM CATEGORY: Subsequent treatment strategy. TECHNIQUE: Radiopharmaceutical was administered intravenously followed by PET imaging from the eyes to thighs. Free breathing, low dose CT of the same body region was acquired without IV contrast for attenuation correction and anatomic localization. Unenhanced imaging is limited for the evaluation of some pathology and the acquired CT was not designed to produce diagnostic CT scan quality. Physiologic/non-pathologic uptake in some body regions could confound or obscure some pathology. * CT Dose-Length Product (DLP): 202 mGy*cm * CT Dose Reduction Employed: Yes * Blood glucose: 108 mg/dL * Injection site: Left Forearm-Antecubital * Injected activity: 7.2 mCi * Uptake Time: 60 minutes * Radiopharmaceutical: [id number] (FDG) COMPARISON: FDG PET/CT 2024 CORRELATION: No relevant prior imaging available RESULT: REFERENCES: FDG uptake is used as a surrogate marker for glucose metabolism. All reported standardized uptake values represent maximum SUV (SUVmax) per body weight, unless otherwise specified. SUV reference values, as follows: * Blood Pool (Descending Aorta): SUVmax 2.2 * Background Liver: SUVmax 3.2; SUVmean 2.2 Localizer Images: No additional findings. HEAD AND NECK: Head: No radiotracer avid lesion or mass effect in the imaged intracranial compartment. Aerodigestive Tract: No radiotracer avid lesion. Lymph Nodes: Mildly avid bilateral cervical nodes are similar to prior, presumed benign/reactive. For example, a right level 2B node measures SUV max 3.3, previously 3.2 and a left level 2B node measures SUV max 2.9, previously 2.4. Neck Soft Tissues: No radiotracer avid lesion. Diminutive versus surgically absent thyroid. CHEST: Lungs & Pleura: Medial right upper lobe masslike consolidation has decreased in metabolic activity, measuring SUV max 3.3, previously SUV max 6.0. Scattered bilateral pulmonary nodules with low-level uptake have decreased in size and metabolic activity. For example, a right lower lobe nodule measures SUV max 1.1, 7 mm (4:80), previously SUV max 1.4, 9 mm. A left upper lobe nodule measures SUV max 1.6, 6 mm (4:78), previously SUV max 2.3, 7 mm. No pleural effusion. Lymph Nodes: No radiotracer avid lymphadenopathy. Mediastinum: Diffuse uptake in the upper to mid esophagus has continued to increase in intensity, measuring SUV max 5.8 (previously 4.0). Cardiovascular: Blood pool activity. No pericardial effusion. Normal heart size. Thoracic aortic and coronary artery calcifications. Aortic valve replacement. Chest Wall: No radiotracer avid soft tissue lesion. ABDOMEN AND PELVIS: Hepatobiliary: No radiotracer avid lesion. No measurable mass. Cholelithiasis. Spleen: No radiotracer avid lesion. No splenomegaly. Pancreas: No radiotracer avid lesion. Adrenals: No radiotracer avid nodule. Urinary Tract: Physiologic radiotracer excretion in the renal collecting systems and urinary bladder. No hydronephrosis. GI Tract: No radiotracer avid lesion. No bowel dilation. Peritoneum: No radiotracer avid lesion. No ascites. Lymph Nodes: No radiotracer avid lymphadenopathy. Vasculature: Blood pool activity. Vascular calcifications without an abdominal aortic aneurysm. Pelvic Organs: No radiotracer avid lesion. Calcified uterine fibroids. MUSCULOSKELETAL: Bones: No radiotracer avid lesion. Degenerative changes. Scoliotic curvature of the spine. Right hip arthroplasty. Soft Tissues: No radiotracer avid lesion. IMPRESSION Since FDG PET/CT 2024, PRIMARY DISEASE [...] nodes are similar to prior, presumed benign/reactive. Transcribe Date/Time: May 15 2025 2:23P Dictated by: STEPHANI KWON MD This examination was interpreted and the report reviewed and electronically signed by: STEPHANI KWON MD on May 15 2025 3:48PM EST Thank you for allowing us to participate in the care of your patient. Should there be any questions regarding this interpretation, please call [phone]. If you are unable to reach us at the number above, please feel free to contact [facility] eRadiology at [phone]. us Antoinette Crenshaw PA-C [place]-PAMA Final Result * (ABNORMAL) GLUCOSE, BLOOD (POC) (05/14/2025 1:21 PM EDT) Glucose, Point of Care 108(A) 74 - 99 mg/dL [facility] Comment: Location:[facility], [address] [place] [address] Dr. [place], [place], [address] The Accu-Chek Inform II glucose meter has not been approved for testing on patients receiving intensive medical intervention or therapy and results from this point of care glucose test should not be used for patient management decisions in these cases. Inaccurate results may also occur from other interfering factors, such as N-acetylcysteine (blood concentrations of greater than 5mg/dL), galactose, extremes of hematocrit (<10 or >65), or high doses of ascorbic acid (vitamin C) greater than 3mg/dL. Consider alternate testing mechanisms (e.g. core lab, blood gas instrument) in the above situations. 05/14/2025 1:21 PM EDT us Ccf Provider POC TESTING Final Result [facility] POINT OF CARE [address] [place] from Last 3 Months Insurance MEDICARE AETNA SUPPLEMENT Care Teams Tailor Helper Relationship Specialty Start Date End Date Nikolay Borges MD PCP - General Family Medicine 11/27/15 Elina Raza APRN.BANK ANALYST [address] [place] [address] [place] [address] Nurse Practitioner Hematology/Oncology 05/17/23 Vianney Scherer, RN [address] [place] [address] [place] [address] Specialty Elevators Inspector Hematology/Oncology 05/17/[address] [place] [address] [place] [address] Registered Dietitian Nutrition 05/28/24 Celina Hong LSW Fiber Technologist 09/23/24
--- OUTSIDE RECORDS SUMMARY | 2025-07-21 14:41 | XMS_ITS | Encounter Summary ---
Author Organization [facility] Address [address] [place] [address] Care Team Providers Care Historian Dramatic Arts Name Role Phone Nikolay Borges MD Primary Care Provider [phone] Encounter Details Date Type Department Care Team (Late st Contact Info) Description 04/03/2023 Abstract [facility] [address] [place] [address] Santino Sanabria, DO [address] [place] [address] Social History Tobacco Use Types Packs/Day Years [...] on filedocumented in this encounter Care Teams Historian Dramatic Arts Relationship Specialty Start Date End Date Nikolay Borges MD PCP - General Family Medicine 04/25/23 documented as of this encounter
--- OUTSIDE RECORDS SUMMARY | 2025-07-21 14:41 | XMS_ITS | Encounter Summary ---
Author Organization [facility] Address [address] [facility] [place] [address] Care Team Providers Care Director Market Research Name Role Phone Nikolay Borges MD Primary Care Provider [phone] Encounter Details Date Type Department Care Team (Late st Contact Info) Description 01/30/2024 Abstract [facility]ol[facility] [address] [place] [address] Yamilex Escobar, MIGUEL [address] [facility] [address] [place] [address] Social History Tobacco Use Types Packs/Day Years [...] on filedocumented in this encounter Care Teams Director Market Research Relationship Specialty Start Date End Date Nikolay Borges MD PCP - General Family Medicine 04/25/23 documented as of this encounter
--- OUTSIDE RECORDS SUMMARY | 2025-07-21 14:42 | XMS_ITS | Encounter Summary ---
Author Organization [facility] Address [address] [place] [address] Care Team Providers Care Lead Performance Support Analyst Name Role Phone Nikolay Borges MD Primary Care Provider + Elina Raza THERAPEUTIC PROGRAM WORKER.SHOP TAILOR APPRENTICE Unavailable [phone] Alexx Nguyen MD Unavailable Unavail able Vianney Scherer RN Unavailable [phone] Unavailable [phone] Celina Hong Unavailable Unavailable Source Comments In the event this information is protected by the Federal Confidentiality of Alcohol and Drug AbusePatient Records regulations: The Federal rules restrict any use of the information to criminally investigate or prosecute any alcohol or drug abuse patient.[facility] Encounter Details Date Type Department Care Team (Late st Contact Info) Description 05/01/2023 Abstract Hematology/Oncology [address] [facility] [place] [address] Alexx Nguyen MD Social History Tobacco Use Types Packs/Day Years Used Date Smoking Tobacco: Former Cigarettes 1 40 1 2019 Passive Smoke Exposure: Past Smokeless Tobacco: Never Tobacco Cessation:Counseling Given: No Area Deprivation Index Answer Date Agus rded National Score (1-100), lower number is lower ri sk 86 05/02/2023 State Score (1-10), lower number is lower risk 8 05/02/2023 Data from: https://www.neighborhoodatlas.medicine.[facility].edu/. Last address used for calculation [...] Description 08/04/2025 2:45 PM EDT Office Visit [facility] [address] [place] [address] [place] [address] 3 week follow up [place]tr[place] 08/04/2025 3:00 PM EDT Visit (SP) Office Hematology/Oncology [address] [place] [address] [place] [address] Federico Dyson MD [address] [place] [address] [place] [address] 3 week follow up [place] 08/04/2025 3:30 PM EDT [facility] Center Hematology/Oncology [address] [place] [address] [place] [address] 3 week follow up [place]tr[place] 12/29/2025 1:40 PM EST [facility] Rheumatology [address] [place], [place] [id number] Crissy Juan MD [address] [place] [address] Follow up visit for sjogrens/osteopenia/ osteoarthritis in 6-12months (ok for virtual or in person) documented as of this encounter Visit Diagnoses Not on filedocumented in this encounter Additional Health Concerns Infection Onset Date Last Indicated Resolved Time C. difficile 10/08/2024 10/08/2024 11/07/2024 8:51 PM EST documented as of this encounter Care Teams Lead Performance Support Analyst Relationship Specialty Start Date End Date Nikolay Borges MD PCP - General Family Medicine 11/27/15 Elina Raza APRN.SHOP TAILOR APPRENTICE [address] [facility] [place] [address] Nurse Practitioner Hematology/Oncology 05/17/23 Alexx Nguyen MD [address] [facility] [place] [address] Physician Hematology/Oncology 05/17/23 06/01/25 Vianney Scherer, MIGUEL [address] [place] [address] [place] [address] Specialty Programming Director Hematology/Oncology 05/17/[address] [place] [address] [place] [address] Registered Dietitian Nutrition 05/28/24 Celina Hong LSW Kier Tender 09/23/24 documented as of this encounter
--- OUTSIDE RECORDS SUMMARY | 2025-07-21 14:42 | XMS_ITS | Encounter Summary ---
Author Organization [facility] Address [address] [place] [address] Phone Care Team Providers Care Ward Maid Name Role Phone Nikolay Borges MD Primary Care Provider [phone] Corina Butler RN Unavailable Unavailable Theo Medina MD Unavailable [phone] Encounter Details Date Type Department Care Team (Late st Contact Info) Description 12/09/2024 Scanned Document [facility] [address] [place] [id number] Scanning, Generic Provider Social History Tobacco Use [...] Description 08/01/2025 11:20 AM EDT Office Visit [place] [address] [place] [address] Theo Medina MD [address] [facility] [address] [place], [place] [id number] 04/10/2026 9:30 AM EDT Telemedicine Clinical Support [facility] [address] [place] [address] [place] [address] documented as of this encounter Visit Diagnoses Not on filedocumented in this encounter Additional Health Concerns Assessment Noted Time PHQ-9 Depression Total Score: 3 04/26/20 22 10:47 AM EDT documented as of this encounter Care Teams Ward Maid Relationship Specialty Start Date End Date Nikolay Borges MD [address] [facility] [place] [address] PCP - General 04/26/22 Corina Butler, barrel platerTechnical Communicator 04/18/25 07/17/25 Theo [place] MD [address] [facility] [address] [place] [address] Consulting Physician Cardiology 05/28/25 documented as of this encounter
--- OUTSIDE RECORDS SUMMARY | 2025-07-21 14:42 | XMS_ITS | Encounter Summary ---
Author Organization [facility] Address [address] [place] [address] Care Team Providers Care Pcat Instructor Name Role Phone Nikolay Borges MD Primary Care Provider + Elina Raza APRN.SAP PAYROLL CONSULTANT Unavailable [phone] Alexx Nguyen MD Unavailable Unavail able Vianney Scherer RN Unavailable [phone] Unavailable [phone] Celina Hong Unavailable Unavailable Source Comments In the event this information is protected by the Federal Confidentiality of Alcohol and Drug AbusePatient Records regulations: The Federal rules restrict any use of the information to criminally investigate or prosecute any alcohol or drug abuse patient.[facility] Encounter Details Date Type Department Care Team (Late st Contact Info) Description 07/25/2024 Patient Msg Pulmonary Medicine [address] [id number] Provider, [place] LN Result Notification Social History [...] is lower risk 8 05/02/2023 Data from: https://www.neighborhoodatlas.medicine.[facility].edu/. Last address used for calculation [address] [...] Description 08/04/2025 2:45 PM EDT Office Visit [facility] [address] [place] [address] [place] [address] 3 week follow up [place]tr[place] 08/04/2025 3:00 PM EDT Visit (SP) Office Hematology/Oncology [address] [place] [address] [place] [address] Federico Dyson MD [address] [place] [address] [place] [address] 3 week follow up [place] 08/04/2025 3:30 PM EDT [facility] Center Hematology/Oncology [address] [place] [address] [place] [address] 3 week follow up [place] 12/29/2025 1:[address] [facility] Rheumatology [address] [place] [place] [address] Crissy Juan MD [address] [place] [address] Follow up visit for sjogrens/osteopenia/ osteoarthritis in 6-12months (ok for virtual or in person) documented as of this encounter Visit Diagnoses Not on filedocumented in this encounter Additional Health Concerns Infection Onset Date Last Indicated Resolved Time C. difficile 10/08/2024 10/08/2024 11/07/2024 8:51 PM EST documented as of this encounter Care Teams Pcat Instructor Relationship Specialty Start Date End Date Nikolay Borges MD PCP - General Family Medicine 11/27/15 Elina Raza APRN.SAP PAYROLL CONSULTANT [address] [place] [address] [place] [address] Nurse Practitioner Hematology/Oncology 05/17/23 Alexx Nguyen MD [address] [place] [address] [place] [address] Physician Hematology/Oncology 05/17/23 06/01/25 Vianney Scherer, MIGUEL [address] [place] [address] [place] [address] Specialty Manager Of Global Hematology/Oncology 05/17/[address] [place] [address] [place] [address] Registered Dietitian Nutrition 05/28/24 Celina Hong LSW Construction Coordinator 09/23/24 documented as of this encounter
--- OUTSIDE RECORDS SUMMARY | 2025-07-21 14:42 | XMS_ITS | Encounter Summary ---
Author Organization [facility] Address [address] [place] [address] Care Team Providers Care Winch Derrick Operator Name Role Phone Nikolay Borges MD Primary Care Provider + Elina Raza APRN.COMMISSARY PRODUCTION SUPERVISOR Unavailable [phone] Alexx Nguyen MD Unavailable Unavail able Vianney Scherer RN Unavailable [phone] Unavailable [phone] Celina Hong Unavailable Unavailable Source Comments In the event this information is protected by the Federal Confidentiality of Alcohol and Drug AbusePatient Records regulations: The Federal rules restrict any use of the information to criminally investigate or prosecute any alcohol or drug abuse patient.[facility] Encounter Details Date Type Department Care Team (Late st Contact Info) Description 05/26/2023 Cure Form [facility] [address] [place] [address] Barbara Mitchell RN Secondary malignant neoplasm of brain and [...] risk 8 05/02/2023 Data from: https://www.neighborhoodatlas.medicine.[facility]/. Last address used for calculation [address] [...] Description 08/04/2025 2:45 PM EDT Office Visit [facility] [address] [place] [address] [place] [address] 3 week follow up [place]tr[place] 08/04/2025 3:00 PM EDT Visit (SP) Office Hematology/Oncology [address] [place] [address] [place] [address] Federico Dyson MD [address] [place] [address] [place] [address] 3 week follow up [place] 08/04/2025 3:30 PM EDT [facility] Center Hematology/Oncology [address] [place] [address] [place] [address] 3 week follow up [place]tr[place] 12/29/2025 1:40 PM [facility] Rheumatology [address] [facility] [place] [address] Crissy Juan MD [address] [place] [id number] Follow up visit for sjogrens/osteopenia/ osteoarthritis in [...] documented as of this encounter Care Teams Winch Derrick Operator Relationship Specialty Start Date End Date Nikolay Borges MD PCP - General Family Medicine 11/27/15 Elina Raza APRN.COMMISSARY PRODUCTION SUPERVISOR [address] [place] [address] [place] [address] Nurse Practitioner Hematology/Oncology 05/17/23 Alexx Nguyen MD [address] [place] [address] [place] [address] Physician Hematology/Oncology 05/17/23 06/01/25 Vianney Scherer, MIGUEL [address] [place] [address] [place] [address] Specialty Electric Milkers Installer Hematology/Oncology 05/17/[address] [place] [address] [place] [address] Registered Dietitian Nutrition 05/28/24 Celina Hong LSW Turntable Operator 09/23/24 documented as of this encounter
--- OUTSIDE RECORDS SUMMARY | 2025-07-21 14:42 | XMS_ITS | Encounter Summary ---
Author Organization [facility] Address [address] [place] [address] Care Team Providers Care Patient Flow Coordinator Name Role Phone Nikolay Borges MD Primary Care Provider + Elina Raza APRN.PATIENT COORDINATOR Unavailable [phone] Alexx Nguyen MD Unavailable Unavail able Vianney Scherer RN Unavailable [phone] Unavailable [phone] Celina Hong Unavailable Unavailable Source Comments In the event this information is protected by the Federal Confidentiality of Alcohol and Drug AbusePatient Records regulations: The Federal rules restrict any use of the information to criminally investigate or prosecute any alcohol or drug abuse patient.[facility] Encounter Details Date Type Department Care Team (Late st Contact Info) Description 07/20/2023 Patient Msg [facility] [address] [place] [address] Madina Buckley APRN.PATIENT COORDINATOR [address] [facility] [address] [place] [address] Appointment Cancellation Request Social History [...] lower risk 8 05/02/2023 Data from: https://www.neighborhoodatlas.medicine.[facility]/. Last address used for calculation [...] Description 08/04/2025 2:45 PM EDT Office Visit [facility] [address] [place] [address] [place] [address] 3 week follow up [place]tr[place] 08/04/2025 3:00 PM EDT Visit (SP) Office Hematology/Oncology [address] [place] [address] [place] [address] Federico Dyson MD [address] [facility] [place] [address] 3 week follow up [place] 08/04/2025 3:30 PM EDT [facility] Center Hematology/Oncology [address] [place] [address] [place] [address] 3 week follow up [place] 12/29/2025 1:40 PM [facility] Rheumatology [address] [facility] [place] [phone] Crissy Juan MD [address] [place] [address] Follow up visit for sjogrens/osteopenia/ osteoarthritis in 6-12months (ok for virtual or in person) documented as of this encounter Visit Diagnoses Not on filedocumented in this encounter Additional Health Concerns Infection Onset Date Last Indicated Resolved Time C. difficile 10/08/2024 10/08/2024 11/07/2024 8:51 PM EST documented as of this encounter Care Teams Patient Flow Coordinator Relationship Specialty Start Date End Date Nikolay Borges MD PCP - General Family Medicine 11/27/15 Elina Raza APRN.PATIENT COORDINATOR [address] [place] [address] [place] [address] Nurse Practitioner Hematology/Oncology 05/17/23 Alexx Nguyen MD [address] [place] [address] [place] [address] Physician Hematology/Oncology 05/17/23 06/01/25 Vianney Scherer, RN [address] [place] [address] [place] [address] Specialty Pigment Pusher Hematology/Oncology 05/17/[address] [place] [address] [place] [address] Registered Dietitian Nutrition 05/28/24 Celina Hong LSW Mushroom Picker 09/23/24 documented as of this encounter
--- OUTSIDE RECORDS SUMMARY | 2025-07-21 14:42 | XMS_ITS | Encounter Summary ---
Author Organization [facility] Address [address] [facility], [address] [place] [address] Care Team Providers Care Neuro Intensivist Physician Name Role Phone Nikolay Borges MD Primary Care Provider +- Encounter Details Date Type Department Care Team ([facility] Contact Info) Description 04/14/2023 Telephone [email or web address] Special Procedure [address] [place], [place] [phone] Dianna Betancourt RN Social History Tobacco Use [...] on filedocumented in this encounter Care Teams Neuro Intensivist Physician Relationship Specialty Start Date End Date Nikolay Borges MD [address] [place] [address] PCP - General Family Medicine 04/13/23 documented as of this encounter
--- OUTSIDE RECORDS SUMMARY | 2025-07-21 14:42 | XMS_ITS ---
Author Organization [facility] Address [address] [place] [address] Phone Care Team Providers Care Truck Dock Material Mover Name Role Phone Nikolay Borges MD Primary Care Provider [phone] Theo Medina MD Unavailable [phone] Transitional Care Management Status:Closed (Closed) Start date:04/18/2025 Enrollment date:04/18/2025 End date:07/17/2025 Close reason:Patient graduated Continued Care and Services Coordination
--- OUTSIDE RECORDS SUMMARY | 2025-07-21 14:42 | XMS_ITS | Encounter Summary ---
Author Organization [facility] Address [address] [place] [address] Care Team Providers Care Coke Crane Operator Name Role Phone Nikolay Boregs MD Primary Care Provider + Elina Raza RN BUILDING.MOLD MAINTENANCE TECHNICIAN Unavailable [phone] Alexx Nguyen MD Unavailable Unavail able Vianney Scherer RN Unavailable [phone] Unavailable [phone] Celina Hong AIRCRAFT RIGGING AND CONTROLS MECHANIC Unavailable Unavailable Source Comments In the event this information is protected by the Federal Confidentiality of Alcohol and Drug AbusePatient Records regulations: The Federal rules restrict any use of the information to criminally investigate or prosecute any alcohol or drug abuse patient.[facility] Encounter Details Date Type Department Care Team (Late st Contact Info) Description 04/28/2023 Lab Requisition [facility] [address] [place] [address] Alexx Nguyen MD Person encountering health services to consult on behalf of another person Social History Tobacco Use Types Packs/Day Years Used Date Smoking Tobacco: Former Cigarettes 1 40 1 - 2020 Smokeless Tobacco: Never Area Deprivation Index Answer Date Agus rded National Score (1-100), lower number is lower ri sk 86 05/02/2023 State Score (1-10), lower number is lower risk 8 05/02/2023 Data from: https://www.neighborhoodatlas.[facility].edu/. Last address used for calculation [...] Description 08/04/2025 2:45 PM EDT Office Visit [facility] [address] [place] [address] [place] [address] 3 week follow up Keytruda 08/04/2025 3:00 PM EDT Visit (SP) Office Hematology/Oncology [address] [place] [address] [place] [address] Federico Dyson MD [address] [facility] [place] [address] 3 week follow up [place] 08/04/2025 3:30 PM EDT [facility] Center Hematology/Oncology [address] [place] [address] [place] [address] 3 week follow up [place]truda 12/29/2025 1:40 PM [facility] Rheumatology [address] [place], [place] [phone] Crissy Juan MD [address] [facility] [phone] Follow up visit for sjogrens/osteopenia/ osteoarthritis in [...] EDT) Case Report Surgical Pathology Report Case: [id number] Authorizing Provider: Alexx Nguyen MD Collected: 04/28/2023 03:24 PM Ordering Location: [facility] Main Received: 04/28/2023 03:22 PM Pathologist: Margarito Castillo V, MD Specimen: SLIDE(S), 2 SLIDES ([id number]) 04/30/2023 6:10 PM EDT [facility] FINAL DIAGNOSIS [facility], [place], [place] ([id number]; 04/03/2023) Right lung, upper lobe, endobronchial biopsy: - Fragments of bronchial mucosa with focal atypical cells suspicious but not definitive of malignancy. [place]/ 04/30/2023 04/30/2023 6:10 PM EDT [facility] at 1810 EDT Performing Lab Diagnostic interpretation performed at [facility], [address] [place] [address]# [id number] Spiral Weaver: Bradly Lucero M.D. 04/30/2023 6:10 PM EDT [facility] Blocks or Slides MICROSCOPE SLIDE / Unknown 04/28/2023 3:24 PM EDT 04/28/2023 3:22 PM EDT us Alexx Nguyen MD SURGICAL PATHOLOGY Final Result [address] documented in this encounter Visit Diagnoses Diagnosis Person encountering health services to consult on behalf of another person Other person consulting on behalf of another person documented in this encounter Additional Health Concerns Infection Onset Date Last Indicated Resolved Time C. difficile 10/08/2024 10/08/2024 11/07/2024 8:51 PM EST documented as of this encounter Care Teams Coke Crane Operator Relationship Specialty Start Date End Date Nikolay Borges MD PCP - General Family Medicine 11/27/15 Elina Raza APRN.MOLD MAINTENANCE TECHNICIAN [address] [place] [address] [place] [address] Nurse Practitioner Hematology/Oncology 05/17/23 Alexx Nguyen MD [address] [place] [address] [place] [address] Physician Hematology/Oncology 05/17/23 06/01/25 Vianney Scherer, MIGUEL [address] [place] [address] [place] [address] Specialty Load Tallier Hematology/Oncology 05/17/[address] [place] [address] [place] [address] Registered Dietitian Nutrition 05/28/24 Celina Hong LSW Power And Recovery Superintendent 09/23/24 documented as of this encounter
--- OUTSIDE RECORDS SUMMARY | 2025-07-21 14:42 | XMS_ITS | Encounter Summary ---
Author Organization [facility] Address [address] [place] [address] Phone Care Team Providers Care Boat Hop Name Role Phone Nikolay Borges MD Primary Care Provider [phone] Corina Butler RN Unavailable Unavailable Theo Medina MD Unavailable Encounter Details Date Type Department Care Team (Late Contact Info) Description 12/26/2024 Scanned Document [facility] [address] [place] [id number] Scanning, Generic Provider Social History Tobacco Use [...] Description 08/01/2025 11:20 AM EDT Office Visit [place] [address] [place] [address] Theo Medina MD [address] [facility] [address] [place] [address] 04/10/2026 9:30 AM EDT Telemedicine Clinical Support [facility] [address] [place] [address] documented as of this encounter Visit Diagnoses Not on filedocumented in this encounter Additional Health Concerns Assessment Noted Time PHQ-9 Depression Total Score: 3 04/26/20 22 10:47 AM EDT A fall risk assessment has been complete d for the patient 12/23/2024 2:30 PM EST documented as of this encounter Care Teams Boat Hop Relationship Specialty Start Date End Date Nikolay Borges MD [address] [place] [address] PCP - General 04/26/22 Corina Butler, license clerkField Court Researcher 04/18/25 07/17/25 Theo Medina MD [address] [facility] [address] [place] [address] Consulting Physician Cardiology 05/28/25 documented as of this encounter
--- OUTSIDE RECORDS SUMMARY | 2025-07-21 14:42 | XMS_ITS | Patient Health Record ---
Author Organization [facility] [place] Address [address] [place] [address] Care Team Providers Care Water Quality Specialist Name Role Phone Reji Borges Primary Care Provider Keya Freire Unavailable [phone] Allergies Allergen (clinical drug ingredient) Drug/Non Drug Allergy documented on EMR Reaction Allergy Type Onset Date Status ciprofloxacin Cipro vomiting Drug Allergy Act gisele simvastatin Simvastatin muscle pain Drug Allergy A ctive Results Component Value Reference Range Notes MR head/brain wo/w con Reviewed date:08/01/2024 07:13:44 PM Interpretation: Performing Lab: Notes/Report: Source Facility: [place] [address] Magnetic Resonance Report Signed Patient: ROBINA MCCABE MR#: [id number] : 1955 Acct:[id number] Age/Sex: 68 / F ADM Date: 08/01/24 Loc: MRI Attending Dr: SAYRA MOMIN Ordering Physician: SAYRA MOMIN Date of Service: 08/01/24 Procedure(s): MR head/brain wo/w con Accession Number(s): [id number] cc: León Borges M.D.; SAYRA MOMIN [place] [address] Patient Name: ROBINA MCCABE MRN: [id number] date: 1955 Sex: F Assigned Patient Location: MRI Current Patient Location: MRI Accession/Order Number: [id number] Exam Date: 08/01/2024 13:45 Report Date: 08/01/2024 [...] M.D. Signed By: 08/01/241854 DD/ 51 TD/TT: Clerical Investigator: [place] [address] Magnetic Resonance Report Signed Patient: SANFORD MCCABE MR#: [id number] : 1955 Acct:[id number] Age/Sex: 68 / F ADM Date: 08/01/24 Loc: MRI Attending Dr: SAYRA MOMIN Ordering Physician: SAYRA MOMIN Date of Service: 08/01/24 Procedure(s): MR head/brain wo/w con Accession Number(s): [id number] cc: León Borges M.D. ; SAYRA MOMIN [address] [address] Patient Name: ROBINA MCCABE MRN: [id number] date: 1955 Sex: F Assigned Patient Loc ation: MRI Current Patient Loca tion: MRI Accession/Order Numb er: [id number] Exam Date: 08/01/2024 13:45 Report Date: 08/01/2024 [...] or abnormal extraaxial fluid collections. Redemonstrated is re sidual small focus of cortical/subcortical T2/FLAIR signal abnormality [...] air cells are clear. The calvarium and extrac ranial soft tissues are unremarkable. M R/MR head/brain wo/w con IMPRESSION: No acute intracrania l abnormality. Stable small cortical/subcortical T2/FLAIR signal abnormality in the right parietal lobe, kar tible with a treated metastasis. No evidence of new intracranial metastasis. Mild chronic microva scular ischemic and involutional changes. Electronically authenticated by: HOMER SCHAFER Date: 08/01/2024 18:52 Dictated By: VANESSA SCHAFER M.D. Signed By: 08/01/241854 DD/ 51 TD/TT: Clerical Investigator: MR head/brain wo/w con Reviewed date:11/15/2024 04:26:01 PM Interpretation: Performing Lab: Notes/Report: Source Facility: [place] [address] Magnetic Resonance Report Signed Patient: ROBINA MCCABE MR#: [id number] : 1955 Acct:[id number] Age/Sex: 69 / F ADM Date: 11/15/24 Loc: MRI Attending Dr: SAYRA MOMIN Ordering Physician: SAYRA MOMIN Date of Service: 11/15/24 Procedure(s): MR head/brain wo/w con Accession Number(s): [id number] cc: León Borges M.D.; SAYRA MOMIN [place] [address] Patient Name: ROBINA MCCABE MRN: [id number] date: 1955 Sex: F Assigned Patient Location: MRI Current Patient Location: MRI Accession/Order Number: [id number] Exam Date: 11/15/2024 12:50 Report Date: 11/15/2024 [...] to posttreatment changes. Electronically authenticated by: MARSHA FELIPE Date: 11/15/2024 14:38 Dictated By: Marsha Felipe M.D. Signed By: 11/15/24 1449 DD/ 1438 TD/TT: Clerical Investigator: [place] [address] Magnetic Resonance Report Signed Patient: SANFORD MCCABE MR#: [id number] : 1955 Acct:[id number] Age/Sex: 69 / F ADM Date: 11/15/24 Loc: MRI Attending Dr: SAYRA MOMIN Ordering Physician: SAYRA MOMIN Date of Service: 11/15/24 Procedure(s): MR head/brain wo/w con Accession Number(s): [id number] cc: León Borges M.D. ; SAYRA MOMIN [place] [id number] Patient Name: ROBINA MCCABE MRN: [id number] date: 1955 Sex: F Assigned Patient Loc ation: MRI Current Patient Loca tion: MRI Accession/Order Numb er: [id number] Exam Date: 12:50 Report Date: 11/15/2024 14:38 [...] with sparing of U fibers are nonspecific, statist ically most likely consistent with microvascular ischemic changes. [...] l process is noted. No evidence of metas tasis. The right parietal signal abnormality is less conspicuous on the c urrent study likely due to posttreatment changes. Electronically authenticated by: MARSHA FELIPE Date: 11/15/2024 14:38 Dictated By: Nina Felipe M.D. Signed By: 11/15/24 1449 DD/ 1438 TD/TT: Clerical Investigator: XR chest 2V Reviewed date:12/15/2024 01:28:47 PM Interpretation: Performing Lab: Notes/Report: Source Facility: [place] [address] [place] [address] XRay Report Signed Patient: ROBINA MCCABE MR#: [id number] : 1955 Acct:[id number] Age/Sex: 69 / F ADM Date: 12/13/24 Loc: LAB Attending Dr: León Borges M.D. Ordering Physician: León Borges M.D. Date of Service: 12/13/24 Procedure(s): XR chest 2V Accession Number(s): [id number] cc: León Borges M.D. The [address] [address] Patient Name: ROBINA MCCABE MRN: [id number] date: 1955 Sex: F Assigned Patient Location: LAB Current Patient Location: LAB Accession/Order Number: [id number] Exam Date: 12/13/2024 12:41 Report Date: 12/15/2024 09:45 At the request of: LEÓN BORGES Procedure: XR chest 2V Chest x-rays, 12/13/2024. [...] M.D. Signed By: 12/15/24947 DD/ 4 TD/TT: Clerical Investigator: [place] [address] XRay Report Signed Patient: SANFORD MCCABE MR#: [id number] : 1955 Acct:[id number] Age/Sex: 69 / F ADM Date: 12/13/24 Loc: LAB Attending Dr: Wolfgang Borges M.D. Ordering Physician: León Borges M.D. Date of Service: 12/13/24 Procedure(s): XR chest 2V Accession Number(s): [id number] cc: León Borges M.D. The [address] [address] Patient Name: ROBINA MCCABE MRN: [id number] date: 1955 Sex: F Assigned Patient Loc ation: LAB Current Patient Loca tion: LAB Accession/Order Numb er: [id number] Exam Date: 12/13/2024 12:41 Report Date: 12/15/2024 09:45 At the request of: LEÓN BORGES Procedure: XR chest 2V Chest x-rays, 12/13/2024. [...] Sabine Braswell M.D. Signed By: 12/15/2448 DD/ 4 TD/TT: Clerical Investigator: MR head/brain wo/w con Reviewed date:05/11/2025 12:02:53 PM Interpretation: Performing Lab: Notes/Report: Source Facility: [place] [address] [place] [address] Magnetic Resonance Report Signed Patient: ROBINA MCCABE MR#: [id number] : 1955 Acct:[id number] Age/Sex: 69 / F ADM Date: 05/09/25 Loc: MRI Attending Dr: Antoinette JOHNSON Ordering Physician: Antoinette Crenshaw Date of Service: 05/09/25 Procedure(s): MR head/brain wo/w con Accession Number(s): [id number] cc: León Borges M.D.; Antoinette Crenshaw [place] [address] Patient Name: ROBINA MCCABE MRN: [id number] date: 1955 Sex: F Assigned Patient Location: MRI Current Patient Location: MRI Accession/Order Number: [id number] Exam Date: 05/09/2025 15:16 Report Date: 05/09/2025 15:29 At the request of: ANTOINETTE JOHNSON Procedure: MR head/brain wo/w con MRI the Brain with and without contrast TECHNIQUE: Multiplanar T1 and T2-weighted imaging of the brain. 11 cc of contrast HISTORY: Assessment for metastatic disease. History of lung cancer. History of salivary gland tumor. COMPARISON: 11/15/2024 VENTRICLES: Unremarkable BRAIN VOLUME: Adequate volume of brain parenchyma identified. BRAIN PARENCHYMAL SIGNAL INTENSITY: Scattered foci of increased T2/FLAIR signal intensity of the brain parenchyma is consistent with chronic small vessel ischemic changes. BLEED: None MASS EFFECT: No mass effect DIFFUSION RESTRICTION: None GRADIENT ECHO PARENCHYMAL SIGNAL LOSS: None MIDBRAIN: The midbrain structures are unremarkable. DONNELL: Unremarkable MEDULLA: Unremarkable INTERNAL AUDITORY CANALS: Unremarkable SINUSES: Unremarkable ORBITS: Grossly unremarkable MASTOIDS: Unremarkable ENHANCEMENT: No pathologic enhancement or enhancing mass identified. MR/MR head/brain wo/w con IMPRESSION: No acute intracranial findings. No metastatic disease. Chronic small vessel ischemic changes. Impression dictated by: Hermilo Hdez M.D. 05/09/2025 3:29 PM Dictation Location: [place] [address] Electronically authenticated by: [id number] Y Date: 05/09/2025 15:29 Dictated By: Hermilo Hdez D.O. Signed By: 05/09/25 1532 DD/ 1529 TD/TT: Clerical Investigator: [place] [address] Magnetic Resonance Report Signed Patient: SANFORD MCCABE MR#: [id number] : 1955 Acct:[id number] Age/Sex: 69 / F ADM Date: 05/09/25 Loc: MRI Attending Dr: Antoinette JOHNSON Ordering Physician: Antoinette Crenshaw Date of Service: 05/09/25 Procedure(s): MR head/brain wo/w con Accession Number(s): [id number] cc: León Borges M.D. ; Antoinette Crenshaw [facility] [place] [id number] Patient Name: ROBINA MCCABE MRN: [id number] date: 1955 Sex: F Assigned Patient Loc ation: MRI Current Patient Loca tion: MRI Accession/Order Numb er: [id number] Exam Date: 05/09/2025 15:16 Report Date: 05/09/2025 15:29 At the request of: ANTOINETTE JOHNSON Procedure: MR head/b rain wo/w con MRI the Brain with a nd without contrast TECHNIQUE: Multiplan ar T1 and T2-weighted imaging of the brain. 11 cc of contrast HISTORY: Assessment for metastatic disease. History of lung cancer. History of salivary gland tumor. COMPARISON: 11/15/2024 VENTRICLES: Unremarkable BRAIN VOLUME: Adequa te volume of brain parenchyma identified. BRAIN PARENCHYMAL SI GNAL INTENSITY: Scattered foci of increased T2/FLAIR signal intensity of the brain parenchyma is consistent with chronic small vessel ischemic changes. BLEED: None MASS EFFECT: No mass effect DIFFUSION RESTRICTIO N: None GRADIENT ECHO PARENC HYMAL SIGNAL LOSS: None MIDBRAIN: The midbra in structures are unremarkable. DONNELL: Unremarkable MEDULLA: Unremarkable INTERNAL AUDITORY CA NALS: Unremarkable SINUSES: Unremarkable ORBITS: Grossly unremarkable MASTOIDS: Unremarkable ENHANCEMENT: No path ologic enhancement or enhancing mass identified. M R/MR head/brain wo/w con IMPRESSION: No acute intracranial findings. No metastatic disease. Chronic small vessel ischemi c changes. Impression dictated by: Hermilo Hdez M.D. 05/09/2025 3:29 PM Dictation Location: [place] [address] Electronically authenticated by: [id number] Y Date: 05/09/2025 15:29 Dictated By: Antonio Hdez D.O. Signed By: 05/09/25 1532 DD/ 1529 TD/TT: Clerical Investigator: PROF French(COMP METB) Reviewed date:05/26/2025 08:44:38 PM Interpretation: Performing Lab: Notes/Report: [facility] , Sodium 134 136-145 mmol/L Potassium 4.4 3.5-5.1 mmol/L Chloride 100 98-107 mmol/L Carbon Dioxide 25.5 21.0-32.0 mmol/L Anion Gap 12.9 Glucose 92 74-106 mg/dL Blood Urea Nitrogen 16.0 7.0-18.0 mg/dL Creatinine 0.57 0.55-1.02 mg/dL Estimated GFR ( Nesha >60 >=60 mL/min/1.73m 2 Estimated GFR (Non- Clari >60 >=60 mL/min/1.73m 2 BUN Creatinine Ratio 28.1 Calcium 9.5 8.5-10.1 mg/dL Bilirubin Total 0.8 0.2-1.0 mg/dL Aspartate Amino Transferase 129 15-37 U/L Alanine Aminotransferase 171 14-59 U/L Alkaline Phosphatase 261 46-116 U/L Total Protein 8.2 6.4-8.2 g/dL Albumin Level 3.0 3.4-5.0 g/dL Globulin 5.2 Albumin Globulin Ratio 0.6 Performing Lab: see note - [facility] TSH Reviewed date:05/26/2025 08:44:38 PM Interpretation: Performing Lab: Notes/Report: [facility] , Thyroid Stimulating Hormone 0.417 0.358-3.740 uIU/mL Performing Lab: see note [facility] Prothrombin Time INR Reviewed date:05/26/2025 08:44:38 PM Interpretation: Performing Lab: Notes/Report: [facility] , Prothrombin Time 11.3 9.0-11.6 sec INR 1.07 DESIRED INR: 2.0-3.0 CONDITIONS NOT LISTED BELOW 2.5-3.5 FOR PROSTHETIC HEART VALVE REPLACEMENT 2.5-3.5 RECURRENT THROMBOSIS Performing Lab: see note [facility] Troponin I High Sensitivity Reviewed date:05/26/2025 08:44:38 PM Interpretation: Performing Lab: Notes/Report: [facility] , Troponin I High Sensitivity 15.9 4.0-51.3 pg/mL CUT-OFF POINTS HAVE BEEN ESTABLISHED BASED ON THE FOURTH UNIVERSAL DEFINITION OF MYOCARDIAL INFARCTION. THE UPPER REFERENCE LIMIT (URL) OF TROPONIN, DEFINED THE 99TH PERCENTILE OF cTnI DISTRIBUTION IN A REFERENCE POPULATION, HAS BEEN CONFIRMED THE DECISION THRESHOLD FOR NM DIAGNOSIS. 99TH PERCENTILE = 51.4 PG/ML NOTE: HIGH-SENSITIVITY TROPONIN ASSAY IS NOT INTENDED TO BE USED IN ISOLATION BUT SHOULD BE INTERPRETED IN CONJUNCTION WITH OTHER DIAGNOSTIC AND CLINICAL INFORMATION. Performing Lab: see note - [facility] LB UA Micro, reflex to culture Reviewed date:05/26/2025 08:44:38 PM Interpretation: Performing Lab: Notes/Report: [facility] , Color Urine LT. YELLOW YELLOW Clarity Urine CLEAR CLEAR Specific [place] Urine 1.025 1.005-1.025 pH Urine 6.0 5.0-9.0 Protein Urine TRACE NEG/TRACE mg/dL Glucose Urine UA NEGATIVE NEGATIVE mg/dL Bilirubin Urine NEGATIVE NEGATIVE Ketones Urine NEGATIVE NEGATIVE mg/dL Blood Urine NEGATIVE NEGATIVE Nitrite Urine NEGATIVE NEGATIVE Urobilinogen Urine 0.2 0.2-1.0 EU/dL Leukocyte Esterase Urine TRACE NEGATIVE WBC Urine 2-5 NONE SEEN #/HPF RBC Urine 0-2 0-2 #/HPF Bacteria Urine TRACE NONE SEEN #/HPF Mucus Urine TRACE NONE SEEN Squamous Epithelial Cell Urine RARE NONE/RARE #/LPF Crystals Seen? None Seen None Seen #/HPF Cast Seen? NONE SEEN NONE SEEN #/LPF Urine Culture Indicated NO Performing Lab: see note ML - [facility] LB XR chest 1V Reviewed date:05/26/2025 08:44:38 PM Interpretation: Performing Lab: Notes/Report: Source Facility: [place] [address] XRay Report Signed Patient: ROBINA MCCABE MR#: [id number] : 1955 Acct:[id number] Age/Sex: 69 / F ADM Date: 05/26/25 Loc: ER Attending Dr: Ordering Physician: Ilda Babin Date of Service: 05/26/25 Procedure(s): XR chest 1V Accession Number(s): [id number] cc: León Borges M.D.; Ilda Babin [place] [address] Patient Name: ROBINA MCCABE MRN: [id number] date: 1955 Sex: F Assigned Patient Location: ER Current Patient Location: ER Accession/Order Number: [id number] Exam Date: 05/26/2025 16:25 Report Date: 05/26/2025 16:29 At the request of: ILDA JOHNSON Procedure: XR chest 1V Plain film chest Single view HISTORY: Lightheaded. Incidentally. Left periorbital laceration. COMPARISON: None FINDINGS: SUPPORT DEVICES: None POSTSURGICAL CHANGES: Suspected aortic valve replacement changes. HEART: Within normal limits PULMONARY JASSI: Within normal limits MEDIASTINUM: Unremarkable LUNGS AND PLEURA: Right perihilar consolidation. No pleural effusion. No pneumothorax. BONY STRUCTURES: Similar scoliosis and degenerative changes ADDITIONAL FINDINGS right subdiaphragmatic interposition of bowel. XR/XR chest 1V IMPRESSION: Right perihilar consolidation. consider volume loss/pneumonitis. Impression dictated by: Hermilo Hdez M.D. 05/26/2025 4:29 PM Dictation Location: [place] [address] Electronically authenticated by: [id number] Y Date: 05/26/2025 16:29 Dictated By: Hermilo Hdez D.O. Signed By: 05/26/25 1632 DD/ 1629 TD/TT: Clerical Investigator: [address] [address] XRay Report Signed Patient: SANFORD MCCABE MR#: [id number] : 1955 Acct:[id number] Age/Sex: 69 / F ADM Date: 05/26/25 Loc: ER Attending Dr: Ordering Physician: Ilda Babin Date of Service: 05/26/25 Procedure(s): XR chest 1V Accession Number(s): [id number] cc: León Borges M.D. ; Ilda Babin [address] [address] Patient Name: ROBINA MCCABE MRN: [id number] date: 1955 Sex: F Assigned Patient Loc ation: ER Current Patient Loca tion: ER Accession/Order Numb er: [id number] Exam Date: 05/26/2025 16:25 Report Date: 05/26/2025 16:29 At the request of: ILDA JOHNSON Procedure: XR chest 1V Plain film chest Sin gle view HISTORY: Lightheaded . Incidentally. Left periorbital laceration. COMPARISON: None FINDINGS: SUPPORT DEVICES: None POSTSURGICAL CHANGES : Suspected aortic valve replacement changes. HEART: Within normal limits PULMONARY JASSI: With in normal limits MEDIASTINUM: Unremarkable LUNGS AND PLEURA: Ri ght perihilar consolidation. No pleural effusion. No pneumothorax. BONY STRUCTURES: Sim ilar scoliosis and degenerative changes ADDITIONAL FINDINGS right subdiaphragmatic interposition of bowel. X R/XR chest 1V IMPRESSION: Right perihilar consolidation. consider volume loss/pneumonitis. Impression dictated by: Hermilo Hdez M.D. 05/26/2025 4:29 PM Dictation Location: [place] [address] Electronically authenticated by: [id number] Y Date: 05/26/2025 16:29 Dictated By: Antonio Hdez D.O. Signed By: 05/26/25 1632 DD/ 1629 TD/TT: Clerical Investigator: XR shoulder MARCUS min 2V Reviewed date:05/26/2025 08:44:38 PM Interpretation: Performing Lab: Notes/Report: Source Facility: [place] [address] XRay Report Signed Patient: ROBINA MCCABE MR#: [id number] : 1955 Acct:[id number] Age/Sex: 69 / F ADM Date: 05/26/25 Loc: ER Attending Dr: Ordering Physician: Ilda Babin Date of Service: 05/26/25 Procedure(s): XR shoulder MARCUS min 2V Accession Number(s): [id number] cc: León Borges M.D.; Ilda Babin [place] [address] Patient Name: ROBINA MCCABE MRN: [id number] date: 1955 Sex: F Assigned Patient Location: ER Current Patient Location: ER Accession/Order Number: [id number] Exam Date: 05/26/2025 16:29 Report Date: 05/26/2025 16:31 At the request of: ILDA JOHNSON Procedure: XR shoulder MARCUS min 2V 3 views both shoulders HISTORY: Left shoulder abrasion No acute displaced fracture. Right rotator cuff surgery changes. Elevation of the right humeral head with abutment of the acromium with chronic erosive change. Likely chronic tear. Mild subluxation. Mild left shoulder degeneration. Unremarkable soft tissues. XR/XR shoulder MARCUS min 2V IMPRESSION: Degenerative changes likely chronic rotator cuff tear on the right. No acute displaced fracture. Impression dictated by: Hermilo Hdez M.D. 05/26/2025 4:31 PM Dictation Location: [place] [address] Electronically authenticated by: [id number] Y Date: 05/26/2025 16:31 Dictated By: Hermilo Hdez D.O. Signed By: 05/26/25 1634 DD/ 1631 TD/TT: Clerical Investigator: [place] [id number] XRay Report Signed Patient: SANFORD MCCABE MR#: [id number] : 1955 Acct:[id number] Age/Sex: 69 / F ADM Date: 05/26/25 Loc: ER Attending Dr: Ordering Physician: Ilda Babin Date of Service: 05/26/25 Procedure(s): XR ector ulder MARCUS min 2V Accession Number(s): [id number] cc: León Borges M.D. ; Ilda Babin [address] [address] Patient Name: ROBINA MCCABE MRN: [id number] date: 1955 Sex: F Assigned Patient Loc ation: ER Current Patient Loca tion: ER Accession/Order Numb er: [id number] Exam Date: 05/26/2025 16:29 Report Date: 05/26/2025 16:31 At the request of: ILDA JOHNSON Procedure: XR should er MARCUS min 2V 3 views both shoulders HISTORY: Left should er abrasion No acute displaced fracture. Right rotator cuff surgery changes. Elevation of the right humeral head with abutment of the acromium with chronic erosive change. Likely chron ic tear. Mild subluxation. Mild left shoulder degeneration. Unrema rkable soft tissues. X R/XR shoulder MARCUS min 2V IMPRESSION: Degenera tive changes likely chronic rotator cuff tear on the right. No acute disp laced fracture. Impression dictated by: Hermilo Hdez M.D. 05/26/2025 4:31 PM Dictation Location: [place] [address] Electronically authenticated by: [id number] Y Date: 05/26/2025 16:31 Dictated By: Antonio Hdez D.O. Signed By: 05/26/25 1634 DD/ 1631 TD/TT: Clerical Investigator: NEYMAR Reviewed date:06/11/2025 12:47:52 PM Interpretation: Performing Lab: Notes/Report: Source Facility: [place] [address] Cardiac Rehab Report Signed Patient: ROBINA MCCABE MR#: [id number] : 1955 Acct:[id number] Age/Sex: 69 / F ADM Date: 06/10/25 Loc: CR Attending Dr: JAVI DONAHUE Ordering Physician: Jamila Sweeney M.D. Date of Service: 06/10/25 Procedure(s): ITP Accession Number(s): [id number] cc: [facility] Test Date: 2025-06-10 Pat Name: ROBINA MCCABE Department: Room: - Gender: Female Lumber Marker: : 1955 Requested By: JAMILA SWEENEY Order Number: [id number] Ingrid MD: Darryl Schrader Interpretive Statements Okay to proceed with outlined treatment plan. Electronically Signed On 06-11-2025 7:56:31 EDT by Darryl Schrader Dictated By: Darryl Schrader D.O. Signed By: 06/11/25 07506/11/25755 DD/ 1505 TD/TT: Clerical Investigator: [place] [address] Cardiac Rehab Report Signed Patient: SANFORD MCCABE MR#: [id number] : 1955 Acct:[id number] Age/Sex: 69 / F ADM Date: 06/10/25 Loc: CR Attending Dr: JAVI DONAHUE Ordering Physician: Jamila Sweeney M.D. Date of Service: 06/10/25 Procedure(s): ITP Accession Number(s): [id number] cc: [facility] Test Date: 2025-06-10 Pat Name: ROBINA SMITH Department: 89 Room: - Gender: Female Lumber Marker: : 1955 Requ ested By: JAMILA SWEENEY Order Number: [id number] Ingrid MD: Darryl Schrader Interpretive Statements Okay to proceed with outlined treatment plan. Electronically Porsha d On 06-11-2025 7:56:31 EDT by Darryl Schrader Dictated By: Radha Schrader D.O. Signed By: 06/11/2575506/11/25755 DD/ 1505 TD/TT: Clerical Investigator: NEYMAR Reviewed date:07/06/2025 07:33:16 PM Interpretation: Performing Lab: Notes/Report: Source Facility: [place] [address] [place] [address] Cardiac Rehab Report Signed Patient: ROBINA MCCABE MR#: [id number] : 1955 Acct:[id number] Age/Sex: 69 / F ADM Date: 07/03/25 Loc: CR Attending Dr: JAVI DONAHUE Ordering Physician: Jamila Sweeney M.D. Date of Service: 06/19/25 Procedure(s): ITP Accession Number(s): [id number] cc: [facility] Test Date: 2025-06-19 Pat Name: ROBINA MCCABE Department: Room: - Gender: Female Lumber Marker: : 1955 Requested By: JAMILA SWEENEY Order Number: [id number] Ingrid MD: CHANDA LEVY M.D. Interpretive Statements Patient may continue cardiac rehab as outlined in the treatment plan. Electronically Signed On 07-04-2025 10:20:17 EDT by CHANDA LEVY M.D. Dictated By: CHANDA LEVY Signed By: 07/04/25 1020 07/04/25 1020 DD/ TD/TT: Clerical Investigator: [place] [address] Cardiac Rehab Report Signed Patient: SANFORD MCCABE MR#: [id number] : 1955 Acct:[id number] Age/Sex: 69 / F ADM Date: 07/03/25 Loc: CR Attending Dr: JAVI DONAHUE Ordering Physician: Jamila Sweeney M.D. Date of Service: 06/19/25 Procedure(s): ITP Accession Number(s): [id number] cc: [facility] Test Date: 2025-06-19 Pat Name: ROBINA SMITH Department: 89 Room: - Gender: Female Lumber Marker: : 1955 Requ ested By: JAMILA SWEENEY Order Number: [id number] Ingrid MD: CHANDA LEVY M.D. Interpretive Statements Patient may continue cardiac rehab as outlined in the treatment plan. Electronically Porsha d On 07-04-2025 10:20:17 EDT by CHANDA LEVY M.D. Dictated By: CHANDA LEVY Signed By: 07/04/25 1020 07/04/25 1020 DD/ 0716 TD/TT: Clerical Investigator: PROF French(COMP METB) Reviewed date:12/15/2024 01:28:47 PM Interpretation: Performing Lab: Notes/Report: [facility] , Sodium 136 136-145 mmol/L Potassium [...] 0.6 Performing Lab: see note ML - [facility] LB CBC AUTO DIFF Reviewed date:12/15/2024 01:28:47 PM Interpretation: Performing Lab: Notes/Report: [facility] , White Blood Count 11.1 4.0-11.0 [...] 0.00-0.03 10 3/uL Performing Lab: see note - [facility] LB BNP Reviewed date:12/15/2024 01:28:47 PM Interpretation: Performing Lab: Notes/Report: [facility] , NT Pro B Type Natriuretic Pept 71716.0 <=900.0 pg/mL RESULTS CALLED TO DR. BORGES Performing Lab: see note - [facility] LB ECG 12 lead Reviewed date:05/26/2025 08:44:38 PM Interpretation: Performing Lab: Notes/Report: Source Facility: [place] [address] Electrocardiograph Report Signed Patient: ROBINA MCCABE MR#: [id number] : 1955 Acct:[id number] Age/Sex: 69 / F ADM Date: 05/26/25 Loc: ER Attending Dr: Ordering Physician: Ilda Babin Date of Service: 05/26/25 Procedure(s): ECG 12 lead Accession Number(s): [id number] cc: [facility] Test Date: 2025-05-26 Pat Name: ROBINA MCCABE Department: Room: - Gender: Female Lumber Marker: : 1955 Requested By: 0929 Order Number: [id number] Ingrid MD: CHANDA LEVY M.D. Measurements Intervals [place] Rate: 82 P: 55 OK: 212 QRS: -44 QRSD: 132 T: 52 QT: 390 QTc: 428 Interpretive Statements 1100 Sinus rhythm 2231 First degree AV block 2550 Left bundle branch block 7200 Abnormal left axis deviation 9150 abnormal ECG Compared to ECG 01/20/2023 12:28:04 First degree AV block now present Left bundle-branch block now present Left-axis deviation now present Electronically Signed On 05-26-2025 17:12:09 EDT by CHANDA LEVY M.D. 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 Measurements Intervals [place] Rate: 82 P: 55 OK: 212 QRS: -44 QRSD: 132 T: 52 QT: 390 QTc: 428 Interpretive Statements 1100 Sinus rhythm 2231 First degree AV block 2550 Left bundle bra nch block 7200 Abnormal left a xis deviation 9150 abnormal ECG Compared to ECG 12/29 12:28:04 First degree AV bloc k now present Left bundle-branch b lock now present Left-axis deviation now present Electronically Porsha d On 05-26-2025 17:12:09 EDT by CHANDA LEVY M.D. Dictated By: CHANDA LEVY Signed By: 05/26/251711 DD/ 54 TD/TT: Clerical Investigator: CBC AUTO DIFF Reviewed date:05/26/2025 08:44:38 PM Interpretation: Performing Lab: Notes/Report: [facility] , White Blood Count 10.7 4.0-11.0 10 3/uL Red Blood Count 4.31 4.20-5.40 10 6/uL Hemoglobin 14.0 12.0-16.0 g/dL Hematocrit 40.1 36.0-48.0 % Mean Corpuscular Volume 93.0 81.0-99.0 fL Mean Corpuscular Hemoglobin 32.5 26.7-34.0 pg Mean Corpuscular HGB Conc 34.9 29.9-35.2 g/dL Red Cell Distribution Width 15.1 11.0-15.0 % Platelet Count 351 150-450 10 3/uL Mean Platelet Volume 9.6 9.5-13.5 fL Neutrophils Percent Auto 72.2 43.0-75.0 % Lymphocytes Percent Auto 15.0 20.5-60.0 % Monocytes Percent Auto 8.2 1.7-12.0 % Eosinophils Percent Auto 3.2 0.9-7.0 % Basophils Percent Auto 0.6 0.2-2.0 % Immature Granulocytes Pct Auto 0.8 0.0-0.5 % Neutrophils Absolute Auto 7.7 1.4-6.5 10 3/uL Lymphocytes Absolute Auto 1.6 1.2-3.8 10 3/uL Monocytes Absolute Auto 0.9 0.3-0.8 10 3/uL Eosinophils Absolute Auto 0.3 0.0-0.7 10 3/uL Basophils Absolute Auto 0.1 0.0-0.1 10 3/uL Immature Granulocytes Abs Auto 0.09 0.00-0.03 10 3/uL Performing Lab: see note ML - [facility] LB ITP Reviewed date:06/04/2025 10:42:42 AM Interpretation: Performing Lab: Notes/Report: Source Facility: [facility]-[address] [place] [address] [place] [address] Cardiac Rehab Report Signed Patient: ROBINA MCCABE MR#: [id number] : 1955 Acct:[id number] Age/Sex: 69 / F ADM Date: 05/27/25 Loc: CR Attending Dr: JAVI DONAHUE Ordering Physician: Darryl Schrader D.O. 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 Electronically Signed On 06-04-2025 10:01:25 EDT by Darryl Schrader Dictated By: Darryl Schrader D.O. Signed By: 06/04/25 1001 06/04/25 100 DD/ 1434 TD/TT: Clerical Investigator: [place] [address] Cardiac Rehab Report Signed Patient: SANFORD MCCABE MR#: [id number] : 1955 Acct:[id number] Age/Sex: 69 / F ADM Date: 05/27/25 Loc: CR Attending Dr: JAVI DONAHUE Ordering Physician: Darryl Schrader D.O. 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 Electronically Porsha d On 06-04-2025 10:01:25 EDT by Darryl Schrader Dictated By: Radha Schrader D.O. Signed By: 06/04/25 1001 06/04/25 100 DD/ 1434 TD/TT: Clerical Investigator: CT cervical spine wo tram Reviewed date:05/26/2025 08:44:38 PM Interpretation: Performing Lab: Notes/Report: Source Facility: [place] [address] [place] [address] CT Scan Report Signed Patient: ROBINA MCCABE MR#: [id number] : 1955 Acct:[id number] Age/Sex: 69 / F ADM Date: 05/26/25 Loc: ER Attending Dr: Ordering Physician: Ilda Babin Date of Service: 05/26/25 Procedure(s): CT cervical spine wo con Accession Number(s): [id number] cc: León Boregs M.D. [address] [address] Patient Name: ROBINA MCCABE MRN: [id number] date: 1955 Sex: F Assigned Patient Location: ER Current Patient Location: ER Accession/Order Number: [id number] Exam Date: 05/26/2025 16:32 Report Date: 05/26/2025 16:45 At the request of: ILDA JOHNSON Procedure: CT facial bones wo con Unenhanced head CT TECHNIQUE: Contiguous axial imaging of the head. The CT exam was performed using one or more the following dose reduction techniques: Automated exposure control, adjustment of the MA and/or Kv according to patient size, or use of the iterative reconstruction technique. COMPARISON: MRI the brain 05/09/2025 HISTORY: Dizziness. Left periorbital laceration. VENTRICLES: Within normal limits ATROPHY: Similar atrophy BRAIN PARENCHYMA: Decreased density of the white matter is most consistent with chronic small vessel disease. HEMORRHAGE: None HERNIATION: No mass effect or herniation INFARCTION: No recent vascular distribution infarction is seen. EXTRA-AXIAL FLUID COLLECTIONS None MIDBRAIN: Unremarkable DONNELL: Unremarkable MEDULLA: Unremarkable SINUSES: Unremarkable ORBITS: Grossly unremarkable MASTOIDS: Unremarkable BONY STRUCTURES Intact ADDITIONAL FINDINGS: CT Cervical Spine withoutcontrast TECHNIQUE: Axial imaging with 2-D and 3-D reconstruction. The CT exam was performed using one or more the following dose reduction techniques: Automated exposure control, adjustment of the MA and/or Kv according to patient size, or use of the iterative reconstruction technique. COMPARISON: None POST SURGERY CHANGES: None BONY ALIGNMENT: Straightening of cervical lordosis. Multilevel mild anterolisthesis. Associated extensive spondylosis and facet degeneration. BONY SPINAL CANAL: Patent central bony canal FRACTURE: No acute displaced fracture. Mild facet subluxation. Degenerative facet changes. BONY LESIONS: None SOFT TISSUES: Atherosclerosis of carotid bifurcations. DEGENERATIVE CHANGES: Extensive multilevel spondylosis. Extensive multilevel facet degeneration. LUNG APICES: Unremarkable ADDITIONAL FINDINGS: CT Facial Bones without contrast TECHNIQUE: Axial imaging with 2-D reconstruction. The CT exam was performed using one or more the following dose reduction techniques: Automated exposure control, adjustment of the MA and/or Kv according to patient size, or use of the iterative reconstruction technique. COMPARISON: None FRACTURES: None BONY LESIONS: None ORBITS: Unremarkable SINUSES: The sinuses are well pneumatized. SOFT TISSUES: Left periorbital soft tissue swelling/hematoma. ADDITIONAL FINDINGS: None CT/CT cervical spine wo con IMPRESSION: No acute findings of the head, cervical spine or facial bones.. Impression dictated by: Hermilo Hdez M.D. 05/26/2025 4:45 PM Dictation Location: [place] [address] Electronically authenticated by: [id number] Y Date: 05/26/2025 16:45 Dictated By: Hermilo Hdez D.O. Signed By: 05/26/251647 DD/ 44 TD/TT: Clerical Investigator: [place] [address] CT Scan Report Signed Patient: SANFORD MCCABE MR#: [id number] : 1955 Acct:[id number] Age/Sex: 69 / F ADM Date: 05/26/25 Loc: ER Attending Dr: Ordering Physician: Ilda Babin Date of Service: 05/26/25 Procedure(s): CT cer vical spine wo con Accession Number(s): [id number] cc: León Borges M.D. [address] [address] Patient Name: ROBINA MCCABE MRN: [id number] date: 1955 Sex: F Assigned Patient Loc ation: ER Current Patient Loca tion: ER Accession/Order Numb er: [id number] Exam Date: 05/26/2025 16:32 Report Date: 05/26/2025 16:45 At the request of: ILDA JOHNSON Procedure: CT facial bones wo con Unenhanced head CT TECHNIQUE: Contiguou s axial imaging of the head. The CT exam was performed using one or more th e following dose reduction techniques: Automated exposure control, adjustment of the MA and/or Kv according to patient size, or use of the iterative reconstruction technique. COMPARISON: MRI the brain 05/09/2025 HISTORY: Dizziness. Left periorbital laceration. VENTRICLES: Within n ormal limits ATROPHY: Similar atrophy BRAIN PARENCHYMA: Decreased density of the white matter is most consistent with chronic small v essel disease. HEMORRHAGE: None HERNIATION: No mass effect or herniation INFARCTION: No recen t vascular distribution infarction is seen. EXTRA-AXIAL FLUID COLLECTIONS None MIDBRAIN: Unremarkable DONNELL: Unremarkable MEDULLA: Unremarkable SINUSES: Unremarkable ORBITS: Grossly unremarkable MASTOIDS: Unremarkable BONY STRUCTURES Intact ADDITIONAL FINDINGS: CT Cervical Spine withoutcontrast TECHNIQUE: Axial iqra ging with 2-D and 3-D reconstruction. The CT exam was performed using one or more the following dose reduction techniques: Automated exposure control, adjustment of the MA and/or Kv according to patient size, or use of the iterative reconstruction technique. COMPARISON: None POST SURGERY CHANGES: None BONY ALIGNMENT: Straightening of cervical lordosis. Multilevel mild anterolisthesis. Associated extensive spondylosis and facet degeneration. BONY SPINAL CANAL: P atent central bony canal FRACTURE: No acute displaced fracture. Mild facet subluxation. Degenerative facet changes. BONY LESIONS: None SOFT TISSUES: Atherosclerosis of carotid bifurcations. DEGENERATIVE CHANGES : Extensive multilevel spondylosis. Extensive multilevel facet degeneration. LUNG APICES: Unremarkable ADDITIONAL FINDINGS: CT Facial Bones with out contrast TECHNIQUE: Axial iqra ging with 2-D reconstruction. The CT exam was performed using one or more th e following dose reduction techniques: Automated exposure control, adjustment of the MA and/or Kv according to patient size, or use of the iterative reconstruction technique. COMPARISON: None FRACTURES: None BONY LESIONS: None ORBITS: Unremarkable SINUSES: The sinuses are well pneumatized. SOFT TISSUES: Left periorbital soft tissue swelling/hematoma. ADDITIONAL FINDINGS: None C T/CT cervical spine wo con IMPRESSION: No acute findings of the head, cervical spine or facial bones.. Impression dictated by: Hermilo Hdez M.D. 05/26/2025 4:45 PM Dictation Location: [place] [address] Electronically authenticated by: [id number] Y Date: 05/26/2025 16:45 Dictated By: Antonio Hdez D.O. Signed By: 05/26/251647 DD/ 44 TD/TT: Clerical Investigator: CT head/brain wo con Reviewed date:05/26/2025 08:44:38 PM Interpretation: Performing Lab: Notes/Report: Source Facility: [place] [address] CT Scan Report Signed Patient: ROBINA MCCABE MR#: [id number] : 1955 Acct:[id number] Age/Sex: 69 / F ADM Date: 05/26/25 Loc: ER Attending Dr: Ordering Physician: Ilda Babin Date of Service: 05/26/25 Procedure(s): CT head/brain wo con Accession Number(s): [id number] cc: León Borges M.D. [place] [id number] Patient Name: ROBINA MCCABE MRN: [id number] date: 1955 Sex: F Assigned Patient Location: ER Current Patient Location: ER Accession/Order Number: [id number] Exam Date: 05/26/2025 16:32 Report Date: 05/26/2025 16:45 At the request of: ILDA JOHNSON Procedure: CT facial bones wo con Unenhanced head CT TECHNIQUE: Contiguous axial imaging of the head. The CT exam was performed using one or more the following dose reduction techniques: Automated exposure control, adjustment of the MA and/or Kv according to patient size, or use of the iterative reconstruction technique. COMPARISON: MRI the brain 05/09/2025 HISTORY: Dizziness. Left periorbital laceration. VENTRICLES: Within normal limits ATROPHY: Similar atrophy BRAIN PARENCHYMA: Decreased density of the white matter is most consistent with chronic small vessel disease. HEMORRHAGE: None HERNIATION: No mass effect or herniation INFARCTION: No recent vascular distribution infarction is seen. EXTRA-AXIAL FLUID COLLECTIONS None MIDBRAIN: Unremarkable DONNELL: Unremarkable MEDULLA: Unremarkable SINUSES: Unremarkable ORBITS: Grossly unremarkable MASTOIDS: Unremarkable BONY STRUCTURES Intact ADDITIONAL FINDINGS: CT Cervical Spine withoutcontrast TECHNIQUE: Axial imaging with 2-D and 3-D reconstruction. The CT exam was performed using one or more the following dose reduction techniques: Automated exposure control, adjustment of the MA and/or Kv according to patient size, or use of the iterative reconstruction technique. COMPARISON: None POST SURGERY CHANGES: None BONY ALIGNMENT: Straightening of cervical lordosis. Multilevel mild anterolisthesis. Associated extensive spondylosis and facet degeneration. BONY SPINAL CANAL: Patent central bony canal FRACTURE: No acute displaced fracture. Mild facet subluxation. Degenerative facet changes. BONY LESIONS: None SOFT TISSUES: Atherosclerosis of carotid bifurcations. DEGENERATIVE CHANGES: Extensive multilevel spondylosis. Extensive multilevel facet degeneration. LUNG APICES: Unremarkable ADDITIONAL FINDINGS: CT Facial Bones without contrast TECHNIQUE: Axial imaging with 2-D reconstruction. The CT exam was performed using one or more the following dose reduction techniques: Automated exposure control, adjustment of the MA and/or Kv according to patient size, or use of the iterative reconstruction technique. COMPARISON: None FRACTURES: None BONY LESIONS: None ORBITS: Unremarkable SINUSES: The sinuses are well pneumatized. SOFT TISSUES: Left periorbital soft tissue swelling/hematoma. ADDITIONAL FINDINGS: None CT/CT head/brain wo con IMPRESSION: No acute findings of the head, cervical spine or facial bones.. Impression dictated by: Hermilo Hdez M.D. 05/26/2025 4:45 PM Dictation Location: [place] [address] Electronically authenticated by: [id number] Y Date: 05/26/2025 16:45 Dictated By: Hermilo Hdez D.O. Signed By: 05/26/251647 DD/ 44 TD/TT: Clerical Investigator: The [place] [id number] CT Scan Report Signed Patient: SANFORD MCCABE MR#: [id number] : 1955 Acct:[id number] Age/Sex: 69 / F ADM Date: 05/26/25 Loc: ER Attending Dr: Ordering Physician: Ilda Babin Date of Service: 05/26/25 Procedure(s): CT head/brain wo con Accession Number(s): [id number] cc: León Borges M.D. The [address] [address] Patient Name: ROBINA MCCABE MRN: [id number] date: 1955 Sex: F Assigned Patient Loc ation: ER Current Patient Loca tion: ER Accession/Order Numb er: [id number] Exam Date: 05/26/2025 16:32 Report Date: 05/26/2025 16:45 At the request of: ILDA JOHNSON Procedure: CT facial bones wo con Unenhanced head CT TECHNIQUE: Contiguou s axial imaging of the head. The CT exam was performed using one or more th e following dose reduction techniques: Automated exposure control, adjustment of the MA and/or Kv according to patient size, or use of the iterative reconstruction technique. COMPARISON: MRI the brain 05/09/2025 HISTORY: Dizziness. Left periorbital laceration. VENTRICLES: Within n ormal limits ATROPHY: Similar atrophy BRAIN PARENCHYMA: Decreased density of the white matter is most consistent with chronic small v essel disease. HEMORRHAGE: None HERNIATION: No mass effect or herniation INFARCTION: No recen t vascular distribution infarction is seen. EXTRA-AXIAL FLUID COLLECTIONS None MIDBRAIN: Unremarkable DONNELL: Unremarkable MEDULLA: Unremarkable SINUSES: Unremarkable ORBITS: Grossly unremarkable MASTOIDS: Unremarkable BONY STRUCTURES Intact ADDITIONAL FINDINGS: CT Cervical Spine withoutcontrast TECHNIQUE: Axial iqra ging with 2-D and 3-D reconstruction. The CT exam was performed using one or more the following dose reduction techniques: Automated exposure control, adjustment of the MA and/or Kv according to patient size, or use of the iterative reconstruction technique. COMPARISON: None POST SURGERY CHANGES: None BONY ALIGNMENT: Straightening of cervical lordosis. Multilevel mild anterolisthesis. Associated extensive spondylosis and facet degeneration. BONY SPINAL CANAL: P atent central bony canal FRACTURE: No acute displaced fracture. Mild facet subluxation. Degenerative facet changes. BONY LESIONS: None SOFT TISSUES: Atherosclerosis of carotid bifurcations. DEGENERATIVE CHANGES : Extensive multilevel spondylosis. Extensive multilevel facet degeneration. LUNG APICES: Unremarkable ADDITIONAL FINDINGS: CT Facial Bones with out contrast TECHNIQUE: Axial iqra ging with 2-D reconstruction. The CT exam was performed using one or more th e following dose reduction techniques: Automated exposure control, adjustment of the MA and/or Kv according to patient size, or use of the iterative reconstruction technique. COMPARISON: None FRACTURES: None BONY LESIONS: None ORBITS: Unremarkable SINUSES: The sinuses are well pneumatized. SOFT TISSUES: Left periorbital soft tissue swelling/hematoma. ADDITIONAL FINDINGS: None C T/CT head/brain wo con IMPRESSION: No acute findings of the head, cervical spine or facial bones.. Impression dictated by: Hermilo Hdez M.D. 05/26/2025 4:45 PM Dictation Location: [place] [address] Electronically authenticated by: [id number] Y Date: 05/26/2025 16:45 Dictated By: Antonio Hdez D.O. Signed By: 05/26/251647 DD/ 44 TD/TT: Clerical Investigator: CT FACIAL BONES WO CON Reviewed date:05/26/2025 08:44:38 PM Interpretation: Performing Lab: Notes/Report: Source Facility: [place] [address] CT Scan Report Signed Patient: ROBINA MCCABE MR#: [id number] : 1955 Acct:[id number] Age/Sex: 69 / F ADM Date: 05/26/25 Loc: ER Attending Dr: Ordering Physician: Ilda Babin Date of Service: 05/26/25 Procedure(s): CT facial bones wo con Accession Number(s): [id number] cc: León Borges M.D. [place] [address] Patient Name: ROBINA MCCABE MRN: [id number] date: 1955 Sex: F Assigned Patient Location: ER Current Patient Location: ER Accession/Order Number: [id number] Exam Date: 05/26/2025 16:32 Report Date: 05/26/2025 16:45 At the request of: ILDA JOHNSON Procedure: CT facial bones wo con Unenhanced head CT TECHNIQUE: Contiguous axial imaging of the head. The CT exam was performed using one or more the following dose reduction techniques: Automated exposure control, adjustment of the MA and/or Kv according to patient size, or use of the iterative reconstruction technique. COMPARISON: MRI the brain 05/09/2025 HISTORY: Dizziness. Left periorbital laceration. VENTRICLES: Within normal limits ATROPHY: Similar atrophy BRAIN PARENCHYMA: Decreased density of the white matter is most consistent with chronic small vessel disease. HEMORRHAGE: None HERNIATION: No mass effect or herniation INFARCTION: No recent vascular distribution infarction is seen. EXTRA-AXIAL FLUID COLLECTIONS None MIDBRAIN: Unremarkable DONNELL: Unremarkable MEDULLA: Unremarkable SINUSES: Unremarkable ORBITS: Grossly unremarkable MASTOIDS: Unremarkable BONY STRUCTURES Intact ADDITIONAL FINDINGS: CT Cervical Spine withoutcontrast TECHNIQUE: Axial imaging with 2-D and 3-D reconstruction. The CT exam was performed using one or more the following dose reduction techniques: Automated exposure control, adjustment of the MA and/or Kv according to patient size, or use of the iterative reconstruction technique. COMPARISON: None POST SURGERY CHANGES: None BONY ALIGNMENT: Straightening of cervical lordosis. Multilevel mild anterolisthesis. Associated extensive spondylosis and facet degeneration. BONY SPINAL CANAL: Patent central bony canal FRACTURE: No acute displaced fracture. Mild facet subluxation. Degenerative facet changes. BONY LESIONS: None SOFT TISSUES: Atherosclerosis of carotid bifurcations. DEGENERATIVE CHANGES: Extensive multilevel spondylosis. Extensive multilevel facet degeneration. LUNG APICES: Unremarkable ADDITIONAL FINDINGS: CT Facial Bones without contrast TECHNIQUE: Axial imaging with 2-D reconstruction. The CT exam was performed using one or more the following dose reduction techniques: Automated exposure control, adjustment of the MA and/or Kv according to patient size, or use of the iterative reconstruction technique. COMPARISON: None FRACTURES: None BONY LESIONS: None ORBITS: Unremarkable SINUSES: The sinuses are well pneumatized. SOFT TISSUES: Left periorbital soft tissue swelling/hematoma. ADDITIONAL FINDINGS: None CT/CT facial bones wo con IMPRESSION: No acute findings of the head, cervical spine or facial bones.. Impression dictated by: Hermilo Hdez M.D. 05/26/2025 4:45 PM Dictation Location: [facility] Electronically authenticated by: [id number] Y Date: 05/26/2025 16:45 Dictated By: Hermilo Hdez D.O. Signed By: 05/26/258 DD/ 44 TD/TT: Clerical Investigator: The [address] [address] [address] Scan Report Signed Patient: SANFORD MCCABE MR#: [id number] : 1955 Acct:[id number] Age/Sex: 69 / F ADM Date: 05/26/25 Loc: ER Attending Dr: Ordering Physician: Ilda Babin Date of Service: 05/26/25 Procedure(s): CT fac ial bones wo con Accession Number(s): [id number] cc: León Borges M.D. [address] [address] Patient Name: ROBINA MCCABE MRN: [id number] date: 1955 Sex: F Assigned Patient Loc ation: ER Current Patient Loca tion: ER Accession/Order Numb er: [id number] Exam Date: 05/26/2025 16:32 Report Date: 05/26/2025 16:45 At the request of: ILDA JOHNSON Procedure: CT facial bones wo con Unenhanced head CT TECHNIQUE: Contiguou s axial imaging of the head. The CT exam was performed using one or more th e following dose reduction techniques: Automated exposure control, adjustment of the MA and/or Kv according to patient size, or use of the iterative reconstruction technique. COMPARISON: MRI the brain 05/09/2025 HISTORY: Dizziness. Left periorbital laceration. VENTRICLES: Within n ormal limits ATROPHY: Similar atrophy BRAIN PARENCHYMA: Decreased density of the white matter is most consistent with chronic small v essel disease. HEMORRHAGE: None HERNIATION: No mass effect or herniation INFARCTION: No recen t vascular distribution infarction is seen. EXTRA-AXIAL FLUID COLLECTIONS None MIDBRAIN: Unremarkable DONNELL: Unremarkable MEDULLA: Unremarkable SINUSES: Unremarkable ORBITS: Grossly unremarkable MASTOIDS: Unremarkable BONY STRUCTURES Intact ADDITIONAL FINDINGS: CT Cervical Spine withoutcontrast TECHNIQUE: Axial iqra ging with 2-D and 3-D reconstruction. The CT exam was performed using one or more the following dose reduction techniques: Automated exposure control, adjustment of the MA and/or Kv according to patient size, or use of the iterative reconstruction technique. COMPARISON: None POST SURGERY CHANGES: None BONY ALIGNMENT: Straightening of cervical lordosis. Multilevel mild anterolisthesis. Associated extensive spondylosis and facet degeneration. BONY SPINAL CANAL: P atent central bony canal FRACTURE: No acute displaced fracture. Mild facet subluxation. Degenerative facet changes. BONY LESIONS: None SOFT TISSUES: Atherosclerosis of carotid bifurcations. DEGENERATIVE CHANGES : Extensive multilevel spondylosis. Extensive multilevel facet degeneration. LUNG APICES: Unremarkable ADDITIONAL FINDINGS: CT Facial Bones with out contrast TECHNIQUE: Axial iqra ging with 2-D reconstruction. The CT exam was performed using one or more th e following dose reduction techniques: Automated exposure control, adjustment of the MA and/or Kv according to patient size, or use of the iterative reconstruction technique. COMPARISON: None FRACTURES: None BONY LESIONS: None ORBITS: Unremarkable SINUSES: The sinuses are well pneumatized. SOFT TISSUES: Left periorbital soft tissue swelling/hematoma. ADDITIONAL FINDINGS: None C T/CT facial bones wo con IMPRESSION: No acute findings of the head, cervical spine or facial bones.. Impression dictated by: Hermilo Hdez M.D. 05/26/2025 4:45 PM Dictation Location: [place] [address] Electronically authenticated by: [id number] Y Date: 05/26/2025 16:45 Dictated By: Antonio Hdez D.O. Signed By: 05/26/251647 DD/ 44 TD/TT: Clerical Investigator: Reason For Referral No Information Medications Medication SIG (Take, Route, Frequency, Duration) Notes Start Date End Date Status Cholecalciferol 100 MCG (4000 UT) 1 tablet Orally Once a day 05/22/2024 Active Triamcinolone Acetonide 0.1 % 1 application do not rinse afterwards and avoid eating or drinking for 30 minutes Mouth/Throat Twice a day for 30 days 01/10/2025 Active Citalopram Hydrobromide 20 MG TAKE 1 TABLET BY MOUTH EVERY DAY for 90 Active Xopenex HFA 45 MCG/ACT 1-2 puff as neede d Inhalation every 6 hrs 12/13/2024 Active Evoxac 30 MG 1 capsule Orally Thr ee times a day Active Lasix 20 MG 1 tablet Orally Once a day for 30 days 12/13/2024 Active Plaquenil 200 MG as directed Orally daily RHEUM Active Baby Aspirin Active Praluent 75 MG/ML Subcutaneous for 84 Days Active Budesonide ER 9 MG 1 tablet in the morn ing Orally Once a day Active Prolia 60 MG/ML as directed Subcutaneous Active Levothyroxine Sodium 75 MCG TAKE 1 TABLE T BY MOUTH EVERY DAY for 90 days Active Liothyronine Sodium 25 MCG TAKE 1/2 TABL ET BY MOUTH ON AN EMPTY STOMACH ONCE A DAY for 90 days Active predniSONE 5 MG 1 tablet with food o r milk Orally Once a day Active Metoprolol Succinate ER 50 MG 1 tablet Orally Once a day Active ALPRAZolam 0.5 MG 1/2 tablet as needed Orally TID for 30 days PRN 06/20/2025 Active Omeprazole 40 MG 1 capsule 1/2 to 1 h our before morning meal Orally Once a day Active Social History Tobacco Use: Social History [...] Problem Status W/U Status Risk Notes Problem 42914654 Malignant neoplasm of unspecified part of unspecified bronchus or lung (C34.90) Active confirmed Problem 195366773 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) Active confirmed Problem 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, 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 Problem Overweight (026145243) Overweight (E66.3) Active confirmed Problem 41626977 Anxiety disorder , unspecified (F41.9) Active confirmed Problem 414094038 Nonrheumatic aortic (valve) stenosis (I35.0) Active confirmed Problem 130655428 Nonrheumatic aortic (valve) insufficiency (I35.1) Active confirmed Problem 433534090 Localized swelling, mass and lump, trunk (R22.2) Active confirmed Problem 075161656 Other nonspecifi c abnormal finding of lung field (R91.8) Active confirmed Problem Intermittent claudication (38012646) Intermittent claudication (I73.9) Active confirmed Problem Cigarette smoker (11604261) Cigarette smoker (F17.210) Active confirmed Problem Hypothyroidism (96149669) Hypothyroidism (E03.9) Active confirmed Problem Edema (70498898) Edema (R60.9) Active confirmed Problem Essential hypertension (93230649) Essential hypertension (I10) Active confirmed Problem Arthritis (1690247) Arthritis (M19.90) Active confirmed Problem Osteopenia (932946683) Osteopenia (M85.80) Active confirmed Problem Carotid bruit (468345814) Carotid bruit (R09.89) Active confirmed Problem Dyspnea (066366886) Dyspnea (R06.00) Active confirmed Problem Osteoarthritis of knee (314995817) Osteoarthritis of knee (M17.9) Active confirmed Problem Insomnia (821714138) Insomnia (G47.00) Active confirmed Problem Lung cancer (885221716) Lung cancer (C34.90) Active confirmed Problem Acute sinusitis (40400948) Acute sinusitis (J01.90) Active confirmed Problem Colitis (39368942) Colitis (K52.9) Active confirmed Problem Gastritis (2056981) Gastritis (K29.70) Active confirmed Problem Urinary tract infection (55306181) Urinary tract infection (N39.0) Active confirmed Problem Seasonal allergic rhinitis (016724579) Allergic rhinitis, seasonal (J30.2) Active confirmed Problem Duodenitis (34804294) Duodenitis (K29.80) Active confirmed Problem Otalgia of left ear (finding) (0364282114) Otalgia, left (H92.02) Active confirmed Problem Uterine leiomyoma (98539777) Fibroid, uterine (D25.9) Active confirmed Problem 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 Problem Osteoarthritis of knee (115699012) Osteoarthritis of right knee (M17.11) Active confirmed Problem Abdominal aortic aneurysm (disorder) (527095972) Abdominal aortic aneurysm (AAA), unspecified part, unspecified whether ruptured (I71.40) Active confirmed Vital Signs Temperature 99.2 degrees Fahrenheit 12/13/2024 Oximetry 87 % 12/13/2024 Blood pressure diastolic 72 mm Hg 07/18/2025 Height 64 in 07/18/2025 Blood pressure systolic 118 mm Hg 07/18/2025 Weight 140.6 lbs 07/18/2025 BMI 24.13 kg/m2 07/18/2025 Procedures Procedure Date Ordered Date Performed Result Body Sit e ECG with Interpretation 12/13/2024 N/A EAR IRRIGATION - performed 12/13/2024 N/A Echocardiogram 12/13/2024 N/A Encounters Encounter Location Date Provider Diagnosis [facility] [address] [place] [address] 07/02/2025 Reji Hoy [facility] [address] [place] [address] 07/21/2025 Reji Hoy [facility] [address] [place] [address] 04/23/2025 Reji Hoy Hypothyroidism E03.9 [facility] [address] [place] [address] 05/23/2025 Reji Hoy Hypothyroidism E03.9 [facility] [address] [place] [address] 05/26/2025 Reji [facility] [address] [place] [address] 05/27/2025 Reji Hoy [facility] [address] [place] [address] 06/16/2025 Reji Luis Albertoy [facility] [address] [place] [address] 06/20/2025 Reji Hoy Hypothyroidism E03.9 [facility] [address] [place] [address] 01/24/2025 Reji Hoy [facility] [address] [place] [address] 01/24/2025 Reji [facility] [address] [place] [address] 01/28/2025 Reji [facility] [address] [place] [address] 02/13/2025 Reji [facility] [address] [place] [address] 02/21/2025 Reji Hoy Hypothyroidism E03.9 [facility] [address] [place] [address] 03/24/2025 Reji Hoy Hypothyroidism E03.9 [facility] [address] [place] [address] 12/16/2024 Reji Hoy [facility] [address] [place] [address] 12/22/2024 Reji Hoy [facility] [address] [place] [address] 12/23/2024 Reji Hoy Hypothyroidism E03.9 [facility] [address] [place] [address] 01/10/2025 Reji Hoy [facility] [address] [place] [address] 01/22/2025 Reji Hoy Hypothyroidism E03.9 [facility] [address] [place] [address] 01/22/2025 Reji Hoy [facility] [address] [place] [address] 08/22/2024 Reji Hoy Anxiety disorder, unspecified F41.9 [facility] [address] [place] [address] 09/23/2024 Keya Freire Anxiety disorder, unspecified F41.9 [facility] [address] [place] [address] 10/23/2024 Reji Hoy Anxiety disorder, unspecified F41.9 [facility] [address] [place] [address] 11/11/2024 Reji Hoy [facility] [address] [place] [address] 11/25/2024 Reji Hoy [facility] [address] [place] [address] 12/13/2024 Reji Sahuy Shortness of breath R06.02 [facility] [address] [place] [address] 07/23/2024 Reji Hoy Anxiety disorder, unspecified F41.9 [place] [address] [place] [address] 08/05/2024 Reji Hoy [place] [address] [place] [address] 11/25/2024 Reji Hoy Hypothyroidism E03.9 and Essential hypertension I10 [place] [address] [place] [address] 12/13/2024 Reji Hoy Hypothyroidism E03.9 ; Essential hypertension I10 ; Lung cancer C34.90 ; Dyspnea R06.00 ; Cerumen impaction H61.20 and Bilateral impacted cerumen H61.23 [place] [address] [place] [address] 05/23/2025 Reji Hoy Essential hypertensi on I10 ; Malignant neoplasm of unspecified part of unspecified bronchus or lung C34.90 and Secondary malignant neoplasm of brain C79.[address] [address] 06/02/2025 Reji Hoy Essential hypertensi on I10 [address] [address] 07/18/2025 Reji Hoy Essential hypertensi on I10 Assessments Encounter Date Diagnosis (ICD Code) Assessment Notes Treatment Notes Treatment Clinical Notes Section Notes 06/02/2025 Essential hypertension (ICD-10 - I10) leaving - bp med same - not drank that ay much 05/23/2025 Essential hypertension (ICD-10 - I10) stabel here and at home 05/23/2025 Malignant neoplasm of unspecified part of unspecified bronchus or lung (ICD-10 - C34.90) on immune therapy - seeing Dr Bravo 07/23/2024 Anxiety disorder, unspecified (ICD-10 - F41.9) 08/22/2024 Anxiety disorder, unspecified (ICD-10 - F41.9) 09/23/2024 Anxiety disorder, unspecified (ICD-10 - F41.9) 10/23/2024 Anxiety disorder, unspecified (ICD-10 - F41.9) 12/13/2024 Shortness of breath (ICD-10 - R06.02) 12/23/2024 Hypothyroidism (ICD-10 - E03.9) 01/22/2025 Hypothyroidism (ICD-10 - E03.9) 02/21/2025 Hypothyroidism (ICD-10 - E03.9) 03/24/2025 Hypothyroidism (ICD-10 - E03.9) 04/23/2025 Hypothyroidism (ICD-10 - E03.9) 05/23/2025 Hypothyroidism (ICD-10 - E03.9) 06/20/2025 Hypothyroidism (ICD-10 - E03.9) 07/18/2025 Essential hypertension (ICD-10 - I10) Cleared for OR - Hold asa 3-4 days prior and restart day after 11/25/2024 Hypothyroidism (ICD-10 - E03.9) 11/25/2024 Essential hypertension (ICD-10 - I10) 12/13/2024 Hypothyroidism (ICD-10 - E03.9) 12/13/2024 Essential hypertension (ICD-10 - I10) 12/13/2024 Lung cancer (ICD-10 - C34.90) 05/23/2025 Secondary malignant neoplasm of brain (ICD-10 - C79.31) See above 12/13/2024 Dyspnea (ICD-10 - R06.00) 12/13/2024 Cerumen [...] T3) 3 THYROID PANEL (T4/TSH/FREE T3) 4 Insurance Providers Payer Name Payer Address Payer Phone Subscriber Number Group Number Insured Name Patient Relationship to Insured Coverage Start Date Coverage End Date MEDICARE [place] [address] [address] [id number] Robina Mccabe Self - patient is the insured [facility] [address] [address] [place] [address] [id number] Plan F Robina Mccabe Self - patient [...] Surgical History Surgery Date(Month/Year) Hip Replacement- Right Knee Replacement- Let Thyroid Tumor Removal
--- OUTSIDE RECORDS SUMMARY | 2025-07-21 14:42 | XMS_ITS | Encounter Summary ---
Author Organization [facility] Address [address] [place] [address] Phone Care Team Providers Care Anesthesia Technician Name Role Phone Nikolay Borges MD Primary Care Provider [phone] Corina Butler RN Unavailable Unavailable Theo Medina MD Unavailable [phone] Encounter Details Date Type Department Care Team (Late st Contact Info) Description 03/29/2022 Orders Only [facility] [address] [place] [address] Conversion, Onbase Social History Tobacco Use Types [...] Description 08/01/2025 11:20 AM EDT Office Visit [address] [place] [address] Theo Medina MD [address] [facility] 2, [address] [place] [address] 04/10/2026 9:30 AM EDT Telemedicine Clinical Support [facility] [place] [address] [place] [address] Scheduled Orders Name Type Priority Associated Diagnoses Orde r Schedule OUTSIDE LAB SCAN Lab Ordered: 03/29/2022 documented as of this encounter Visit Diagnoses Not on filedocumented in this encounter Care Teams Anesthesia Technician Relationship Specialty Start Date End Date Nikolay Borges MD [address] [place] [address] PCP - General 04/26/22 Corina Butler, donation workerCard Writer Hand 04/18/25 07/17/25 Theo Medina MD [address] [facility] 2, [address] [address] Consulting Physician Cardiology 05/28/25 documented as of this encounter
--- OUTSIDE RECORDS SUMMARY | 2025-07-21 14:42 | XMS_ITS | Encounter Summary ---
Author Organization [facility] Address [address] [place] [address] Phone Care Team Providers Care Electric Solderer Name Role Phone Nikolay Borges MD Primary Care Provider [phone] Corina Butler RN Unavailable Unavailable Theo Medina MD Unavailable [phone] Encounter Details Date Type Department Care Team (Late st Contact Info) Description 06/29/[address] [facility] LEGACY [address] [place] [address] Conversion, Onbase Social History Tobacco Use Types [...] Description 08/01/2025 11:20 AM EDT Office Visit [address] [place] [address] Theo Medina MD [address] [facility] 2, [address] [place] [address] 04/10/2026 9:30 AM EDT Telemedicine Clinical Support [facility] [address] [place] [address] [place] [address] documented as of this encounter [...] documented as of this encounter Care Teams Electric Solderer Relationship Specialty Start Date End Date Nikolay Borges MD [address] [place] [address] PCP - General 04/26/22 Corina Butler, crankshaft grinderAir Deodorizer Servicer 04/18/25 07/17/25 Theo Medina MD [address] [facility] 2[address] [place] [address] Consulting Physician Cardiology 05/28/25 documented as of this encounter
--- OUTSIDE RECORDS SUMMARY | 2025-07-21 14:42 | XMS_ITS | Encounter Summary ---
Author Organization [facility] Address [address] [place] [address] Care Team Providers Care Physician/Internist Name Role Phone Nikolay Borges MD Primary Care Provider + Elina Raza APRN.FEED ELEVATOR WORKER Unavailable [phone] Alexx Nguyen MD Unavailable Unavail able Vianney Scherer RN Unavailable [phone] Unavailable [phone] Celina Hong Unavailable Unavailable Source Comments In the event this information is protected by the Federal Confidentiality of Alcohol and Drug AbusePatient Records regulations: The Federal rules restrict any use of the information to criminally investigate or prosecute any alcohol or drug abuse patient.[facility] Encounter Details Date Type Department Care Team (Late st Contact Info) Description 05/13/2024 Patient [facility] HB-[address] [place] [address] Ilda Somers RPh At your next appointment, choose [facility]. Social History Tobacco Use Types Packs/Day [...] is lower risk 8 05/02/2023 Data from: https://www.neighborhoodatlas.medicine.[facility]/. Last address used for calculation [address] [...] Description 08/04/2025 2:45 PM EDT Office Visit [facility] [address] [place] [address] [place] [address] 3 week follow up [facility] 08/04/2025 3:00 PM EDT Visit (SP) Office Hematology/Oncology [address] [place] [address] [place] [address] Federico Dyson MD [address] [place] [address] [place] [address] 3 week follow up [facility] 08/04/2025 3:30 PM EDT [facility] Center Hematology/Oncology [address] [place] [address] [place] [address] 3 week follow up [place] 12/29/2025 1:40 PM EST [facility] Rheumatology [address] [facility] [address] [facility] [place] [address] Crissy Juan MD [address] [facility] [address] [facility] [place] [address] Follow up visit for sjogrens/osteopenia/ osteoarthritis in 6-12months (ok for virtual or in person) documented as of this encounter Visit Diagnoses Not on filedocumented in this encounter Additional Health Concerns Infection Onset Date Last Indicated Resolved Time C. difficile 10/08/2024 10/08/2024 11/07/2024 8:51 PM EST documented as of this encounter Care Teams Physician/Internist Relationship Specialty Start Date End Date Nikolay Borges MD PCP - General Family Medicine 11/27/15 Elina Raza APRN.FEED ELEVATOR WORKER [address] [place] [address] [place] [address] Nurse Practitioner Hematology/Oncology 05/17/23 Alexx Nguyen MD [address] [place] [address] [place] [address] Physician Hematology/Oncology 05/17/23 06/01/25 Vianney Scherer, MIGUEL [address] [place] [address] [place] [address] Specialty Customer Service Rep Hematology/Oncology 05/17/[address] [place] [address] [place] [address] Registered Dietitian Nutrition 05/28/24 Celina Hong LSW Rehabilitation Supervisor 09/23/24 documented as of this encounter
--- OUTSIDE RECORDS SUMMARY | 2025-07-21 14:42 | XMS_ITS | Clinical Summary ---
Author Organization [facility] Address [address] [facility] [place] [address] Care Team Providers Care Machine Package Sealer Name Role Phone Nikolay Borges MD Primary Care Provider [phone] Allergies Active Allergy Reactions Criticality Noted Date [...] season) 2024 09/09/2021, 02/23/2021, 02/01/2021 Flu vaccine (#1) 06/27/2025 08/30/2022, , 08/23/2020, Additional history exists Respiratory Syncytial Virus [...] MEDICARE AET[employer] SENIOR MEDICARE SUPP Care Teams Machine Package Sealer Relationship Specialty Start Date End Date Nikloay Borges MD [address] [facility] [place] [address] PCP - General Family Medicine 04/13/23
--- OUTSIDE RECORDS SUMMARY | 2025-07-21 14:42 | XMS_ITS | Encounter Summary ---
Author Organization [facility] Address [address] [place] [address] Care Team Providers Care Wax Specialist Name Role Phone Nikolay Borges MD Primary Care Provider + Elina Raza APRN.BUSINESS BANKING RELATIONSHIP MANAGER Unavailable [phone] Alexx Nguyen MD Unavailable Unavail able Vianney Scherer RN Unavailable [phone] Unavailable [phone] Celina Hong SANITATION SUPERINTENDENT Unavailable Unavailable Source Comments In the event this information is protected by the Federal Confidentiality of Alcohol and Drug AbusePatient Records regulations: The Federal rules restrict any use of the information to criminally investigate or prosecute any alcohol or drug abuse patient.[facility] Encounter Details Date Type Department Care Team (Late st Contact Info) Description 06/04/2023 [place] [address] Provider, [facility] MRI Screening Questionnaire Completion Required Social History Tobacco Use Types Packs/Day Years Used Date Smoking Tobacco: Former Cigarettes 1 40 1 2019 Passive Smoke Exposure: Past Smokeless Tobacco: Never Alcohol Use Standard Drinks/Week Comments Not Currently 0 (1 standard drink = 0.6 oz pur e alcohol) Area Deprivation Index Answer Date Agus rded National Score (1-100), lower number is lower ri 86 05/02/2023 State Score (1-10), lower number is lower risk 8 05/02/2023 Data from: https://www.neighborhoodatlas.medicine.[facility].edu/. Last address used for calculation [address] [...] 2:45 PM EDT Office Visit [facility] [address] [place] [address] [place] [address] 3 week follow up [facility] 08/04/2025 3:00 PM EDT Visit (SP) Office Hematology/Oncology [address] [place] [address] [place] [address] Federico Dyson MD [address] [place] [address] 3 week follow up [place] 08/04/2025 3:30 PM EDT [facility] Center Hematology/Oncology [address] [place] [address] [place] [address] 3 week follow up [place] 12/29/2025 1:40 PM EST [facility] Rheumatology [address] [place], [place] [id number] Crissy Juan MD [address] [facility] [place] [address] Follow up visit for sjogrens/osteopenia/ osteoarthritis in 6-12months (ok for virtual or in person) documented as of this encounter Visit Diagnoses Not on filedocumented in this encounter Additional Health Concerns Infection Onset Date Last Indicated Resolved Time C. difficile 10/08/2024 10/08/2024 11/07/2024 8:51 PM EST documented as of this encounter Care Teams Wax Specialist Relationship Specialty Start Date End Date Nikolay Borges MD PCP - General Family Medicine 11/27/15 Elina Raza APRN.BUSINESS BANKING RELATIONSHIP MANAGER [address] [place] [address] [place] [address] Nurse Practitioner Hematology/Oncology 05/17/23 Alexx Nguyen MD [address] [place] [address] [place] [address] Physician Hematology/Oncology 05/17/23 06/01/25 Vianney Scherer, RN [address] [place] [address] [place] [address] Specialty Glass Etcher Helper Hematology/Oncology 05/17/[address] [place] [address] [place] [address] Registered Dietitian Nutrition 05/28/24 Celina Hong LSW Tumbling Instructor 09/23/24 documented as of this encounter
--- OUTSIDE RECORDS SUMMARY | 2025-07-21 14:42 | XMS_ITS | Encounter Summary ---
Author Organization [facility] Address [address] [place] [address] Care Team Providers Care Drink Mixer Name Role Phone Nikolay Borges MD Primary Care Provider + Elina Raza APRN.SHADE MATCHER Unavailable [phone] Alexx Nguyen MD Unavailable Unavail able Vianney Scherer RN Unavailable [phone] Unavailable [phone] Celina Hong Unavailable Unavailable Source Comments In the event this information is protected by the Federal Confidentiality of Alcohol and Drug AbusePatient Records regulations: The Federal rules restrict any use of the information to criminally investigate or prosecute any alcohol or drug abuse patient.[facility] Encounter Details Date Type Department Care Team (Late st Contact Info) Description 05/26/2023 Get Medical Advice [facility] [address] [place] [address] Blake Henson MD [address] [place] [address] Radiation Appointment Social History Tobacco [...] is lower risk 8 05/02/2023 Data from: https://www.neighborhoodatlas.medicine.[facility].edu/. Last address used for calculation [address] [...] Description 08/04/2025 2:45 PM EDT Office Visit [facility] [address] [place] [address] [place] [address] 3 week follow up [place] 08/04/2025 3:00 PM EDT Visit (SP) Office Hematology/Oncology [address] [place] [address] [place] [address] Federico Dyson MD [address] [place] [address] [place] [address] 3 week follow up [place] 08/04/2025 3:30 PM EDT [facility] Hematology/Oncology [address] [place] [address] [place] [address] 3 week follow up [place] 12/29/2025 1:40 PM [facility] Rheumatology [address] [facility] [place] [address] Crissy Juan MD [address] [place] [address] Follow up visit for sjogrens/osteopenia/ osteoarthritis in 6-12months (ok for virtual or in person) documented as of this encounter Visit Diagnoses Not on filedocumented in this encounter Additional Health Concerns Infection Onset Date Last Indicated Resolved Time C. difficile 10/08/2024 10/08/2024 11/07/2024 8:51 PM EST documented as of this encounter Care Teams Drink Mixer Relationship Specialty Start Date End Date Nikolay Borges MD PCP - General Family Medicine 11/27/15 Elina Raza APRN.SHADE MATCHER [address] [place] [address] [place] [address] Nurse Practitioner Hematology/Oncology 05/17/23 Alexx Nguyen MD [address] [place] [address] [place] [address] Physician Hematology/Oncology 05/17/23 06/01/25 Vianney Scherer, MIGUEL [address] [place] [address] [place] [address] Specialty Sole Dyer Hematology/Oncology 05/17/[address] [place] [address] [place] [address] Registered Dietitian Nutrition 05/28/24 Celina Hong LSW Group Teacher 09/23/24 documented as of this encounter
[2025-07-29 10:00] LABS: Alanine Aminotransferase 53 U/L (14-59); Aspartate Amino Transferase 39 U/L (15-37); Cholesterol 160 mg/dL (<=200); HDL Cholesterol 69 mg/dL (40-60); Triglycerides 95 mg/dL (<=150); VLDL CHOLESTEROL 19.0 mg/dL
== END 2025-07-29 09:05 | disposition home or self-care (01) ==
LOC: LAB 09:04
PROVIDERS: PCP Family Medicine; Visit Provider Internal Medicine Cardiovascular Disease
DX: I73.9 Peripheral vascular disease, unspecified (principal); E78.2 Mixed hyperlipidemia
CPT/HCPCS: 36415; 80061; 84450; 84460

== ENCOUNTER 2025-08-11 11:40 | Outpatient (RCR) | payer MEDICARE, SELFPAY ==
[2025-08-11 11:40] VITALS: BP 134/80; PULSE 74; TEMP 36; O2SAT 96
[2025-08-11] MEDS: DENOSUMAB 60 MG/ML SYRINGE SQ (12:07)
== END 2025-08-26 23:59 | disposition home or self-care (01) ==
LOC: INF 11:40
PROVIDERS: PCP Family Medicine; Visit Provider Family Medicine
DX: M85.80 Other specified disorders of bone density and structure, unspecified site (principal)
CPT/HCPCS: 96372; J0897

== ENCOUNTER 2025-10-31 12:32 | Outpatient (OUT) | payer MEDICARE, SELFPAY ==
--- OUTSIDE RECORDS SUMMARY | 2025-10-27 15:00 | XMS_ITS | Encounter Summary ---
Author Organization [facility] Address [address] [place] [id number] Care Team Providers Care Child Support Case Officer Name Role Phone Nikolay Borges MD Primary Care Provider + Elina Raza APRN.RE RECORDING MIXER Unavailable [phone] Vianney Scherer RN Unavailable [phone] Unavailable [phone] Celina Hong CATERING COORDINATOR Unavailable Unavailable Katie Segundo RD Unavailable [phone] Source Comments In the event this information is protected by the Federal Confidentiality of Alcohol and Drug AbusePatient Records regulations: The Federal rules restrict any use of the information to criminally investigate or prosecute any alcohol or drug abuse patient.[facility] Reason for Visit * ReasonCommentsLung CancerChemotherapy Treatment Encounter Details DateTypeDepartmentCare Team (Latest Contact Info)Ewbojrrwmoq08/01/2025 3:00 PM ESTVisit (SP) Office Hematology/Oncology [address] [place] [address] [place] [address] Maria Isabel Camargo APRN.RE RECORDING MIXER [address] [place] [address] 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, right (HCC) (Primary Dx); 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); Metastasis to brain (HCC); Encounter for immunotherapy; Malignant neoplasm of overlapping sites of right lung (HCC); senior living (current) use of systemic steroids Social History Tobacco UseTypesPacks/DayYears UsedDateSmoking Tobacco: [id number] - 2019Passive Smoke Exposure: PastSmokeless Tobacco: NeverAlcohol UseStandard Drinks/WeekCommentsNot Currently0 (1 standard drink = 0.6 oz pure alcohol)PHQ-2 AnswerDate RecordedPHQ-2 evqqc09212/21/2023Hunger Vital SignAnswerDate Recorded Within the past 12 months, you worried that your food would run out before you got the money to buymore.Never true10/06/2025Within the past 12 months, the food you bought just didn't last and you didn't have money to get more.Never true 10/06/2025rea Deprivation IndexAnswerDate RecordedNational Score (1-100), lower number is lower apmi948005/02/2023State Score (1-10), lower number is lower risk8 3Data from: https://www.neighborhoodatlas.medicine.[facility].edu/. Last address used for vouhcizbide[address]05/02/2023CommentsNoSex and Gender InformationValueDate RecordedSex Assigned at SdstlXzxrpl53/07/2023 12:14 PM EDTLegal ZbuUwlvea68/28/2018 11:13 AM EDTGender IdentityNot on fileSexual OrientationNot on filedocumented as of this encounter Last Filed Vital Signs Vital SignReadingTime TakenCommentsBlood Anofzjzo833/8210/27/2025 2:58 PM EST right wpyQcbqh1758/01/2025 2:53 PM AAJVsjijwrgrpw53.2 ??C (97.2 ??F)10/27/2025 2:53 PM ESTRespiratory Zpkp971012/28/2024 2:53 PM ESTOxygen Aedzudhcbq93% 10/27/2025 2:53 PM ESTInhaled Oxygen Concentration--Hzjjge03.8 kg (140 lb 10.5 oz)10/27/2025 2:53 PM ESTHeight--Body Mass Index24.31008/04/2025 2:59 PM EDT documented in this encounter Progress Notes * Maria Isabel Camargo APRN.RE RECORDING MIXER - 10/27/2025 3:09 PM EST Images from the original note were not included. NAME: Jackie Mccabe CLINIC NO.: [id number] DATE OF SERVICE: October 27, 2025 (Raman) Some elements in this clinic note that are critical to medical decision making have been carefully reviewed and included from a prior clinic note dated: October 06, 2025 (Ry) Referring Provider: BRMadhu Additional Clinicians involved in Jackie Mccabe's care:: Dr. Nikolay Borges, Dr. Wu, Dr. Roche, Dr. Balderas, Dr. Daniel Neville, Dr. Castellon, Dr. Crissy Juan, Dr.Saju Gonzales, Dr. Montejo ([facility]) DIAGNOSIS: CASE SUMMARY / ASSESSMENT: 69 year old woman with 1. Primary lung cancer with metastasis from [...] pembrolizumab continued. The patient was referred to [facility] rheumatology (Dr. Juan), and with supportive [...] resumed 04/28/2025. Follow-up PET scan 05/14/2025 stable. If the patient develops disease progression on immunotherapy other treatment options would include KRAS G12C targeted therapy or standard chemotherapy. 2. Metastasis to brain (HCC) - ICD9: 198.3, ICD10: C79.31 Baseline brain MRI 05/17/2023 revealed a 15 mm lesion in the right parietal lobe consistent with brain metastasis from primary lung cancer. The patient was referred to [facility] neurosurgery to evaluate forgamma knife, which [...] months. She will be referred back to [facility] neurosurgery if her brain metastases worsen. [...] Status post right total hip arthroplasty at [facility] Aug 2022. Status post left total knee arthroplasty at [facility] January 2023. Currently minimally symptomatic. Continue management per PCP/orthopedics 7. Positive QUINCY Positive QUINCY in February 2022. Initial rheumatologic evaluation unremarkable. January 2024 the patient developed increasing dry mouth and mouth sores. 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 Improved on current medications. Continue management per [facility] rheumatology (Dr. Juan). 8. Colitis - ICD9: 558.9, ICD10: K52.9 Since July 2023 the patient has had intermittent diarrhea while receiving immunotherapy. Improved with intermittent steroid treatment. EGD/colonoscopy 11/01/2024 revealed evidence of esophagitis,gastritis, and colitis. Patient started budesonide November 2024 and symptoms improved. Currently stable. Continue management per [facility]. SUMMARIZED PLAN OF CARE: Proceed Keytruda C33 q 3 weeks if LFTs stable Labs every 3 weeks Anticipate scans in October - Ordered PET scan today - scheduled on . MRI of brain scheduled for 10/31/25 Continue Prednisone 5mg daily RTC in 3 weeks - labs same day and treat AI Assisted A/P: 1. 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, right (HCC) (C34.91) 2. 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 Metastasis to brain (HCC) (C79.31) 4. Malignant neoplasm of overlapping sites of right lung (HCC) (C34.81) 5. Encounter for immunotherapy (Z29.89) Clinically stable on cycle 33 of pembrolizumab. No new symptoms. Labs including CBC and LFTs stableexcept for mild, stable elevation in one liver enzyme. No evidence of disease progression. Brain MRI scheduled for 10/31/25. Patient reports good functional status and is tolerating therapy well. - Continue pembrolizumab (Keytruda) 200 mg IV every 3 weeks. - Continue to monitor labs including CBC and LFTs with each cycle. - MRI brain scheduled for 10/31/25. - Anticipate restaging scans in October (PET/CT already ordered for 11/10/25). - Continue cardiac rehab as tolerated. - Return to clinic in 3 weeks for follow-up. 6. senior living (current) use of systemic steroids (Z79.52) On prednisone 5 mg daily for immunotherapy-related inflammation and mouth sores. Tolerating well, no new side effects reported. - Continue prednisone 5 mg daily. - Monitor for steroid-related side effects. - Reinforce adherence to current steroid regimen. CASE HISTORY: Reverse Chronological Order 05/14/2025 - PET/CT: Since FDG PET/CT 2024 - PRIMARY DISEASE SITE: * Medial right upper lobe masslike consolidation has decreased in metabolic activity, presumed resolving treatment related inflammatory uptake. Continued attention on follow-up recommended. RAMIRO DISEASE: * No metabolically active hilar or mediastinal lymphadenopathy. METASTATIC DISEASE: * Scattered bilateral pulmonary nodules with low-level uptake have decreased insize and metabolic activity. ADDITIONAL FINDINGS: * Diffuse uptake in the upper to mid esophagus has continued to increase in intensity, favored to be inflammatory. Correlation with endoscopy is recommended if not already performed. * Mildly avid bilateral cervical nodes are similar to prior, presumed benign/reactive. 05/09/2025 - MRI Brain )[facility]) No acute intracranial findings. No metastatic disease. Chronic small vessel ischemic changes. 07/21/2023 CT chest ([facility]) Decreased size of dominant medial right upper lobe mass compared to February 2023. Decreased size of multiple additional pulmonary parenchymal metastatic nodules. Decrease mediastinal lymphadenopathy. 07/19/2023 MRI brain ([facility]) Slight interval decrease in size of the right cortical parietal lesion, presumably metastasis. This suggest treatment response. No definite new metastases. 07/13/2023 Prednisone 40 mg daily for immune transaminitis - weaned off 07/03/2023 revealed increased LFTs consistent with immunotherapy-induced transaminitis 05/22/2023 - Current: Keytruda single agent 05/17/2023 MRI brain ([facility]) There is a 15 mm peripherally enhancing mass in the lateral aspect of the right parietal lobe with a small amount of surrounding edema. This is suspicious for intracranial metastatic disease. 05/09/2023 - EBUS biopsy and right thoracentesis confirmed adenocarcinoma. PD-L1 100%, otherwise no actionable mutations 05/09/2023 EBUS biopsy and right thoracentesis A [...] ([id number])]. KRAS - A sequence change: c.34G>T (p.Bto39Jem) in exon 2 was detected at approximately 5% allelic proportion ([place] coverage [place] change 51395) [Reference Sequence: ([id number])]. MET - No variant detected [Reference Sequence: ([id number])]. 05/04/2023 PET scan IMPRESSION: 1. HEAD and [...] FDG avid neoplastic process. 03/16/2023 CT chest ([facility]) Large right perihilar mass suspected malignancy. Numerous nodules throughout the lungs compatible with metastatic disease. Mild mediastinal and likely right hilar adenopathy. Marked atherosclerotic coronary artery disease. HPI: Updated Visit, October 27, 2025: The patient presents for cycle 33 of Keytruda. She reports feeling well overall, with no rash, diarrhea, nausea, vomiting, fever, chills, or visual changes. She notes a transient cough on Monday, which she attributes to a tickle in her throat, and started taking Claritin with improvement. She denies shortness of breath. She is currently taking prednisone 5 mg daily. She recently resumed cardiac rehab after eye surgery, though she notes she was less consistent with attendance around [facility] due to the holiday closure. MRI of the brain is scheduled for 10/31. Updated Visit, October 06: The patient is a 69-year-old female with a history of metastatic lung cancer on pembrolizumab therapy, presenting for follow-up. The patient is currently receiving pembrolizumab every 3 weeks. Today, she reports oral pain that worsens with salty foods, making eating and drinking uncomfortable at times. She also notes easy bruising, but denies diarrhea, nausea, vomiting, skin rash, cough, or shortness of breath. She occasionally reduces her budesonide dose due to bowel changes. She has a sore throat today, and her has similar symptoms. She received a flu shot this year but declined the COVID vaccine. She reports limited social interaction during winter months, except for essential outings like grocery shopping, which she schedules to avoid crowds. Updated Visit, September 15, 2025: Jackie is here with Julissa. Overall is about the same. Tolerates Keytruda without issues. Mouth sores remain the same. Denies any diarrhea while taking the budesonide. She is also on Prednisone 5mg daily. Denies any rash, fever, chills, cough or worsening shortness of breath. Updated Visit, August 25, 2025: Jackie is here with her daughter for follow up. She started B complex for 3 weeks and she hasn't noticed any change in her mouth sores. She is on Magnesium Oxide 400 mg now per cardiology. No diarrhea. She remains on budesonide. Remains on Prednisone 5 mg as well. Updated Visit, August 04, 2025: AZAEL Alonso Patient with a history of metastatic cancer, currently managed with pembrolizumab, presents for follow-up. She has been off treatment for approximately 12 weeks due to elevated liver enzymes. Recent labs showed improvement in AST and ALT levels. She plans to resume pembrolizumab today, pending lab results. In April, a PET scan showed no significant activity, and a brain MRI revealed no active lesions. Shehas a history of a small brain metastasis, which has shown no activity since starting pembrolizumabtwo years ago. Scans were initially every three months but have been extended to every six months, with the next scan scheduled for October. She completed 15 radiation therapy sessions, which reportedly caused esophageal inflammation. She was evaluated by gastroenterology and started on omeprazole, which has improved her symptoms. She reports ongoing oral mucositis and geographic tongue, previously evaluated at the [facility]. She was diagnosed with xerostomia and started on hydroxychloroquine and cevimeline, with partial improvement. She is currently on a maintenance dose of prednisone 5 mg daily. She also reports a history of diarrhea, now controlled with budesonide, though she occasionally skips doses due to constipation. She underwent a TAVR procedure in March and is on magnesium oxide for cardiac issues. She denies having a port and states her veins are still hanging in. (No date) Laboratory Tests: - AST: Within normal limits - ALT: Within normal limits (April) PET Scan: No active disease except mild mid-esophageal uptake consistent with inflammation (April) MRI Brain: No evidence of disease activity EGD and Colonoscopy: Findings of esophageal inflammation, prompting initiation of omeprazole Updated Visit, July 07, 2025 (Raman): This is a 69 year old female with metastatic lung cancer, seen for scheduled follow-up and continued treatment. Since the patient's last visit here she [...] the mornings when taking her thyroid medication. REVIEW OF SYSTEMS Per HPI and otherwise negative by full review of organ systems. Constitutional: (-) fever, (-) chills Eyes: (-) visual changes Skin: (-) rash Respiratory: (+) cough, (-) shortness of breath Gastrointestinal: (-) nausea, (-) vomiting, (-) diarrhea ECOG PERFORMANCE STATUS: 0 PHYSICAL EXAMINATION: Vitals: BP 120/82[right arm[ Pulse 71 Temp (Src) 97.2 (Temporal) Resp 16 Wt 140 lb 10.5 oz (63.8kg) SpO2 98% Body surface area is 1.69 meters squared. General: Alert and oriented, no distress, pleasant and cooperative. Heart: Regular, normal S1 and S2, no murmurs, rubs, or gallops. Lungs: Clear to auscultation bilaterally. Abdomen: Benign. Extremities: Feet/ankles without edema. ALLERGIES: Allergies Allergen Reactions Ciprofloxacin Rash MEDICATIONS: brimonidine (ALPHAGAN) 0.2 % ophthalmic solution^1 drop.^Disp: ^Rfl: nystatin (MYCOSTATIN) 100,000 unit/mL suspension^Swish and swallow 5 mL by mouth four times daily.^Disp: 473 mL^Rfl: 3 hydrOXYchloroQUINE (PLAQUENIL) 200 mg tablet^TAKE 1 TAB BY MOUTH DAILY WITH FOOD.SUNSCREEN WHEN OUTDOORS.SEE EYE DR EVERY 6-12 MONTHS ON MED.^Disp: 90 tablet^Rfl: 3 lidocaine viscous (XYLOCAINE) 2 % solution^SWISH AND SPIT 15 ML BY MOUTH NEEDED FOR UP TO 7 DAYS^Disp: 100 mL^Rfl: 0 predniSONE (DELTASONE) 5 mg tablet^Take 1 tablet by mouth once daily.^Disp: 30 tablet^Rfl: 3 PRALUENT PEN 75 mg/mL pen^INJECT ONE TIME EVERY 2 WEEKS^Disp: ^Rfl: metoprolol succinate ER (TOPROL XL) 50 mg 24 hr tablet^Take 50 mg by mouth.^Disp: ^Rfl: aspirin, enteric coated (ASPIRIN, ENTERIC COATED) 81 mg EC tablet^Take 81 mg by mouth once daily.^Disp: ^Rfl: budesonide, enteric coated (ENTOCORT EC) 3 mg 24 hr capsule^Take 3 mg by mouth once daily. 3 tabs in am daily^Disp: ^Rfl: omeprazole (PRILOSEC) 40 mg capsule^Take 40 mg by mouth once daily.^Disp: ^Rfl: diphenoxylate-atropine (LOMOTIL) 2.5-0.025 mg per tablet^TAKE 1 TABLET BY MOUTH BEFORE MEALS AND ATBEDTIME NEEDED^Disp: 120 tablet^Rfl: 3 KAOPECTATE, ATTAPULGITE, ORAL^Take by mouth as needed.^Disp: ^Rfl: cevimeline (EVOXAC) 30 mg capsule^TAKE 1 CAPSULE BY MOUTH UP TO 3 TIMES DAILY NEEDED FOR DRYNESS^Disp: 270 capsule^Rfl: 3 diphenhydrAMINE 12.5 mg/5 mL lidocaine visc 2% MAALOX 200-200-20 mg/5 mL nystatin prednisoLONE 15 mg/5 mL oral liquid 1:1:1:1:1 (CPD)^Swish and spit 5 mL by mouth every 6 hours as needed.^Disp: 300 mL^Rfl: 3 sodium chloride soluble tablet 1 g^Take 1 tablet by mouth two times a day.^Disp: ^Rfl: triamcinolone (KENALOG IN ORABASE) 0.1 % paste^^Disp: ^Rfl: ALPRAZolam (XANAX) 0.5 mg tablet^1/2 tablet as needed Orally TID for 30 days^Disp: ^Rfl: levothyroxine (SYNTHROID) 75 mcg tablet^Take 1 tablet by mouth every afternoon.^Disp: ^Rfl: citalopram (CELEXA) 20 mg tablet^Take 20 mg by mouth.^Disp: ^Rfl: traMADol (ULTRAM) 50 mg tablet^Take 50 mg by mouth every 6 hours as needed for pain.^Disp: ^Rfl: cholecalciferol (VITAMIN D3) 50 mcg (2,000 unit) tablet^Take 2,000 Units by mouth once daily.^Disp:^Rfl: liothyronine (CYTOMEL) 25 mcg tablet^Take 25 mcg by mouth once daily.^Disp: ^Rfl: LABORATORY VALUES: WBC (k/uL) Date Value 10/27/2025 12.31 (H) RBC (m/uL) Date Value 10/27/2025 4.50 Hemoglobin (g/dL) Date Value 10/27/2025 14.3 Hematocrit (%) Date Value 10/27/2025 40.1 MCV (fL) Date Value 10/27/2025 89.1 MCH (pg) Date Value 10/27/2025 31.8 MCHC (g/dL) Date Value 10/27/2025 35.7 RDW-CV (%) Date Value 10/27/2025 15.4 (H) Platelet Count (k/uL) Date Value 10/27/2025 388 MPV (fL) Date Value 10/27/2025 9.1 Glucose (mg/dL) Date Value 10/27/2025 101 (H) BUN (mg/dL) Date Value 10/27/2025 14 Creatinine (mg/dL) Date Value 10/27/2025 0.62 Sodium (mmol/L) Date Value 10/27/2025 133 (L) Potassium (mmol/L) Date Value 10/27/2025 4.5 Chloride (mmol/L) Date Value 10/27/2025 96 (L) CO2 (mmol/L) Date Value 10/27/2025 29 Protein, Total (g/dL) Date Value 10/27/2025 7.1 Albumin (g/dL) Date Value 10/27/2025 3.8 (L) Calcium, Total (mg/dL) Date Value 10/27/2025 9.6 Alkaline Phosphatase (U/L) Date Value 10/27/2025 102 Bilirubin, Total (mg/dL) Date Value 10/27/2025 0.5 AST (U/L) Date Value 10/27/2025 38 (H) ALT (U/L) Date Value 10/27/2025 32 DIAGNOSIS: (C34.91) 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, right (HCC) (primary encounter diagnosis) (E03.2) 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 Wu Near syncope PAD (peripheral artery disease) Phlebitis Primary osteoarthritis involving multiple joints PAST SURGICAL HISTORY Procedure Laterality Date BIOPSY LUNG CYSTOSCOPY EXC PAROTID TUMOR; LAT W/DISSECTION NRV 2006 PAST SURGICAL HISTORY OF Aortic valve replaced ROTATOR CUFF REPAIR Right 2001 THORACENTESIS TUBAL LIGATION Social History[1] FAMILY HISTORY Problem Relation Age of Onset Ischemic Heart Disease Mother Diabetes Mother Stroke Mother Colon Cancer Father Systemic Lupus Erythematosus Sister Ischemic Heart Disease Sister Systemic Lupus Erythematosus Niece I spent a total of 20 minutes on the date of the service which included preparing to see the patient, xakw-nu-tngh patient care, completing clinical documentation, performing a medically appropriate examination, counseling and educating the patient/family/caregiver, ordering medications, tests, or p rocedures, independently interpreting results (not separately reported), communicating results to the patient/family/caregiver, and care coordination (not separately reported). Maria Isabel Camargo APRN, SUPERVISOR PROPERTIES-C, [facility] Provided at: [place], [place] CC: Nikolay Borges MD [address] [address] [1] Social History Tobacco Use Smoking status: Former Current packs/day: 0.00 Average packs/day: 1 pack/day for 40.0 years (40.0 ttl pk-yrs) Types: Cigarettes Start date: 1979 Quit date: 2020 Years since quittin.9 Passive exposure: Past Smokeless tobacco: Never Vaping Use Vaping status: Never Used Substance Use Topics Alcohol use: Not Currently Drug use: Not Currently documented in this encounter Plan of Treatment DateTypeDepartmentCare Team (Latest Contact Info)Wvahhpyfcni19/15/2025 1:30 PM ESTAppointment Radiology Pet CT [address] [place] [address] PET11/17/2025 1:00 PM ESTOffice Visit [facility] [address] [place] [address] 3 week follow up Ywjwnynv05/22/2025 1:20 PM ESTVisit (SP) Office Hematology/Oncology [address] [place] [address] Federico Dyson MD [address] [place] [address] 3 week follow up Houiousy90/22/2025 1:45 PM ESTInfusion Center Hematology/Oncology [address] [facility] [place] [address] 3 week follow up Kjqxbgik76/12/2026 2:45 PM ESTOffice Visit [facility] [address] [place] [address] 3 week follow up Nzslyhqk45/12/2026 3:00 PM ESTVisit (SP) Office Hematology/Oncology [address] [place] [address] Antoinette Crenshaw PA-C [address] [place] [address] [place] [address] 3 week follow up Vvepgbqk32/12/2026 3:30 PM [facility] Hematology/Oncology [address] [place] [address] [place] [address] 3 week follow up Tthwapdf29/02/2026 1:40 PM [facility] [address] [place] [address] Crissy Juan MD [address] [facility] [address] Follow up visit for sjogrens/osteopenia/osteoarthritis in 6-12months (ok for virtual or in person)documented as of this encounter Visit Diagnoses Diagnosis 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, right (HCC)- Primary 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) Secondary malignant neoplasm of brain and spinal cord Encounter for immunotherapy Malignant neoplasm of overlapping sites of right lung (HCC) 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 documented in this encounter Care Teams Team MemberRelationshipSpecialtyStart DateEnd Date Nikolay Borges MD PCP - GeneralFamily Medicine11/27/15 Elina Raza APRN.RE RECORDING MIXER [address] [place] [address] [place] [address] Nurse PractitionerHematology/Oncology05/17/23 Vianney Scherer, MIGUEL [address] [place] [address] [place] [address] Specialty Care CoordinatorHematology/Oncology05/17/[address] [place] [address] [place] [address] Registered DietitianNutrition05/28/24 Celina Hong LSW Social Kflqfg45/28/[address] [place] [address] [place] [address] Hismfygyi15/10/25documented as of this encounter
--- OUTSIDE RECORDS SUMMARY | 2025-10-27 15:30 | XMS_ITS | Encounter Summary ---
Author Organization [facility] Address [address] [place] [address] Care Team Providers Care Global Analytics Head Name Role Phone Nikolay Borges MD Primary Care Provider + Elina Raza APRN.ANALYTICAL TECH Unavailable [phone] Vianney Scherer RN Unavailable [phone] Unavailable [phone] Celina Hong FIRST ASSIST Unavailable Unavailable Katie Segundo RD Unavailable [phone] Source Comments In the event this information is protected by the Federal Confidentiality of Alcohol and Drug AbusePatient Records regulations: The Federal rules restrict any use of the information to criminally investigate or prosecute any alcohol or drug abuse patient.[facility] Reason for Visit * Gilbert Prior Authorization (Routine) - AuthorizedSpecialtyDiagnoses / ProceduresReferred By ContactReferred To Contact Diagnoses 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, right (HCC) Alexx Nguyen MD Hematology/Oncology [address] [place] [address] [place] [address] Phone: tel: fax: Referral IDStatusReasonStart DateExpiration DateVisits RequestedVisits [id number]/19/20239/999 Encounter Details DateTypeDepartmentCare Team (Latest Contact Info)Xvmjwuwlivk70/01/2025 3:30 PM [facility] [address] [place] [address] 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, right (HCC) (Primary Dx) Social History Tobacco UseTypesPacks/DayYears UsedDateSmoking Tobacco: RhouoxAiqhirzczi7503459 - 2019Passive Smoke Exposure: PastSmokeless Tobacco: NeverAlcohol UseStandard Drinks/WeekCommentsNot Currently0 (1 standard drink = 0.6 oz pure alcohol)PHQ-2 AnswerDate RecordedPHQ-2 kvjxa69612/21/2023Hunger Vital SignAnswerDate Recorded Within the past 12 months, you worried that your food would run out before you got the money to buymore.Never true10/06/2025Within the past 12 months, the food you bought just didn't last and you didn't have money to get more.Never true 10/06/2025rea Deprivation IndexAnswerDate RecordedNational Score (1-100), lower number is lower wqcf960005/02/2023State Score (1-10), lower number is lower risk8 3Data from: https://www.neighborhoodatlas.[facility].edu/. Last address used for trics[address]CommentsNoSex and Gender InformationValueDate RecordedSex Assigned at CepfkHbkpqt21/07/2023 12:14 PM EDTLegal SxlCoblhi84/28/2018 11:13 AM EDTGender IdentityNot on fileSexual OrientationNot on filedocumented as of this encounter Plan of Treatment DateTypeDepartmentCare Team (Latest Contact Info)Vozjkoixtdt78/15/2025 1:30 PM ESTAppointment Radiology Pet CT [address] [address] PET11/17/2025 1:00 PM ESTOffice Visit [facility] [address] [place] [address] [place] [address] 3 week follow up Rwltlvfb35/22/2025 1:20 PM ESTVisit (SP) Office Hematology/Oncology [address] [place] [address] [place] [address] Federico Dyson MD [address] [place] [address] [place] [address] 3 week follow up Bxbqekaw64/22/2025 1:45 PM ESTB[facility] [address] [place] [address] [place] [address] 3 week follow up Qlxslhei32/12/2026 2:45 PM ESTOffice Visit [facility] [address] [place] [address] [place] [address] 3 week follow up Zfqeuonv87/12/2026 3:00 PM ESTVisit (SP) Office Hematology/Oncology [address] [place] [address] [place] [address] Antoinette Crenshaw PAAlaynaC [address] [place] [address] [place] [address] 3 week follow up Efzfaulw24/12/2026 3:30 PM [facility] Hematology/Oncology [address] [place] [address] [place] [address] 3 week follow up Eqgaczgb87/02/2026 1:40 PM EST[facility] [address] [facility] [address] [facility] [place] [address] Crissy Juan MD [address] [place] [address] Follow up visit for sjogrens/osteopenia/osteoarthritis in 6-12months (ok for virtual or in person)documented as of this encounter Visit Diagnoses Diagnosis 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, right (HCC)- Primary documented in this encounter Administered Medications Medication OrderMAR ActionAction DateDoseRateSite pembrolizumab 200 mg in NaCl 0.9% 66 mL (KEYTRUDA) 200 mg, INTRAVENOUS, Administer over 30 Minutes, ONCE, 1 dose, On Mon10/27/25 at 1530, Approx TotalVolume: 66 mL EXP: 10/31/2025 1530 Refrigerated Administer with 0.2 micron filter. Indications: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, right (HCC)New Bag/Syringe/Ofcorf3410/27/2025 3:52 PM OGG181 mgdocumented in this encounter Care Teams Team MemberRelationshipSpecialtyStart DateEnd Date Nikolay Borges MD PCP - GeneralFamily Medicine11/27/15 Elina Raza, BITA.ANALYTICAL TECH [address] [address] Nurse PractitionerHematology/Oncology05/17/23 Vianney Scherer, MIGUEL [address] [place] [address] Specialty Care CoordinatorHematology/Oncology05/17/[address] [address] Registered DietitianNutrition05/28/24 Celina Hong LSW Social Jiowhf47/28/[address] [facility] [place] [address] Xeuyigmnc91/10/25documented as of this encounter
--- OUTSIDE RECORDS SUMMARY | 2025-10-28 06:51 | XMS_ITS ---
Author Organization [facility] [place] Address [address] [place] [address] Care Team Providers Care Ethanol Operations Manager Name Role Phone Reji Borges Primary Care Provider REASON FOR VISIT TSH off- Encounters Encounter Location Date Provider Diagnosis [facility] [address] [facility] [place] [address] 10/28/2025 Reji Borges Hypothyroidism E03.9 Assessments Encounter Date Diagnosis (ICD Code) Assessment Notes Treatment Notes Treatment Clinical Notes Section Notes 10/28/2025 Hypothyroidism (ICD-10 - E03.9) Plan Of Treatment Pending Test Test Name Order Date THYROID PANEL (T4/TSH/FREE T3) Progress Notes * Jackie MCCABEDOB: [birth year] (69 yo F)Acc No.[id number]:10/28/2025 Patient:?JOCELYN Jackie Hoyos :1955???Age:69 Y???Sex:FemalePhone:[phone] Address:[address] [place] [id number] Subjective: * Chief Complaints: * T SH off- * Medical History: * Surgical History: * Hospitalization/Major Diagno stic Procedure: * Medications: Objective: * Vitals: * Physical Examination: ??? Assessment: * Assessment: 1.?Hypothyroidism - E03.9 (Primary)??? Plan: * Treatment: ?LAB: THYROID PANEL (T4/TSH/FREE T3) * Procedure Codes: * true * Date:?Generated for Printing/Faxing/eTransmitting on:?10/31/2025 12:35 PM EST
--- OUTSIDE RECORDS SUMMARY | 2025-10-31 12:35 | XMS_ITS ---
Author Organization [facility] Address [address] [place] [address] Phone Care Team Providers Care Flight Service Agent Name Role Phone Nikolay Borges MD Primary Care Provider [phone] Theo Medina MD Unavailable [phone] Active Problems ProblemNoted DateDiagnosed DatePVC (premature ventricular contraction)08/01/2025 Statin yidsiuxdpzv40/11/2025Mixed ivjeohlwlkynhh78/11/2025PAD (peripheral artery disease)05/07/2025Left bundle-branch block, jbpwjjckeby67/11/96424-hpdfdv coronary artery jqdygnv5105/07/2025S/P TAVR (transcatheter aortic valve replacement)04/14/2025Severe aortic npviewom59/01/2025Former qiphrt2712/23/2024 Lung lwgmrp855Acute systolic heart lzyfhqi6912/17/2024 Assessment & Plan (12/18/2024 10:02 AM EST): Patient presents with 2 week history of progressive LANIER, orthopnea/PND. Diuretic initiated by PCP over weekend with 6 pound diuresis and significant improvement in symptoms. Jun 2023 TTE EF 60-65% MR mild Severe aortic stenosis peak 84, mean 47. Today she appears to be functional class IIb stage C. Close to euvolemic in office. BMI 24.0-24.9, adult12/17/2024bnormal wybpehuwjnuqdz23/15/2024ortic valve veugipfi40/15/2024 Assessment & Plan (12/18/2024 9:59 AM EST): 2018 moderate aortic stenosis April 2022 peak 76 : mean Jun peak 84 : mean 47 Sfbbdqontgux93/15/1782Qzoajc31/15/2024 Current Treatment and Therapy Plans No current plan information found. Past Treatment and Therapy Plans No past plan information found. Lifetime Dose Tracking * ChemicalLifetime DoseAutomatic EntryManual EntryFluoro Time37.4 minutes0 mukvbfe70.4 minutesAir Ckxkp980 mGy0 bCl589 gRnWYE74.58 Gy-cm20 Gy-cm219.58 Gy-cm2
--- OUTSIDE RECORDS SUMMARY | 2025-10-31 12:35 | XMS_ITS | Encounter Summary ---
Author Organization [facility] Address [address] [place] [address] Care Team Providers Care Medical Receptionist Medical Assistant Name Role Phone Nikolay Borges MD Primary Care Provider + Elina Raza APRN.FLARE WORKER Unavailable [phone] Vianney Scherer RN Unavailable [phone] Unavailable [phone] Celina Hong DOPE FIRER Unavailable Unavailable Katie Segundo RD Unavailable [phone] Source Comments In the event this information is protected by the Federal Confidentiality of Alcohol and Drug AbusePatient Records regulations: The Federal rules restrict any use of the information to criminally investigate or prosecute any alcohol or drug abuse patient.[facility] Encounter Details DateTypeDepartmentCare Team (Latest Contact Info)Bknvjahvplm32/01/2025Travel Social History Tobacco UseTypesPacks/DayYears UsedDateSmoking Tobacco: YwgflaYhkykyazmk1903480 - 2020Passive Smoke Exposure: PastSmokeless Tobacco: NeverAlcohol UseStandard Drinks/WeekCommentsNot Currently0 (1 standard drink = 0.6 oz pure alcohol)PHQ-2 AnswerDate RecordedPHQ-2 uxclt230/25/2024Hunger Vital SignAnswerDate Recorded Within the past 12 months, you worried that your food would run out before you got the money to buymore.Never true10/06/2025Within the past 12 months, the food you bought just didn't last and you didn't have money to get more.Never true 10/06/2025rea Deprivation IndexAnswerDate RecordedNational Score (1-100), lower number is lower nxth490605/02/2023State Score (1-10), lower number is lower risk8 3Data from: https://www.neighborhoodatlas.[facility].edu/. Last address used for uvhxwf[address]ol[address]CommentsNoSex and Gender InformationValueDate RecordedSex Assigned at LyzrhAuzoqw54/07/2023 12:14 PM EDTLegal KyeYuwiek94/28/2018 11:13 AM EDTGender IdentityNot on fileSexual OrientationNot on filedocumented as of this encounter Plan of Treatment DateTypeDepartmentCare Team (Latest Contact Info)Adgpgrhozvs31/15/2025 1:30 PM ESTAppointment Radiology Pet CT [address] [place] [address] PET11/17/2025 1:00 PM ESTOffice Visit [facility] [address] [place] [address] [place] [address] 3 week follow up Fdvnfibo26/22/2025 1:20 PM ESTVisit (SP) Office Hematology/Oncology [address] [facility] [place] [address] Federico Dyson MD [address] [place] [address] [place] [address] 3 week follow up Nwwegcij95/22/2025 1:45 PM ESTInfusion Center Hematology/Oncology [address] [facility] [place] [address] 3 week follow up Gwqetfha96/12/2026 2:45 PM ESTOffice Visit [facility] [address] [place] [address] [place] [address] 3 week follow up Kepegqqe24/12/2026 3:00 PM ESTVisit (SP) Office Hematology/Oncology [address] [place] [address] [place] [address] Antoinette Crenshaw, PA-C [address] [place] [address] 3 week follow up Jpmoymqb11/12/2026 3:30 PM [facility] Hematology/Oncology [address] [place] [address] [place] [address] 3 week follow up Qkppvpsx90/02/2026 1:[address] [facility] Rheumatology [address] [facility] [address] [place], [place] [id number] Crissy Juan MD [address] [facility] [address] [place], [place] [id number] Follow up visit for sjogrens/osteopenia/osteoarthritis in 6-12months (ok for virtual or in person)documented as of this encounter Visit Diagnoses Not on filedocumented in this encounter Care Teams Team MemberRelationshipSpecialtyStart DateEnd Date Nikolay Borges MD PCP - GeneralFamily Medicine11/27/15 Elina Raza APRN.FLARE WORKER [address] [place] [address] [place] [address] Nurse PractitionerHematology/Oncology05/17/23 Vianney Scherer, MIGUEL [address] [place] [address] [place] [address] Specialty Care CoordinatorHematology/Oncology05/17/[address] [place] [address] [place] [address] Registered DietitianNutrition05/28/24 Celina Hong LSW Social Zsetsc84/28/[address] [place] [address] [place] [address] Gfhwxzygs35/10/25documented as of this encounter
--- OUTSIDE RECORDS SUMMARY | 2025-10-31 12:35 | XMS_ITS ---
Author Organization [facility] Address [address] [place] [address] Care Team Providers Care Banquet Steward Name Role Phone Nikolay Borges MD Primary Care Provider + Elina Raza APRN.ADMINISTRATIVE INTERN Unavailable [phone] Vianney Scherer RN Unavailable [phone] Unavailable [phone] Celina Hong SUPERVISOR MOLD SHOP Unavailable Unavailable Katie Segundo RD Unavailable [phone] Active Problems ProblemNoted DateDiagnosed DateSevere protein-calorie nzlzvrmdaqqt52/09/2024 Chronic bilateral low back pain without ffdejisg79/24/2024hronic pain of right knee05/20/2024Long-term use of Orusxkumt47/24/2024ilateral hand pain05/20/2024 Secondary osteoarthritis of multiple sites05/20/2024Long term current use of systemic /24/2024Family history of systemic lupus erythematosus 05/20/2024s DNA antibody biakamup20/24/2024NA /24/2024Elevated sed rate4Raynaud's phenomenon without kiquajci06/24/2024SS-B antibody wgcykiwm65/24/2024rimary lung cancer with metastasis from 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 site, right05/15/2023 Current Treatment and Therapy Plans AMB PEMBROLIZUMAB 200MG - Q21D* Plan Start Date:05/22/2023 Plan Provider:Alexx Nguyen MD Linked Problems Primary lung cancer with met astasis from 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 site, right (HCC) Treatment MedicationsCurrent Day (Day 1, Cycle 34 - Planned for 11/17/2025)Next Day (Day 1, Cycle 35 - Planned for 12/08/2025)* * pembrolizumab IV infusion (KEYTRUDA) * * pembrolizumab 200 mg in NaCl 0.9% 58 mL (KEYTRUDA) * * pembrolizumab 200 mg in NaCl 0.9% 58 mL (KEYTRUDA) Past Treatment and Therapy Plans Plan NameStart DateDiscontinue DateTreatment MedicationsDiscontinue ReasonPlan ProviderCyclesAMB HYDRATION - ONCE/05/2024No medications scheduled. Elina Crane APRN.CNP1 of 1 cycle started
--- OUTSIDE RECORDS SUMMARY | 2025-10-31 12:35 | XMS_ITS | Clinical Summary ---
Author Organization [facility] Address [address] [place] [address] Phone Care Team Providers Care Attache Name Role Phone Nikolay Borges MD Primary Care Provider [phone] Theo Medina MD Unavailable Allergies Active AllergyReactionsCriticalityNoted DateCommentsCiprofloxacinNausea/vomiting 12/11/2023 Medications MedicationSigDispense QuantityRefillsLast FilledStart DateEnd DateStatus cholecalciferol (Vitamin D-3) 50 mcg (2,000 unit) capsule Take 1 capsule (50 mcg) by mouth once daily.Active citalopram (CeleXA) 20 mg tablet Take 1 tablet (20 mg) by mouth once daily.04/10/2023ctive liothyronine (Cytomel) 25 mcg tablet Take 1.5 tablets (37.5 mcg) by mouth once daily.Active levothyroxine (Synthroid, Levoxyl) 75 mcg tablet Take 1 tablet (75 mcg) by mouth early in the morning.. Take on an empty stomach at the same time each day, either 30 to 60 minutes prior to breakfastActive ALPRAZolam (Xanax) 0.5 mg tablet Take 0.5 tablets (0.25 mg) by mouth once daily at bedtime.Active budesonide EC (Entocort EC) 3 mg 24 hr capsule Take 2 capsules (6 mg) by mouth once daily in the morning.Active omeprazole (PriLOSEC) [address] capsule Take 1 capsule (40 mg) by mouth once daily in the morning. Take before meals. Do not crush or chew.Active hydroxychloroquine (Plaquenil) 200 mg tablet Take 1 tablet (200 mg) by mouth once daily.Active levalbuterol (Xopenex) 45 mcg/actuation inhaler Inhale 1-2 puffs every 6 hours if needed for wheezing.Active calcium carb/vitamin D3/vit K1 (VIACTIV ORAL) Take 2 tablets by mouth early in the morning..Active denosumab (PROLIA SUBQ) Inject under the skin. Every 6 ayhlyl655Active pembrolizumab (KEYTRUDA IV) Infuse 300 mg into a venous catheter once weekly.5Active chlorhexidine (Hibiclens) 4 % external liquid Indications:Murmur,Severe aortic stenosis,Malignant neoplasm of lung, unspecified laterality, unspecified part of lung (Multi)Use as directed daily preoperatively 473 mL 5Active chlorhexidine (Peridex) 0.12 % solution Indications:Murmur,Severe aortic stenosis,Malignant neoplasm of lung, unspecified laterality, unspecified part of lung (Multi)Swish and spit with 15ml of solution the night before and morning of surgery. Do not swallow. 15 mL 5Active nystatin (Mycostatin) 100,000 unit/mL suspension Take 5 mL (500,000 Units) by mouth 4 times a day as needed. Swish and spitActive aspirin 81 mg EC tablet Indications:S/P TAVR (transcatheter aortic valve replacement)Take 1 tablet (81 mg) by mouth once daily. 30 tablet 11004/17//6Active cevimeline (Evoxac) 30 mg capsule Take 1 capsule (30 mg) by mouth 2 times a day.Active alirocumab (Praluent Pen) 75 mg/mL pen injector Indications:Mixed hyperlipidemiaInject one time every 2 weeks 6 Pen 5Active metoprolol succinate XL (Toprol-XL) 50 mg 24 hr tablet Indications:Hypertension, unspecified type,Acute systolic heart failure (Multi) Take 1 tablet (50 mg) by mouth once daily. Do not crush or chew. 90 tablet /6Active nitroglycerin (Nitrostat) 0.4 mg SL tablet Indications:3-vessel coronary artery diseasePlace 1 tablet (0.4 mg) under the tongue every 5 minutes if needed for chest pain. May repeat dose every 5 minutes for up to 3 doses total. 25 tablet 1105Active amoxicillin (Amoxil) 500 mg capsule Indications:S/P TAVR (transcatheter aortic valve replacement)Take 4 caps (2000 mg) 1 hour prior to dental procedure. 4 capsule //370700/ctive magnesium oxide (Mag-Ox) 400 mg (241.3 mg elemental) tablet Indications:PVC (premature ventricular contraction)Take 1 tablet by mouth once daily.509/ctive Active Problems ProblemNoted DateDiagnosed DatePVC (premature ventricular contraction)08/01/2025 Statin rqqpdoihdqm48/11/2025Mixed yuiqyzlewxczjf34/11/2025PAD (peripheral artery disease)05/07/2025Left bundle-branch block, /11/57118-lmqsrw coronary artery bvnxjwj4005/07/2025S/P TAVR (transcatheter aortic valve replacement)04/14/2025Severe aortic wmcmnvke55/01/2025Former jvboyk5012/23/2024 Lung cfmqpt3512/23/2024ute systolic heart djowbwf9312/17/2024 Assessment & Plan (12/18/2024 10:02 AM EST): [...] to euvolemic in office. BMI 24.0-24.9, adult12/17/2024bnormal skwyskslstxnbv28/15/2024ortic valve tgvazowl61/15/2024 Assessment & Plan (12/18/2024 9:59 AM EST): 2018 moderate aortic stenosis April 2022 peak 76 : mean Jun peak 84 : mean 47 Qdaakfesfzjg41/15/5911Qeojcx35/15/2024 Encounters DateTypeDepartmentCare YggjVvwlrjvlqcp99/05/2025 11:[address] [facility] [address] [place] [address] Theo Medina MD 3-vessel coronary artery disease (Primary Dx); Nonrheumatic aortic valve stenosis; S/P TAVR (transcatheter aortic valve replacement); Primary hypertension; Mixed hyperlipidemia; Statin intolerance; PVC (premature ventricular contraction); PAD (peripheral artery disease); Left bundle-branch block, unspecified; BMI 24.0-24.9, adult; Former smoker; Malignant neoplasm of lung, unspecified laterality, unspecified part of lung (Multi); Hyponatremia; At risk for falls08/01/2025Travelfrom Last 3 Months Immunizations ImmunizationAdministration DatesNext DueInfluenza, trivalent, adjuvanted 4Pneumococcal conjugate vaccine, 13-valent (PREVNAR 13)08/10/2020 Pneumococcal polysaccharide vaccine, 23-valent, age 2 years and older (PNEUMOVAX 23)10/31/2021 Family History Medical HistoryRelationNameCommentscardiac disorderBrother 1Aortic stenosis Brother 2CancerFathermalignant neoplasmFatherDiabetesMotherHeart diseaseMother Heart failureMotherHypertensionMotherStrokeMotherHypertensionSistercardiac disorderSisterRelationNameStatusCommentsBrother 1Brother 2FatherMotherSister Social History Tobacco UseTypesPacks/DayYears UsedDateSmoking Tobacco: FormerCigarettesQuit: 2019Smokeless Tobacco: NeverAlcohol UseStandard Drinks/WeekCommentsNever0 (1 standard drink = 0.6 oz pure alcohol)B1300 Health LiteracyAnswerDate RecordedHow often do you need to have someone help you when you read instructions, pamphlets, or other written material from your doctor or pharmacy?Rarely 04/15/2025HC UtilitiesAnswerDate RecordedIn the past 12 months has the [employer], [employer], oil, or water [employer] threatened to shut off services in your home?No04/15/2025Humiliation, Afraid, Rape, and Kick questionnaireAnswerDate RecordedWithin the last year, have you been afraid of your partner or ex-partner?No04/15/2025Within the last year, have you been humiliated or emotionally abused in other ways by your partner or ex-partner?No04/15/2025 Within the last year, have you been kicked, hit, slapped, or otherwise physically hurt by your partner or ex-partner?No04/15/2025Within the last year, have you been raped or forced to have any kind of sexual activity by your part ner or ex-partner?No04/15/2025Social Connection and Isolation PanelAnswerDate RecordedIn a typical week, how many times do you talk on the phone with family, friends, or neighbors?Three times a week04/15/2025How often do you get together with friends or relatives?Three times a week04/15/2025How often do you attend spiritism or religion services?Never04/15/2025Do you belong to any clubs or organizations such as spiritism groups, unions, fraternal or athletic groups, or school groups?No04/15/2025How often do you attend meetings of the clubs or organizations you belong to?Never04/15/2025re you , , , , never , or living with a partner?Kwocefbo49/20/2025UDIT-C AnswerDate RecordedQ1: How often do you have a drink containing alcohol?Never 04/15/2025Q2: How many drinks containing alcohol do you have on a typical day when you are drinking?Patient does not drink04/15/2025Q3: How often do you have six or more drinks on one occasion?Never04/15/2025Overall Financial Resource Strain (CARDIA)AnswerDate RecordedHow hard is it for you to pay for the very basics like food, housing, medical care, and heating?Not hard at all04/15/2025 PHQ-2AnswerDate RecordedPatient Health Questionnaire-2 Viyvp507F[facility]hr[facility] for [facility] [place] [facility] Occup[facility] - Occupational Stress QuestionnaireAnswerDate RecordedDo you feel stress - tense, restless, nervous, or anxious, or unable to sleep at night because yourmind is troubled all the time - these days?Not at all 04/15/2025Exercise Vital SignAnswerDate RecordedOn average, how many days per week do you engage in moderate to strenuous exercise (like a brisk walk)?3 days 04/15/2025On average, how many minutes do you engage in exercise at this level? 20 min04/15/2025Hunger Vital SignAnswerDate RecordedWithin the past 12 months, you worried that your food would run out before you got the money to buymore. Never true04/15/2025Ran Out of Food in the Last YearNot on file04/15/2025PRAPARE - TransportationAnswerDate RecordedIn the past 12 months, has lack of transportation kept you from medical appointments or from getting medications?No 04/15/2025In the past 12 months, has lack of transportation kept you from meetings, work, or from getting things needed for daily living?No04/15/2025 Housing Stability Vital SignAnswerDate RecordedIn the last 12 months, was there a time when you were not able to pay the mortgage or rent on time?No04/15/2025In the past 12 months, how many times have you moved where you were living?0 04/15/2025t any time in the past 12 months, were you homeless or living in a fdc (including now)?No04/15/2025CommentsUnknownSex and Gender InformationValueDate RecordedSex Assigned at BirthNot on fileLegal SexFemale 10/22/2022 11:58 AM ESTGender IdentityNot on fileSexual OrientationNot on file Last Filed Vital Signs Vital SignReadingTime TakenCommentsBlood Lgonlgho509/7209 11:27 AM EDT Qqyyc0254 11:27 AM GLEIycvpqabybt42.9 ??C (96.6 ??F)04/17/2025 11:53 AM EDTRespiratory Xact122104/17/2025 11:53 AM EDTOxygen Nuklfobcmi13%04/17/2025 11:53 AM EDTInhaled Oxygen Concentration--Asrfeh19.5 kg (140 lb)08/01/2025 11:27 AM TICOxbzhg274 cm (5' 3 )08/01/2025 11:27 AM EDTBody Mass Index24.809 11:27 AM EDT Plan of Treatment DateTypeDepartmentCare Team (Latest Contact Info)Vzoxfnapsts54/14/2026 10:10 AM EDTOffice Visit [facility] [address] [place] [address] Theo Medina MD [address] [facility] [place] [address] 04/10/2026 9:30 AM EDTTelemedicine Clinical Support [facility] [place] [address] [place] [address] Health MaintenanceDue DateLast DoneCommentsCT Noyduxiyogvp1953FIT-DNA (Cologuard)1955Lipid Panel1955Medicare Annual Wellness Visit (AWV) 1955 9372Zqlaklnqtkpjc1953MMR Vaccines (1 of 1 - Standard series) 1954Hepatitis C Sdtbnoebb05/09/1971RSV High Risk: (Elderly (60+) or Population) (1 - Risk 50-74 years 1-dose series)2003Zoster Vaccines (1 of 2)2003FIT/, 01/12/2020Mammogram , 11/15/2022OVID-19 Vaccine (3 - Pfizer risk series) /, 10/04/2023Influenza Vaccine (#1)/ Creatinine Level/, 04/16/2025, 04/15/2025, Additional history existsDiabetes Xllglztnx07/, 04/16/2025, 04/15/2025, Additional history existsPotassium Level/, 04/16/2025, 04/15/2025, Additional history uikjjpQupfnjmmdujszs90/12/202606/10/2025, 05/08/2025, 04/15/2025, Additional history existsTSH Level08608, 06/16/2025, 04/22/2025, Additional history existsBone Density Scan, 11/15/2022, 11/15/2022, Additional history jtaqqlHdmccpayyyb83/06/2034 11/01/2024, 11/01/2024olorectal Cancer Dkhkhdgzf94/06/2034DTaP/Tdap/Td Vaccines (2 - Td or Tdap)Pneumococcal HmtdzexMuewuuufy69/05/2021, 08/10/2020HIB VaccinesAged OutNo longer eligible based on patient's age to complete this topicHPV VaccinesAged OutNo longer eligible based on patient's age to complete this topicHepatitis A VaccinesAged OutNo longer eligible based on patient's age to complete this topicHepatitis B VaccinesAged OutNo longer eligible based on patient's age to complete this topicIPV VaccinesAged OutNo longer eligible based on patient's age to complete this topicMeningococcal VaccineAged OutNo longer eligible based on patient's age to complete this topic Rotavirus VaccinesAged OutNo longer eligible based on patient's age to complete this topic Medical Devices ImplantedTypeAreaManufacturerDevice IdentifierShelf Expiration DateModel / Serial / LotValve, Aortic, 29mm, Evolut Fx Transcatheter - [id number] - [id number] Implanted:Qty: 1 on 04/14/2025 by Chuyita Lazcano [facility] Valve RepairN/A: HeartMEDTRONIC INC02/03/2027EVFXPLUS-29 / [id number] / [id number] Procedures Procedure NamePriorityDate/TimeAssociated DiagnosisCommentsECHOCARDIOGRAM 05/08/2025 10:58 AM EDT BASIC METABOLIC PANELPending Ltytffmxk85/22/2025 5:34 AM EDT from Last 3 Months or Most Recently Relevant to Health Maintenance Results * Echocardiogram (05/08/2025 10:58 AM EDT)Specimen (Source)Anatomical Location / LateralityCollection Method / VolumeCollection TimeReceived Time05/08/2025 10:58 AM EDT Narrative [facility] - 05/08/2025 2:08 PM EDT Echocardiology Procedure ? Exam Date/Time ? Accession # ? Ordering Dr. Echo Transthoracic ?05/08/2025 10:58 EDT ?[id number] ?HARLEEN AGACNP-, Complete ? FE [place] CPT code 03973 Reason for Exam (Echo Transthoracic Complete) Prosthetic heart valve Z95.2 Report ?[facility] ? [address] ? [place] [address] ? Adult Echocardiogram Report Name: ROBINA MCCABE ? Study Date: 05/08/2025 10:06 AM ? BP: 143/80 mmHg ? Patient Location: CAR F ?HR: 75 : 1955 ? Gender: Female ?Height: 63 in Age: 69 yrs ? Ethnicity: WHT ?Weight: 134 lb Reason For Study: Prosthetic heart valve Z95.2 ?BSA: 1.6 m2 History: TAVR 03/2025 Ordering Physician: HARLEEN^FE^R. Referring Physician: FE CANSECO Performed By: Katelynn Gutierrez [facility] Interpretation Summary The left ventricle is normal [...] MMode/2D Measurements & Calculations RVDd: 2.9 cm ? LVIDd: 4.7 cm ? FS: 30.1 % ?Ao root diam: 2.6 cm IVSd: 1.0 cm ? LVIDs: 3.3 cm ? EDV(Teich): 104.4 ml ?Ao root area: 5.4 cm2 ? LVPWd: 1.1 cm ? ESV(Teich): 44.6ml ? LA dimension: 3.3 cm ? EF(Teich): 57.3 % ? asc Aorta Diam: 3.0 cm ? LVOT diam: 1.9 cm ? LVLd ap4: 8.5 cm ? EDV(MOD-sp2): 116.0 ml ? LVOT area: 2.9 cm2 ?EDV(MOD-sp4): 106.0 ml ? ESV(MOD-sp2): 60.9 ml ? LVLs ap4:7.3 cm ? EF(MOD-sp2): 47.5 % ? ESV(MOD-sp4): 52.4 ml ? EF(MOD-sp4): 50.6 % ? SV(MOD-sp4): 53.6 ml ? TAPSE: 2.2 cm ? IVC Diam: 1.8 cm ? RVIDd/LVIDd: 0.62 ? EF (MOD-bp): 46.5 % ?LA Vol Index: 41.2 ml/m2 Doppler Measurements & Calculations MV E max phi: 119.0 cm/sec ? MV dec time: 0.21 sec ? Ao V2 max: 215.0 cm/sec ?LV V1 max P.0 mmHg MV A max phi: 140.0 cm/sec ? Ao max P.5 mmHg ? LV V1 mean P.0 mmHg MV E/A: 0.85 ? Ao V2 mean:139.0 cm/sec ? LV V1 max: 99.4 cm/sec Lat Peak E' Phi: 7.7 cm/sec ?Ao mean P.0 mmHg ? LV V1 mean: 60.6 cm/sec Echocardiology Report E/E' Lat: 15.4 ? Ao V2 VTI: 42.8 cm ? LV V1 VTI: 20.1 cm Med Peak E' Phi: 4.4 cm/sec E/E' Med: 27.3 ? ALESSANDRA(I,D): 1.4 cm2 ? ALESSANDRA(V,D): 1.3 cm2 ? SV(LVOT): 58.2 ml ?TR max phi: 213.9 cm/sec ?RAP systole: 3.0 mmHg ?AV VR: 0.46 ? TR max P.3 mmHg ? ALESSANDRA(VTI)/BSA_phl: 0.82 ? RVSP(TR): 21.3 mmHg Measurements from QLAB ? ED Mass (HM): 137.0 grams ?LAEF (HM): 56.0 % BSA (HM): 1.6 m2 ?CI (HM): 3.1 l/min/m2 ?LAVmax (HM): 67.0 ml ? LAVmin (HM): 30.0 ml ? Pat Height (HM): 160.0 cm SOHAIL (HM): 41.0 ml/m2 ? Pat Weight (HM): 60.8 kg Electronically signed by:Theo Medina MD ?? on ?? 05/08/2025 02:08 PM FINAL REPORT Dictated: ??05/08/2025 10:06 am ?Theo Medina MD Signed (Electronic Signature): ??05/08/2025 2:08 pm Signed by: ??Theo Medina MD Transcribed by: ??HI ? Technologist: ??LL Authorizing ProviderResult TypeResult StatusBrepooja Canseco APRN-CNPCV ECHO PROCEDURESFinal ResultPerforming OrganizationAddressCity/State/[place] [address], * (ABNORMAL) Basic Metabolic Panel (04/17/2025 5:34 AM EDT)ComponentValueRef RangeTest MethodAnalysis TimePerformed AtPathologist NmmtgxybxQhhjgam8401 - 99 mg/dL LAB CHEMISTRY METHOD 04/17/2025 6:31 AM EDTPR[facility] IFBEqzjxn072888 - 145 mmol/L LAB CHEMISTRY METHOD 04/17/2025 6:31 AM EDT[facility] LABPotassium3.83.5 - 5.3 mmol/L LAB CHEMISTRY METHOD 04/17/2025 6:31 AM EDTPR[facility] ZKARbqfniji15060 - 107 mmol/L LAB CHEMISTRY METHOD 04/17/2025 6:31 AM EDTPR[facility] WLREabhezgorzd2497 - 32 mmol/L LAB CHEMISTRY METHOD 04/17/2025 6:31 AM EDTPR[facility] LABAnion Gap8(L)10 - 20 mmol/L LAB CHEMISTRY METHOD 04/17/2025 6:31 AM [facility]CAR[facility] LABUrea Zucypgkr34 - 23 mg/dL LAB CHEMISTRY METHOD 04/17/2025 6:31 AM EDCAR[facility] LABCreatinine0.42(L)0.50 - 1.05 mg/dL LAB CHEMISTRY METHOD 04/17/2025 6:31 AM EDCARTERET [facility] LABeGFR>90>60 mL/min/1.73m*2 LAB CHEMISTRY METHOD 04/17/2025 6:[address] [facility] LABComment: Calculations of estimated GFR are performed using the 2020 CKD-EPI Study Refit equation without therace variable for the IDMS-Traceable creatinine methods. https://jasn.asnjournals.org/content/early//ASN.2882175488 Calcium8.3(L)8.6 - 10.6 mg/dL LAB CHEMISTRY METHOD 04/17/2025 6:[address] [facility] LABSpecimen (Source)Anatomical Location / Laterality Collection Method / VolumeCollection TimeReceived TimeBloodVenous blood specimen / Riuszua3704/17/2025 5:34 AM EDT04/17/2025 5:48 AM EDT Narrative Authorizing ProviderResult TypeResult StatusFe Canseco DIESEL ELECTRICIAN-CNPLAB BLOOD ORDERABLESFinal ResultPerforming OrganizationAddressCity/State/ZIP CodePhone Number [facility] [id number] [place], [place] [id number] from Last 3 Months or Most Recently Relevant to Health Maintenance Insurance Advance Directives For more information, please contact: [phone] (Available ) TypeDate RecordedPatient RepresentativeExplanationHealthcare Power of Atty 04/18/2025 12:00 AMLiving Will04/18/2025 12:00 AM * Full Code (Latest Code Status on File) Date ActivatedDate InactivatedComments04/14/2025 7:00 AMQuestionAnswerComments Plan of Care:* Code Status Discussion Completed Decision Maker:* Patient Care Teams Team MemberRelationshipSpecialtyStart DateEnd Date Nikolay Borges MD [address] [place] [address] PCP - General04/26/22 Theo Medina MD [address] [place] [phone] Consulting PhysicianCardiology05/28/25
--- OUTSIDE RECORDS SUMMARY | 2025-10-31 12:35 | XMS_ITS | Clinical Summary ---
Author Organization [facility] Address [address] [place] [address] Care Team Providers Care Saw Handle Assembler Name Role Phone Nikolay Borges MD Primary Care Provider + Elina Raza APRN.CHEESE SUPERVISOR Unavailable [phone] Vianney Scherer RN Unavailable [phone] Unavailable [phone] Celina Hong DEVELOPMENTAL PSYCHOLOGIST Unavailable Unavailable Katie Segundo RD Unavailable [phone] Allergies Active AllergyReactionsCriticalityNoted DateCommentsCiprofloxacinRashLow 04/12/2023 Medications MedicationSigDispense QuantityRefillsLast FilledStart DateEnd DateStatus traMADol (ULTRAM) 50 mg tablet Take 50 mg by mouth every 6 hours as needed for pain.Active cholecalciferol (VITAMIN D3) 50 mcg (2,000 unit) tablet Take 2,000 Units by mouth once daily.Active liothyronine (CYTOMEL) 25 mcg tablet Take 25 mcg by mouth once daily.Active citalopram (CELEXA) 20 mg tablet Take 20 mg by mouth.04/10/2023ctive triamcinolone (KENALOG IN ORABASE) 0.1 % paste 05/19/2024ctive ALPRAZolam (XANAX) 0.5 mg tablet 1/2 tablet as needed Orally TID for 30 days03/29/2024ctive levothyroxine (SYNTHROID) 75 mcg tablet Take 1 tablet by mouth every afternoon.04/04/2024ctive sodium chloride soluble tablet 1 g Take 1 tablet by mouth two times a day.05/22/2024ctive diphenhydrAMINE 12.5 mg/5 mL lidocaine visc 2% MAALOX 200-200-20 mg/5 mL nystatin prednisoLONE 15 mg/5 mL oral liquid 1:1:1:1:1 (CPD) Swish and spit 5 mL by mouth every 6 hours as needed. 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 3 tabs in am daily11/15/2024ctive aspirin, enteric coated (ASPIRIN, ENTERIC COATED) 81 mg EC tablet Take 81 mg by mouth once daily.ctive PRALUENT PEN 75 mg/mL pen INJECT ONE TIME EVERY 2 WEEKSActive metoprolol succinate ER (TOPROL XL) 50 mg 24 hr tablet Take 50 mg by mouth.ctive predniSONE (DELTASONE) 5 mg tablet Take 1 tablet by mouth once daily. 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 90 tablet 5Active brimonidine (ALPHAGAN) 0.2 % ophthalmic solution 1 drop.5Active nystatin (MYCOSTATIN) 100,000 unit/mL suspension Swish and swallow 5 mL by mouth four times daily. 473 mL 311502/6Active nystatin (MYCOSTATIN) 100,000 unit/mL suspension Swish and swallow 5 mL by mouth four times daily. 473 mL 2:37 PM EDT1Discontinued iv contrast (will be provided with radiology [...] MR contrast administration guidelines link 1 each Expired Active Problems ProblemNoted DateDiagnosed DateSevere protein-calorie druldsntygwg06/09/2024 Chronic bilateral low back pain without diikbibb98/24/2024hronic pain of right knee05/20/2024Long-term use of Qexnvrrys13/24/2024ilateral hand pain05/20/2024 Secondary osteoarthritis of multiple sites05/20/2024Long term current use of systemic golznpnq59/24/2024Family history of systemic lupus erythematosus 05/20/2024s DNA antibody smddgaiv82/24/2024NA vptykfxw05/24/2024Elevated sed rate05/20/2024aynaud's phenomenon without hrcmextu39/24/2024SS-B antibody /24/2024rimary lung cancer with metastasis from 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 site, right05/15/2023 Encounters DateTypeDepartmentCare RqhjUzntcntfimk50/02/2025Interfaced [employer] Battery Parts Assembler Management [address] [place] [address] Ambreen Harvey MD 10/27/2025 3:30 PM ESTInfusion Center Hematology/Oncology [address] [place] [address] [place] [address] 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, right (HCC) (Primary Dx)10/27/2025 3:00 PM ESTVisit (SP) Office Hematology/Oncology [address] [place] [address] [place] [address] Maria Isabel Camargo APRN.CHEESE SUPERVISOR 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, right (HCC) (Primary Dx); 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); Metastasis to brain (HCC); Encounter for immunotherapy; Malignant neoplasm of overlapping sites of right lung (HCC); detention (current) use of systemic fvvyykor62/01/8911Jyhiqv70/20/2025[employer] [address] [place] [address] Ambreen Harvey MD 10/15/2025Telephone Hematology/Oncology [address] [place] [address] [place] [address] Elina Raza, SPEECH LANGUAGE SPECIALIST.CHEESE SUPERVISOR Care Coordination (MRI)10/06/2025 3:00 PM ESTEducation Nutrition Therapy [address] [place] [address] [place] [address] Nutrition Zvasrsktsv68/10/2025 3:00 PM ESTInfusion Center Hematology/Oncology [address] [place] [address] [place] [address] 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, right (HCC) (Primary Dx)10/06/2025 2:30 PM ESTVisit (SP) Office Hematology/Oncology [address] [place] [address] [place] [address] Elina Raza APRN.CHEESE SUPERVISOR 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, right (HCC) (Primary Dx); Hypothyroidism due to medication; Secondary malignant neoplasm of brain (HCC); Abnormal LFTs; Colitis; Mouth sores; Metastasis to brain (HCC); Positive QUINCY (antinuclear antibody); Arthritis; Primary gdplmdoqbhyf60/10/7767Fjkkst03/20/2025 2:30 PM EDTInfusion Center Hematology/Oncology [address] [place] [address] [place] [address] 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, right (HCC) (Primary Dx)09/15/2025 2:00 PM EDTVisit (SP) Office Hematology/Oncology [address] [place] [address] [place] [address] Antoinette Crenshaw PA-C 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, right (HCC) (Primary Dx); Hypothyroidism due to hnoaltdhcl24/20/7583Alklxu63/07/2025Telephone Rheumatology [address] [facility] [place] [address] Crissy Juan MD Wsealdk5108/30/2025Refill Rheumatology [address] [facility] [place] [address] Crissy Juan MD Refill Mxpcoty7908/25/2025 3:00 PM EDTInfusion Center Hematology/Oncology [address] [place] [address] [place] [address] 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, right (HCC) (Primary Dx)08/25/2025 2:30 PM EDTVisit (SP) Office Hematology/Oncology [address] [place] [address] [place] [address] Antoinette Crenshaw PA-C 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, right (HCC) (Primary Dx); Hypothyroidism due to hooarscffy47/23/2025Refill Hematology/Oncology [address] [place] [address] [place] [address] Maria Isabel Camargo APRN.CHEESE SUPERVISOR Refill Yhqsyim4608/18/2025Telephone Hematology/Oncology [address] [place] [address] [place] [address] Ilda Petty, ag equipment field service technician Beihzi9808/04/2025 3:30 PM EDTInfusion Center Hematology/Oncology [address] [place] [address] [place] [address] 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, right (HCC) (Primary Dx)08/04/2025 3:00 PM EDTVisit (SP) Office Hematology/Oncology [address] [place] [address] [place] [address] Federico Dyson MD 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, right (HCC) (Primary Dx); Hypothyroidism due to medication; Malignant neoplasm of upper lobe, right bronchus or lung (HCC); Secondary malignant neoplasm of brain (HCC); Radiation-induced esophagitis; Encounter for antineoplastic chemotherapy and immunotherapy; Presence of other heart-valve replacement; detention (current) use of systemic hsiupagj62/08/2025Travelfrom Last 3 Months Immunizations ImmunizationAdministration DatesNext Dueinfluenza (HD-IIV3) vaccine, age 65+ yr, high dose, trivalent, PF (FLUZONE HIGH-DOSE)09/18/2019influenza (HD-IIV4) vaccine, age 65+ yr, high dose, quadrivalent, PF (FLUZONE HIGH-DOSE)08/30/2022, 09/09/2021,08/23/2020influenza (IIV4) vaccine, age 6 mo - 64 yr, quadrivalent, PF (AFLURIA, FLUARIX, FLULAVAL, FLUZONE)07/03/2017,09/23/2016,10/07/2015 influenza (aIIV3) vaccine, age 65+ yr, trivalent, PF (FLUAD)09/25/2024influenza (aIIV4) vaccine, age 65+ yr, quadrivalent, PF (FLUAD QUAD)09/13/2023influenza (ccIIV4) vaccine, age 6+ mo, quadrivalent, PF (FLUCELVAX)10/08/2018influenza vaccine, unspecified udslmmlnhff58/30/2024neumococcal conjugate (PCV13) vaccine, 13 valent (PREVNAR 13)08/10/2020pneumococcal polysaccharide (PPV23) vaccine, 23 valent (PNEUMOVAX 23)10/31/2021tetanus diphtheria pertussis (Tdap) vaccine, age 7+ yr (ADACEL, BOOSTRIX)05/26/2025 Family History Medical HistoryRelationCommentsColon CancerFatherDiabetesMotherIschemic Heart DiseaseMotherStrokeMotherSystemic Lupus ErythematosusNieceIschemic Heart Disease SisterSystemic Lupus ErythematosusSisterRelationStatusCommentsFatherDeceased MotherDeceasedNieceAliveSisterDeceased Social History Tobacco UseTypesPacks/DayYears UsedDateSmoking Tobacco: [id number] - 2020Passive Smoke Exposure: PastSmokeless Tobacco: Never Tobacco Cessation:Counseling Given: Not Answered Alcohol UseStandard Drinks/WeekCommentsNot Currently0 (1 standard drink = 0.6 oz pure alcohol)PHQ-2AnswerDate RecordedPHQ-2 vkvve61912/21/2023Hunger Vital Sign AnswerDate RecordedWithin the past 12 months, you worried that your food would run out before you got the money to buymore.Never true10/06/2025Within the past 12 months, the food you bought just didn't last and you didn't have money to get more.Never true10/06/2025rea Deprivation IndexAnswerDate RecordedNational Score (1-100), lower number is lower jkex310105/02/2023State Score (1-10), lower number is lower wjqp62205/02/2023ata from: https://www.neighborhoodatlas.medicine.[facility]/. Last address used for kdvtkekiauj[address]05/02/2023CommentsNoSex and Gender Information ValueDate RecordedSex Assigned at HkxzrNjxrxp32/07/2023 12:14 PM EDTLegal Sex Atjhpc9805/24/2018 11:13 AM EDTGender IdentityNot on fileSexual OrientationNot on file Last Filed Vital Signs Vital SignReadingTime TakenCommentsBlood Wqbwmfup657/8210/27/2025 2:58 PM EST right llxNgkeh9728/01/2025 2:53 PM SVUEnbkqcnzete88.2 ??C (97.2 ??F)10/27/2025 2:53 PM ESTRespiratory Yero994512/28/2024 2:53 PM ESTOxygen Uydhxglkfo34% 10/27/2025 2:53 PM ESTInhaled Oxygen Concentration--Cebeph54.8 kg (140 lb 10.5 oz)10/27/2025 2:53 PM TGYFwnnxz045 cm (5' 3.78 )08/04/2025 2:59 PM EDTBody Mass Index24.31008/04/2025 2:59 PM EDT Plan of Treatment DateTypeDepartmentCare Team (Latest Contact Info)Opxlpguaane79/15/2025 1:30 PM ESTAppointment Radiology Pet CT [address] [place] [address] [place] [address] PET11/17/2025 1:00 PM ESTOffice Visit [facility] [address] [place] [address] 3 week follow up Yrohxdja44/22/2025 1:20 PM ESTVisit (SP) Office Hematology/Oncology [address] [place] [address] Federico Dyson MD [address] [place] [address] 3 week follow up Gfzidfxr14/22/2025 1:45 PM ESTInfusion Center Hematology/Oncology [address] [address] [place] [address] 3 week follow up Fmhtrzbk79/12/2026 2:45 PM ESTOffice Visit [facility] [address] [place] [address] 3 week follow up Zgkcatog47/12/2026 3:00 PM ESTVisit (SP) Office Hematology/Oncology [address] [place] [address] Antoinette Crenshaw, PA-C [address] [place] [address] 3 week follow up Wehvixys72/12/2026 3:30 PM ESTInfusion Center Hematology/Oncology [address] [facility] [place] [address] 3 week follow up Hyggsbnx48/02/2026 1:40 PM ESTDistance Health Rheumatology [address] [facility] [place] [address] Crissy Juan MD [address] [place] [address] Follow up visit for sjogrens/osteopenia/osteoarthritis in 6-12months (ok for virtual or in person)Health MaintenanceDue DateLast DoneCommentsCervical Cancer Qohwkxqph58/09/1964Anxiety Teurepity32/09/1971Depression Zmzqcooax29/09/1971 Hepatitis C Fvgxncnyf88/09/1971Shingrix Vaccine (1 of 2)1972CT Ttsqeijznktn33/09/1998Cologuard (FIT-DNA)11/04/19982356Smzbqjosier38/09/1998 Colorectal Cancer Nbqvqfvjm53/09/1998Fecal Occult Blood1998Sigmoidoscopy 1998RSV Vaccine (1 - Risk 60-74 years 1-dose series)2013Medicare Annual Wellness Visit10/27/2018Mammogram Fwehqzqry12, 11/15/2022one Density Glcnhpuzg19dvance Directive Discussion 11/27/2024ovid-19 Vaccine ( season)/, 10/04/2023, 09/09/2021, Additional history existsDiabetes Fpklcbdpl22, 10/06/2025, 09/15/2025, Additional history existsLipid Agvoisrjf17/30/2030 12/26/2024DTaP,Tdap,Td Vaccine (2 - Td or Tdap)Pneumococcal Vaccine: 50+Ktedhpoqp19/05/2021, 08/10/2020Influenza RzncrenYzvihaiyl96/10/2025, 09/25/2024, 09/25/2024, Additional history exists Procedures Procedure NamePriorityDate/TimeAssociated DiagnosisCommentsTSH BLDRoutine 10/27/2025 2:24 PM EST 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, 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 COMPREHENSIVE METABOLIC NFJMALjkhjpa55/01/2025 2:24 PM EST 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, 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 CBC + YRYNViswdht40/01/2025 2:24 PM EST 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, 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 EXTERNAL SDGOEAB8910/16/2025 3:51 PM EST TSH QMMPcttfdx65/10/2025 2:11 PM EST 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, 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 COMPREHENSIVE METABOLIC ICCZFNwgpwnn94/10/2025 2:11 PM EST 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, 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 CBC + AOZGIireuqf94/10/2025 2:11 PM EST 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, 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 TSH SHSYmovvtb42/20/2025 1:33 PM EDT 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, 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 CBC + INQLDlxlifv03/20/2025 1:33 PM EDT 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, 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 COMPREHENSIVE METABOLIC TBDEZBocbejx52/20/2025 1:33 PM EDT 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, 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 TSH DNEJevghdo24/29/2025 2:00 PM EDT 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, 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 COMPREHENSIVE METABOLIC LVKNRQroopme85/29/2025 2:00 PM EDT 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, 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 CBC + VKNUIdnxnjv63/29/2025 2:00 PM EDT 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, 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 TSH KTHSmptbfi16/08/2025 2:50 PM EDT 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 ComponentValueRef RangeTest MethodAnalysis TimePerformed AtPathologist Signature TSH0.079(L)0.270 - 4.200 mIU/L112/29/2024 11:41 AM ESTMETROHE[facility] Specimen (Source)Anatomical Location / LateralityCollection Method / Volume Collection TimeReceived TimeBloodBLOOD SPECIMEN / UnknownVenipuncture / Unknown 10/27/2025 2:24 PM EST10/27/2025 2:24 PM EST Narrative Authorizing ProviderResult TypeResult StatusHolly Ry GARDNERN.CNPLABORATORY Final ResultPerforming OrganizationAddressCity/State/ZIP CodePhone Number [facility] [address] [place] [address], * (ABNORMAL) COMPREHENSIVE METABOLIC PANEL (10/27/2025 2:24 PM EST) Only the most recent of5 resultswithin the time period is included. ComponentValueRef RangeTest MethodAnalysis TimePerformed AtPathologist Signature Protein, Total7.16.3 - 8.0 g/dL10/27/2025 2:52 PM ESTNOR[facility]CO[facility] LABAlbumin3.8(L)3.9 - 4.9 g/dL10/27/2025 2:52 PM ESTNORTHCST [facility] LABCalcium, Total9.68.5 - 10.2 mg/dL10/27/2025 2:52 PM EST [facility] LABBilirubin, Total0.50.2 - 1.3 mg/dL 10/27/2025 2:52 PM [facility] LABAlkaline Phosphatase 14064 - 123 U/L112/28/2024 2:52 PM [facility] MHJPAC44 (H)13 - 35 U/L112/28/2024 2:52 PM [facility] GLCZSP094 - 38 U/L112/28/2024 2:52 PM [facility] VCAZdnxijq678(H) 74 - 99 mg/dL10/27/2025 2:52 PM [facility] LABComment: The [place] Diabetes Association (ADA) provides guidance for cutoff values for fasting glucose andrandom glucose. The ADA defines fasting as no [...] Standards of Medical Care in Diabetes 2016, [place] Diabetes Association. Diabetes Care. 2016.39(Suppl 1). LBE891 - 21 mg/dL10/27/2025 2:52 PM [facility] LAB Creatinine0.620.58 - 0.96 mg/dL10/27/2025 2:52 PM [facility] RKEMfntow269(L)136 - 144 mmol/L112/28/2024 2:52 PM [facility] LABPotassium4.53.7 - 5.1 mmol/L112/28/2024 2:52 PM [facility] WLFMtlqpvmv56(L)98 - 107 mmol/L112/28/2024 2:52 PM [facility] XPVXF02066 - 30 mmol/L112/28/2024 2:52 PM [facility] LABAnion Gap88 - 15 mmol/L112/28/2024 2:52 PM [facility] LABEstimated Glomerular Filtration Rate95 >=60 mL/min/1.73m 10/27/2025 2:52 PM [facility] LABComment:Estimated Glomerular Filtration Rate (eGFR) is calculated using the 2020 CKD-EPI creatinine equation. This equation utilizes serum creatinine, sex, and age as parameters. The creatinine assay has traceable calibration to isotope dilution- mass spectrometry. Refer to KDIGO guidelines for clinical interpretation. In patients with unstable renal function, e.g. those with acute kidney injury, the eGFRmay not accurately reflect actual GFR.Specimen (Source)Anatomical Location / LateralityCollection Method / VolumeCollection TimeReceived TimeBloodBLOOD SPECIMEN / UnknownVenipuncture / Xyugzoa4410/27/2025 2:24 PM EST10/27/2025 2:24 PM EST Narrative Authorizing ProviderResult TypeResult StatusHolly Ry SEVILLACNPLABORATORY Final ResultPerforming OrganizationAddressCity/State/ZIP CodePhone Number [facility] [address] [place] [phone] * (ABNORMAL) COMPLETE BLOOD COUNT AND DIFFERENTIAL (10/27/2025 2:24 PM EST) Only the most recent of5 resultswithin the time period is included. ComponentValueRef RangeTest MethodAnalysis TimePerformed AtPathologist Signature WBC12.31(H)3.70 - 11.00 k/uL10/27/2025 2:29 PM [facility]RTPROM[facility] LABRBC4.503.90 - 5.20 m/uL10/27/2025 2:29 PM [facility] NSSZmzybmseeq07.311.5 - 15.5 g/dL10/27/2025 2:29 PM [facility] QJPNebqremvyw23.136.0 - 46.0 %10/27/2025 2:29 PM EST [facility] XMZSBU90.180.0 - 100.0 fL10/27/2025 2:29 PM ESTJ[facility] CSNVIB99.826.0 - 34.0 pg10/27/2025 2:29 PM [facility] EPKTBWH32.730.5 - 36.0 g/dL10/27/2025 2:29 PM [facility] LABRDW-CV15.4(H)11.5 - 15.0 %10/27/2025 2:29 PM [facility] LABPlatelet Rhgeq170214 - 400 k/uL 10/27/2025 2:29 PM [facility] LABMPV9.19.0 - 12.7 fL 10/27/2025 2:29 PM [facility] LABNeutrophils %81.2% 10/27/2025 2:29 PM [facility] LABAbs Neut10.00(H)1.45 - 7.50 k/uL10/27/2025 2:29 PM [facility] LAB Lymphocytes %9.4%10/27/2025 2:29 PM [facility] LABAbs Lymph1.161.00 - 4.00 k/uL10/27/2025 2:29 PM [facility] LABMonocytes %6.3%10/27/2025 2:29 PM [facility] LABAbs Mono0.77<0.87 k/uL10/27/2025 2:29 PM [facility] LAB Eosinophils %1.5%10/27/2025 2:29 PM [facility] LABAbs Eosin0.19<0.46 k/uL10/27/2025 2:29 PM [facility] LAB Basophils %0.5%10/27/2025 2:29 PM [facility] LABAbs Baso0.06<0.11 k/uL10/27/2025 2:29 PM [facility] LAB Immature Granulocytes %1.1%10/27/2025 2:29 PM [facility]RTPROM[facility] LABAbs Immature Gran0.13(H)<0.10 k/uL10/27/2025 2:29 PM [facility] LABNRBC0.0/100 WBC10/27/2025 2:29 PM [facility] LABAbsolute nRBC<0.01<0.01 k/uL10/27/2025 2:29 PM EST [facility] LABDiff CtysQoko21/01/2025 2:29 PM EST [facility] LABSpecimen (Source)Anatomical Location / LateralityCollection Method / VolumeCollection TimeReceived TimeBloodBLOOD SPECIMEN / UnknownVenipuncture / Rmdbdzn6410/27/2025 2:24 PM EST10/27/2025 2:24 PM EST Narrative Authorizing ProviderResult TypeResult StatusHolly Ry SPEECH LANGUAGE SPECIALIST.CNPLABORATORY Final ResultPerforming OrganizationAddressCity/State/ZIP CodePhone Number [facility] [address] [place] [address] * EXTERNAL IMAGING (10/16/2025 3:51 PM EST)Anatomical RegionLateralityModality Other Narrative Authorizing ProviderResult TypeResult StatusExternal Provider PA-CRADIOLOGYFinal Result * EXTERNAL LAB (08/04/2025 1:19 PM EDT) Narrative Authorizing ProviderResult TypeResult StatusExternal Provider PA-CLABORATORY Final Result from Last 3 Months Insurance Care Teams Team MemberRelationshipSpecialtyStart Date Nikolay Borges MD [facility] - [facility]15 Elina Raza APRN.CHEESE SUPERVISOR [address] [place] [address] [place] [address] Nurse PractitionerHematology/Oncology05/17/23 Vianney Scherer, MIGUEL [address] [place] [address] [place] [address] Specialty Care CoordinatorHematology/Oncology05/17/[address] [place] [address] [place] [address] Registered DietitianNutrition05/28/24 Celina Hong LSW Social Obrqkk35/28/[address] [facility] [place] [address] Vzquxtszi91/10/25
--- OUTSIDE RECORDS SUMMARY | 2025-10-31 12:36 | XMS_ITS | Clinical Summary ---
Author Organization [facility] Address [address] [place] [address] Care Team Providers Care Tape Librarian Name Role Phone Nikolay Borges MD Primary Care Provider [phone] Allergies Active AllergyReactionsCriticalityNoted DateCommentsCiprofloxacinRashLow 04/25/2023 Medications MedicationSigDispense QuantityRefillsLast FilledStart DateEnd DateStatus traMADol (Ultram) 50 MG tablet Take 50 mg by mouth 1 (one) time each day at the same time.Active lisinopril 40 MG tablet Take 40 mg by mouth 1 (one) time each day at the same time.Active liothyronine (Cytomel) 25 MCG tablet Take 25 mcg by mouth 1 (one) time each day at the same time.Active levothyroxine (Synthroid, Levoxyl) 50 MCG tablet Take 50 mcg by mouth 1 (one) time each day at the same time.Active citalopram (CeleXA) 20 MG tablet Take 20 mg by mouth 1 (one) time each day at the same time.Active ALPRAZolam (Xanax) 0.25 MG tablet 0.25 mg every 12 (twelve) hours.Active metoprolol succinate XL (Toprol-XL) 50 MG 24 hr tablet Take 50 mg by mouth 1 (one) time each day at the same time.Active fexofenadine (Moira Allergy) 180 MG tablet Take 180 mg by mouth 1 (one) time each day at the same time.Active cholecalciferol (Vitamin D-3) 50 MCG (1999 UT) capsule Take 2,000 Units by mouth in the morning.Active predniSONE (Deltasone) 10 MG tablet Take 5 mg by mouth10/02/2023ctive levothyroxine (Synthroid, Levoxyl) 75 MCG tablet Take 75 mcg by mouth Daily04/04/2024ctive metoprolol tartrate (Lopressor) 50 MG tablet Take 50 mg by mouth in the morning and 50 mg before bedtime.05/17/2024ctive hydroxychloroquine (Plaquenil) 200 MG tablet Take one tab by mouth daily with food. Sunscreen when outdoors. See ophthalmology every 6-12months on med.05/20/2024ctive cevimeline (Evoxac) 30 MG capsule Take 1cap by mouth up to 3times a day as needed for dryness.05/20/2024ctive Active Problems ProblemNoted DateDiagnosed DateOral ueiwkcydd55/06/2024ortic valve stenosis 12/11/20232062Ecanhw90/15/2024rimary lung cancer with metastasis from 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 site, right05/15/2023Lung field ctawzdlw69/25/2023AA (abdominal aortic aneurysm)04/12/2023enign neoplasm of major salivary gland, unspecified 04/12/2023JD (degenerative joint disease) of knee04/12/2023 Overview (01/30/2024): left History of kidney nbynwg6804/12/20235014Mvsudctsnztd63/17/8005Rutzazyokmriqt11/17/2023 Leukoplakia of oral yuncxx3004/12/20231775Pdspdrbsu86/17/2023Seasonal allergic lhywtxvk05/17/2023 Resolved Problems ProblemNoted DateDiagnosed DateResolved DateCurrent ueozkp44/03/2024 Overview (01/30/2024): Added secondary to documentation in Social History. Abnormal aibfiuauhgradn88/15/202403/03/2024Kidney adzokj20/03/2024 Family History Medical HistoryRelationNameCommentsCancerFatherDiabetesFatherCancerMother DiabetesMotherHeart diseaseMotherHypertensionMotherStrokeMotherRelationName StatusCommentsFatherDeceasedMother Social History Tobacco UseTypesPacks/DayYears UsedDateSmoking Tobacco: FormerCigarettes Smokeless Tobacco: Never Tobacco Cessation:Counseling Given: Not Answered Alcohol UseStandard Drinks/WeekCommentsNot Currently0 (1 standard drink = 0.6 oz pure alcohol)caffeine intake: 1-2 cups per dayAUDIT-CAnswerDate RecordedQ1: How often do you have a drink containing alcohol?Never06/26/2024Q2: How many drinks containing alcohol do you have on a typical day when you are drinking?Patient does not drink06/26/2024Q3: How often do you have six or more drinks on one occasion?Never4PHQ-2AnswerDate RecordedPatient Health Questionnaire-2 [id number] and Gender InformationValueDate Recorded Sex Assigned at BirthNot on fileLegal IlmNjqbic54/15/2023 6:45 PM EDTGender IdentityNot on fileSexual OrientationNot on file Last Filed Vital Signs Vital SignReadingTime TakenCommentsBlood Edfhuovy976/7408 3:34 PM EDT Degud590404/27/2023 8:51 AM EDTTemperature--Respiratory Rate--Oxygen Reaymjzypr07% 04/27/2023 8:51 AM EDTInhaled Oxygen Concentration--Gmvjtg52.2 kg (135 lb) 07/16/2024 3:34 PM ECLPaluqo631 cm (5' 3 )06/26/2024 1:05 PM EDTBody Mass Index 23.9106/26/2024 1:05 PM EDT Plan of Treatment Not on file Insurance Care Teams Team MemberRelationshipSpecialtyStart Date Nikolay Borges MD PCP - GeneralFamily Medicine04/25/23
--- OUTSIDE RECORDS SUMMARY | 2025-10-31 12:36 | XMS_ITS | Clinical Summary ---
Author Organization [facility] Address [address], [address] [place] [address] Care Team Providers Care Ict Teacher Name Role Phone Nikolay Borges MD Primary Care Provider +- Allergies Active AllergyReactionsCriticalityNoted DateCommentsCiprofloxacin HclRashLow 04/12/2023 Medications MedicationSigDispense QuantityRefillsLast FilledStart DateEnd DateStatus traMADol (ULTRAM) 50 MG tablet Take 1 tablet by mouth every 6 hours as needed.Active lisinopril (PRINIVIL;ZESTRIL) 40 MG tablet Take 1 tablet by mouth daily04/03/2018Active Levothyroxine Sodium 50 MCG CAPS Take 50 mcg by mouth every morning (before breakfast)Active ALPRAZolam (XANAX) 0.25 MG tablet TAKE 1 TABLET BY MOUTH THREE TIMES A DAY FOR 7 DAYS03/17/2023ctive citalopram (CELEXA) 20 MG tablet 04/10/2023ctive metoprolol tartrate (LOPRESSOR) 50 MG tablet Take 1 tablet by mouth 2 times daily02/22/2023ctive liothyronine (CYTOMEL) 25 MCG tablet Take 1 tablet by mouth dailyActive fexofenadine (WOLFGANG) 180 MG tablet Take 1 tablet by mouth dailyActive Active Problems ProblemNoted DateDiagnosed QiwqTbhzzlbjpgmi67/17/2023idney yvtkfu4504/12/2023JD (degenerative joint disease) of knee04/12/2023 Overview (04/12/2023): left Dkygpeaczncqrt36/17/2023AAA (abdominal aortic aneurysm)04/12/2023Insomnia 04/12/20235746Zhlvvyyat56/17/2023enign neoplasm of major salivary gland, dbrcmvqetge00/17/2023Leukoplakia of oral kskrig3804/12/2023Seasonal allergic gamdcbza90/17/2023History of kidney ytqydb0804/12/2023 Social History Tobacco UseTypesPacks/DayYears UsedDateSmoking Tobacco: FormerCigarettesPassive Smoke Exposure: NeverSmokeless Tobacco: Never Tobacco Cessation:Counseling Given: Not Answered CommentsNoSex and Gender InformationValueDate RecordedSex Assigned at BirthNot on fileLegal QqhEucsom84/10/2013 6:41 PM ESTGender IdentityNot on file Sexual OrientationNot on file Last Filed Vital Signs Vital SignReadingTime TakenCommentsBlood Euosmhyw342/58004/13/2023 4:57 PM EDT Krzit985904/13/2023 4:57 PM EDTTemperature--Respiratory Luvg99004/13/2023 4:57 PM EDTOxygen Yipznyhasw45%04/13/2023 4:57 PM EDTInhaled Oxygen Concentration-- Weight--Height--Body Mass Index-- Plan of Treatment Health MaintenanceDue DateLast DoneCommentsDepression Xuvsjb4511/04/1965Hepatitis C fuunsj3711/04/1971DTaP/Tdap/Td vaccine (1 - Tdap)1972Breast cancer screen 11/04/19933658Fknjqi69/09/2088Wpwggnllocl63/09/1998Colorectal Cancer Screen 1998FIT/FOBT: Average risk1998Fecal-DNA (Cologuard): Average risk 1998Sigmoidoscopy/CT /09/1998Shingles vaccine (1 of 2) 2003DEXA (modify frequency per FRAX score)2008nnual Wellness Visit (Medicare)10/23/2023Flu vaccine (#1)/02/2022, 09/09/2021, 08/23/2020, Additional history existsCOVID-19 Vaccine ( season) , 02/23/2021, 02/01/2021espiratory Syncytial Virus (RSV) or age 60 yrs+ (1 - 1-dose 75+ series)2028Pneumococcal 50+ years LnbwnmsSoijcztgn63/05/2021, 08/10/2020, 11/27/2014Hepatitis A vaccineAged OutNo longer eligible based on patient's age to complete this topicHepatitis B vaccine Aged OutNo longer eligible based on patient's age to complete this topicHib vaccineAged OutNo longer eligible based on patient's age to complete this topic Meningococcal (ACWY) vaccineAged OutNo longer eligible based on patient's age to complete this topicMeningococcal B vaccineAged OutNo longer eligible based on patient's age to complete this topicPolio vaccineAged OutNo longer eligible based on patient's age to complete this topic Insurance Care Teams Team MemberRelationshipSpecialtyStart DateEnd Nikolay Borges MD [address] [place] [address] PCP - GeneralFamily Medicine04/13/23
--- OUTSIDE RECORDS SUMMARY | 2025-10-31 12:36 | XMS_ITS | Patient Health Record ---
Author Organization [facility] in [place] Address [address] [place] [address] Care Team Providers Care Poiser Name Role Phone Reji Borges Primary Care Provider Allergies Allergen (clinical drug ingredient) Drug/Non Drug Allergy documented on EMR Reaction Allergy Type Onset Date Status ciprofloxacin Cipro vomiting Drug Allergy ActivesimvastatinSimvastatinmuscle painDrug AllergyActive Results Component Value Reference Range Notes MR head/brain wo/w con Reviewed date:05/11/2025 12:02:53 PM Interpretation: Performing Lab: Notes/Report: Source Facility: [place] [address] Magnetic Resonance Report Signed Patient: ROBINA MCCABE MR#: [id number] : 1955 Acct:[id number] Age/Sex: 69 / F ADM Date: 05/09/25 Loc: MRI Attending Dr: Antoinette JOHNSON Ordering Physician: Antoinette Crenshaw Date of Service: 05/09/25 Procedure(s): MR head/brain wo/w con Accession Number(s): [id number] cc: León Borges M.D.; Antoinette Crenshaw [place] [address] Patient Name: ROBINA MCCABE MRN: [id number]:[id number] date: 1955 Sex: F Assigned Patient Location: MRI Current Patient Location: MRI Accession/Order Number: [id number] Exam Date: 05/09/2025 15:16 Report Date: 05/09/2025 [...] Hdez M.D. 05/09/2025 3:29 PM Dictation Location: [place] [address] Electronically authenticated by: [id number] Y Date: 05/09/2025 15:29 Dictated By: Hermilo Hdez D.O. Signed By: 05/09/25 1532 DD/ 1529 TD/TT: Regulatory Consultant: CT FACIAL BONES WO CON Reviewed date:05/26/2025 08:44:38 PM Interpretation: Performing Lab: Notes/Report: Source Facility: [place] [address] [place] [address] CT Scan Report Signed Patient: ROBINA MCCABE MR#: [id number] : 1955 Acct:[id number] Age/Sex: 69 / F ADM Date: 05/26/25 Loc: ER Attending Dr: Ordering Physician: Ilda Babin Date of Service: 05/26/25 Procedure(s): CT facial bones wo con Accession Number(s): [id number] cc: León Borges M.D. [address] [address] Patient Name: ROBINA MCCABE MRN: [facility]:[id number] date: 1955 Sex: F Assigned Patient Location: ER Current Patient Location: ER Accession/Order Number: [id number] Exam Date: 05/26/2025 16:32 Report Date: 05/26/2025 [...] Hdez M.D. 05/26/2025 4:45 PM Dictation Location: [place] [address] Electronically authenticated by: [id number] Y Date: 05/26/2025 16:45 Dictated By: Hermilo Hdez D.O. Signed By: 05/26/251647 DD/ 44 TD/TT: Regulatory Consultant: CT head/brain wo con Reviewed date:05/26/2025 08:44:38 PM Interpretation: Performing Lab: Notes/Report: Source Facility: [place] [address] CT Scan Report Signed Patient: ROBINA MCCABE MR#: [id number] : 1955 Acct:[id number] Age/Sex: 69 / F ADM Date: 05/26/25 Loc: ER Attending Dr: Ordering Physician: Ilda Babin Date of Service: 05/26/25 Procedure(s): CT head/brain wo con Accession Number(s): [id number] cc: León Borges M.D. [place] [id number] Patient Name: ROBINA MCCABE MRN: [id number]:[id number] date: 1955 Sex: F Assigned Patient Location: ER Current Patient Location: ER Accession/Order Number: [id number] Exam Date: 05/26/2025 16:32 Report Date: 05/26/2025 [...] Hdez M.D. 05/26/2025 4:45 PM Dictation Location: [place] [address] Electronically authenticated by: [id number] Y Date: 05/26/2025 16:45 Dictated By: Hermilo Hdez D.O. Signed By: 05/26/251647 DD/ 44 TD/TT: Regulatory Consultant: THIERRY chest 1V Reviewed date:05/26/2025 08:44:38 PM Interpretation: Performing Lab: Notes/Report: Source Facility: [address] [address] XRay Report Signed Patient: ROBINA MCCABE MR#: [id number] : 1955 Acct:[id number] Age/Sex: 69 / F ADM Date: 05/26/25 Loc: ER Attending Dr: Ordering Physician: Ilda Babin Date of Service: 05/26/25 Procedure(s): XR chest 1V Accession Number(s): [id number] cc: León Borges M.D.; Ilda Babin [place] [address] Patient Name: ROBINA MCCABE MRN: [id number]:[id number] date: 1955 Sex: F Assigned Patient Location: ER Current Patient Location: ER Accession/Order Number: [id number] Exam Date: 05/26/2025 16:25 Report Date: 05/26/2025 [...] Hdez M.D. 05/26/2025 4:29 PM Dictation Location: [place] [address] Electronically authenticated by: [id number] Y Date: 05/26/2025 16:29 Dictated By: Hermilo Hdez D.O. Signed By: 05/26/25 163 DD/ 162 TD/TT: Regulatory Consultant: CT cervical spine wo con Reviewed date:05/26/2025 08:44:38 PM Interpretation: Performing Lab: Notes/Report: Source Facility: [place] [address] CT Scan Report Signed Patient: ROBINA MCCABE MR#: [id number] : 1955 Acct:[id number] Age/Sex: 69 / F ADM Date: 05/26/25 Loc: ER Attending Dr: Ordering Physician: Ilda Babin Date of Service: 05/26/25 Procedure(s): CT cervical spine wo con Accession Number(s): [id number] cc: León Borges M.D. [place] [address] Patient Name: ROBINA MCCABE MRN: [id number]:[id number] date: 1955 Sex: F Assigned Patient Location: ER Current Patient Location: ER Accession/Order Number: [id number] Exam Date: 05/26/2025 16:32 Report Date: 05/26/2025 [...] Hdez M.D. 05/26/2025 4:45 PM Dictation Location: [place] [address] Electronically authenticated by: [id number] Y Date: 05/26/2025 16:45 Dictated By: Hermilo Hdez D.O. Signed By: 05/26/251647 DD/ 44 TD/TT: Regulatory Consultant: XR shoulder MARCUS min 2V Reviewed date:05/26/2025 08:44:38 PM Interpretation: Performing Lab: Notes/Report: Source Facility: [place] [address] XRay Report Signed Patient: ROBINA MCCABE MR#: [id number] : 1955 Acct:[id number] Age/Sex: 69 / F ADM Date: 05/26/25 Loc: ER Attending Dr: Ordering Physician: Ilda Babin Date of Service: 05/26/25 Procedure(s): XR shoulder MARCUS min 2V Accession Number(s): [id number] cc: León Borges M.D.; Ilda Babin [place] [id number] Patient Name: ROBINA MCCABE MRN: [id number] date: 1955 Sex: F Assigned Patient Location: ER Current Patient Location: ER Accession/Order Number: [id number] Exam Date: 05/26/2025 16:29 Report Date: 05/26/2025 [...] Hdez M.D. 05/26/2025 4:31 PM Dictation Location: [place] Electronically authenticated by: [id number] Y Date: 05/26/2025 16:31 Dictated By: Hermilo Hdez D.O. Signed By: 05/26/25 1634 DD/ 1631 TD/TT: Regulatory Consultant: NEYMAR Reviewed date:06/11/2025 12:47:52 PM Interpretation: Performing Lab: Notes/Report: Source Facility: [place] [address] Cardiac Rehab Report Signed Patient: ROBINA MCCABE MR#: [id number] : 1955 Acct:[id number] Age/Sex: 69 / F ADM Date: 06/10/25 Loc: CR Attending Dr: JAVI DONAHUE Ordering Physician: Jamila Sweeney M.D. 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 Electronically Signed On 06-11-2025 7:56:31 EDT by Darryl Schrader Dictated By: Darryl Schrader D.O. Signed By: 06/11/25 0756 06/11/25 0756 DD/ 1505 TD/TT: Regulatory Consultant: ITP Reviewed date:07/06/2025 07:33:16 PM Interpretation: Performing Lab: Notes/Report: Source Facility: [place] [address] Cardiac Rehab Report Signed Patient: ROBINA MCCABE MR#: [id number] : 1955 Acct:[id number] Age/Sex: 69 / F ADM Date: 07/03/25 Loc: CR Attending Dr: JAVI DONAHUE Ordering Physician: Jamila Sweeney M.D. 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 Interpretive Statements Patient may continue cardiac rehab as outlined in the treatment plan. Electronically Signed On 07-04-2025 10:20:17 EDT by CHANDA LEVY M.D. Dictated By: CHANDA LEVY Signed By: 07/04/25 1020 07/04/25 1020 DD/ 0716 TD/TT: Regulatory Consultant: NEYMAR Reviewed date:07/25/2025 04:04:03 PM Interpretation: Performing Lab: Notes/Report: Source Facility: [facility] [place] [address] Cardiac Rehab Report Signed Patient: ROBINA MCCABE MR#: [id number] : 1955 Acct:[id number] Age/Sex: 69 / F ADM Date: 07/24/25 Loc: CR Attending Dr: JAVI DONAHUE Ordering Physician: Jamila Sweeney M.D. 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 Signed By: 07/25/25 1328 07/25/25 1328 DD/ 1055 TD/TT: Regulatory Consultant: LIPID PROFILE Reviewed date:07/29/2025 10:28:25 PM Interpretation: Performing Lab: Notes/Report: [facility] , Triglycerides 95 <=150 mg/dL Qiytszkpfey664<=200 mg/dLHDL Dwjegygcldl2145-38 mg/dL > or =60 mg/dl - LOW CARDIOVASCULAR RISK <40 mg/dl - HIGH CARDIOVASCULAR RISK LDL Cholesterol Bkjijqvzwz79.0 <100 mg/dl OPTIMAL 100-129 mg/dl NEAR OR ABOVE OPTIMAL 130-159 mg/dl BORDERLINE HIGH 160-189 mg/dl HIGH >190 mg/dl VERY HIGH VLDL KOOTZTKEVWJ55.0Chol HDL Ratio2.3 3.3 - 4.4 LOW RISK 4.4 - 7.1 AVERAGE RISK 7.1 - 11.0 MODERATE RISK >11.0 HIGH RISK Performing Lab:see noteML - [facility] LBSGOT Reviewed date:07/29/2025 10:28:25 PM Interpretation: Performing Lab: Notes/Report: [facility] ,Aspartate Amino Dmuvsdzoyik0840-06 U/LPerforming Lab:see noteML - [facility] LBSGPT Reviewed date:07/29/2025 10:28:25 PM Interpretation: Performing Lab: Notes/Report: [facility] ,Alanine Liffejmdmqzimenu7985-01 U/LPerforming Lab:see noteML - [facility] LBITP Reviewed date:09/19/2025 03:04:17 PM Interpretation: Performing Lab: Notes/Report: Source Facility: [place] [address] Cardiac Rehab Report Signed Patient: ROBINA MCCABE MR#: [id number] : 1955 Acct:[id number] Age/Sex: 69 / F ADM Date: 09/15/25 Loc: CR Attending Dr: JAVI DONAHUE Ordering Physician: Jamila Sweeney M.D. 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 Interpretive Statements Patient may continue cardiac rehab as outlined in the treatment plan. Electronically Signed On 09-18-2025 19:23:59 EDT by CHANDA LEVY M.D. Dictated By: CHANDA LEVY Signed By: 09/18/25192309/18/251923 DD/ 3 TD/TT: Regulatory Consultant:NEYMAR Reviewed date:10/18/2025 07:52:18 PM Interpretation: Performing Lab: Notes/Report: Source Facility: [place] [address] [place] [address] Cardiac Rehab Report Signed Patient: ORBINA MCCABE MR#: [id number] : 1955 Acct:[id number] Age/Sex: 69 / F ADM Date: 10/16/25 Loc: CR Attending Dr: JAVI DONAHUE Ordering Physician: León Borges M.D. 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 Interpretive Statements Patient may continue cardiac rehab as outlined in the treatment plan. Electronically Signed On 10-17-2025 17:43:44 EST by CHANDA LEVY M.D. Dictated By: CHANDA LEVY Signed By: 10/17/25 1744 10/17/25 174 DD/ 0953 TD/TT: Regulatory Consultant:NEYMAR Reviewed date:06/04/2025 10:42:42 AM Interpretation: Performing Lab: Notes/Report: Source Facility: [place] [address] [place] [address] Cardiac Rehab Report Signed Patient: ROBINA MCCABE MR#: [id number] : 1955 Acct:[id number] Age/Sex: 69 / F ADM Date: 05/27/25 Loc: CR Attending Dr: JAVI DONAHUE Ordering Physician: Darryl Schrader D.O. 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 Electronically Signed On 06-04-2025 10:01:25 EDT by Darryl Schrader Dictated By: Darryl Schrader D.O. Signed By: 06/04/25 1001 06/04/25 1001 DD/ 1434 TD/TT: Regulatory Consultant:ECG 12 lead Reviewed date:05/26/2025 08:44:38 PM Interpretation: Performing Lab: Notes/Report: Source Facility: [place] [address] [place] [address] Electrocardiograph Report Signed Patient: ROBINA MCCABE MR#: [id number] : 1955 Acct:[id number] Age/Sex: 69 / F ADM Date: 05/26/25 Loc: ER Attending Dr: Ordering Physician: Ilda Babin Date of Service: 05/26/25 Procedure(s): ECG 12 lead Accession Number(s): [id number] cc: [facility] Test Date: 2025-05-26 Pat Name: ROBINA MCCABE Department: Room: - Gender: Female 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 Measurements Intervals [place] Rate: 82 P: 55 IN: 212 QRS: -44 QRSD: 132 T: 52 [...] M.D. Dictated By: CHANDA LEVY Signed By: 05/26/25 1712 DD/ 1455 TD/TT: Regulatory Consultant:UA Micro, reflex to culture Reviewed date:05/26/2025 08:44:38 PM Interpretation: Performing Lab: Notes/Report: [facility] ,Color UrineLT. YELLOWYELLOWClarity UrineCLEARCLEARSpecific [place] Urine1.025 1.005-1.025pH Urine6.05.0-9.0Protein UrineTRACENEG/TRACE mg/dLGlucose Urine UA NEGATIVENEGATIVE mg/dLBilirubin UrineNEGATIVENEGATIVEKetones UrineNEGATIVE NEGATIVE mg/dLBlood UrineNEGATIVENEGATIVENitrite UrineNEGATIVENEGATIVE Urobilinogen Urine0.20.2-1.0 EU/dLLeukocyte Esterase UrineTRACENEGATIVEWBC Urine 2-5NONE SEEN #/HPFRBC Urine0-20-2 #/HPFBacteria UrineTRACENONE SEEN #/HPFMucus UrineTRACENONE SEENSquamous Epithelial Cell UrineRARENONE/RARE #/LPFCrystals Seen?None SeenNone Seen #/HPFCast Seen?NONE SEENNONE SEEN #/LPFUrine Culture IndicatedNOPerforming Lab:see note - [facility] LBTroponin I High Sensitivity Reviewed date:05/26/2025 08:44:38 PM Interpretation: Performing Lab: Notes/Report: [facility] ,Troponin I High Hzbnilxeyff32.94.0-51.3 pg/mL CUT-OFF POINTS HAVE BEEN ESTABLISHED BASED ON THE FOURTH UNIVERSAL DEFINITION OF MYOCARDIAL INFARCTION. THE UPPER REFERENCE LIMIT (URL) OF TROPONIN, DEFINED THE 99TH PERCENTILE OF cTnI DISTRIBUTION IN A REFERENCE POPULATION, HAS BEEN CONFIRMED THE DECISION THRESHOLD FOR [place] DIAGNOSIS. 99TH PERCENTILE = 51.4 PG/ML NOTE: HIGH-SENSITIVITY TROPONIN ASSAY IS NOT INTENDED TO BE USED IN ISOLATION BUT SHOULD BE INTERPRETED IN CONJUNCTION WITH OTHER DIAGNOSTIC AND CLINICAL INFORMATION. Performing Lab:see noteML - [facility] LBProthrombin Time INR Reviewed date:05/26/2025 08:44:38 PM Interpretation: Performing Lab: Notes/Report: [facility] ,Prothrombin Time11.39.0-11.6 secINR1.07 DESIRED INR: 2.0-3.0 CONDITIONS NOT LISTED BELOW 2.5-3.5 FOR PROSTHETIC HEART VALVE REPLACEMENT 2.5-3.5 RECURRENT THROMBOSIS Performing Lab:see note - [facility] LBTSH Reviewed date:05/26/2025 08:44:38 PM Interpretation: Performing Lab: Notes/Report: [facility] ,Thyroid Stimulating Hormone0.4170.358-3.740 uIU/mLPerforming Lab:see noteML - [facility] LBPROF 14(COMP METB) Reviewed date:05/26/2025 08:44:38 PM Interpretation: Performing Lab: Notes/Report: [facility] ,Ljtjrr143819-524 mmol/LPotassium4.43.5-5.1 mmol/SRtpssdxl48145-550 mmol/LCarbon Tlwnxgy05.521.0-32.0 mmol/LAnion Gap12.5Gmfrakx3778-216 mg/dLBlood Urea Nitrogen 16.07.0-18.0 mg/dLCreatinine0.570.55-1.02 mg/dLEstimated GFR ( Nesha>60 >=60 mL/min/1.73m 2Estimated GFR (Non- Clari>60>=60 mL/min/1.73m 2BUN Creatinine Ratio28.6Kphotmr1.58.5-10.1 mg/dLBilirubin Total0.80.2-1.0 mg/dL Aspartate Amino Tcznmqvxqpx25987-78 U/LAlanine Xgubpfpgewoftdde39223-65 U/L Alkaline Iukxfxvrwqi26631-391 U/LTotal Protein8.26.4-8.2 g/dLAlbumin Level3.0 3.4-5.0 g/dLGlobulin5.2Albumin Globulin Ratio0.6Performing Lab:see noteML - [facility] LBCBC AUTO DIFF Reviewed date:05/26/2025 08:44:38 PM Interpretation: Performing Lab: Notes/Report: [facility] ,White Blood Count10.74.0-11.0 10 3/uLRed Blood Count4.314.20-5.40 10 6/uL Tkcyxqtvqo07.012.0-16.0 g/jCIztghfmtzv42.136.0-48.0 %Mean Corpuscular Nuucgr52.0 81.0-99.0 fLMean Corpuscular Mbjefcdlvu73.526.7-34.0 pgMean Corpuscular HGB Conc 34.929.9-35.2 g/dLRed Cell Distribution Width15.111.0-15.0 %Platelet Xpcvx130 150-450 10 3/uLMean Platelet Volume9.69.5-13.5 fLNeutrophils Percent Auto72.2 43.0-75.0 %Lymphocytes Percent Auto15.020.5-60.0 %Monocytes Percent Auto8.21.7- 12.0 %Eosinophils Percent Auto3.20.9-7.0 %Basophils Percent Auto0.60.2-2.0 % Immature Granulocytes Pct Auto0.80.0-0.5 %Neutrophils Absolute Auto7.71.4-6.5 10 3/uLLymphocytes Absolute Auto1.61.2-3.8 10 3/uLMonocytes Absolute Auto0.90.3-0.8 10 3/uLEosinophils Absolute Auto0.30.0-0.7 10 3/uLBasophils Absolute Auto0.10.0- 0.1 10 3/uLImmature Granulocytes Abs Auto0.090.00-0.03 10 3/uLPerforming Lab:see noteML - [facility] LBXR chest 2V Reviewed date:12/15/2024 01:28:47 PM Interpretation: Performing Lab: Notes/Report: Source Facility: [facility] [place] [address] [place] [address] XRay Report Signed Patient: ROBINA MCCABE MR#: [id number] : 1955 Acct:[id number] Age/Sex: 69 / F ADM Date: 12/13/24 Loc: LAB Attending Dr: León Borges M.D. Ordering Physician: León Borges M.D. Date of Service: 12/13/24 Procedure(s): XR chest 2V Accession Number(s): [id number] cc: León Borges M.D. [place] [address] Patient Name: ROBINA MCCABE MRN: [id number] date: 1955 Sex: F Assigned Patient Location: LAB Current Patient Location: LAB Accession/Order Number: [id number] Exam Date: 12/13/2024 12:41 Report Date: 12/15/2024 [...] Dictated By: Leighton Braswell M.D. Signed By: 12/15/2448 DD/ TD/TT: Regulatory Consultant:MR head/brain wo/w con Reviewed date:11/15/2024 04:26:01 PM Interpretation: Performing Lab: Notes/Report: Source Facility: [place] [address] Magnetic Resonance Report Signed Patient: ROBINA MCCABE MR#: [id number] : 1955 Acct:[id number] Age/Sex: 69 / F ADM Date: 11/15/24 Loc: MRI Attending Dr: SAYRA MOMIN Ordering Physician: SAYRA MOMIN Date of Service: 11/15/24 Procedure(s): MR head/brain wo/w con Accession Number(s): [id number] cc: León Borges M.D.; SAYRA MOMIN [place] [address] Patient Name: ROBINA MCCABE MRN: [id number] date: 1955 Sex: F Assigned Patient Location: MRI Current Patient Location: MRI Accession/Order Number: [id number] Exam Date: 11/15/2024 12:50 Report Date: 11/15/2024 [...] Signed By: 11/15/24 1449 DD/ 1438 TD/TT: Regulatory Consultant:PROF French(COMP METB) Reviewed date:12/15/2024 01:28:47 PM Interpretation: Performing Lab: Notes/Report: [facility] ,Qylerl676552-880 mmol/LPotassium4.43.5-5.1 mmol/ZGrimsktq81080-339 mmol/LCarbon Wixydop02.521.0-32.0 mmol/LAnion Gap12.9Ifeyott6798-612 mg/dLBlood Urea Nitrogen 24.07.0-18.0 mg/dLCreatinine0.790.55-1.02 mg/dLEstimated GFR ( Nesha>60 >=60 mL/min/1.73m 2Estimated GFR (Non- Clari>60>=60 mL/min/1.73m 2BUN Creatinine Ratio30.8Whimfid3.28.5-10.1 mg/dLBilirubin Total1.00.2-1.0 mg/dL Aspartate Amino Ebsqhyolxha2574-58 U/LAlanine Tqazalveanwjczfm0836-20 U/L Alkaline Bgvejhmbbvl5697-759 U/LTotal Protein7.36.4-8.2 g/dLAlbumin Level2.73.4- 5.0 g/dLGlobulin4.6Albumin Globulin Ratio0.6Performing Lab:see noteML - [facility] LBCBC AUTO DIFF Reviewed date:12/15/2024 01:28:47 PM Interpretation: Performing Lab: Notes/Report: [facility] ,White Blood Count11.14.0-11.0 10 3/uLRed Blood Count4.354.20-5.40 10 6/uL Hjgixomxke79.612.0-16.0 g/kQDgelbhwkyb50.636.0-48.0 %Mean Corpuscular Towtid88.0 81.0-99.0 fLMean Corpuscular Srdzykzhhn77.326.7-34.0 pgMean Corpuscular HGB Conc 34.329.9-35.2 g/dLRed Cell Distribution Width14.311.0-15.0 %Platelet Chyjr674 150-450 10 3/uLMean Platelet Volume9.39.5-13.5 fLNeutrophils Percent Auto78.6 43.0-75.0 %Lymphocytes Percent Auto6.920.5-60.0 %Monocytes Percent Auto8.21.7- 12.0 %Eosinophils Percent Auto4.20.9-7.0 %Basophils Percent Auto0.60.2-2.0 % Immature Granulocytes Pct Auto1.50.0-0.5 %Neutrophils Absolute Auto8.71.4-6.5 10 3/uLLymphocytes Absolute Auto0.81.2-3.8 10 3/uLMonocytes Absolute Auto0.90.3-0.8 10 3/uLEosinophils Absolute Auto0.50.0-0.7 10 3/uLBasophils Absolute Auto0.10.0- 0.1 10 3/uLImmature Granulocytes Abs Auto0.170.00-0.03 10 3/uLPerforming Lab:see note - [facility] LBBNP Reviewed date:12/15/2024 01:28:47 PM Interpretation: Performing Lab: Notes/Report: [facility] ,NT Pro B Type Natriuretic Blrs07755.0<=900.0 pg/mLRESULTS CALLED TO DR. BORGES Performing Lab:see note - [facility] LBITP Reviewed date:08/19/2025 08:42:53 PM Interpretation: Performing Lab: Notes/Report: Source Facility: [place] [address] Cardiac Rehab Report Signed Patient: ROBINA MCCABE MR#: [id number] : 1955 Acct:[id number] Age/Sex: 69 / F ADM Date: 08/19/25 Loc: CR Attending Dr: JAVI DONAHUE Ordering Physician: CHANDA LEVY Date of Service: 08/19/25 Procedure(s): ITP Accession Number(s): [id number] cc: [facility] Test Date: 2025-08-19 Pat Name: ROBINA MCCBAE Department: Room: - Gender: Female 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 Order Number: [id number] Ingrid MD: CHANDA LEVY M.D. Interpretive Statements Patient may continue cardiac rehab as outlined in the treatment plan. Electronically Signed On 08-19-2025 18:08:18 EDT by CHANDA LEVY M.D. Dictated By: CHANDA LEVY Signed By: 08/19/25180708/19/251807 DD/ 5 TD/TT: Regulatory Consultant: Reason For Referral No Information Medications Medication SIG (Take, Route, Frequency, Duration) Notes Start Date End Date Status Cholecalciferol 100 MCG (4000 UT) 1 tablet Orall y Once a day 4ActiveTriamcinolone Acetonide 0.1 %1 application do not rinse afterwards and avoid eating or drinking for 30 minutes Mouth/Throat Twice a day; Duration: 30 days5ActiveCitalopram Hydrobromide 20 MGTAKE 1 TABLET BY MOUTH EVERY DAY; Duration: 90ActiveXopenex HFA 45 MCG/ACT1-2 puff as needed Inhalation every 6 hrs5ActiveEvoxac 30 MG1 capsule Orally Three times a dayActiveLasix 20 MG1 tablet Orally Once a day; Duration: 30 days12/13/2024 ActivePlaquenil 200 MGas directed Orally dailyRHEUMActiveBaby AspirinActive Praluent 75 MG/MLSubcutaneous; Duration: 84 DaysActiveBudesonide ER 9 MG1 tablet in the morning Orally Once a dayActiveProlia 60 MG/MLas directed Subcutaneous ActiveALPRAZolam 0.5 MG1/2 tablet as needed Orally TID; Duration: 30 daysPRN 5ActiveLevothyroxine Sodium 75 MCGTAKE 1 TABLET BY MOUTH EVERY DAY; Duration: 90 daysActiveLiothyronine Sodium 25 MCGTAKE 1/2 TABLET BY MOUTH ON AN EMPTY STOMACH ONCE A DAY; Duration: 90 daysActivepredniSONE 5 MG1 tablet with food or milk Orally Once a dayActiveMetoprolol Succinate ER 50 MG1 tablet Orally Once a dayActiveOmeprazole 40 MG1 capsule 1/2 to 1 hour before morning meal Orally Once a dayActive Social History Tobacco Use: Social History Observation Description Date Details (start date - stop date) Former Smoker NA - 12/27/2017 Tobacco Use/Smoking Question Answer Notes Patient is a former smoker When did you stop smoking?12/27/2017How long has it been since you last smoked? 1-5 yearsAlcohol Screen (Audit-C) Question Answer Notes Did you have a drink containing alcohol in the p ast year? No Iaghmh0QxqklhbwwtwgnyIviodaqxYXZVM-Z (Standard) Question Answer Notes Did you have a drink containing alcohol in the p ast year? 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)ActiveconfirmedProblemOverweight (078116888)Overweight (E66.3)ActiveconfirmedProblemAnxiety disorder (278785564)Anxiety disorder, unspecified (F41.9)ActiveconfirmedProblemAortic valve disorder (4649330) Nonrheumatic aortic (valve) stenosis (I35.0)ActiveconfirmedProblemAortic valve disorder (3058664)Nonrheumatic aortic (valve) insufficiency (I35.1)Active confirmedProblemLocalized swelling, mass and lump, trunk (R22.2)Activeconfirmed ProblemLung field abnormal (056370645)Other nonspecific abnormal finding of lung field (R91.8)ActiveconfirmedProblemIntermittent claudication (84135240) Intermittent claudication (I73.9)ActiveconfirmedProblemCigarette smoker (71238378)Cigarette smoker (F17.210)ActiveconfirmedProblemHypothyroidism (25726228)Hypothyroidism (E03.9)ActiveconfirmedProblemEdema (41001879)Edema (R60.9)ActiveconfirmedProblemEssential hypertension (02805861)Essential hypertension (I10)ActiveconfirmedProblemArthritis (3845874)Arthritis (M19.90) ActiveconfirmedProblemOsteopenia (524744098)Osteopenia (M85.80)Activeconfirmed ProblemCarotid bruit (703387165)Carotid bruit (R09.89)ActiveconfirmedProblem Dyspnea (302473059)Dyspnea (R06.00)ActiveconfirmedProblemOsteoarthritis of knee (593200322)Osteoarthritis of knee (M17.9)ActiveconfirmedProblemInsomnia (312110396)Insomnia (G47.00)ActiveconfirmedProblemLung cancer (189231341)Lung cancer (C34.90)ActiveconfirmedProblemAcute sinusitis (54016854)Acute sinusitis (J01.90)ActiveconfirmedProblemColitis (06220306)Colitis (K52.9)Activeconfirmed ProblemGastritis (6534528)Gastritis (K29.70)ActiveconfirmedProblemUrinary tract infection (98358627)Urinary tract infection (N39.0)ActiveconfirmedProblem Seasonal allergic rhinitis (064842454)Allergic rhinitis, seasonal (J30.2)Active confirmedProblemDuodenitis (41208939)Duodenitis (K29.80)ActiveconfirmedProblem Otalgia of left ear (finding) (3948740147)Otalgia, left (H92.02)Activeconfirmed ProblemUterine leiomyoma (17962891)Fibroid, uterine (D25.9)Activeconfirmed 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) ActiveconfirmedProblemOsteoarthritis of knee (887221081)Osteoarthritis of right knee (M17.11)ActiveconfirmedProblemAbdominal aortic aneurysm (disorder) (444084044)Abdominal aortic aneurysm (AAA), unspecified part, unspecified whether ruptured (I71.40)Activeconfirmed Vital Signs Temperature 99.2 degrees Fahrenheit 12/13/2024 Flexxztc39 %12/13/2024lood pressure hwaznldyi06 mm Hg07/18/20257860Ysyybx12 in 07/18/2025lood pressure hzgwgoyu253 mm Hg07/18/20258689Ereghg796.6 lbs07/18/2025MI 24.13 kg/m207/18/2025 Procedures Procedure Date Ordered Date Performed Result Body Sit e ECG with Interpretation 12/13/2024 N/AEAR IRRIGATION - zpaetyowh19/17/2025N/CJkccfpuwgwwfrp18/17/2025N/A Encounters Encounter Location Date Provider Diagnosis [facility] [address] [place] [address] 07/02/2025 Reji [facility] [place] [address] 07/21/2025[facility]Hyp[facility] E03.9[facility] [place] [address]/Doug HoyHypothyroidism E03.9[facility] [place] [address]/ Reji HoyHypothyroidism E03.9[facility] [place] [address]/Doug HoyHypothyroidism E03.9B[facility] [place] [address]/12/2024Doug Hoy [facility] E03.9[facility] [place] [address]/Doug HoyHypothyroidism E03.9B[facility] [address] [place] [address]/Doug HoyHypothyroidism E03.9B[facility] [place] [address] 05/26/2025Doug [facility] [place] [address]/11/2024[facility] [place] [address]/[facility] [place] [address]/Doug HoyHypothyroidism E03.9[facility] [place] [address]/ [facility] [place] [address] 01/24/2025Doug [facility] [place] [address]/02/2025Doug [facility] [place] [address]/[facility] [place] [address]/Doug HoyHypothyroidism E03.9BVD[facility] [place] [address]/ Reji HoyHypothyroidism E03.9B[facility] [place] [address]/[facility] [place] [address]/Doug [facility] [place] [address]/Doug Hoy Hypothyroidism E03.9B[facility] [place] [address]/Doug [facility] [place] [address]/Doug HoyHypothyroidism E03.9B[facility] [place] [address]/ Reji [facility] [place] [address]/oug [facility] [place] [address]/oug [facility] [place] [address]/Doug HoyShortness of breath R06.02 [facility] [place] [address] 11/25/2024oug HoyHypothyroidism E03.9 and Essential hypertension M13Ps[facility] [address] [place] [address]/ Reji HoyHypothyroidism E03.9 ; Essential hypertension I10 ; Lung cancer C34.90 ; Dyspnea R06.00 ; Cerumen impaction H61.20 and Bilateral impacted cerumen H61.23 [address] [place] [address] 05/23/2025Doug HoyEssential hypertension I10 ; Malignant neoplasm of unspecified part of unspecified bronchus or lungC34.90 and Secondary malignant neoplasm of brain C79.31[facility] [address] [place] [address]/05/2025Doug HoyEssential hypertension Q50VwzsafpPamela [address] [place] [address]/Doug HoyEssential hypertension I10 Assessments Encounter Date Diagnosis (ICD Code) Assessment Notes Treatment Notes Treatment Clinical Notes Section Notes 06/02/2025 Essential hypertension (ICD-10 - I10) leaving - bp med same - not drank that ay much05/23/2025Essential hypertension (ICD-10 - I10)stabel here and at home05/23/2025Malignant neoplasm of unspecified part of unspecified bronchus or lung (ICD-10 - C34.90)on immune therapy - seeing Dr Bravo07/18/2025Essential hypertension (ICD-10 - I10)Cleared for OR - Hold asa 3-4 days prior and restart day after11/25/2024Hypothyroidism (ICD-10 - E03.9) 11/25/2024Essential hypertension (ICD-10 - I10)12/13/2024Hypothyroidism (ICD-10 - E03.9)12/13/2024Essential hypertension (ICD-10 - I10)12/13/2024Shortness of breath (ICD-10 - R06.02)12/23/2024Hypothyroidism (ICD-10 - E03.9)01/22/2025 Hypothyroidism (ICD-10 - E03.9)02/21/2025Hypothyroidism (ICD-10 - E03.9) 03/24/2025Hypothyroidism (ICD-10 - E03.9)04/23/2025Hypothyroidism (ICD-10 - E03.9)05/23/2025Hypothyroidism (ICD-10 - E03.9)06/20/2025Hypothyroidism (ICD-10 - E03.9)07/21/2025Hypothyroidism (ICD-10 - E03.9)08/21/2025Hypothyroidism (ICD- 10 - E03.9)09/22/2025Hypothyroidism (ICD-10 - E03.9)10/21/2025Hypothyroidism (ICD-10 - E03.9)10/28/2025Hypothyroidism (ICD-10 - E03.9)12/13/2024Lung cancer (ICD-10 - C34.90)05/23/2025Secondary malignant neoplasm of brain (ICD-10 - C79.31)See above12/13/2024Dyspnea (ICD-10 - R06.00)5Cerumen impaction (ICD-10 - H61.20)5Bilateral impacted cerumen (ICD-10 - H61.23) Plan Of Treatment Pending Test Test Name Order Date CMP (COMPLETE METABOLIC PANEL) 3 CMP (COMPLETE METABOLIC PANEL) 4 HEMOGLOBIN A1C (GLYCO) 08/25/2023 HEMOGLOBIN A1C (GLYCO) 11/25/2024 IRON, TOTAL 11/25/2024 IRON, TOTAL 08/25/2023 LIPID PANEL (CHOL/TRIG/HDL/LDL) 08/25/20 23 LIPID PANEL (CHOL/TRIG/HDL/LDL) 11/25/20 24 CBC WITH DIFF (EXP 09/2025) 11/25/2024 CBC WITH DIFF (EXP 09/2025) 08/25/2023 PT (PROTIME), INR AND PTT (PT/INR [...] 2 V 12/13/2024 THYROID PANEL (T4/TSH/FREE T3) 5 THYROID PANEL (T4/TSH/FREE T3) 3 THYROID PANEL (T4/TSH/FREE T3) 4 Insurance Providers Payer Name Payer Address Payer Phone Subscriber Number Group Number Insured Name Patient Relationship to Insured Coverage Start Date Coverage End Date [place] [address] [place] [address] [id number] Jj Mccabef - patient is the insuredCOUNTS INCLUDE 234 BEDS AT THE [facility] [employer] INS[employer]ANCE [address] [address] [place] [id number] Robina Moralez Self - patient is the insured Medical [...] Cigarette smoker F17.210 Surgical History Surgery Date(Month/Year) Thyroid Tumor Removal Knee Replacement- LetHip Replacement- Right
--- OUTSIDE RECORDS SUMMARY | 2025-10-31 12:36 | XMS_ITS | Encounter Summary ---
Author Organization [facility] Address [address] [place] [address] Care Team Providers Care Machine Bobbin Winder Name Role Phone Nikolay Borges MD Primary Care Provider + Elina Raza APRN.CODING CONSULTANT Unavailable [phone] Vianney Scherer RN Unavailable [phone] Unavailable [phone] Celina Hong WEARING APPAREL FOLDER Unavailable Unavailable Katie Segundo RD Unavailable [phone] Source Comments In the event this information is protected by the Federal Confidentiality of Alcohol and Drug AbusePatient Records regulations: The Federal rules restrict any use of the information to criminally investigate or prosecute any alcohol or drug abuse patient.[facility] Encounter Details DateTypeDepartmentCare Team (Latest Contact Info)Lzfvocfbuxp60/02/2025Interfaced Data Process Analyst Management [address] [place] [address] Ambreen Harvey MD Social History Tobacco UseTypesPacks/DayYears UsedDateSmoking Tobacco: YgnxivYlzwaktxeg5648349 - 2020Passive Smoke Exposure: PastSmokeless Tobacco: NeverAlcohol UseStandard Drinks/WeekCommentsNot Currently0 (1 standard drink = 0.6 oz pure alcohol)PHQ-2 AnswerDate RecordedPHQ-2 qtbql03112/21/2023Hunger Vital SignAnswerDate Recorded Within the past 12 months, you worried that your food would run out before you got the money to buymore.Never true10/06/2025Within the past 12 months, the food you bought just didn't last and you didn't have money to get more.Never true 10/06/2025rea Deprivation IndexAnswerDate RecordedNational Score (1-100), lower number is lower ofot485905/02/2023State Score (1-10), lower number is lower risk8 3Data from: https://www.neighborhoodatlas.medicine.[facility].edu/. Last address used for iwfhkuylnon[address]CommentsNoSex and Gender InformationValueDate RecordedSex Assigned at YrlbvQkgacw73/07/2023 12:14 PM EDTLegal JkeUuuisv57/28/2018 11:13 AM EDTGender IdentityNot on fileSexual OrientationNot on filedocumented as of this encounter Plan of Treatment DateTypeDepartmentCare Team (Latest Contact Info)Xponociwecb87/15/2025 1:30 PM ESTAppointment Radiology Pet CT [address] [place] [address] PET11/17/2025 1:00 PM ESTOffice Visit [facility] [address] [place] [address] [place] [address] 3 week follow up Sjxaebuf52/22/2025 1:20 PM ESTVisit (SP) Office Hematology/Oncology [address] [place] [address] Federico Dyson MD [address] [place] [address] 3 week follow up Bapfjyee78/22/2025 1:45 PM ESTInfusion Center Hematology/Oncology [address] [place] [address] 3 week follow up Bhbbkylo49/12/2026 2:45 PM ESTOffice Visit [facility] [address] [place] [address] 3 week follow up Dlkkmtbq67/12/2026 3:00 PM ESTVisit (SP) Office Hematology/Oncology [address] [place] [address] Antoinette Crenshaw, PA-C [address] [place] [address] 3 week follow up Tqezqert56/12/2026 3:30 PM [facility] Hematology/Oncology [address] [place] [address] 3 week follow up Gfxwtljx72/02/2026 1:40 PM Rheumatology [address] [facility] [place] [address] Crissy Juan MD [address] [facility] [place], [place] [id number] Follow up visit for sjogrens/osteopenia/osteoarthritis in 6-12months (ok for virtual or in person)documented as of this encounter Visit Diagnoses Not on filedocumented in this encounter Care Teams Team MemberRelationshipSpecialtyStart DateEnd Date Nikolay Borges MD PCP - GeneralFamily Medicine11/27/15 Elina Raza, BITA.CODING CONSULTANT [address] [place] [address] [address] [place], [place] [id number] Nurse PractitionerHematology/Oncology05/17/23 Vianney Scherer, MIGUEL [address] [place] [address] [place] [address] Specialty Care CoordinatorHematology/Oncology05/17/[address] [place] [address] [place] [address] Registered DietitianNutrition05/28/24 Celina Hong LSW Social Xetpti10/28/24 Katie Segundo, MANJULA [address] [place] [address] [place] [address] Hlqodmuft77/10/25documented as of this encounter
--- OUTSIDE RECORDS SUMMARY | 2025-10-31 12:36 | XMS_ITS | Encounter Summary ---
Author Organization [facility] Address [address] [place] [address] Care Team Providers Care Elder Assistant Name Role Phone Nikolay Borges MD Primary Care Provider + Elina Raza APRN.FILTER BED PLACER Unavailable [phone] Vianney Scherer RN Unavailable [phone] Unavailable [phone] Celina Hong SUPERVISOR FELLING BUCKING Unavailable Unavailable Katie Segundo RD Unavailable [phone] Source Comments In the event this information is protected by the Federal Confidentiality of Alcohol and Drug AbusePatient Records regulations: The Federal rules restrict any use of the information to criminally investigate or prosecute any alcohol or drug abuse patient.[facility] Reason for Referral * MRI/CT (Routine) - New RequestSpecialtyDiagnoses / ProceduresReferred By ContactReferred To ContactMR IMAGING Diagnoses 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, 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FILTER BED PLACER [address] [facility] [address] Care Coordination (MRI) Social History Tobacco UseTypesPacks/DayYears UsedDateSmoking Tobacco: OsfefxKjwytascoc4859315 - 2019Passive Smoke Exposure: PastSmokeless Tobacco: NeverAlcohol UseStandard Drinks/WeekCommentsNot Currently0 (1 standard drink = 0.6 oz pure alcohol)PHQ-2 AnswerDate RecordedPHQ-2 gamou12112/21/2023Hunger Vital SignAnswerDate Recorded Within the past 12 months, you worried that your food would run out before you got the money to buymore.Never true10/06/2025Within the past 12 months, the food you bought just didn't last and you didn't have money to get more.Never true 10/06/2025rea Deprivation IndexAnswerDate RecordedNational Score (1-100), lower number is lower buaf297105/02/2023State Score (1-10), lower number is lower risk8 3Data from: https://www.neighborhoodatlas.medicine.[facility].edu/. Last address used for ytjwkdloozu[address]CommentsNoSex and Gender InformationValueDate RecordedSex Assigned at NcjwbYiihfp60/07/2023 12:14 PM EDTLegal ZktZunilt63/28/2018 11:13 AM EDTGender IdentityNot on fileSexual OrientationNot on filedocumented as of this encounter Miscellaneous Notes * Telephone Encounter - Ninfa Pham - 10/17/2025 12:47 PM EST Per Carmina, patient is scheduled for MRI on 10/31/2025 * Telephone Encounter - Ninfa Pham - 10/17/2025 10:58 AM EST ORDER RECVD. PATIENT TO BE CALLED * Telephone Encounter - Ninfa Pham - 10/15/2025 1:50 PM EST [facility]axed to [facility] * Telephone Encounter - Vianney Scherer RN - 10/15/2025 1:36 PM EST Pt notified and verbalizes understanding. PSS: Please schedule MRI for October @ [facility]. Pt not available 11/05-11/07. Vianney Scherer, RN * Telephone Encounter - Elina Raza APRN.CNP - 10/15/2025 1:21 PM EST Please schedule a 6 month brain MRI follow up for known mets monitoring. Notify patient. Last 05/09. Elina Duncan APRN.YOON documented in this encounter Plan of Treatment DateTypeDepartmentCare Team (Latest Contact Info)Tubtemuobqw39/15/2025 1:30 PM ESTAppointment Radiology Pet CT [address] [facility] [place] [address] PET11/17/2025 1:00 PM ESTOffice Visit [facility] [address] [facility] [place] [address] 3 week follow up Taaykils77/22/2025 1:20 PM ESTVisit (SP) Office Hematology/Oncology [address] [facility] [place] [address] Federico Dyson MD [address] [facility] [place] [address] 3 week follow up Zdlxqklc40/22/2025 1:45 PM ESTInfusion Center Hematology/Oncology [address] [place] [address] [place] [address] 3 week follow up Izovdqns26/12/2026 2:45 PM ESTOffice Visit [facility] [address] [facility] [place] [address] 3 week follow up Mtcwkjuo15/12/2026 3:00 PM ESTVisit (SP) Office Hematology/Oncology [address] [place] [address] [place] [address] Antoinette Crenshaw, PA-C [address] [facility] [place] [address] 3 week follow up Loageeco60/12/2026 3:30 PM ESTInfusion Center Hematology/Oncology [address] [place] [address] [place] [address] 3 week follow up Zqvbygyx21/02/2026 1:40 PM ESTDistance [facility] [address] [place] [address] Crissy Juan MD [address] [place] [address] Follow up visit for sjogrens/osteopenia/osteoarthritis in 6-12months (ok for virtual or in person)NameTypePriorityAssociated DiagnosesOrder ScheduleMRI BRAIN WO/W IVCONRadiologyRoutine 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, 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) 1 Occurrences starting 10/15/2025 until 11/14/2026documented as of this encounter Visit Diagnoses Diagnosis 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, right (HCC)- Primary 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) documented in this encounter Care Teams Team MemberRelationshipSpecialtyStart DateEnd Nikolay Borges MD PCP - GeneralFanmly Medicine11/27/15 Elina Raza APRN.FILTER BED PLACER [address] [place] [address] [place] [address] Nurse PractitionerHematology/Oncology05/17/23 Vianney Scherer, MIGUEL [address] [place] [address] [place] [address] Specialty Care CoordinatorHematology/Oncology05/17/[address] [place] [address] [place] [address] Registered DietitianNutrition05/28/24 Celina Hong LSW Social Zywfkb68/28/[address] [place] [address] [place] [address] Rjvsghqrp76/10/25documented as of this encounter
--- NOTE | 2025-10-31 12:37 | MR_ITS ---
The [address] [address] Patient Name: ROBINA BANKS MRN: [id number] date: 1955 Sex: F Assigned Patient Location: MRI Current Patient Location: MRI Accession/Order Number: [id number] Exam Date: 10/31/2025 12:45 Report Date: 10/31/2025 15:56 At the request of: ANNA MORALES Procedure: MR head/brain wo/w con MR head/brain wo/w con 10/31/2025 2:45 PM SIGN AND SYMPTOMS: ^Primary Lung Cancer With Metastasis To Other Site PROTOCOL: Multiplanar multisequence MR images of the brain with and without IV contrast CONTRAST: 12 mL of intravenous Dotarem COMPARISON: 05/09/2025 FINDINGS: Extra axial spaces: Mild age-related cortical atrophy is noted. Hemorrhage: None. Ventricular system: Within normal limits. Basal cisterns: Within normal limits and not effaced. Cerebral parenchyma: T2 and FLAIR hyperintense signal is noted in the periventricular and subcortical white matter. Midline shift: None.. Cerebellum: Within normal limits. Brainstem: T2 and FLAIR hyperintense signal is noted in the pontine white matter. OTHER: Calvarium: Normal marrow signal. Vascular system: Satisfactory flow voids within the anterior and posterior circulation. Visualized Paranasal sinuses: Within normal limits. Visualized Orbits: Within normal limits. Visualized upper cervical spine: Degenerative changes are noted in the upper cervical spine contributing to spinal canal stenosis. Sella and skull base: Within normal limits. MR/MR head/brain wo/w con IMPRESSION: No acute intracranial pathology or abnormal postcontrast enhancement. Chronic microvascular ischemic changes are noted with age-related cortical atrophy. Impression dictated by: Cornell Frank M.D. 10/31/2025 3:56 PM Dictation Location: [place] [address] Electronically authenticated by: [id number] Y Date: 10/31/2025 15:56
== END 2025-10-31 12:33 | disposition home or self-care (01) ==
LOC: MRI 12:32
PROVIDERS: PCP Family Medicine; Visit Provider Nurse Practitioner Family
DX: C34.91 Malignant neoplasm of unspecified part of right bronchus or lung (principal); C34.90 Malignant neoplasm of unspecified part of unspecified bronchus or lung; C79.31 Secondary malignant neoplasm of brain
CPT/HCPCS: 70553; A9575